=== PATIENT | female | born 1930 | race Hispanic/Latino ===

== ENCOUNTER 2016-10-03 22:59 | Inpatient (IN) | payer MEDICARE, BC ==
--- NOTE | 2016-10-03 23:02 | EDPD ---
HPI Stroke - General Time Seen by Provider: 10/03/16 23:02 Historian: Family (Daughter), EMS - History of Present Illness Narrative History of Present Illness (Free Text): 10/03/16 23:02 Maggie Oliva is an 86 year old female, whose past medical history includes atrial fibrillation, CHF, COPD, abdominal hernia, dementia, multiple UTIs, GI bleed, DVT, and thoracic aortic aneurysm, who presents to the Emergency department brought in by EMS accompanied by daughter complaining of altered mental status. Daughter states she went to check on the patient prior to arrival and noticed patient was not acting or responding as usual. Daughter reports patient was last seen normal 4 hours ago while lying down in bed. Daughter notes weakness to right upper extremity and right lower extremity. Limited HPI and ROS due to patient's altered mental status. Date:: 10/03/16 Time: 23:02 Onset:: Hours Timing: Currently Symptomatic Context: Home Exacerbated by: Nothing Relieved by: Nothing - Location Locate Right: Upper extremity, Lower extremity rTPA Inclusion/Exclusion - Refusal of Treatment Patient Refused Treatment: No - Inclusion Criteria for Altepase Patient is 18 years or Older: Yes The Clinical Diagnosis of Ischemic Stroke That is Causing a Potentially Disabling Neurological Deficit: No Time of Onset is Well Established to be Less Than 270 Minute Before Treatment Would Begin: Yes Risk/Benefit Discussed With Patient/Family Member Present: Yes - Exclusion Criteria for Altepase Uncontrolled Hypertension at Time of Treatment (Systolic BP above 185 or Diastolic BP above 110 mmHg): No Active Internal Bleeding: No Known Bleeding Diathesis Including but Not Limited to: Platelets Below 100,000/ mm,PTT Above 40 sec After Heparin Use, Current Use of Oral Anitcoagulant With INR Greater Than 1.7 or PT Greater Than 15 secs: No Evidence of an Intracranial Hemorrhage: No Evidence of Major Acute Infarct With Signs Greater Than 1/3 MCA Territory: No Suspicion of Subarachnoid Hemorrhage on Pretreatment Evaluation Even if CT Head Negative For Hemorrhage: No - Warning to TPA With Conditions Following Conditions Weighed Against Anticipated Benefit: Yes Condition: Stroke Serevity Too Mild, Rapid Improvement, Age Greater Than 75 years Additional Condition (For 3-4.5 Hour Window): Age Greater Than 80 Past Medical History - Provider Review Nursing Documentation Reviewed: Yes - Infectious Disease Hx of Infectious Diseases: None - Tetanus Immunization Tetanus Immunization: Unknown - Cardiac Hx Cardiac Disorders: Yes Hx Congestive Heart Failure: Yes - Pulmonary Hx Chronic Obstructive Pulmonary Disease (COPD): Yes - Neurological Hx Dementia: Yes - Renal Hx Renal Disorder: No - Endocrine/Metabolic Hx Endocrine Disorders: No - Hematological/Oncological Hx Blood Transfusions: Yes - Integumentary Hx Dermatological Disorder: Yes Other/Comment: L LEG LESION - Musculoskeletal/Rheumatological Hx Falls: Yes - Gastrointestinal Hx Gastrointestinal Disorders: Yes (CONSTIPATION) Hx Diverticulitis: Yes - Genitourinary/Gynecological Hx Incontinence: Yes - Psychiatric Hx Psychophysiologic Disorder: No Hx Emotional Abuse: No Hx Physical Abuse: No Hx Substance Use: No - Past Surgical History Past Surgical History: No Previous - Surgical History Hx Orthopedic Surgery: Yes (L HIP) Other/Comment: ABD HERNIA REPAIR - Anesthesia Hx Anesthesia: Yes Hx Anesthesia Reactions: No Hx Malignant Hyperthermia: No - Suicidal Assessment Feels Threatened In Home Enviroment: No Family/Social History - Family/Social History Family History: Non-Contributory - Dr. He Nursing documentation reviewed.: Yes Allergies/Home Meds Allergies/Adverse Reactions: Allergies No Known Allergies Allergy (Verified 10/03/16 23:14) Home Medications: Home Meds Medication Instructions Recorded Confirmed Pantoprazole Sodium [Protonix] 40 mg PO DAILY 08/10/14 07/11/16 Acetaminophen with Codeine 1 tab PO .DINNER 07/11/16 07/11/16 [Tylenol with Codeine #3 Tablet] Clonazepam [Klonopin] 0.5 mg PO HS PRN 07/11/16 07/11/16 Cranberry 0 mg PO BID 07/11/16 07/11/16 Digoxin 125 mcg PO .DINNER 07/11/16 07/11/16 Docusate [Colace] 100 mg PO BID 07/11/16 07/11/16 Melatonin 10 mg PO HS 07/11/16 07/11/16 QUEtiapine [Seroquel] 2 tab PO HS PRN 07/11/16 07/11/16 Spironolactone [Aldactone] 25 mg PO BID 07/11/16 07/11/16 Warfarin [Coumadin] 2 mg PO HS 07/11/16 07/11/16 Review of Systems - Review of Systems Systems not reviewed;Unavailable: Altered Mental Status Neurological: Other (+right arm/leg weakness) Psychiatric: Other (+altered mental status) ED Stroke Physical Exam Vital Signs Reviewed: Yes Temperature: Febrile Blood Pressure: Normal Pulse: Tachycardic Respiratory Rate: Normal Appearance: Positive for: Non-Toxic Pain Distress: None Mental Status: Positive for: other (Alert, answers to questioning) - Systems Exam Head: Present: Atraumatic, Normocephalic Pupils: Present: PERRL Extroacular Muscles: Present: EOMI Conjunctiva: Present: Normal Mouth: Present: Moist Mucous Membranes Neck: Present: Normal Range of Motion Respiratory/Chest: Present: Clear to Auscultation, Good Air Exchange. No: Respiratory Distress, Accessory Muscle Use Cardiovascular: Present: Regular Rate and Rhythm, Normal S1, S2. No: Murmurs Abdomen: Present: Normal Bowel Sounds. No: Tenderness, Distention, Peritoneal Signs Upper Extremity: Present: NORMAL PULSES, Other (Minimal right upper extremity weakness). No: Cyanosis, Edema, Tenderness, Swelling, Deformity Lower Extremity: Present: NORMAL PULSES. No: Edema, Cyanosis, Tenderness, Swelling, Deformity Neurologic: Present: GCS=15, CN II-XII Intact, Speech Normal, Other (Minimal right upper extremity and right lower extremity weakness) Skin: Present: Warm, Dry, Normal Color. No: Rashes Psychiatric: Present: Alert, Other (Answers to questioning) Medical Decision Making ED Course and Treatment: 10/03/16 23:02 Impression: 86 year old female brought in by EMS for AMS and right arm/leg weakness tonight. Differential Diagnosis include but are not limited to: TIA vs. CVA Plan: -- CT Head w/o contrast -- EKG -- Chest X-ray -- Labs, troponin, lipid panel, blood type and screen -- Reassess and disposition Prior Visits: Notes and results from previous visits were reviewed. Progress Notes: 10/03/16 23:02 Code Stroke called. Pt taken to CT scan. 10/03/16 23:19 Reviewed radiology, CT Head shows: No evidence of acute infarct or intracranial hemorrhage. Opacification of the left mastoid cells consistent with mastoiditis. Otherwise no evidence of acute disease. 10/03/16 23:32 Reviewed EKG, sinus tachycardia at 119 bpm. RBBB. LAD. LVH with repolarization abnormality. 10/04/16 00:10 Pt febrile, tachy, with lactate of 3.3. Code Sepsis called. 10/04/16 00:14 Chest X-ray shows questionable left lower lung infiltrate. 10/04/16 00:19 Case discussed with medical sales specialist , Guillermo Chatman and wood patternmaker apprentice . 10/04/16 00:58 Pt with resolution of right upper/lower extremity weakness, pt not a candidate for tPA. had been called 10/04/16 03:38 Pt.with repeat VBG lactate decreased.IV fluids/antibiotics had been administered.Case was d/w who evaluated the pt.Agrees pt. may go to telemetry bed.Pt. is stable.Pt. with DNR status. spoken with. - Critical Care Critical Care Minutes: 30 minutes - Lab Interpretations I have reviewed the lab results: Yes Interpretation: Abnormal lab values - RAD Interpretation Narrative RAD Interpretations (Text): , CT Head shows: Brain: There is diffuse cerebral atrophy present, consistent with this patient' s age. There are chronic microvascular ischemic changes. No hemorrhage. Ventricles: Unremarkable. No ventriculomegaly. Bones/joints: Unremarkable. No acute fracture. Soft tissues: Unremarkable. Sinuses: Unremarkable as visualized. No acute sinusitis. Mastoid air cells: There is mild partial opacification of the left mastoid air cells. IMPRESSION: No evidence of acute infarct or intracranial hemorrhage. Opacification of the left mastoid cells consistent with mastoiditis. Otherwise no evidence of acute disease. Cement Fittings Maker: ED Physician, Radiologist - EKG Interpretation Interpreted by ED Physician: Yes Type: 12 lead EKG NIHSS Scale([place]) 2 Time Performed: 23:40 - How Severe is the Stoke Baseline Level of Consciousness: 0=Alert LOC to Questions: 0=Both comments correct LOC to commands: 0=Obeys both correctly Best Gaze: 0=Normal Visual: 0=No visual loss Facial: 0=Normal Motor Arm - Left: 0=No drift Motor Arm - Right: 0=No drift Motor Leg - Left: 0=No drift Motor Leg - Right: 0=No drift Limb Ataxia: 0=Absent Sensory: 0=Normal Best Language: 0=No aphasia Dysarthia: 0=Normal articulation Extinction & Inattention (Neglect): 0=Normal, no object Score: 0 Risk Level: No Stroke Risk - Scribe Statement The provider has reviewed the documentation as recorded by the Brittani Littlejohn Provider Attestation: All medical record entries made by the Scribe were at my direction and personally dictated by me. I have reviewed the chart and agree that the record accurately reflects my personal performance of the history, physical exam, medical decision making, and the department course for this patient. I have also personally directed, reviewed, and agree with the discharge instructions and disposition. NIHSS Scale ([place]) Time Performed: 23:00 - How Severe is the Stoke Baseline Level of Consciousness: 0=Alert LOC to Questions: 0=Both comments correct LOC to commands: 0=Obeys both correctly Best Gaze: 0=Normal Visual: 0=No visual loss Facial: 0=Normal Motor Arm - Left: 0=No drift Motor Arm - Right: 1=Drift noted before 10 sec Motor Leg - Left: 0=No drift Motor Leg - Right: 1=Drift before 5 sec Limb Ataxia: 0=Absent Sensory: 0=Normal Best Language: 0=No aphasia Dysarthia: 0=Normal articulation Extinction & Inattention (Neglect): 0=Normal, no object Score: 2 Risk Level: Minor Stroke Risk Disposition/Present on Arrival - Present on Arrival Any Indicators Present on Arrival: No History of DVT/PE: No History of Uncontrolled Diabetes: No Urinary Catheter: No History of Decub. Ulcer: No History Surgical Site Infection Following: None - Disposition Have Diagnosis and Disposition been Completed?: Yes Diagnosis: Sepsis, TIA (transient ischemic attack) Disposition: HOSPITALIZED Disposition Time: 03:47 Patient Plan: Admission Patient Problems: Current Active Problems Problem Status Diagnosed Sepsis Acute TIA (transient ischemic attack) Acute Condition: STABLE
[2016-10-03 23:03] VITALS: BMI 28.5
[2016-10-03 23:33] LABS: HEMATOCRIT 39.2 % (36.0-48.0); MEAN CELL VOLUME 78.7 fL (80.0-105.0); MEAN CORPUSCULAR HEMOGLOBIN 24.7 pg (25.0-35.0); MEAN CORPUSCULAR HGB CONC 31.4 g/dl (31.0-37.0); MEAN PLATELET VOLUME 9.3 fl (7.0-11.0); PLATELET COUNT 239 10^3/uL (120.0-450.0); RED CELL DISTRIBUTION WIDTH 17.1 % (11.5-14.5); WHITE BLOOD COUNT 8.5 10^3/ul (4.5-11.0)
[2016-10-03 23:37] LABS: ADD MANUAL DIFF? YES
[2016-10-03 23:42] LABS: VENOUS BLOOD GAS BASE EXCESS -0.2 mmol/L (0.0-2.0); VENOUS BLOOD PH 7.47 (7.32-7.43)
[2016-10-03 23:45] LABS: URINE BILIRUBIN NEGATIVE (NEGATIVE); URINE BLOOD SMALL (NEGATIVE); URINE GLUCOSE (UA) NEGATIVE (NEGATIVE); URINE KETONE NEGATIVE (NEGATIVE); URINE LEUKOCYTE ESTERASE LARGE Leu/uL (NEGATIVE); URINE PROTEIN 100 mg/dL (<30 mg/dL); URINE UROBILINOGEN 0.2 E.U./dL (<1 E.U./dL)
[2016-10-03 23:45] LABS: ALKALINE PHOSPHATASE 97 U/L (38-133); ALT/SGPT 25 U/L (7-56); AST/SGOT 22 U/L (15-39); BILIRUBIN,TOTAL 0.6 mg/dL (0.2-1.3); BLOOD UREA NITROGEN 18 mg/dL (7-21); CALCIUM 10.3 mg/dL (8.4-10.5); CARBON DIOXIDE 22 mmol/L (21-33); CHLORIDE 105 mmol/L (98-107); CHOLESTEROL 130 mg/dL (130-200); GFR AFRICAN-AMERICAN > 60; GLUCOSE,RANDOM 139 mg/dL (70-110); INR 1.27 (0.93-1.08); PARTIAL THROMBOPLASTIN TIME 25.9 Seconds (23.7-30.8); POTASSIUM 3.4 mmol/L (3.6-5.0); SODIUM 141 mmol/L (132-148); TOTAL PROTEIN 7.7 g/dL (5.8-8.3)
[2016-10-03 23:47] LABS: URINE APPEARANCE CLOUDY (CLEAR); URINE COLOR YELLOW (YELLOW)
[2016-10-03] MEDS: Sodium Chloride 0.9% 1,000 ML IV SCH (23:47)
[2016-10-03 23:53] LABS: URINE BACTERIA MANY (NEG); URINE WBC 15 - 20 /hpf (0-6)
[2016-10-03 23:57] LABS: TROPONIN I < 0.01 ng/mL
[2016-10-04] MEDS ORDERED: Sodium Chloride 0.9% 1,000 ML IV STA ×3 (00:13→01:53)
[2016-10-04] MEDS ORDERED: Vancomycin 1gm in NS 250ml 250 ML IVPB STA (00:15)
[2016-10-04] MEDS ORDERED: Cefepime IV 2 gm in NS 100 ML IVPB STA (00:15)
[2016-10-04 00:16] LABS: NEUTROPHIL 84 % (50.0-70.0)
[2016-10-04 00:18] LABS: BAND 11 % (0-2); PLATELET ESTIMATE NORMAL (NORMAL)
--- NOTE | 2016-10-04 01:31 | CP.PCM.HP ---
<Julita Genao - Last Filed: 10/04/16 03:06> History of Present Illness - History of Present Illness History of Present Illness: 86 F with PMHx of AFib on coumadin, CHF, COPD, urinary incontinence, AAA and thoracic aortic aneurysm, multiple UTIs, GI bleed, DVT, and dementia presents to [facility] with complaints of AMS. Pt's daughter is at bedside, she reports that the patient was restless at home and would set off the bed alarm trying to get out of bed. She was found to be out of bed and in her wheelchair at the doorway without any recollection of how she got there or why. Pt's daughter returned her to her bed. However, at approximately 5pm pt was found to have vomited on herself with thick mucus laden emesis. As per pt daughter, she was not acting like herself or responding appropriately and noticed an associated Rt sided weakness in both upper extremity and lower extremity. Of note, pt has a hx of rt hip fx and arthritis. Upon these constellation of symptoms, pt's daughter decided to bring her mother to the [facility]. A code stroke was called in the ED following complaints of RUE and RLE weakness and AMS. Pt's CTH was not found to demonstrate any acute intracranial pathology. Upon further labwork and imaging, pt was found to be in severe sepsis, and a code sepsis was called. Pt was seen and examined at bedside with daughter present. She is AAOx3, following commands , and has complaints of "not feeling too well". Pt admits to chills and hip pain. She denied fever, headaches, sob, chest pains, palpitations, abdominal pains, n/v/d/c. PMHx: AFib on coumadin, CHF, COPD, urinary incontinence, AAA and thoracic aortic aneurysm, multiple UTIs, GI bleed, DVT, and dementia PSHx: Abdominal hernia repair, Left Hip SHx: Denied tobacco/etoh/illicit drug abuse. Lives with daughter who is POA. Walker to ambulate FamHx: Noncontributory Meds: MAR reviewed Allergies: NKDA Present on Admission - Present on Admission Any Indicators Present on Admission: Yes History of DVT/PE: Yes History of Uncontrolled Diabetes: No Urinary Catheter: No Decubitus Ulcer Present: No Review of Systems - Review of Systems Review of Systems: as per HPI otherwise negative Past Patient History - Infectious Disease Hx of Infectious Diseases: None - Tetanus Immunizations Tetanus Immunization: Unknown - Past Social History Smoking Status: Former Smoker - CARDIAC Hx Cardiac Disorders: Yes Hx Congestive Heart Failure: Yes - PULMONARY Hx Chronic Obstructive Pulmonary Disease (COPD): Yes - NEUROLOGICAL Hx Dementia: Yes - RENAL Hx Chronic Kidney Disease: No - ENDOCRINE/METABOLIC Hx Endocrine Disorders: No - HEMATOLOGICAL/ONCOLOGICAL Hx Blood Transfusions: Yes - INTEGUMENTARY Hx Dermatological Problems: Yes Other/Comment: L LEG LESION - MUSCULOSKELETAL/RHEUMATOLOGICAL Hx Falls: Yes - GASTROINTESTINAL Hx Gastrointestinal Disorders: Yes (CONSTIPATION) Hx Diverticulitis: Yes - GENITOURINARY/GYNECOLOGICAL Hx Incontinence: Yes - PSYCHIATRIC Hx Psychophysiologic Disorder: No Hx Emotional Abuse: No Hx Physical Abuse: No Hx Substance Use: No - SURGICAL HISTORY Hx Orthopedic Surgery: Yes (L HIP) Other/Comment: ABD HERNIA REPAIR - ANESTHESIA Hx Anesthesia: Yes Hx Anesthesia Reactions: No Hx Malignant Hyperthermia: No Meds Allergies/Adverse Reactions: Allergies Allergy/AdvReac Type Severity Reaction Status Date / Time No Known Allergies Allergy Verified 10/03/16 23:14 Physical Exam - Constitutional Appears: Non-toxic, No Acute Distress - Head Exam Head Exam: ATRAUMATIC, NORMAL INSPECTION, NORMOCEPHALIC - Eye Exam Eye Exam: EOMI, Normal appearance, PERRL Pupil Exam: NORMAL ACCOMODATION, PERRL - ENT Exam ENT Exam: Mucous Membranes Dry - Neck Exam Neck exam: Positive for: Normal Inspection - Respiratory Exam Respiratory Exam: Decreased Breath Sounds, NORMAL BREATHING PATTERN. absent: Rales, Rhonchi, Wheezes - Cardiovascular Exam Cardiovascular Exam: REGULAR RHYTHM, +S1, +S2 - GI/Abdominal Exam GI & Abdominal Exam: Normal Bowel Sounds, Soft. absent: Tenderness - Extremities Exam Extremities exam: Positive for: normal inspection, tenderness. Negative for: calf tenderness, pedal edema - Neurological Exam Neurological exam: Alert, CN II-XII Intact, Oriented x3, Reflexes Normal - Psychiatric Exam Psychiatric exam: Normal Affect, Normal Mood - Skin Skin Exam: Dry, Intact, Normal Color, Warm Results - Vital Signs Recent Vital Signs: Last Vital Signs Temp 101.6 F H 10/04/16 00:33 Pulse 106 H 10/04/16 00:33 Resp 18 10/04/16 00:33 BP 100/62 10/04/16 00:33 Pulse Ox 96 10/04/16 00:33 - Labs Result Diagrams: 10/03/16 23:15 10/03/16 23:15 Labs: Laboratory Results - last 24 hr 10/03/16 10/03/16 23:15 23:36 WBC 8.5 RBC 4.98 Hgb 12.3 Hct 39.2 MCV 78.7 L MCH 24.7 L MCHC 31.4 RDW 17.1 H Plt Count 239 MPV 9.3 Neutrophils % (Manual) 84 H Band Neutrophils % 11 H* Lymphocytes % (Manual) 4 L Monocytes % (Manual) 1 Platelet Evaluation Normal PT 13.7 H INR 1.27 H APTT 25.9 pO2 60 H VBG pH 7.47 H VBG pCO2 31.0 L VBG HCO3 22.6 VBG Total CO2 23.6 VBG O2 Sat (Calc) 95.6 H VBG Base Excess -0.2 L VBG Potassium 3.5 L Sodium 141 Chloride 105 Glucose 142 H Lactate 3.3 H FiO2 21.0 Potassium 3.4 L Carbon Dioxide 22 Anion Gap 17 BUN 18 Creatinine 0.7 Est GFR ( Amer) > 60 Est GFR (Non-Af Amer) > 60 Random Glucose 139 H Calcium 10.3 Total Bilirubin 0.6 AST 22 ALT 25 Alkaline Phosphatase 97 Troponin I < 0.01 Total Protein 7.7 Albumin 3.9 Globulin 3.8 Albumin/Globulin Ratio 1.0 L Triglycerides 174 H Cholesterol 130 LDL Cholesterol Direct 74 HDL Cholesterol 23 L Venous Blood Potassium 3.5 L Urine Color Yellow Urine Appearance Cloudy Urine pH 6.0 Ur Specific [place] >= 1.030 Urine Protein 100 H Urine Glucose (UA) Negative Urine Ketones Negative Urine Blood Small H Urine Nitrate Negative Urine Bilirubin Negative Urine Urobilinogen 0.2 Ur Leukocyte Esterase Large H Urine RBC 1 - 3 Urine WBC 15 - 20 Ur Epithelial Cells 1 - 3 Urine Bacteria Many Blood Type O POSITIVE Antibody Screen Negative BBK History Checked Patient has bt Assessment & Plan - Assessment and Plan (Free Text) Assessment: 86 F with PMHx of AFib on coumadin, CHF, COPD, urinary incontinence, AAA and thoracic aortic aneurysm, multiple UTIs, GI bleed, DVT, and dementia presents to [facility] with complaints of AMS, found to have severe sepsis with possible LLL pna and UTI as potential sources. 1. Severe Sepsis - febrile, tachycardic, UTI and LLL infiltrate - Bandemia on CBC, lactate 3.3 - Fluid resuscitated, fu repeat lactic acid and reassess IVF - lactic acid downtrending, hypotensive, further fluid resuscitation - Cefepime and Vanco - Fu BCx, UCx, repeat CXR - ID Consulted, Dr. Barnett 2. AMS - likely 2/2 sepsis - CTH negative - No further R sided weakness - AAOx3, continue to monitor - continue home meds for dementia - Monitor Elytes and supplement as needed 3. Afib - Digoxin and coumadin - Fu digoxin level - continue to monitor 4. CHF - Continue to monitor with fluid resuscitation - digoxin - strict I&Os - hazel in place 5. COPD - Duonebs prn - maintain 02 sat >88% - continue to monitor 6. DVT ppx 7. GI ppx Seen reviewed and discussed with attending <Rebeca Tai - Last Filed: 10/04/16 03:38> Results - Vital Signs Recent Vital Signs: Last Vital Signs Temp 101.6 F H 10/04/16 00:33 Pulse 80 10/04/16 02:50 Resp 17 10/04/16 02:50 BP 89/46 L 10/04/16 02:50 Pulse Ox 98 10/04/16 02:50 - Labs Result Diagrams: 10/03/16 23:15 10/03/16 23:15 Labs: Laboratory Results - last 24 hr 10/03/16 10/03/16 10/04/16 23:15 23:36 02:20 WBC 8.5 RBC 4.98 Hgb 12.3 Hct 39.2 MCV 78.7 L MCH 24.7 L MCHC 31.4 RDW 17.1 H Plt Count 239 MPV 9.3 Neutrophils % (Manual) 84 H Band Neutrophils % 11 H* Lymphocytes % (Manual) 4 L Monocytes % (Manual) 1 Platelet Evaluation Normal PT 13.7 H INR 1.27 H APTT 25.9 pO2 60 H 55 VBG pH 7.47 H 7.30 L VBG pCO2 31.0 L 50.0 VBG HCO3 22.6 24.6 VBG Total CO2 23.6 26.1 VBG O2 Sat (Calc) 95.6 H 88.5 H VBG Base Excess -0.2 L -2.4 L VBG Potassium 3.5 L 3.3 L Sodium 141 142.0 Chloride 105 114.0 H Glucose 142 H 137 H Lactate 3.3 H 2.7 H FiO2 21.0 21.0 Potassium 3.4 L Carbon Dioxide 22 Anion Gap 17 BUN 18 Creatinine 0.7 Est GFR ( Amer) > 60 Est GFR (Non-Af Amer) > 60 Random Glucose 139 H Calcium 10.3 Total Bilirubin 0.6 AST 22 ALT 25 Alkaline Phosphatase 97 Troponin I < 0.01 Total Protein 7.7 Albumin 3.9 Globulin 3.8 Albumin/Globulin Ratio 1.0 L Triglycerides 174 H Cholesterol 130 LDL Cholesterol Direct 74 HDL Cholesterol 23 L Venous Blood Potassium 3.5 L 3.3 L Urine Color Yellow Urine Appearance Cloudy Urine pH 6.0 Ur Specific [place] >= 1.030 Urine Protein 100 H Urine Glucose (UA) Negative Urine Ketones Negative Urine Blood Small H Urine Nitrate Negative Urine Bilirubin Negative Urine Urobilinogen 0.2 Ur Leukocyte Esterase Large H Urine RBC 1 - 3 Urine WBC 15 - 20 Ur Epithelial Cells 1 - 3 Urine Bacteria Many Blood Type O POSITIVE Antibody Screen Negative BBK History Checked Patient has bt Attending/Attestation - Attestation I have personally seen and examined this patient.: Yes I have fully participated in the care of the patient.: Yes I have reviewed all pertinent clinical information: Yes Notes (Text): 10/04/16 03:29 Patient was seen when she was in the ER in bed # 8. Agree with history, physical examination, assessment and plan. Following should be included. This 86 year old white woman who has history of UTI,COPD ,Atrial fibrillation, CHF,Dementia,Hx GI bleeding,Hx DVT.,Hx Thoracic aortic aneurism, Left hip replacement,Arthritis-Left hip,Family history -Lung cancer ,multiple members. History abdominal aortic aneruism,History macular degeneration,HIstory bilateral cataract,Left ear deafness,history blood transfusion,GERD/PUD. History endoscopy/colonoscopy,History depression , was on welbutrin 1 year ago is admitted with altered mental status, hypokalemia, bandemia, sepsis, dehydration, elevated lactate level, mastoiditis.
[2016-10-04] MEDS: Digoxin 125 mcg (0.125 mg) Tab PO SCH (02:09)
[2016-10-04] MEDS ORDERED: Potassium Chloride 20 mEq ER Tab PO STA (02:09)
[2016-10-04 02:36] LABS: VENOUS BLOOD GAS BASE EXCESS -2.4 mmol/L (0.0-2.0)
[2016-10-04] MEDS: Potassium Chloride 10 mEq 100 ML IVPB SCH ×2 (03:34→05:17)
[2016-10-04] MEDS: Sodium Chloride 0.9% 1,000 ML IV SCH ×3 (04:13→21:56)
--- NOTE | 2016-10-04 06:51 | PCM.SEPTIC ---
Sepsis Progress Note - Reassessment Type Date of Evaluation: 10/04/16 Time of Evaluation: 06:00 Reassessment Type: Non-invasive reassessment - Non Invasive Reassessment Were the most recent vital sign reviewed: Yes Vital Sign (Latest): Temp Pulse Resp BP Pulse Ox 97.8 F 59 L 18 94/52 L 98 10/04/16 05:20 10/04/16 05:20 10/04/16 05:20 10/04/16 05:20 10/04/16 04:24 Cardiovascular: Yes: Regular Rate, Rhythm Respiratory: Yes: Normal Breath Sounds Capillary Refill: Normal (Less than 2 sec) Skin: Normal Color, Warm, Dry (BP mildly improved, AAOx3- somnolent but arousable, questionable urine output - hazel in place without output however sheet underneath wet, nurse to recatheterize pt. )
--- NOTE | 2016-10-04 07:30 | CT ---
PROCEDURE: CT HEAD WITHOUT CONTRAST. HISTORY: CODE STROKE COMPARISON: None available. TECHNIQUE: Axial computed tomography images were obtained through the head/brain without intravenous contrast. Radiation dose: Total exam DLP = 745 mGy-cm. This CT exam was performed using one or more of the following dose reduction techniques: Automated exposure control, adjustment of the mA and/or kV according to patient size, and/or use of iterative reconstruction technique. FINDINGS: HEMORRHAGE: No intracranial hemorrhage. BRAIN: No mass effect or edema. Chronic periventricular white matter ischemic disease. VENTRICLES: Unremarkable. No hydrocephalus. CALVARIUM: Unremarkable. PARANASAL SINUSES: Unremarkable as visualized. No significant inflammatory changes. MASTOID AIR CELLS: Unremarkable as visualized. No inflammatory changes. OTHER FINDINGS: None. IMPRESSION: No acute hemorrhage.
[2016-10-04 07:59] LABS: ADD MANUAL DIFF? NO
[2016-10-04 08:04] LABS: BASO # 0.02 K/mm3 (0.0-2.0); BASO % 0.1 % (0.0-3.0); EOS % 0.1 % (1.5-5.0); GRAN # 15.56 (1.4-6.5); GRAN % 91.6 % (50.0-68.0); HEMATOCRIT 33.5 % (36.0-48.0); LYMPH # 0.6 (1.2-3.4); LYMPH % 3.7 % (22.0-35.0); MEAN CELL VOLUME 80.5 fL (80.0-105.0); MEAN CORPUSCULAR HEMOGLOBIN 24.5 pg (25.0-35.0); MEAN CORPUSCULAR HGB CONC 30.4 g/dl (31.0-37.0); MEAN PLATELET VOLUME 9.5 fl (7.0-11.0); MONO # 0.8 (0.1-0.6); MONO % 4.5 % (1.0-6.0); PLATELET COUNT 225 10^3/uL (120.0-450.0); RED CELL DISTRIBUTION WIDTH 17.4 % (11.5-14.5)
[2016-10-04 08:12] LABS: VENOUS BLOOD GAS BASE EXCESS -2.4 mmol/L (0.0-2.0); VENOUS BLOOD PH 7.35 (7.32-7.43)
[2016-10-04 08:14] LABS: ALB/GLOB RATIO 0.9 (1.1-1.8); ALKALINE PHOSPHATASE 58 U/L (38-133); ALT/SGPT 23 U/L (7-56); AST/SGOT 15 U/L (15-39); BILIRUBIN,TOTAL 0.5 mg/dL (0.2-1.3); BLOOD UREA NITROGEN 17 mg/dL (7-21); CALCIUM 8.9 mg/dL (8.4-10.5); CARBON DIOXIDE 22 mmol/L (21-33); CHLORIDE 112 mmol/L (95-110); GFR AFRICAN-AMERICAN > 60; GLUCOSE,RANDOM 133 mg/dL (70-110); MAGNESIUM 1.7 mg/dL (1.7-2.2); PHOSPHOROUS 2.7 mg/dL (2.5-4.5); POTASSIUM 4.3 mmol/L (3.6-5.0); SODIUM 143 mmol/L (132-148); TOTAL PROTEIN 6.2 g/dL (5.8-8.3)
[2016-10-04 08:23] LABS: INR 1.37 (0.93-1.08)
--- NOTE | 2016-10-04 08:28 | RAD ---
PROCEDURE: CHEST RADIOGRAPH, 1 VIEW HISTORY: cva COMPARISON: None available. FINDINGS: LUNGS: Can't exclude left lower lobe infiltrate. PLEURA: No pneumothorax or pleural fluid seen. CARDIOVASCULAR: Cardiomegaly with atherosclerotic, uncoiled aorta. OSSEOUS STRUCTURES: No significant abnormalities. VISUALIZED UPPER ABDOMEN: Normal. OTHER FINDINGS: None. IMPRESSION: Cannot exclude small left lower lobe infiltrate.
[2016-10-04] MEDS: Nystatin 100,000 Units/gm Topical Pow(15 gm) TOP SCH ×2 (09:39→17:27)
[2016-10-04] MEDS: Vancomycin 1gm in NS 250ml 250 ML IVPB SCH ×2 (09:42→21:56)
[2016-10-04] MEDS: Pantoprazole 40 mg EC Tab PO SCH (09:42)
[2016-10-04] MEDS ORDERED: Vancomycin 1gm in NS 250ml 250 ML IVPB SCH (10:00)
[2016-10-04] MEDS ORDERED: Cefepime IV 2 gm in NS 100 ML IVPB SCH (10:00)
[2016-10-04 11:39] LABS: VENOUS BLOOD GAS BASE EXCESS -3.6 mmol/L (0.0-2.0); VENOUS BLOOD PH 7.27 (7.32-7.43)
--- NOTE | 2016-10-04 13:08 | CP.PCM.CON ---
History of Present Illness - History of Present Illness History of Present Illness: 86 year old female with PMH of atrial fibrillation, COPD, chronic CHF, dementia , abdominal aortic aneurysm, history of multiple UTI's, history of GI bleed, history of DVT, history of right hip fracture was brought in by family because the patient was apparently getting restless. She also had one episode of vomiting with mucous noted in the vomitus. There was no note of loss of consciousness, no seizure activity, no bowel or bladder or incontinence. The patient currently is awake and alert, and she does not recall being brought to the hospital. She denies rhinorrhea, no sore throat, no cough, no SOB, no abdominal pain, no dysuria, no diarrhea. In the ED, CXR was done which shows a left base opacity. She was also noted to be febrile in the ED. Infectious diseases consult is requested to further evaluate and manage. Review of Systems - Review of Systems All systems: reviewed and no additional remarkable complaints except (as per HPI ) Past Patient History - Infectious Disease Hx of Infectious Diseases: None - Tetanus Immunizations Tetanus Immunization: Unknown - Past Medical History & Family History Past Medical History?: Yes Past Family History: Reviewed and not pertinent - Past Social History Smoking Status: Former Smoker Alcohol: None Drugs: Denies Home Situation {Lives}: With Family - CARDIAC Hx Cardiac Disorders: Yes Hx Congestive Heart Failure: Yes - PULMONARY Hx Chronic Obstructive Pulmonary Disease (COPD): Yes - NEUROLOGICAL Hx Dementia: Yes - RENAL Hx Chronic Kidney Disease: No - ENDOCRINE/METABOLIC Hx Endocrine Disorders: No - HEMATOLOGICAL/ONCOLOGICAL Hx Blood Transfusions: Yes - INTEGUMENTARY Hx Dermatological Problems: Yes Other/Comment: L LEG LESION - MUSCULOSKELETAL/RHEUMATOLOGICAL Hx Falls: Yes - GASTROINTESTINAL Hx Gastrointestinal Disorders: Yes (CONSTIPATION) Hx Diverticulitis: Yes - GENITOURINARY/GYNECOLOGICAL Hx Incontinence: Yes - PSYCHIATRIC Hx Psychophysiologic Disorder: No Hx Emotional Abuse: No Hx Physical Abuse: No Hx Substance Use: No - SURGICAL HISTORY Hx Orthopedic Surgery: Yes (L HIP) Other/Comment: ABD HERNIA REPAIR - ANESTHESIA Hx Anesthesia: Yes Hx Anesthesia Reactions: No Hx Malignant Hyperthermia: No Meds Allergies/Adverse Reactions: Allergies Allergy/AdvReac Type Severity Reaction Status Date / Time No Known Allergies Allergy Verified 10/03/16 23:14 - Medications Medications: Current Medications Albuterol/Ipratropium (Duoneb 3 Mg/0.5 Mg (3 Ml) Ud) 3 ml IH [id number] PRN PRN Reason: Shortness of Breath Digoxin (Lanoxin) 0.125 mg PO 1400 [facility] Last Admin: 10/04/16 02:09 Dose: Not Given Docusate Sodium (Colace) 100 mg PO BID [facility] Sodium Chloride (Sodium Chloride 0.9%) 1,000 mls @ 100 mls/hr IV .Q10H ERINN Last Admin: 10/04/16 04:13 Dose: 100 mls/hr Cefepime HCl (Maxipime 2gm) 100 mls @ 100 mls/hr IVPB DAILY ERINN PRN Reason: Protocol Stop: 10/09/16 10:01 Vancomycin HCl (Vancomycin 1gm) 250 mls @ 167 mls/hr IVPB DAILY ERINN PRN Reason: Protocol Pantoprazole Sodium (Protonix Ec Tab) 40 mg PO DAILY [facility] Quetiapine Fumarate (Seroquel) 25 mg PO HS PRN; Protocol PRN Reason: Insomnia Warfarin Sodium (Coumadin) 2 mg PO 1800 ERINN PRN Reason: Protocol Physical Exam - Constitutional Appears: Non-toxic, No Acute Distress - Head Exam Head Exam: NORMAL INSPECTION - ENT Exam ENT Exam: Mucous Membranes Moist - Neck Exam Neck exam: Negative for: Lymphadenopathy, Meningismus - Respiratory Exam Respiratory Exam: Decreased Breath Sounds - Cardiovascular Exam Cardiovascular Exam: +S1, +S2 - GI/Abdominal Exam GI & Abdominal Exam: Soft. absent: Tenderness Results - Vital Signs Recent Vital Signs: Last Vital Signs Temp 98.8 F 10/04/16 06:00 Pulse 59 L 10/04/16 06:00 Resp 18 10/04/16 06:00 BP 94/52 L 10/04/16 06:00 Pulse Ox 97 10/04/16 06:00 - Labs Result Diagrams: 10/04/16 07:57 10/04/16 07:57 Assessment & Plan - Assessment and Plan (Free Text) Plan: Assessment Systemic Inflammatory Response Syndrome (fever and tachycardia), R/O sepsis secondary to left lower lobe healthcare-associated pneumonia history of gram negative bacilli UTI atrial fibrillation COPD CHF dementia abdominal aortic aneurysm history of multiple UTI's history of GI bleed history of DVT history of right hip fracture Plan started patient on Vancomycin and Cefepime pending blood, sputum cx, PCT; reviewed CXR and we are unable to rule out left lower lobe pneumonia will monitor clinically
--- NOTE | 2016-10-04 13:15 | CARD ---
APPROVED REPORT EKG Measurement Heart [id number] <Conclusion> Wide QRS rhythm, Likely sinus with First degree AV Block Left axis deviation Left bundle branch block Abnormal ECG
--- NOTE | 2016-10-04 13:27 | CARD ---
APPROVED REPORT EKG Measurement Heart [id number] <Conclusion> Wide QRS rhythm Right bundle branch block Left anterior fascicular block Bifascicular block Left ventricular hypertrophy with repolarization abnormality Cannot rule out Septal infarct, age undetermined Abnormal ECG
[2016-10-04] MEDS: Cefepime IV 2 gm in NS 100 ML IVPB SCH ×2 (14:33→21:57)
[2016-10-04] MEDS: Acetylcysteine 20% Inhal Soln (4ml) IH SCH ×3 (14:41→22:00)
[2016-10-04] MEDS: Albuterol-Ipratrop 3 mg / 0.5 (3 ml) UD IH PRN ×2 (14:41→20:58)
[2016-10-05] MEDS: Sodium Chloride 0.9% 1,000 ML IV SCH ×2 (04:19→11:42)
[2016-10-05] MEDS: Cefepime IV 2 gm in NS 100 ML IVPB SCH ×3 (06:18→21:40)
[2016-10-05 07:46] LABS: ADD MANUAL DIFF? NO
[2016-10-05] MEDS: Albuterol-Ipratrop 3 mg / 0.5 (3 ml) UD IH PRN ×3 (07:47→21:23)
[2016-10-05] MEDS: Acetylcysteine 20% Inhal Soln (4ml) IH SCH ×3 (07:48→21:22)
[2016-10-05 07:52] LABS: BASO # 0.03 K/mm3 (0.0-2.0); BASO % 0.3 % (0.0-3.0); EOS # 0.2 (0.0-0.7); EOS % 1.9 % (1.5-5.0); GRAN # 6.52 (1.4-6.5); HEMATOCRIT 29.5 % (36.0-48.0); LYMPH # 1.3 (1.2-3.4); LYMPH % 14.9 % (22.0-35.0); MEAN CORPUSCULAR HGB CONC 30.8 g/dl (31.0-37.0); MEAN PLATELET VOLUME 9.4 fl (7.0-11.0); MONO # 0.6 (0.1-0.6); MONO % 6.9 % (1.0-6.0); PLATELET COUNT 190 10^3/uL (120.0-450.0); RED CELL DISTRIBUTION WIDTH 17.7 % (11.5-14.5); WHITE BLOOD COUNT 8.6 10^3/ul (4.5-11.0)
[2016-10-05 08:02] LABS: INR 1.37 (0.93-1.08)
[2016-10-05 09:02] LABS: ALB/GLOB RATIO 0.9 (1.1-1.8); ALKALINE PHOSPHATASE 55 U/L (38-133); ALT/SGPT 21 U/L (7-56); AST/SGOT 16 U/L (15-39); BILIRUBIN,TOTAL 0.3 mg/dL (0.2-1.3); BLOOD UREA NITROGEN 13 mg/dL (7-21); CALCIUM 9.1 mg/dL (8.4-10.5); CARBON DIOXIDE 23 mmol/L (21-33); CHLORIDE 114 mmol/L (95-110); GFR AFRICAN-AMERICAN > 60; GLUCOSE,RANDOM 97 mg/dL (70-110); SODIUM 143 mmol/L (132-148); TOTAL PROTEIN 5.8 g/dL (5.8-8.3)
[2016-10-05] MEDS: Pantoprazole 40 mg EC Tab PO SCH (09:47)
[2016-10-05] MEDS: Vancomycin 1gm in NS 250ml 250 ML IVPB SCH ×2 (09:48→21:39)
[2016-10-05] MEDS: Nystatin 100,000 Units/gm Topical Pow(15 gm) TOP SCH ×2 (09:48→17:35)
--- NOTE | 2016-10-05 09:51 | CON ---
DATE: 10/05/2016 INDICATIONS: AFib, sepsis and pneumonia. HISTORY OF PRESENT ILLNESS: This is an 86-year-old woman who was found to have alteration in mental status yesterday by her family. She has a long history of medical problems including atrial fibrillation, on Coumadin; UTIs, dementia, COPD, urinary incontinence, abdominal and thoracic aortic aneurysms, GI bleeding. Apparently she was more restless with altered mental status and her daughter brought her to the Emergency Room where she was found to have evidence of sepsis syndrome, possible left lower lobe pneumonia, and an abnormal EKG with a wide complex tachycardia noted. This morning, she is resting comfortably in bed. There is no chest pain or shortness of breath. There is no orthopnea, PND, syncope, presyncope, lightheadedness, dizziness or vertigo. There is no abdominal pain, nausea, vomiting, diarrhea, constipation, or melena. She may have vomited once prior to admission. There is no fever, chills, rigor, sweats, cough, sputum production or hemoptysis. PAST MEDICAL HISTORY: As noted above, also includes abdominal hernia repair, history of cigarette smoking, left hip surgery, DVT. CODE STATUS: DNR/DNI. MEDICATIONS: At the time of admission included Aldactone, Colace, warfarin, digoxin, Klonopin, doxycycline, melatonin, Protonix, Seroquel, Tylenol with codeine and Vantin. ALLERGIES: There are no known medication allergies. SOCIAL HISTORY: She is a former smoker. She does not drink alcohol. She lives at home with her family. She ambulates with a walker. REVIEW OF SYSTEMS: A 10-point review of systems is limited. FAMILY HISTORY: Noncontributory. PHYSICAL EXAMINATION: GENERAL: She is a well-developed elderly woman lying in bed on telemetry in no acute distress. VITAL SIGNS: She is in sinus rhythm, sinus bradycardia. She is afebrile. Blood pressure 108/48, respirations 19-20, O2 sat 97%. HEENT: Reveals no neck vein distention, thyromegaly, or carotid bruits. Mucous membranes are moist. Conjunctivae are pink. NECK: Supple. LUNG MUÑOZ: Diminished breath sounds at the bases. No wheezing or rhonchi heard. HEART: Revealed normal first and second heart sounds. There is a systolic murmur along the left sternal border. The PMI is not displaced. ABDOMEN: Soft. Bowel sounds are present. No mass, organomegaly, tenderness, rebound, guarding, CVA tenderness or palpable abdominal aortic aneurysm. EXTREMITIES: Revealed no cyanosis, clubbing, or edema. NEUROLOGIC: She is awake and alert. PSYCHIATRIC: Normal as to mood and affect. SKIN: Warm and dry. No rash or cellulitis. LABORATORY AND IMAGING: White count 8600; hemoglobin 12.3, followup this morning 9.1; hematocrit 39.2, repeat today 29.5; platelet counts are normal. PT 14.8, INR 1.37, PTT was normal. Blood gases are noted. Electrolytes unremarkable except for potassium of 3.4, repeat 4.3l BUN, creatinine unremarkable. Blood sugar is noted in 100-200 range. Magnesium 1.7. LFTs unremarkable. Troponin less than 0.01. Total cholesterol 130, triglycerides 174, LDL 74, HDL 23. Second troponin 0.01. Two blood cultures negative at 24 hours. IMPRESSION: The patient is an 86-year-old woman admitted with altered mental status, chills, vomiting at home, apparent sepsis syndrome, possible left lower lobe pneumonia, history of paroxysmal atrial fibrillation on warfarin with an abnormal electrocardiogram showing a wide complex tachycardia which may have been sinus tachycardia with right bundle branch block, left anterior hemiblock. A repeat electrocardiogram shows sinus rhythm with a prolonged [place] interval. At this time, I agree with current plans. She is on telemetry. She has been cultured. She has an ID consultation. She is getting antibiotics. She is getting warfarin, digoxin, pantoprazole, Seroquel. She got IV fluids. Urine output was 375 mL with 3970 mL in. I will review her old records. I will order an echocardiogram. H and H will be followed. We will check stool for occult blood. I will follow along with you and make additional recommendations based on her clinical course. DNR/DNI is noted. Overall, a conservative course of cardiac care is anticipated. Guanako Mccoy MD cc: [id number] TT: 10/05/2016 09:50:54 Confirmation # [id number] Dictation # [id number] [facility]
--- NOTE | 2016-10-05 10:00 | CP.PCM.PN ---
<Monie Temple - Last Filed: 10/05/16 12:00> Subjective - Date & Time of Evaluation Date of Evaluation: 10/05/16 Time of Evaluation: 09:57 - Subjective Subjective: HOSPITALIST PROGRESS NOTE Pt is seen and examined at bedside. pt is alert, awake and oriented x1 to only her name. Patient denies having any CP, SOB, abd pain, N/V/D/C. Pt pulled hazel out twice overnight. Therefore, is in wrist restraints this morning. hazel is back in place draining aba urine. Objective - Vital Signs/Intake and Output Vital Signs (last 24 hours): Temp Pulse Resp BP Pulse Ox 98.3 F 55 L 19 108/48 L 97 10/05/16 05:39 10/05/16 05:39 10/05/16 05:39 10/05/16 05:39 10/05/16 05:39 Intake and Output: 10/05/16 10/05/16 06:59 18:59 Intake Total 3970 Output Total 375 Balance 3595 - Medications Medications: Current Medications Acetylcysteine (Acetylcysteine 20%) 4 ml IH Q8 ERINN Last Admin: 10/05/16 07:48 Dose: 4 ml Albuterol/Ipratropium (Duoneb 3 Mg/0.5 Mg (3 Ml) Ud) 3 ml IH [id number] PRN PRN Reason: Shortness of Breath Last Admin: 10/05/16 07:47 Dose: 3 ml Digoxin (Lanoxin) 0.125 mg PO 1400 ERINN Last Admin: 10/04/16 02:09 Dose: Not Given Docusate Sodium (Colace) 100 mg PO BID [facility] Last Admin: 10/05/16 09:46 Dose: 100 mg Vancomycin HCl (Vancomycin 1gm) 250 mls @ 167 mls/hr IVPB Q12 ERINN PRN Reason: Protocol Last Admin: 10/05/16 09:48 Dose: 167 mls/hr Cefepime HCl (Maxipime 2gm) 100 mls @ 100 mls/hr IVPB Q8 ERINN PRN Reason: Protocol Stop: 10/09/16 14:01 Last Admin: 10/05/16 06:18 Dose: 100 mls/hr Sodium Chloride (Sodium Chloride 0.9%) 1,000 mls @ 125 mls/hr IV .Q8H ERINN Last Admin: 10/05/16 04:19 Dose: Not Given Nystatin (Nystop Topical Powder) 0 gm TOP BID [facility] Last Admin: 10/05/16 09:48 Dose: 1 applic Pantoprazole Sodium (Protonix Ec Tab) 40 mg PO DAILY [facility] Last Admin: 10/05/16 09:47 Dose: 40 mg Quetiapine Fumarate (Seroquel) 25 mg PO HS PRN; Protocol PRN Reason: Insomnia Warfarin Sodium (Coumadin) 4 mg PO 1800 [facility] PRN Reason: Protocol Last Admin: 10/04/16 17:29 Dose: 4 mg - Labs Labs: 10/05/16 07:30 10/05/16 07:30 PT 14.8 Seconds (9.9-11.8) H 10/05/16 07:30 INR 1.37 (0.93-1.08) H 10/05/16 07:30 APTT 25.9 Seconds (23.7-30.8) 10/03/16 23:15 - Constitutional Appears: Non-toxic, No Acute Distress - Head Exam Head Exam: ATRAUMATIC - Eye Exam Eye Exam: EOMI - ENT Exam ENT Exam: Mucous Membranes Moist - Respiratory Exam Respiratory Exam: Clear to Ausculation Bilateral. absent: Rales, Rhonchi, Wheezes - Cardiovascular Exam Cardiovascular Exam: REGULAR RHYTHM, +S1, +S2. absent: Gallop, Rubs, Murmur - GI/Abdominal Exam GI & Abdominal Exam: Soft, Normal Bowel Sounds. absent: Distended, Firm, Guarding, Rigid, Tenderness - Extremities Exam Extremities Exam: absent: Pedal Edema, Tenderness - Neurological Exam Neurological Exam: Alert, Awake. absent: Oriented x3 (Ox1) - Psychiatric Exam Psychiatric exam: Normal Affect, Normal Mood - Skin Skin Exam: Dry, Intact, Normal Color, Warm Assessment and Plan - Assessment and Plan (Free Text) Assessment: 86 F with PMHx of AFib on coumadin, CHF, COPD, urinary incontinence, AAA and thoracic aortic aneurysm, multiple UTIs, GI bleed, DVT, and dementia is admitted for severe sepsis 2/2 questionable left lower lobe PNA vs. UTI. On admission, pt had AMS. Code stroke was called but CT of head was negative. Patient was found to be in severe sepsis on blood work with lactic acid of 3.3 and bandemia of 11%. CXR showed LLL infiltrate however, CXR looks improved compared to the one from previous hospital stay in 06/2016. Lactic acid today is 1.8. No leukocytosis seen on blood work today and stable vitals signs with MAP of 68. 1. Severe Sepsis 2/2 PNA vs. UTI - Lactic acid has improved - Prolactin of 20.97 - Blood cultures are negative. Urine culture is contaminated. will repeat urine cx. - Will decrease fluids to NS 100cc - Cefepime and Vanco - ID Consulted, Dr. Barnett 2. AMS - likely 2/2 sepsis. Improving - CTH negative - No further R sided weakness - continue home meds for dementia - Monitor Elytes and supplement as needed - HOB elevated - Aspiration, seizure and fall precautions 3. Afib - Digoxin and coumadin - INR is 1.37. will give 5 mg of coumadin tonight - digoxin level is 0.9 - continue to monitor - Troponins x 2 negative 4. CHF - ECHO pending. Last Echo from 2013 showd EF of 58% - Continue to monitor with fluid resuscitation - digoxin - strict I&Os - hazel in place 5. COPD - Duonebs prn - maintain 02 sat >88% - continue to monitor 6. DVT coumadin 7. GI protonix Seen reviewed and discussed with attending, Dr. Aviles <Sabra Aviles - Last Filed: 10/06/16 22:09> Objective - Vital Signs/Intake and Output Vital Signs (last 24 hours): Temp Pulse Resp BP Pulse Ox 98 F 63 20 120/71 97 10/06/16 18:00 10/06/16 18:00 10/06/16 18:00 10/06/16 18:00 10/05/16 05:39 Intake and Output: 10/06/16 10/07/16 18:59 06:59 Intake Total 300 Output Total 100 Balance 200 - Medications Medications: Current Medications Acetylcysteine (Acetylcysteine 20%) 4 ml IH Q8 ERINN Last Admin: 10/06/16 21:45 Dose: Not Given Albuterol/Ipratropium (Duoneb 3 Mg/0.5 Mg (3 Ml) Ud) 3 ml IH [id number] PRN PRN Reason: Shortness of Breath Last Admin: 10/06/16 20:19 Dose: 3 ml Digoxin (Lanoxin) 0.125 mg PO 1400 ERINN Last Admin: 10/06/16 13:54 Dose: 0.125 mg Docusate Sodium (Colace) 100 mg PO BID ERINN Last Admin: 10/06/16 17:40 Dose: 100 mg Ergocalciferol (Drisdol 50,000 Intl Units Cap) 1 cap PO Q7D ERINN Last Admin: 10/06/16 12:02 Dose: 1 cap Vancomycin HCl (Vancomycin 1gm) 250 mls @ 167 mls/hr IVPB Q12 ERINN PRN Reason: Protocol Last Admin: 10/06/16 10:18 Dose: 167 mls/hr Cefepime HCl (Maxipime 2gm) 100 mls @ 100 mls/hr IVPB Q8 ERINN PRN Reason: Protocol Stop: 10/09/16 14:01 Last Admin: 10/06/16 21:46 Dose: Not Given Sodium Chloride (Sodium Chloride 0.9%) 1,000 mls @ 75 mls/hr IV .[id number] [facility] Last Admin: 10/06/16 10:09 Dose: 75 mls/hr Lorazepam (Ativan) 0.5 mg PO HS [facility] Last Admin: 10/05/16 21:43 Dose: 0.5 mg Nystatin (Nystop Topical Powder) 0 gm TOP BID ERINN Last Admin: 10/06/16 17:39 Dose: 1 applic Pantoprazole Sodium (Protonix Ec Tab) 40 mg PO DAILY [facility] Last Admin: 10/06/16 10:17 Dose: 40 mg Quetiapine Fumarate (Seroquel) 50 mg PO HS ERINN PRN Reason: Protocol Last Admin: 10/05/16 21:38 Dose: 50 mg Warfarin Sodium (Coumadin) 6 mg PO 1800 [facility] Last Admin: 10/06/16 17:40 Dose: 6 mg Ziprasidone (Geodon Inj) 10 mg IM Q6H PRN PRN Reason: Agitation - Labs Labs: 10/06/16 09:00 10/06/16 09:00 PT 16.6 Seconds (9.9-11.8) H 10/06/16 06:00 INR 1.54 (0.93-1.08) H 10/06/16 06:00 APTT 25.9 Seconds (23.7-30.8) 10/03/16 23:15 Attending/Attestation - Attestation I have personally seen and examined this patient.: Yes I have fully participated in the care of the patient.: Yes I have reviewed all pertinent clinical information, including history, physical exam and plan: Yes Notes (Text): I have seen and examined patient at bedside. Agree with the above note with the following additions/ exceptions: Briefly this is 86 year old female with history of atrial fibrillation on coumadin, moderate to severe pulmonary hypertension, COPD, urinary incontinence, AAA, GI bleed, DVT, dementia who got admitted for evaluation of SIRS and suspected sepsis due to HCAP. She is on vancomycin and cefepime. Patient is alert, awake and back to baseline as per patients daughter who is at the bedside. Last night patient became agitated and wrist restraints were placed. Awaiting Dr Davidson's consult. Increase coumadin dosage to adjust INR. Patient lives with her daughter who is the primary inventory specialist. Patients daughter does not want patient to go to rehab. Dr Sabra Aviles
[2016-10-05 11:36] LABS: IRON 19 ug/dL (45-180)
--- NOTE | 2016-10-05 13:41 | CON ---
DATE: 10/05/2016 PSYCHIATRIC CONSULTATION HISTORY OF PRESENT ILLNESS: The patient is an 86-year-old female well known to me. I have seen her intermittently either at this hospital, at her home, or acute rehab. I reviewed the chart and spoke to nursing staff. The patient was brought to the Emergency Room by the daughter with whom she lives. Due to the fact that she has had a radical change in her mental status over the past day, she has become increasingly confused and irrational. She was noted to have right sided weakness. Evaluation in E.R. failed to reveal an acute stroke. However, it was determined that she had sepsis. Last night she was agitated and pulled out her intravenous. PAST MEDICAL HISTORY: She has a history of vascular dementia, has history of major depression, history of atrial fibrillation, congestive heart failure, COPD. The patient has been on an antidepressant and major tranquilizers in the past. PERSONAL HISTORY: Lives with her daughter. Her approximately 18 months ago. The patient has a severe gait dysfunction. She is generally aware of her surroundings, alert, but needs care by her daughter. She has 2 sons, 2 daughters, one . The patient has no significant findings on 12 point review of systems. CURRENT LABORATORY DATA: Her white count yesterday was 17,000. It is 8600. Her hemoglobin is 9.1, platelet count 190,000. Hematocrit 29.5. The patient's metabolic profile on admission, her chloride was minimally elevated. Other electrolytes, BUN, creatinine were all within normal range. Her procalcitonin, however, was 20.97. Today, her albumin is 2.7. Electrolytes, BUN, and creatinine were all essentially within normal range. The patient had an electrocardiogram, which revealed a widened QRS interval, possible first- degree AV block, left bundle-branch block, heart rate of 53, QTC ____. The patient's chest x-ray was a possible small left lower lobe infiltrate, mild cardiomegaly with vascular sclerotic uncoiled aorta. The patient had a CT scan of the head - showed no acute infarcts or bleeding. She does have chronic microvascular disease. CURRENT MEDICATIONS: Include acetylcysteine, Colace, Coumadin, Lanoxin, Seroquel 25 mg at bedtime p.r.n., vancomycin IV. PHYSICAL EXAMINATION: VITAL SIGNS: Blood pressure is 108/48, pulse 55, respirations 19 per minute. NEUROLOGIC: No obvious focal neurological findings. PSYCHIATRIC: Her mental status: She is awake, she is alert. However, she is quite confused, disoriented to place and time. She appears to recognize me superficially, but does not. Her thinking is disorganized, has poor insight and judgment into medical issues plus her current condition. She has no idea why she is in the hospital. IMPRESSION: She has delirium with behavioral disturbance, agitation. She has history of mild vascular dementia. She has sepsis. She has a history of coronary artery disease, chronic obstructive pulmonary disease. She is on anticoagulation for atrial fibrillation. PLAN: We will order 25 mg of Seroquel now and 50 mg of Seroquel at bedtime. We will order p.r.n. Geodon 10 mg IM for extreme agitation, and we will monitor closely her current mental status, and we will speak to family. We will also order 0.5 mg of lorazepam for insomnia and restlessness at bedtime. Constantino Davidson MD cc: [phone] TT: 10/05/2016 13:06:58 Confirmation # [id number] Dictation # [id number] 10/05/2016 12:40:48 KYRA
[2016-10-05 16:58] LABS: FOLATE 5.7 ng/mL
--- NOTE | 2016-10-05 18:58 | CP.PCM.PN ---
Subjective - Date & Time of Evaluation Date of Evaluation: 10/05/16 Time of Evaluation: 14:25 - Subjective Subjective: Comfortable in bed, not in distress, afebrile overnight. Objective - Vital Signs/Intake and Output Vital Signs (last 24 hours): Temp Pulse Resp BP Pulse Ox 98.3 F 78 20 113/46 L 97 10/05/16 12:00 10/05/16 18:00 10/05/16 12:00 10/05/16 12:00 10/05/16 05:39 Intake and Output: 10/05/16 10/05/16 06:59 18:59 Intake Total 3970 Output Total 375 Balance 3595 - Medications Medications: Current Medications Acetylcysteine (Acetylcysteine 20%) 4 ml IH Q8 ERINN Last Admin: 10/05/16 15:35 Dose: 4 ml Albuterol/Ipratropium (Duoneb 3 Mg/0.5 Mg (3 Ml) Ud) 3 ml IH [id number] PRN PRN Reason: Shortness of Breath Last Admin: 10/05/16 15:35 Dose: 3 ml Digoxin (Lanoxin) 0.125 mg PO 1400 [facility] Last Admin: 10/04/16 02:09 Dose: Not Given Docusate Sodium (Colace) 100 mg PO BID [facility] Last Admin: 10/05/16 17:34 Dose: 100 mg Vancomycin HCl (Vancomycin 1gm) 250 mls @ 167 mls/hr IVPB Q12 ERINN PRN Reason: Protocol Last Admin: 10/05/16 09:48 Dose: 167 mls/hr Cefepime HCl (Maxipime 2gm) 100 mls @ 100 mls/hr IVPB Q8 ERINN PRN Reason: Protocol Stop: 10/09/16 14:01 Last Admin: 10/05/16 13:22 Dose: 100 mls/hr Sodium Chloride (Sodium Chloride 0.9%) 1,000 mls @ 100 mls/hr IV .Q10H ERINN Lorazepam (Ativan) 0.5 mg PO HS ERINN Nystatin (Nystop Topical Powder) 0 gm TOP BID [facility] Last Admin: 10/05/16 17:35 Dose: 1 applic Pantoprazole Sodium (Protonix Ec Tab) 40 mg PO DAILY [facility] Last Admin: 10/05/16 09:47 Dose: 40 mg Quetiapine Fumarate (Seroquel) 50 mg PO HS ERINN PRN Reason: Protocol Warfarin Sodium (Coumadin) 5 mg PO 1800 ERINN PRN Reason: Protocol Last Admin: 10/05/16 17:34 Dose: 5 mg Ziprasidone (Geodon Inj) 10 mg IM Q6H PRN PRN Reason: Agitation - Labs Labs: 10/05/16 07:30 10/05/16 07:30 PT 14.8 Seconds (9.9-11.8) H 10/05/16 07:30 INR 1.37 (0.93-1.08) H 10/05/16 07:30 APTT 25.9 Seconds (23.7-30.8) 10/03/16 23:15 - Constitutional Appears: Non-toxic, No Acute Distress - Head Exam Head Exam: NORMAL INSPECTION - Respiratory Exam Respiratory Exam: Decreased Breath Sounds - Cardiovascular Exam Cardiovascular Exam: +S1, +S2 - GI/Abdominal Exam GI & Abdominal Exam: Soft. absent: Tenderness Assessment and Plan - Assessment and Plan (Free Text) Plan: Assessment consider sepsis secondary to left lower lobe healthcare-associated pneumonia history of gram negative bacilli UTI atrial fibrillation COPD CHF dementia abdominal aortic aneurysm history of multiple UTI's history of GI bleed history of DVT history of right hip fracture Plan continue Vancomycin and Cefepime day 2 pending final blood, sputum cx results; PCT is elevated at 23.97; reviewed CXR and we are unable to rule out left lower lobe pneumonia; should complete 4-7 days of therapy will continue to monitor clinically
--- NOTE | 2016-10-05 19:33 | CON ---
DATE: 10/05/2016 HISTORY OF PRESENT ILLNESS: This is an 86-year-old female with a past medical history of abdominal h ernia repair and found to have altered mental status by the family and brought her to the hospital. The patient also has atrial fibrillation and is on Coumadin, a UTI, dementia, COPD, urinary incontine nce. The patient was more restless and altered mental status. Called to evaluate the patient. PAST MEDICAL HISTORY: Dementia, COPD, atrial fibrillation. HOME MEDICATIONS: Aldactone, Colace, warfarin, digoxin, Klonopin, melatonin, Protonix, Seroquel and Tylenol. ALLERGIES: No known drug allergies. SOCIAL HISTORY: Ex-smoker. Does not drink. PHYSICAL EXAMINATION: HEENT: Normocephalic, atraumatic. NECK: Supple. NEUROLOGIC: Awake, alert, oriented to self and place. Daughter at bedside. NEUROLOGIC: Alert, awake, oriented x 3. No aphasia. Cranial nerves II through XII were tested. Pu pils reactive. EOMs intact. Visual trujillo full. No facial asymmetry. Tongue midline. MOTOR: Moves all the extremities equally. Tone normal. REFLEXES: Deep tendon reflexes are 1+. Both plantars are downgoing. SENSORY: Appears intact. CEREBELLAR GAIT: Deferred. CAT scan of the head was done which was reported negative. Continue present management. Will follow up. Ilan Luther MD cc: [id number] TT: 10/05/2016 19:32:40 Confirmation # [id number] Dictation # [id number] anita
[2016-10-06 06:43] LABS: INR 1.54 (0.93-1.08)
--- NOTE | 2016-10-06 07:29 | CARD ---
APPROVED REPORT EXAM: Two-dimensional and M-mode echocardiogram with Doppler and color Doppler. Other Information Quality : AverageRhythm : INDICATION SEPSIS/AF 2D DIMENSIONS Left Atrium (2D)4.5 (1.6-4.0cm)IVSd1.3 (0.7-1.1cm) LVDd5.0 (3.9-5.9cm)LVOT Diameter1.8 (1.8-2.4cm) PWd1.3 (0.7-1.1cm)LVDs3.2 (2.5-4.0cm) FS (%) 34.9 %LVEF (%)63.0 (>50%) M-Mode DIMENSIONS Aortic Root3.40 (2.2-3.7cm)Aortic Cusp Exc.1.20 (1.5-2.0cm) Aortic Valve AoV Peak Lyocqboc319.0cm/sAoV VTI56.9cmAO Peak GR.33mmHg LVOT Peak Vkzxdwob437.0cm/sLVOT VTI20.70cmAO Mean GR.15mmHg [place] (VMAX)0.05qb4ZWL (VTI)0.26er3SW P 1/2 Fxdd346zw Mitral Valve MV E Modylrwx051.0cm/sMV A Hzzgogic18.4cm/sE/A ratio1.5 TDI Lateral E' Peak V12.60cm/sMedial E' Peak V6.43cm/sE/Lateral E'9.8 E/Medial E'19.1 Pulmonary Valve PV Peak Ngjxtknv59.2cm/sPV Peak Grad.4mmHg Tricuspid Valve TR Peak Doaiwztb146wr/sRAP JZAJYCKF99mhKhPT Peak Gr.57mmHg CFRL94feFk LEFT VENTRICLE The left ventricle is normal size. There is mild concentric left ventricular hypertrophy.. The left ventricular function is normal. The left ventricular ejection fraction is within the normal range. There is normal LV segmental wall motion. RIGHT VENTRICLE The right ventricle is normal size. ATRIA The left atrium is moderately dilated. The right atrium size is normal. The interatrial septum is intact with no evidence for an atrial septal defect. AORTIC VALVE The aortic valve is moderately calcified. There is mild aortic regurgitation. There is mild to moderate valvular aortic stenosis. MITRAL VALVE The mitral valve is normal in structure. Mitral regurgitation is mild. TRICUSPID VALVE The tricuspid valve is normal in structure. There is moderate tricuspid regurgitation. There is moderate-severe pulmonary hypertension. PULMONIC VALVE The pulmonic valve is not well visualized. GREAT VESSELS The aortic root is normal in size. PERICARDIAL EFFUSION There is no pericardial effusion. <Conclusion> The left ventricle is normal size. The left ventricular function is normal. There is mild concentric left ventricular hypertrophy. The aortic valve is moderately calcified. There is mild to moderate valvular aortic stenosis. There is mild aortic regurgitation. Mitral regurgitation is mild. There is moderate tricuspid regurgitation. There is moderate-severe pulmonary hypertension.
--- NOTE | 2016-10-06 07:58 | CP.PCM.PN ---
<Monie Temple - Last Filed: 10/06/16 09:45> Subjective - Date & Time of Evaluation Date of Evaluation: 10/06/16 Time of Evaluation: 07:50 - Subjective Subjective: HOSPITALIST PROGRESS NOTE Pt seen and examined at bedside. No acute events overnight. Pt is sleeping but easily arousable. Patient denies having any Cp, SOB, abd pain, N/V/D/C. Hazel in place draining light yellow urine. Objective - Vital Signs/Intake and Output Vital Signs (last 24 hours): Temp Pulse Resp BP Pulse Ox 97.4 F L 65 19 124/74 97 10/06/16 00:01 10/06/16 02:00 10/06/16 00:01 10/06/16 00:01 10/05/16 05:39 Intake and Output: 10/06/16 10/06/16 06:59 18:59 Intake Total 300 Output Total 100 Balance 200 - Medications Medications: Current Medications Acetylcysteine (Acetylcysteine 20%) 4 ml IH Q8 ERINN Last Admin: 10/05/16 21:22 Dose: 4 ml Albuterol/Ipratropium (Duoneb 3 Mg/0.5 Mg (3 Ml) Ud) 3 ml IH [id number] PRN PRN Reason: Shortness of Breath Last Admin: 10/05/16 21:23 Dose: 3 ml Digoxin (Lanoxin) 0.125 mg PO 1400 ERINN Last Admin: 10/04/16 02:09 Dose: Not Given Docusate Sodium (Colace) 100 mg PO BID ERINN Last Admin: 10/05/16 17:34 Dose: 100 mg Vancomycin HCl (Vancomycin 1gm) 250 mls @ 167 mls/hr IVPB Q12 ERINN PRN Reason: Protocol Last Admin: 10/05/16 21:39 Dose: 167 mls/hr Cefepime HCl (Maxipime 2gm) 100 mls @ 100 mls/hr IVPB Q8 ERINN PRN Reason: Protocol Stop: 10/09/16 14:01 Last Admin: 10/05/16 21:40 Dose: 100 mls/hr Sodium Chloride (Sodium Chloride 0.9%) 1,000 mls @ 100 mls/hr IV .Q10H ERINN Lorazepam (Ativan) 0.5 mg PO HS ERINN Last Admin: 10/05/16 21:43 Dose: 0.5 mg Nystatin (Nystop Topical Powder) 0 gm TOP BID [facility] Last Admin: 10/05/16 17:35 Dose: 1 applic Pantoprazole Sodium (Protonix Ec Tab) 40 mg PO DAILY [facility] Last Admin: 10/05/16 09:47 Dose: 40 mg Quetiapine Fumarate (Seroquel) 50 mg PO HS ERINN PRN Reason: Protocol Last Admin: 10/05/16 21:38 Dose: 50 mg Warfarin Sodium (Coumadin) 5 mg PO 1800 [facility] PRN Reason: Protocol Last Admin: 10/05/16 17:34 Dose: 5 mg Ziprasidone (Geodon Inj) 10 mg IM Q6H PRN PRN Reason: Agitation - Labs Labs: 10/05/16 07:30 10/05/16 07:30 PT 16.6 Seconds (9.9-11.8) H 10/06/16 06:00 INR 1.54 (0.93-1.08) H 10/06/16 06:00 APTT 25.9 Seconds (23.7-30.8) 10/03/16 23:15 - Constitutional Appears: Non-toxic, No Acute Distress - Head Exam Head Exam: ATRAUMATIC - Eye Exam Eye Exam: EOMI - ENT Exam ENT Exam: Mucous Membranes Moist - Respiratory Exam Respiratory Exam: Clear to Ausculation Bilateral, NORMAL BREATHING PATTERN. absent: Rales, Rhonchi, Wheezes - Cardiovascular Exam Cardiovascular Exam: REGULAR RHYTHM, +S1, +S2. absent: Gallop, Rubs, Murmur - GI/Abdominal Exam GI & Abdominal Exam: Soft, Tenderness (diffusely), Normal Bowel Sounds. absent : Distended, Firm, Rebound - Extremities Exam Extremities Exam: absent: Pedal Edema, Tenderness - Neurological Exam Neurological Exam: Alert, Awake - Psychiatric Exam Psychiatric exam: Normal Affect, Normal Mood - Skin Skin Exam: Dry, Intact, Normal Color, Warm Assessment and Plan - Assessment and Plan (Free Text) Assessment: 86 F with PMHx of AFib on coumadin, CHF, COPD, urinary incontinence, AAA and thoracic aortic aneurysm, multiple UTIs, GI bleed, DVT, and dementia is admitted for severe sepsis 2/2 questionable left lower lobe PNA vs. UTI. On admission, pt had AMS. Code stroke was called but CT of head was negative. Patient was found to be in severe sepsis on blood work with lactic acid of 3.3 and bandemia of 11%. CXR showed LLL infiltrate however, CXR looks improved compared to the one from previous hospital stay in 06/2016. Lactic acid improved yesterday. 1. Sepsis 2/2 PNA vs. UTI - Prolactin of 20.97 on 10/04/16 - Blood cultures are negative. Repeat urine culture is pending - NS 75 cc - Cefepime and Vanco - ID Consulted, Dr. Prado. 2. AMS - likely 2/2 sepsis. Improving - CT head negative - Neurology consulted and recommend continuing current management - continue home meds for dementia - HOB elevated - Aspiration, seizure and fall precautions - Pt will get physical therapy evaluation today 3. UTI - Renal US pending results - Continue Abx per ID recs 4. Afib - Digoxin and coumadin - INR is 1.54. will give 6 mg of coumadin tonight - digoxin level is 0.9 - continue to monitor - Troponins x 2 negative 5. CHF - ECHO shows normal LV function and structure, mild LVH concentric, mild-mod , mild AR, MR and mod TR and pulm HTN. - Continue to monitor with fluid resuscitation - digoxin - strict I&Os - hazel in place 6. COPD - Duonebs prn - maintain 02 sat >88% - continue to monitor 7. DVT coumadin 8. GI protonix Seen reviewed and discussed with attending, Dr. Aviles <Sabra Aviles - Last Filed: 10/06/16 22:14> Objective - Vital Signs/Intake and Output Vital Signs (last 24 hours): Temp Pulse Resp BP Pulse Ox 98 F 63 20 120/71 97 10/06/16 18:00 10/06/16 18:00 10/06/16 18:00 10/06/16 18:00 10/05/16 05:39 Intake and Output: 10/06/16 10/07/16 18:59 06:59 Intake Total 300 Output Total 100 Balance 200 - Medications Medications: Current Medications Acetylcysteine (Acetylcysteine 20%) 4 ml IH Q8 ERINN Last Admin: 10/06/16 21:45 Dose: Not Given Albuterol/Ipratropium (Duoneb 3 Mg/0.5 Mg (3 Ml) Ud) 3 ml IH [id number] PRN PRN Reason: Shortness of Breath Last Admin: 10/06/16 20:19 Dose: 3 ml Digoxin (Lanoxin) 0.125 mg PO 1400 [facility] Last Admin: 10/06/16 13:54 Dose: 0.125 mg Docusate Sodium (Colace) 100 mg PO BID [facility] Last Admin: 10/06/16 17:40 Dose: 100 mg Ergocalciferol (Drisdol 50,000 Intl Units Cap) 1 cap PO Q7D [facility] Last Admin: 10/06/16 12:02 Dose: 1 cap Vancomycin HCl (Vancomycin 1gm) 250 mls @ 167 mls/hr IVPB Q12 ERINN PRN Reason: Protocol Last Admin: 10/06/16 10:18 Dose: 167 mls/hr Cefepime HCl (Maxipime 2gm) 100 mls @ 100 mls/hr IVPB Q8 ERINN PRN Reason: Protocol Stop: 10/09/16 14:01 Last Admin: 10/06/16 21:46 Dose: Not Given Sodium Chloride (Sodium Chloride 0.9%) 1,000 mls @ 75 mls/hr IV .[id number] [facility] Last Admin: 10/06/16 10:09 Dose: 75 mls/hr Lorazepam (Ativan) 0.5 mg PO HS [facility] Last Admin: 10/05/16 21:43 Dose: 0.5 mg Nystatin (Nystop Topical Powder) 0 gm TOP BID [facility] Last Admin: 10/06/16 17:39 Dose: 1 applic Pantoprazole Sodium (Protonix Ec Tab) 40 mg PO DAILY [facility] Last Admin: 10/06/16 10:17 Dose: 40 mg Quetiapine Fumarate (Seroquel) 50 mg PO HS [facility] PRN Reason: Protocol Last Admin: 10/05/16 21:38 Dose: 50 mg Warfarin Sodium (Coumadin) 6 mg PO 1800 [facility] Last Admin: 10/06/16 17:40 Dose: 6 mg Ziprasidone (Geodon Inj) 10 mg IM Q6H PRN PRN Reason: Agitation - Labs Labs: 10/06/16 09:00 10/06/16 09:00 PT 16.6 Seconds (9.9-11.8) H 10/06/16 06:00 INR 1.54 (0.93-1.08) H 10/06/16 06:00 APTT 25.9 Seconds (23.7-30.8) 10/03/16 23:15 Attending/Attestation - Attestation I have personally seen and examined this patient.: Yes I have fully participated in the care of the patient.: Yes I have reviewed all pertinent clinical information, including history, physical exam and plan: Yes Notes (Text): I have seen and examined patient at bedside. Agree with the above note with the following additions/ exceptions: Briefly this is 86 year old female with history of atrial fibrillation on coumadin, moderate to severe pulmonary hypertension, COPD, urinary incontinence, AAA, GI bleed, DVT, dementia who got admitted for evaluation of SIRS and suspected sepsis due to HCAP. She is on vancomycin and cefepime. Discussed with Dr Prado. Patient appears somnolent however she is easily arousable. Psych consult appreciated. She was given seroquel last night and is currently on ativan and geodon prn. Increase coumadin dosage to adjust INR. Patient lives with her daughter who is the primary human resource assistant. Patients daughter does not want patient to go to rehab.Possible discharge tomorrow. Dr Sabra Aviles
[2016-10-06] MEDS: Albuterol-Ipratrop 3 mg / 0.5 (3 ml) UD IH PRN ×2 (08:33→20:19)
[2016-10-06] MEDS: Acetylcysteine 20% Inhal Soln (4ml) IH SCH ×3 (08:33→21:45)
--- NOTE | 2016-10-06 08:56 | CP.PCM.PN ---
Subjective - Date & Time of Evaluation Date of Evaluation: 10/06/16 Time of Evaluation: 08:00 - Subjective Subjective: Stable on 2R. No CP or SOB. Lethargic. V/S noted. RSR PE: Lungs: clear Cor.: S1S2 Abd.; soft Ext.: no edema Neuro.: lethargic Labs pending. INR 1.54 BC x2 NG at 48 hrs. Echo: Nl LV, Mild and AI, Mild MR, Moderate TR, mod/sev PH. See report. Objective - Vital Signs/Intake and Output Vital Signs (last 24 hours): Temp Pulse Resp BP Pulse Ox 97.4 F L 65 19 124/74 97 10/06/16 00:01 10/06/16 02:00 10/06/16 00:01 10/06/16 00:01 10/05/16 05:39 Intake and Output: 10/06/16 10/06/16 06:59 18:59 Intake Total 300 Output Total 100 Balance 200 - Medications Medications: Current Medications Acetylcysteine (Acetylcysteine 20%) 4 ml IH Q8 ERINN Last Admin: 10/06/16 08:33 Dose: 4 ml Albuterol/Ipratropium (Duoneb 3 Mg/0.5 Mg (3 Ml) Ud) 3 ml IH [id number] PRN PRN Reason: Shortness of Breath Last Admin: 10/06/16 08:33 Dose: 3 ml Digoxin (Lanoxin) 0.125 mg PO 1400 [facility] Last Admin: 10/04/16 02:09 Dose: Not Given Docusate Sodium (Colace) 100 mg PO BID [facility] Last Admin: 10/05/16 17:34 Dose: 100 mg Vancomycin HCl (Vancomycin 1gm) 250 mls @ 167 mls/hr IVPB Q12 ERINN PRN Reason: Protocol Last Admin: 10/05/16 21:39 Dose: 167 mls/hr Cefepime HCl (Maxipime 2gm) 100 mls @ 100 mls/hr IVPB Q8 ERINN PRN Reason: Protocol Stop: 10/09/16 14:01 Last Admin: 10/05/16 21:40 Dose: 100 mls/hr Sodium Chloride (Sodium Chloride 0.9%) 1,000 mls @ 100 mls/hr IV .Q10H ERINN Lorazepam (Ativan) 0.5 mg PO HS [facility] Last Admin: 10/05/16 21:43 Dose: 0.5 mg Nystatin (Nystop Topical Powder) 0 gm TOP BID [facility] Last Admin: 10/05/16 17:35 Dose: 1 applic Pantoprazole Sodium (Protonix Ec Tab) 40 mg PO DAILY [facility] Last Admin: 10/05/16 09:47 Dose: 40 mg Quetiapine Fumarate (Seroquel) 50 mg PO HS [facility] PRN Reason: Protocol Last Admin: 10/05/16 21:38 Dose: 50 mg Warfarin Sodium (Coumadin) 5 mg PO 1800 [facility] PRN Reason: Protocol Last Admin: 10/05/16 17:34 Dose: 5 mg Ziprasidone (Geodon Inj) 10 mg IM Q6H PRN PRN Reason: Agitation - Labs Labs: 10/05/16 07:30 10/05/16 07:30 PT 16.6 Seconds (9.9-11.8) H 10/06/16 06:00 INR 1.54 (0.93-1.08) H 10/06/16 06:00 APTT 25.9 Seconds (23.7-30.8) 10/03/16 23:15 Assessment and Plan - Assessment and Plan (Free Text) Plan: Assessment: AMS/Chills/Vomiting/R/O Sepsis R/O pneumonia PAF COPD CHF AAA/TAA UTIs GIB DVT Dementia Left hip surgery Abdominal hernia repair Former Smoker DNR/DNI Plan: AB Warfarin by INRs As per neuro and psych and ID Monitor I/O's, INR's, labs, sats., etc OOB to chair as alton. DNR/DNI noted.
[2016-10-06 09:15] LABS: ADD MANUAL DIFF? NO
[2016-10-06 09:17] LABS: BASO # 0.04 K/mm3 (0.0-2.0); BASO % 0.6 % (0.0-3.0); EOS # 0.2 (0.0-0.7); EOS % 3.5 % (1.5-5.0); GRAN # 4.33 (1.4-6.5); GRAN % 66.7 % (50.0-68.0); HEMATOCRIT 31.1 % (36.0-48.0); LYMPH # 1.3 (1.2-3.4); LYMPH % 19.8 % (22.0-35.0); MEAN CORPUSCULAR HEMOGLOBIN 24.7 pg (25.0-35.0); MEAN CORPUSCULAR HGB CONC 30.5 g/dl (31.0-37.0); MEAN PLATELET VOLUME 9.7 fl (7.0-11.0); MONO # 0.6 (0.1-0.6); MONO % 9.4 % (1.0-6.0); PLATELET COUNT 202 10^3/uL (120.0-450.0); RED CELL DISTRIBUTION WIDTH 17.8 % (11.5-14.5); WHITE BLOOD COUNT 6.5 10^3/ul (4.5-11.0)
[2016-10-06 09:32] LABS: ALB/GLOB RATIO 0.9 (1.1-1.8); ALKALINE PHOSPHATASE 59 U/L (38-133); ALT/SGPT 20 U/L (7-56); AST/SGOT 10 U/L (15-39); BILIRUBIN,TOTAL 0.4 mg/dL (0.2-1.3); BLOOD UREA NITROGEN 10 mg/dL (7-21); CALCIUM 9.6 mg/dL (8.4-10.5); CARBON DIOXIDE 25 mmol/L (21-33); CHLORIDE 113 mmol/L (95-110); GFR AFRICAN-AMERICAN > 60; GLUCOSE,RANDOM 93 mg/dL (70-110); POTASSIUM 4.1 mmol/L (3.6-5.0); SODIUM 147 mmol/L (132-148); TOTAL PROTEIN 5.6 g/dL (5.8-8.3)
[2016-10-06] MEDS: Nystatin 100,000 Units/gm Topical Pow(15 gm) TOP SCH ×2 (10:08→17:39)
[2016-10-06] MEDS: Sodium Chloride 0.9% 1,000 ML IV SCH ×3 (10:09→21:48)
[2016-10-06] MEDS: Pantoprazole 40 mg EC Tab PO SCH (10:17)
[2016-10-06] MEDS: Vancomycin 1gm in NS 250ml 250 ML IVPB SCH (10:18)
[2016-10-06] MEDS ORDERED: Ergocalciferol 50,000 Intl Units Cap PO SCH ×2 (11:30)
--- NOTE | 2016-10-06 12:11 | PN ---
DATE: 10/06/2016 The patient is an 86-year-old female who is currently being treated for sepsis, possible pneumonia, h as a history of multiple other medical problems, in addition has a history of mild dementia. Two nig hts ago was restless, agitated, started on Seroquel 50 mg at bedtime and lorazepam 0.5 mg at bedtime last night, had a more comfortable night. Currently, her mental status reveals that she is awake. S he is alert. She is slightly confused, but not agitated, cooperating with nursing care. I spoke wit h daughter at bedside. CURRENT MEDICATIONS: Include acetylcysteine, Ativan 0.5 mg at bedtime, Coumadin, digoxin, Maxipime I V, nystatin, , Protonix, Seroquel 50 mg at bedtime, vancomycin IV. LABORATORY DATA: White count is 6500, hemoglobin 9.6, platelet count 202,000. Her metabolic profile is essentially normal except for a chloride of 113. She has hemodialysis. She has an albumin of 2. 7. She has a normal folate, B12 level. The patient has a total vitamin D of 18.2. VITAL SIGNS: Blood pressure is 124/74, pulse 80, afebrile, respirations 18 per minute. IMPRESSION: She has mild dementia with behavioral disturbance, stabilizing. She has severe vitamin D deficiency. The patient has chronic microvascular disease. She has a history of sepsis, pneumonia , paroxysmal atrial fibrillation, chronic obstructive pulmonary disease, history of congestive heart failure, abdominal aortic aneurysm, thoracic aortic aneurysm, history of urinary tract infection, his tory of left hip surgery. PLAN: Will order Drisdol 50,000 international units once a week for vitamin D deficiency and will co ntinue to monitor mental status. We will continue to treat with Seroquel 50 mg at bedtime and loraze isa 0.5 mg at bedtime. No adverse effects noted. Constantino Davidson MD cc: [phone] TT: 10/06/2016 12:03:24 Confirmation # [id number] Dictation # [id number] an
--- NOTE | 2016-10-06 12:48 | US ---
PROCEDURE: Ultrasound of the Kidneys HISTORY: r/o hypronephrosis COMPARISON: None available. TECHNIQUE: Sonogram of the kidneys. FINDINGS: RIGHT KIDNEY: Measures: 11.6 cm. Normal in size, contour and echogenicity. There is mild right hydronephrosis. There is a lower pole cortical cyst, 1.9 x 2.2 x 2.2 cm. No other mass is identified. There is a lower pole nonobstructing calculus, 1.3 cm greatest dimension. LEFT KIDNEY: Measures: 11.5 cm. Normal in size, contour and echogenicity. No hydronephrosis. No mass identified. Two nonobstructing lower pole calculi are identified, the each 7 mm in diameter. Please note that evaluation of the left kidney was somewhat technically limited due to the patient's inability to move for proper positioning. OTHER FINDINGS: Cholelithiasis noted without sonographic evidence of cholecystitis. IMPRESSION: Mild right hydronephrosis. Bilateral nonobstructing renal calculi. 2.2 cm right lower pole renal cortical cyst. Technically limited evaluation of left kidney. Cholelithiasis.
[2016-10-06] MEDS: Digoxin 125 mcg (0.125 mg) Tab PO SCH (13:54)
[2016-10-06] MEDS: Cefepime IV 2 gm in NS 100 ML IVPB SCH ×3 (14:30→23:31)
--- NOTE | 2016-10-06 18:42 | CP.PCM.PN ---
Subjective - Date & Time of Evaluation Date of Evaluation: 10/06/16 Time of Evaluation: 13:35 - Subjective Subjective: Comfortable in bed, not in distress, no fevers overnight. Objective - Vital Signs/Intake and Output Vital Signs (last 24 hours): Temp Pulse Resp BP Pulse Ox 96.5 F L 76 20 116/69 97 10/06/16 12:00 10/06/16 12:00 10/06/16 12:00 10/06/16 12:00 10/05/16 05:39 Intake and Output: 10/06/16 10/06/16 06:59 18:59 Intake Total 300 300 Output Total 100 100 Balance 200 200 - Medications Medications: Current Medications Acetylcysteine (Acetylcysteine 20%) 4 ml IH Q8 ERINN Last Admin: 10/06/16 08:33 Dose: 4 ml Albuterol/Ipratropium (Duoneb 3 Mg/0.5 Mg (3 Ml) Ud) 3 ml IH [id number] PRN PRN Reason: Shortness of Breath Last Admin: 10/06/16 08:33 Dose: 3 ml Digoxin (Lanoxin) 0.125 mg PO 1400 [facility] Last Admin: 10/06/16 13:54 Dose: 0.125 mg Docusate Sodium (Colace) 100 mg PO BID [facility] Last Admin: 10/06/16 17:40 Dose: 100 mg Ergocalciferol (Drisdol 50,000 Intl Units Cap) 1 cap PO Q7D [facility] Last Admin: 10/06/16 12:02 Dose: 1 cap Vancomycin HCl (Vancomycin 1gm) 250 mls @ 167 mls/hr IVPB Q12 [facility]INN PRN Reason: Protocol Last Admin: 10/06/16 10:18 Dose: 167 mls/hr Cefepime HCl (Maxipime 2gm) 100 mls @ 100 mls/hr IVPB Q8 [facility]INN PRN Reason: Protocol Stop: 10/09/16 14:01 Last Admin: 10/06/16 14:30 Dose: 100 mls/hr Sodium Chloride (Sodium Chloride 0.9%) 1,000 mls @ 75 mls/hr IV .[id number] [facility] Last Admin: 10/06/16 10:09 Dose: 75 mls/hr Lorazepam (Ativan) 0.5 mg PO HS [facility] Last Admin: 10/05/16 21:43 Dose: 0.5 mg Nystatin (Nystop Topical Powder) 0 gm TOP BID [facility] Last Admin: 10/06/16 17:39 Dose: 1 applic Pantoprazole Sodium (Protonix Ec Tab) 40 mg PO DAILY [facility] Last Admin: 10/06/16 10:17 Dose: 40 mg Quetiapine Fumarate (Seroquel) 50 mg PO HS [facility] PRN Reason: Protocol Last Admin: 10/05/16 21:38 Dose: 50 mg Warfarin Sodium (Coumadin) 6 mg PO 1800 [facility] Last Admin: 10/06/16 17:40 Dose: 6 mg Ziprasidone (Geodon Inj) 10 mg IM Q6H PRN PRN Reason: Agitation - Labs Labs: 10/06/16 09:00 10/06/16 09:00 PT 16.6 Seconds (9.9-11.8) H 10/06/16 06:00 INR 1.54 (0.93-1.08) H 10/06/16 06:00 APTT 25.9 Seconds (23.7-30.8) 10/03/16 23:15 - Constitutional Appears: Non-toxic, No Acute Distress - Head Exam Head Exam: NORMAL INSPECTION - ENT Exam ENT Exam: Mucous Membranes Moist - Neck Exam Neck Exam: absent: Lymphadenopathy, Meningismus - Respiratory Exam Respiratory Exam: Decreased Breath Sounds - Cardiovascular Exam Cardiovascular Exam: +S1, +S2 - GI/Abdominal Exam GI & Abdominal Exam: Soft. absent: Tenderness Assessment and Plan - Assessment and Plan (Free Text) Plan: Assessment consider sepsis secondary to left lower lobe healthcare-associated pneumonia, slowly improving history of gram negative bacilli UTI atrial fibrillation COPD CHF dementia abdominal aortic aneurysm history of multiple UTI's history of GI bleed history of DVT history of right hip fracture Plan continue Vancomycin and Cefepime day 3; cultures are negative; PCT is elevated at 23.97; reviewed CXR and we are unable to rule out left lower lobe pneumonia; should complete 4-7 days of therapy - when ready for discharge, the patient can be switched to PO Doxycycline and Augmentin to complete the therapy will continue to monitor clinically
[2016-10-07] MEDS: Vancomycin 1gm in NS 250ml 250 ML IVPB SCH ×2 (00:45→10:16)
[2016-10-07] MEDS: Acetylcysteine 20% Inhal Soln (4ml) IH SCH ×3 (01:50→14:43)
[2016-10-07] MEDS: Sodium Chloride 0.9% 1,000 ML IV SCH ×2 (01:51→14:18)
[2016-10-07 06:08] VITALS: O2SAT 98
[2016-10-07] MEDS: Cefepime IV 2 gm in NS 100 ML IVPB SCH ×2 (06:17→14:19)
[2016-10-07] MEDS: Albuterol-Ipratrop 3 mg / 0.5 (3 ml) UD IH PRN ×2 (07:46→14:43)
[2016-10-07 09:20] LABS: ADD MANUAL DIFF? NO
[2016-10-07 09:22] LABS: BASO # 0.04 K/mm3 (0.0-2.0); BASO % 0.8 % (0.0-3.0); EOS # 0.2 (0.0-0.7); EOS % 4.7 % (1.5-5.0); GRAN # 3.24 (1.4-6.5); GRAN % 62.8 % (50.0-68.0); HEMATOCRIT 31.3 % (36.0-48.0); LYMPH # 1.3 (1.2-3.4); LYMPH % 24.5 % (22.0-35.0); MEAN CELL VOLUME 80.1 fL (80.0-105.0); MEAN CORPUSCULAR HEMOGLOBIN 25.1 pg (25.0-35.0); MEAN CORPUSCULAR HGB CONC 31.3 g/dl (31.0-37.0); MEAN PLATELET VOLUME 9.3 fl (7.0-11.0); MONO # 0.4 (0.1-0.6); MONO % 7.2 % (1.0-6.0); PLATELET COUNT 212 10^3/uL (120.0-450.0); RED CELL DISTRIBUTION WIDTH 17.6 % (11.5-14.5); WHITE BLOOD COUNT 5.2 10^3/ul (4.5-11.0)
[2016-10-07 09:33] LABS: ALB/GLOB RATIO 0.9 (1.1-1.8); ALKALINE PHOSPHATASE 59 U/L (38-133); ALT/SGPT 25 U/L (7-56); AST/SGOT 14 U/L (15-39); BILIRUBIN,TOTAL 0.4 mg/dL (0.2-1.3); BLOOD UREA NITROGEN 8 mg/dL (7-21); CALCIUM 9.2 mg/dL (8.4-10.5); CARBON DIOXIDE 27 mmol/L (21-33); CHLORIDE 110 mmol/L (95-110); GFR AFRICAN-AMERICAN > 60; GLUCOSE,RANDOM 101 mg/dL (70-110); INR 1.86 (0.93-1.08); POTASSIUM 3.4 mmol/L (3.6-5.0); SODIUM 145 mmol/L (132-148); TOTAL PROTEIN 5.8 g/dL (5.8-8.3)
[2016-10-07] MEDS: Pantoprazole 40 mg EC Tab PO SCH (10:16)
[2016-10-07] MEDS ORDERED: Potassium Chloride 20 mEq ER Tab PO ONE (11:22)
--- NOTE | 2016-10-07 11:40 | PN ---
DATE: 10/07/2016 SUBJECTIVE: The patient is seen sitting in bed on telemetry. She is comfortable at rest. She remai ns mildly confused. She denies any chest pain or dyspnea. CURRENT MEDICATIONS: Include Mucomyst, Ativan, Colace, Coumadin, DuoNeb inhaler, Geodon, digoxin 0.1 25 mg daily, Maxipime, Protonix, Seroquel, and vancomycin. OBJECTIVE: GENERAL: She is a very elderly woman who appears comfortable at rest. VITAL SIGNS: Her blood pressure is 124/60 with a pulse of 74 in sinus, respirations are 16. She is afebrile. HEENT: No JVD. CHEST: A few scattered rhonchi. HEART: PMI displaced laterally with a systolic murmur left sternal border. ABDOMEN: Soft, nontender, normoactive bowel sounds. EXTREMITIES: No edema. DIAGNOSTIC DATA: Potassium 3.4, BUN and creatinine 8 and 0.6, hemoglobin and hematocrit 9.8 and 31.3 with a white count of 5.2, platelet count of 212,000. INR is 1.86. IMPRESSION: 1. Altered mental status, probable sepsis, clinically improved. 2. Paroxysmal atrial fibrillation, currently in sinus rhythm. 3. History of chronic obstructive pulmonary disease. 4. History of mild aortic stenosis and mild mitral regurgitation. 5. History of dementia. RECOMMENDATIONS: Continued conservative management is advised. Potassium supplement will be provide d and general conservative cardiac management appears most reasonable at this time. We will continue to follow and make further recommendations as appropriate. Tk Lara MD cc: [phone] TT: 10/07/2016 11:40:28 Confirmation # [id number] Dictation # [id number] padilla
[2016-10-07] MEDS: Nystatin 100,000 Units/gm Topical Pow(15 gm) TOP SCH (12:00)
[2016-10-07 13:40] VITALS: BP 103/68; PULSE 70; RESP 20; TEMP 96.8
--- NOTE | 2016-10-07 14:00 | CP.PCM.DIS ---
<Monie Temple - Last Filed: 10/07/16 14:51> Provider - Provider Date of Admission: 10/04/16 03:49 Attending physician: Sabra Aviles MD Primary care physician: Tashi Kohler MD Consults: Psych: Dr. Davidson ID: Dr. Barnett Neuro: Dr. Luther Cardio: Dr. Mccoy Time Spent in preparation of Discharge (in minutes): 45 Diagnosis - Discharge Diagnosis (1) Pneumonia Status: Acute (2) Atrial fibrillation Status: Chronic (3) CHF (congestive heart failure) Status: Chronic (4) Urinary tract infection Status: Chronic Hospital Course - Lab Results Lab Results: Micro Results 10/05/16 10:00 Urine,Dixon Urine Culture - Final No Growth (<1,000 CFU/ML) 10/04/16 07:12 Urine,Clean Catch Urine Culture - Final <10,000 CFU/ML. MULTIPLE SPECIES. PROBABLE CONTAMINATION. Most Recent Lab Values WBC 5.2 10^3/ul (4.5-11.0) 10/07/16 09:05 RBC 3.91 10^6/uL (3.5-6.1) 10/07/16 09:05 Hgb 9.8 gm/dL (12.0-16.0) L 10/07/16 09:05 Hct 31.3 % (36.0-48.0) L 10/07/16 09:05 MCV 80.1 fL (80.0-105.0) 10/07/16 09:05 MCH 25.1 pg (25.0-35.0) 10/07/16 09:05 MCHC 31.3 g/dl (31.0-37.0) 10/07/16 09:05 RDW 17.6 % (11.5-14.5) H 10/07/16 09:05 Plt Count 212 10^3/uL (120.0-450.0) 10/07/16 09:05 MPV 9.3 fl (7.0-11.0) 10/07/16 09:05 Gran % 62.8 % (50.0-68.0) 10/07/16 09:05 Lymph % (Auto) 24.5 % (22.0-35.0) 10/07/16 09:05 Kleberg % (Auto) 7.2 % (1.0-6.0) H 10/07/16 09:05 Eos % (Auto) 4.7 % (1.5-5.0) 10/07/16 09:05 Baso % (Auto) 0.8 % (0.0-3.0) 10/07/16 09:05 Gran # 3.24 (1.4-6.5) 10/07/16 09:05 Lymph # 1.3 (1.2-3.4) 10/07/16 09:05 [place] # 0.4 (0.1-0.6) 10/07/16 09:05 Eos # 0.2 (0.0-0.7) 10/07/16 09:05 Baso # 0.04 K/mm3 (0.0-2.0) 10/07/16 09:05 Neutrophils % (Manual) 84 % (50.0-70.0) H 10/03/16 23:15 Band Neutrophils % 11 % (0-2) H* 10/03/16 23:15 Lymphocytes % (Manual) 4 % (22.0-35.0) L 10/03/16 23:15 Monocytes % (Manual) 1 % (1.0-6.0) 10/03/16 23:15 Platelet Evaluation Normal (NORMAL) 10/03/16 23:15 PT 20.1 Seconds (9.9-11.8) H 10/07/16 09:05 INR 1.86 (0.93-1.08) H 10/07/16 09:05 APTT 25.9 Seconds (23.7-30.8) 10/03/16 23:15 pO2 62 mm/Hg (30-55) H 10/04/16 11:10 VBG pH 7.27 (7.32-7.43) L 10/04/16 11:10 VBG pCO2 52.0 (40-60) 10/04/16 11:10 VBG HCO3 23.9 mmol/l (21-28) 10/04/16 11:10 VBG Total CO2 25.5 mmol.L (22-28) 10/04/16 11:10 VBG O2 Sat (Calc) 94.2 % (40-65) H 10/04/16 11:10 VBG Base Excess -3.6 mmol/L (0.0-2.0) L 10/04/16 11:10 VBG Potassium 4.4 mmol/L (3.6-5.2) 10/04/16 11:10 Sodium 142.0 mmol/L (132-148) 10/04/16 11:10 Chloride 119.0 mmol/L (98-107) H 10/04/16 11:10 Glucose 115 mg/dl (65-105) H 10/04/16 11:10 Lactate 1.8 mmol/L (0.7-2.1) 10/04/16 11:10 FiO2 21.0 % 10/04/16 11:10 Sodium 145 mmol/L (132-148) 10/07/16 09:05 Potassium 3.4 mmol/L (3.6-5.0) L 10/07/16 09:05 Chloride 110 mmol/L (95-110) 10/07/16 09:05 Carbon Dioxide 27 mmol/L (21-33) 10/07/16 09:05 Anion Gap 11 (10-20) 10/07/16 09:05 BUN 8 mg/dL (7-21) 10/07/16 09:05 Creatinine 0.6 mg/dL (0.5-1.4) 10/07/16 09:05 Est GFR ( Amer) > 60 10/07/16 09:05 Est GFR (Non-Af Amer) > 60 10/07/16 09:05 POC Glucose (mg/dL) 101 mg/dL (65-110) 10/07/16 07:22 Random Glucose 101 mg/dL (70-110) 10/07/16 09:05 Hemoglobin A1c 6.4 % (4.2-6.5) 10/03/16 23:15 Calcium 9.2 mg/dL (8.4-10.5) 10/07/16 09:05 Phosphorus 2.7 mg/dL (2.5-4.5) 10/04/16 07:57 Magnesium 1.7 mg/dL (1.7-2.2) 10/04/16 07:57 Iron 19 ug/dL (45-180) L 10/05/16 11:00 TIBC 335 ug/dL (265-497) 10/05/16 11:00 % Saturation 6 % (20-55) L 10/05/16 11:00 Ferritin 36.0 ng/mL 10/05/16 11:00 Total Bilirubin 0.4 mg/dL (0.2-1.3) 10/07/16 09:05 AST 14 U/L (15-39) L 10/07/16 09:05 ALT 25 U/L (7-56) 10/07/16 09:05 Alkaline Phosphatase 59 U/L (38-133) 10/07/16 09:05 Troponin I 0.01 ng/mL 10/04/16 11:30 Total Protein 5.8 g/dL (5.8-8.3) 10/07/16 09:05 Albumin 2.7 g/dL (3.0-4.8) L 10/07/16 09:05 Globulin 3.1 gm/dL 10/07/16 09:05 Albumin/Globulin Ratio 0.9 (1.1-1.8) L 10/07/16 09:05 Triglycerides 174 mg/dL (35-160) H 10/03/16 23:15 Cholesterol 130 mg/dL (130-200) 10/03/16 23:15 LDL Cholesterol Direct 74 mg/dL (0-129) 10/03/16 23:15 HDL Cholesterol 23 mg/dL (29-60) L 10/03/16 23:15 Vitamin B12 281 pg/mL (239-931) 10/05/16 11:00 25-OH Vitamin D Total 18.2 NG/ML (30.0-100.0) L 10/05/16 08:00 Folate 5.7 ng/mL 10/05/16 11:00 Procalcitonin 20.97 NG/ML (0.19-0.49) H 10/04/16 09:22 Venous Blood Potassium 4.4 mmol/L (3.6-5.2) 10/04/16 11:10 Urine Color Yellow (YELLOW) 10/03/16 23:36 Urine Appearance Cloudy (CLEAR) 10/03/16 23:36 Urine pH 6.0 (4.7-8.0) 10/03/16 23:36 Ur Specific [place] >= 1.030 (1.005-1.035) 10/03/16 23:36 Urine Protein 100 mg/dL (<30 mg/dL) H 10/03/16 23:36 Urine Glucose (UA) Negative mg/dL (NEGATIVE) 10/03/16 23:36 Urine Ketones Negative mg/dL (NEGATIVE) 10/03/16 23:36 Urine Blood Small (NEGATIVE) H 10/03/16 23:36 Urine Nitrate Negative (NEGATIVE) 10/03/16 23:36 Urine Bilirubin Negative (NEGATIVE) 10/03/16 23:36 Urine Urobilinogen 0.2 E.U./dL (<1 E.U./dL) 10/03/16 23:36 Ur Leukocyte Esterase Large Samir/uL (NEGATIVE) H 10/03/16 23:36 Urine RBC 1 - 3 /hpf (0-2) 10/03/16 23:36 Urine WBC 15 - 20 /hpf (0-6) 10/03/16 23:36 Ur Epithelial Cells 1 - 3 /hpf (0-5) 10/03/16 23:36 Urine Bacteria Many (NEG) 10/03/16 23:36 Digoxin 0.9 ng/mL (0.8-2.0) 10/04/16 07:57 Influenza Typ A,B (EIA) Negative for flu a/b (NEGATIVE) 10/04/16 15:23 Blood Type O POSITIVE 10/03/16 23:15 Antibody Screen Negative 10/03/16 23:15 BBK History Checked Patient has bt 10/03/16 23:15 - Hospital Course Hospital Course: 86 F with PMHx of AFib on coumadin, CHF, COPD, urinary incontinence, AAA and thoracic aortic aneurysm, multiple UTIs, GI bleed, DVT, and dementia presents to [facility] with complaints of AMS. Pt's daughter is at bedside, she reports that the patient was restless at home and would set off the bed alarm trying to get out of bed. She was found to be out of bed and in her wheelchair at the doorway without any recollection of how she got there or why. Pt's daughter returned her to her bed. However, at approximately 5pm pt was found to have vomited on herself with thick mucus laden emesis. As per pt daughter, she was not acting like herself or responding appropriately and noticed an associated Rt sided weakness in both upper extremity and lower extremity. Of note, pt has a hx of rt hip fx and arthritis. Upon these constellation of symptoms, pt's daughter decided to bring her mother to the [facility]. A code stroke was called in the ED following complaints of RUE and RLE weakness and AMS. Pt's CTH was not found to demonstrate any acute intracranial pathology. Upon further lab work and imaging , pt was found to be in severe sepsis, and a code sepsis was called. Pt was seen and examined at bedside with daughter present. She is AAOx3, following commands, and has complaints of "not feeling too well". Pt admits to chills and hip pain. She denied fever, headaches, sob, chest pains, palpitations, abdominal pains, n/v/d/c. On admission, CT head was negative. Patient's right sided weakness resolved. Patient was then found to be in severe sepsis with lactic acid of 3.3. Patient had a UTI on admission and CXR showed possible Left lower lobe PNA. Patient was started on antibiotics and ID was consulted. Patient also had fluid resuscitation keeping in mind patient has history of CHF. Patient had negative troponins x2. Echo done during the stay showed normal LV size and function. Blood cultures were negative and initial urine cultures were contaminated. Repeat urine cultures were negative. Patient had renal US which showed mild hydronephrosis, B/L renal calculi, 2.2 cm right lower pole cortical cyst. Over the course of the hospital stay, patient's condition and mental status improved. Patient was sent home on oral Abx per ID recs. Patient is to follow up with PMD, Dr. Kohler upon discharge. Patient is to follow up with urologist upon discharge. Patient is discharged on the following medications: Augmentin 875-125 mg PO Q12 #12, Doxycycline 100 mg PO Q12 #14, Aricept 10 mg qd #30, Aldactone 25 mg PO BID #60, Seroquel 25 mg PO HS take 2, Clonopine 0.5 mg PO HS PRN, warfarin 2 mg PO QD, Digoxin .125 mg PO QD, Tylenol/codeine #3 qd prn, Nystatin 1 bottle. Please see MAR for full details. - Date & Time of H&P Date of H&P: 10/07/16 Time of H&P: 14:01 Discharge Exam - Head Exam Head Exam: NORMAL INSPECTION - Eye Exam Eye Exam: EOMI Pupil Exam: PERRL - ENT Exam ENT Exam: Mucous Membranes Moist - Respiratory Exam Respiratory Exam: Clear to PA & Lateral. absent: Rales, Rhonchi, Wheezes - Cardiovascular Exam Cardiovascular Exam: REGULAR RHYTHM, +S1, +S2. absent: Diastolic murmur, Gallop , Rubs, Systolic Murmur - GI/Abdominal Exam GI & Abdominal Exam: Normal Bowel Sounds, Soft. absent: Distended, Firm, Guarding, Rigid, Tenderness - Extremities Exam Additional comments: no edema - Neurological Exam Neurological exam: Alert, Oriented x3 - Psychiatric Exam Psychiatric exam: Normal Affect, Normal Mood - Skin Skin Exam: Dry, Intact, Normal Color, Warm Discharge Plan - Discharge Medications Prescriptions: Acetaminophen with Codeine [Tylenol with Codeine #3 Tablet] 1 tab PO .DINNER # 30 Amoxicillin/Clavulanate [Augmentin 875 MG-125 MG] 1 tab PO BID #14 tab Clonazepam [Klonopin] 0.5 mg PO HS PRN #30 PRN Reason: Anxiety Digoxin 125 mcg PO .DINNER #30 Docusate [Colace] 100 mg PO BID #30 Donepezil HCl [Aricept] 10 mg PO DAILY #30 tablet Doxycycline Hyclate 100 mg PO Q12 #14 tab Ergocalciferol [Drisdol 50,000 Intl Units Cap] 1 cap PO Q7D #30 cap Nystatin [Nystop Topical Powder] 1 gm TOP BID #1 bottle Pantoprazole [Protonix EC Tab] 40 mg PO DAILY #30 ect QUEtiapine [Seroquel] 2 tab PO HS PRN #60 PRN Reason: Insomnia Spironolactone [Aldactone] 25 mg PO BID #60 Warfarin [Coumadin] 2 mg PO HS #30 - Follow Up Plan Condition: STABLE Disposition: HOME/ ROUTINE Instructions: Transient Ischemic Attack (DC), Kidney Stones (DC), Urinary Tract Infection in Women (DC), Sepsis (GEN), Community Acquired Pneumonia (DC) Additional Instructions: Patient is to follow up with PMDDr. Kohler upon discharge. Patient will Patient is to follow up with urologist upon discharge. Patient is discharged on the following medications: Augmentin 875-125 mg PO Q12 #12, Doxycycline 100 mg PO Q12 #14, Aricept 10 mg qd #30, Aldactone 25 mg PO BID #60, Seroquel 25 mg PO HS take 2 #60, Clonopine 0.5 mg PO HS PRN, warfarin 2 mg PO QD, Digoxin .125 mg PO QD, Tylenol/codeine #3 qd prn #30 Nystatin 1 bottle. Nursing If you begin to experience chest pain, shortness of breath, changes in mental status, symptoms return or any changes return to the nearest emergency room or call 911. See care notes provided for further instructions Referrals: Tashi Kohler MD [Primary Care Provider] - <Sabra Aviles - Last Filed: 10/07/16 17:44> Provider - Provider Date of Admission: 10/04/16 03:49 Attending physician: Sabra Aviles MD Primary care physician: Tashi Kohler MD Hospital Course - Lab Results Lab Results: Micro Results 10/05/16 10:00 Urine,Dixon Urine Culture - Final No Growth (<1,000 CFU/ML) 10/04/16 07:12 Urine,Clean Catch Urine Culture - Final <10,000 CFU/ML. MULTIPLE SPECIES. PROBABLE CONTAMINATION. Most Recent Lab Values WBC 5.2 10^3/ul (4.5-11.0) 10/07/16 09:05 RBC 3.91 10^6/uL (3.5-6.1) 10/07/16 09:05 Hgb 9.8 gm/dL (12.0-16.0) L 10/07/16 09:05 Hct 31.3 % (36.0-48.0) L 10/07/16 09:05 MCV 80.1 fL (80.0-105.0) 10/07/16 09:05 MCH 25.1 pg (25.0-35.0) 10/07/16 09:05 MCHC 31.3 g/dl (31.0-37.0) 10/07/16 09:05 RDW 17.6 % (11.5-14.5) H 10/07/16 09:05 Plt Count 212 10^3/uL (120.0-450.0) 10/07/16 09:05 MPV 9.3 fl (7.0-11.0) 10/07/16 09:05 Gran % 62.8 % (50.0-68.0) 10/07/16 09:05 Lymph % (Auto) 24.5 % (22.0-35.0) 10/07/16 09:05 Kleberg % (Auto) 7.2 % (1.0-6.0) H 10/07/16 09:05 Eos % (Auto) 4.7 % (1.5-5.0) 10/07/16 09:05 Baso % (Auto) 0.8 % (0.0-3.0) 10/07/16 09:05 Gran # 3.24 (1.4-6.5) 10/07/16 09:05 Lymph # 1.3 (1.2-3.4) 10/07/16 09:05 Kleberg # 0.4 (0.1-0.6) 10/07/16 09:05 Eos # 0.2 (0.0-0.7) 10/07/16 09:05 Baso # 0.04 K/mm3 (0.0-2.0) 10/07/16 09:05 Neutrophils % (Manual) 84 % (50.0-70.0) H 10/03/16 23:15 Band Neutrophils % 11 % (0-2) H* 10/03/16 23:15 Lymphocytes % (Manual) 4 % (22.0-35.0) L 10/03/16 23:15 Monocytes % (Manual) 1 % (1.0-6.0) 10/03/16 23:15 Platelet Evaluation Normal (NORMAL) 10/03/16 23:15 PT 20.1 Seconds (9.9-11.8) H 10/07/16 09:05 INR 1.86 (0.93-1.08) H 10/07/16 09:05 APTT 25.9 Seconds (23.7-30.8) 10/03/16 23:15 pO2 62 mm/Hg (30-55) H 10/04/16 11:10 VBG pH 7.27 (7.32-7.43) L 10/04/16 11:10 VBG pCO2 52.0 (40-60) 10/04/16 11:10 VBG HCO3 23.9 mmol/l (21-28) 10/04/16 11:10 VBG Total CO2 25.5 mmol.L (22-28) 10/04/16 11:10 VBG O2 Sat (Calc) 94.2 % (40-65) H 10/04/16 11:10 VBG Base Excess -3.6 mmol/L (0.0-2.0) L 10/04/16 11:10 VBG Potassium 4.4 mmol/L (3.6-5.2) 10/04/16 11:10 Sodium 142.0 mmol/L (132-148) 10/04/16 11:10 Chloride 119.0 mmol/L (98-107) H 10/04/16 11:10 Glucose 115 mg/dl (65-105) H 10/04/16 11:10 Lactate 1.8 mmol/L (0.7-2.1) 10/04/16 11:10 FiO2 21.0 % 10/04/16 11:10 Sodium 145 mmol/L (132-148) 10/07/16 09:05 Potassium 3.4 mmol/L (3.6-5.0) L 10/07/16 09:05 Chloride 110 mmol/L (95-110) 10/07/16 09:05 Carbon Dioxide 27 mmol/L (21-33) 10/07/16 09:05 Anion Gap 11 (10-20) 10/07/16 09:05 BUN 8 mg/dL (7-21) 10/07/16 09:05 Creatinine 0.6 mg/dL (0.5-1.4) 10/07/16 09:05 Est GFR ( Amer) > 60 10/07/16 09:05 Est GFR (Non-Af Amer) > 60 10/07/16 09:05 POC Glucose (mg/dL) 101 mg/dL (65-110) 10/07/16 07:22 Random Glucose 101 mg/dL (70-110) 10/07/16 09:05 Hemoglobin A1c 6.4 % (4.2-6.5) 10/03/16 23:15 Calcium 9.2 mg/dL (8.4-10.5) 10/07/16 09:05 Phosphorus 2.7 mg/dL (2.5-4.5) 10/04/16 07:57 Magnesium 1.7 mg/dL (1.7-2.2) 10/04/16 07:57 Iron 19 ug/dL (45-180) L 10/05/16 11:00 TIBC 335 ug/dL (265-497) 10/05/16 11:00 % Saturation 6 % (20-55) L 10/05/16 11:00 Ferritin 36.0 ng/mL 10/05/16 11:00 Total Bilirubin 0.4 mg/dL (0.2-1.3) 10/07/16 09:05 AST 14 U/L (15-39) L 10/07/16 09:05 ALT 25 U/L (7-56) 10/07/16 09:05 Alkaline Phosphatase 59 U/L (38-133) 10/07/16 09:05 Troponin I 0.01 ng/mL 10/04/16 11:30 Total Protein 5.8 g/dL (5.8-8.3) 10/07/16 09:05 Albumin 2.7 g/dL (3.0-4.8) L 10/07/16 09:05 Globulin 3.1 gm/dL 10/07/16 09:05 Albumin/Globulin Ratio 0.9 (1.1-1.8) L 10/07/16 09:05 Triglycerides 174 mg/dL (35-160) H 10/03/16 23:15 Cholesterol 130 mg/dL (130-200) 10/03/16 23:15 LDL Cholesterol Direct 74 mg/dL (0-129) 10/03/16 23:15 HDL Cholesterol 23 mg/dL (29-60) L 10/03/16 23:15 Vitamin B12 281 pg/mL (239-931) 10/05/16 11:00 25-OH Vitamin D Total 18.2 NG/ML (30.0-100.0) L 10/05/16 08:00 Folate 5.7 ng/mL 10/05/16 11:00 Procalcitonin 20.97 NG/ML (0.19-0.49) H 10/04/16 09:22 Venous Blood Potassium 4.4 mmol/L (3.6-5.2) 10/04/16 11:10 Urine Color Yellow (YELLOW) 10/03/16 23:36 Urine Appearance Cloudy (CLEAR) 10/03/16 23:36 Urine pH 6.0 (4.7-8.0) 10/03/16 23:36 Ur Specific [place] >= 1.030 (1.005-1.035) 10/03/16 23:36 Urine Protein 100 mg/dL (<30 mg/dL) H 10/03/16 23:36 Urine Glucose (UA) Negative mg/dL (NEGATIVE) 10/03/16 23:36 Urine Ketones Negative mg/dL (NEGATIVE) 10/03/16 23:36 Urine Blood Small (NEGATIVE) H 10/03/16 23:36 Urine Nitrate Negative (NEGATIVE) 10/03/16 23:36 Urine Bilirubin Negative (NEGATIVE) 10/03/16 23:36 Urine Urobilinogen 0.2 E.U./dL (<1 E.U./dL) 10/03/16 23:36 Ur Leukocyte Esterase Large Samir/uL (NEGATIVE) H 10/03/16 23:36 Urine RBC 1 - 3 /hpf (0-2) 10/03/16 23:36 Urine WBC 15 - 20 /hpf (0-6) 10/03/16 23:36 Ur Epithelial Cells 1 - 3 /hpf (0-5) 10/03/16 23:36 Urine Bacteria Many (NEG) 10/03/16 23:36 Digoxin 0.9 ng/mL (0.8-2.0) 10/04/16 07:57 Influenza Typ A,B (EIA) Negative for flu a/b (NEGATIVE) 10/04/16 15:23 Blood Type O POSITIVE 10/03/16 23:15 Antibody Screen Negative 10/03/16 23:15 BBK History Checked Patient has bt 10/03/16 23:15 Attending/Attestation - Attestation I have personally seen and examined this patient.: Yes I have fully participated in the care of the patient.: Yes I have reviewed all pertinent clinical information, including history, physical exam and plan: Yes Notes (Text): I have seen and examined patient at bedside. Agree with the above note with the following additions / exceptions: Briefly this is 86 year old female with history of atrial fibrillation on coumadin, moderate to severe pulmonary hypertension, COPD, urinary incontinence, AAA, GI bleed, DVT, dementia who got admitted for evaluation of SIRS and suspected sepsis due to HCAP. She will be sent home on po antibiotics. Discussed with Dr Alcantar. Plan to repeat CXR as an outpatient. Also needs to follow up with outpatient urology. Continue coumadin. Patient lives with her daughter who is the primary file conversion operator. Patients daughter does not want patient to go to rehab. She will go home today. Upon discharge patient will follow up with Dr Alcantar. Dr Sabra Aviles
[2016-10-07] MEDS: Digoxin 125 mcg (0.125 mg) Tab PO SCH (14:21)
[2016-10-07 14:25] VITALS: PULSE 76
--- NOTE | 2016-10-07 19:16 | CP.PCM.PN ---
Subjective - Date & Time of Evaluation Date of Evaluation: 10/07/16 Time of Evaluation: 14:50 - Subjective Subjective: Comfortable in bed, not in distress, afebrile. Objective - Vital Signs/Intake and Output Vital Signs (last 24 hours): Temp Pulse Resp BP Pulse Ox 96.8 F L 70 20 103/68 98 10/07/16 12:00 10/07/16 12:00 10/07/16 12:00 10/07/16 12:00 10/07/16 06:00 - Medications Medications: Current Medications Acetaminophen (Tylenol 325mg Tab) 650 mg PO Q6H PRN PRN Reason: Pain, Mild (1-3) Last Admin: 10/07/16 07:51 Dose: 650 mg Acetylcysteine (Acetylcysteine 20%) 4 ml IH Q8 ERINN Last Admin: 10/07/16 14:43 Dose: 4 ml Albuterol/Ipratropium (Duoneb 3 Mg/0.5 Mg (3 Ml) Ud) 3 ml IH [id number] PRN PRN Reason: Shortness of Breath Last Admin: 10/07/16 14:43 Dose: 3 ml Digoxin (Lanoxin) 0.125 mg PO 1400 ERINN Last Admin: 10/07/16 14:21 Dose: 0.125 mg Docusate Sodium (Colace) 100 mg PO BID [facility] Last Admin: 10/07/16 18:00 Dose: 100 mg Ergocalciferol (Drisdol 50,000 Intl Units Cap) 1 cap PO Q7D [facility] Last Admin: 10/06/16 12:02 Dose: 1 cap Vancomycin HCl (Vancomycin 1gm) 250 mls @ 167 mls/hr IVPB Q12 ERINN PRN Reason: Protocol Last Admin: 10/07/16 10:16 Dose: 167 mls/hr Cefepime HCl (Maxipime 2gm) 100 mls @ 100 mls/hr IVPB Q8 ERINN PRN Reason: Protocol Stop: 10/09/16 14:01 Last Admin: 10/07/16 14:19 Dose: 100 mls/hr Sodium Chloride (Sodium Chloride 0.9%) 1,000 mls @ 75 mls/hr IV .[id number] [facility] Last Admin: 10/07/16 14:18 Dose: 75 mls/hr Lorazepam (Ativan) 0.5 mg PO HS [facility] Last Admin: 10/06/16 23:30 Dose: 0.5 mg Nystatin (Nystop Topical Powder) 0 gm TOP BID [facility] Last Admin: 10/07/16 12:00 Dose: 1 applic Pantoprazole Sodium (Protonix Ec Tab) 40 mg PO DAILY [facility] Last Admin: 10/07/16 10:16 Dose: 40 mg Quetiapine Fumarate (Seroquel) 50 mg PO HS [facility] PRN Reason: Protocol Last Admin: 10/06/16 23:30 Dose: 50 mg Warfarin Sodium (Coumadin) 6 mg PO 1800 [facility] Last Admin: 10/07/16 18:06 Dose: 6 mg Ziprasidone (Geodon Inj) 10 mg IM Q6H PRN PRN Reason: Agitation - Labs Labs: 10/07/16 09:05 10/07/16 09:05 PT 20.1 Seconds (9.9-11.8) H 10/07/16 09:05 INR 1.86 (0.93-1.08) H 10/07/16 09:05 APTT 25.9 Seconds (23.7-30.8) 10/03/16 23:15 - Constitutional Appears: Non-toxic, No Acute Distress - Head Exam Head Exam: NORMAL INSPECTION - ENT Exam ENT Exam: Mucous Membranes Moist - Neck Exam Neck Exam: absent: Lymphadenopathy, Meningismus - Respiratory Exam Respiratory Exam: Decreased Breath Sounds - Cardiovascular Exam Cardiovascular Exam: +S1, +S2 - GI/Abdominal Exam GI & Abdominal Exam: Soft. absent: Tenderness Assessment and Plan - Assessment and Plan (Free Text) Plan: Assessment consider sepsis secondary to left lower lobe healthcare-associated pneumonia, slowly improving history of gram negative bacilli UTI atrial fibrillation COPD CHF dementia abdominal aortic aneurysm history of multiple UTI's history of GI bleed history of DVT history of right hip fracture Plan continue Vancomycin and Cefepime day 4; cultures are negative; PCT is elevated at 23.97; reviewed CXR and we are unable to rule out left lower lobe pneumonia; should complete 4-7 days of therapy - when ready for discharge, the patient can be switched to PO Doxycycline and Augmentin to complete the therapy - discussed with Dr. Aviles
--- NOTE | 2016-10-07 20:14 | PN ---
DATE: 10/07/2016 HISTORY OF PRESENT ILLNESS: The patient is an 86-year-old female who is currently being treated for sepsis, possible pneumonia, plus other medical problems. She has a history of mild vascular dementia . Three nights ago had been very restless, agitated. She was started on Seroquel 50 mg and lorazepa m 0.5 mg ordered at bedtime. She had become more comfortable. I spoke with the daughter at bedside. Daughter was quite upset that they gave their mother bedtime medicine at approximately 2:00 in the morning last night. The patient is awake, aware of surroundings. Recognizes her daughter. The maude ent is resting comfortably at this time. No evidence of any agitation or confusion. CURRENT MEDICATIONS: Include Lanoxin, DuoNeb treatment, Colace, Protonix, vancomycin IV, acetylcyste ine, Maxipime IV, lorazepam 0.5 mg at bedtime, Seroquel 50 mg at bedtime. The patient is also receiv ing Drisdol which she started yesterday, 50,000 International Units once a week, Coumadin 6 mg daily. LABORATORY DATA: Her white count is 5200, hemoglobin is 9.8. Her metabolic profile reveals, from to day, sodium 145, potassium 3.4. The rest of parameters were all essentially normal except for an alb umin of 2.7. VITAL SIGNS: Her blood pressure is 103/68, pulse 70, afebrile, respirations 20 per minute. IMPRESSION: Mild vascular dementia with recent behavioral disturbance, not now. She has vitamin D d eficiency, chronic microvascular disease of the brain, recent sepsis, possible pneumonia, history of atrial fibrillation, chronic obstructive pulmonary disease, history of congestive heart failure, abdo fitz aortic aneurysm, thoracic aortic aneurysm, history of left hip surgery. PLAN: We will continue to monitor mental status with discharge and will follow up as outpatient. Constantino Davidson MD cc: [id number] TT: 10/07/2016 20:14:04 Confirmation # [id number] Dictation # [id number]
== END 2016-10-07 20:02 | disposition home or self-care (01) | DRG 871 ==
LOC: ED 22:59 → ERH 10-04 03:49 → 2RSO 10-04 04:43
PROVIDERS: ADMIT Internal Medicine; ATTEND Hospitalist
PROC: 3E0F7GC Introduction of Other Therapeutic Substance into Respiratory Tract, Via Natural or Artificial Opening (ICD-10-PCS; principal; 2016-10-04)
DX: A41.9 Sepsis, unspecified organism (principal); J18.9 Pneumonia, unspecified organism; I50.9 Heart failure, unspecified; J44.0 Chronic obstructive pulmonary disease with (acute) lower respiratory infection; I27.2 Other secondary pulmonary hypertension; F01.51 Vascular dementia, unspecified severity, with behavioral disturbance; N39.0 Urinary tract infection, site not specified; N13.2 Hydronephrosis with renal and ureteral calculous obstruction; R65.20 Severe sepsis without septic shock; I48.0 Paroxysmal atrial fibrillation; Z79.01 Long term (current) use of anticoagulants; Z66 Do not resuscitate; I25.10 Atherosclerotic heart disease of native coronary artery without angina pectoris; I08.3 Combined rheumatic disorders of mitral, aortic and tricuspid valves; I71.4 Abdominal aortic aneurysm, without rupture; I71.2 Thoracic aortic aneurysm, without rupture; R45.1 Restlessness and agitation; E55.9 Vitamin D deficiency, unspecified; R26.9 Unspecified abnormalities of gait and mobility; Z78.1 Physical restraint status; Z87.440 Personal history of urinary (tract) infections; Z86.718 Personal history of other venous thrombosis and embolism; Z87.891 Personal history of nicotine dependence

== ENCOUNTER 2016-11-23 10:45 | Inpatient (IN) | payer MEDICARE, BC ==
[2016-11-23 10:53] VITALS: BMI 28.3
[2016-11-23] MEDS ORDERED: Sodium Chloride 0.9% 1,000 ML IV STA ×2 (11:14→14:59)
[2016-11-23] MEDS ORDERED: cefTRIAXone 1 gm 100 ML IV STA (11:14)
[2016-11-23] MEDS ORDERED: cefTRIAXone 1 gm 1 GM/100 ML BAG IV STA (11:17)
--- NOTE | 2016-11-23 11:26 | ED PDOC ---
Arrival/HPI - General Chief Complaint: Weakness/Neurological Deficit Time Seen by Provider: 11/23/16 11:10 Historian: Patient, Family (Daughter) - History of Present Illness Narrative History of Present Illness (Text): 11/23/16 11:26 A 86 year old female, whose past medical history includes atrial fibrillation, CHF, COPD and dementia, is brought into the emergency department by daughter complaining of diaphoresis and hematuria for the past 2 days. Daughter reports patient has a history of frequent urinary tract infections. Patient denies any fever, chills, nausea, vomiting, diarrhea, abdominal pain, chest pain, shortness of breath or any other complaints. Daughter reports patient is acting normal to baseline. PMD: Dr. Urena Time/Duration: Other (2 days) Symptom Course: Unchanged Quality: Other Context: Home Past Medical History - Provider Review Nursing Documentation Reviewed: Yes - Infectious Disease Hx of Infectious Diseases: None - Tetanus Immunization Tetanus Immunization: Unknown - Cardiac Hx Cardiac Disorders: Yes Hx Congestive Heart Failure: Yes - Pulmonary Hx Respiratory Disorders: Yes Hx Chronic Obstructive Pulmonary Disease (COPD): Yes - Neurological Hx Neurological Disorder: Yes Hx Dementia: Yes - HEENT Hx HEENT Disorder: No - Renal Hx Renal Disorder: No - Endocrine/Metabolic Hx Endocrine Disorders: No - Hematological/Oncological Hx Blood Disorders: Yes Hx Blood Transfusions: Yes - Integumentary Hx Dermatological Disorder: Yes Other/Comment: L LEG LESION - Musculoskeletal/Rheumatological Hx Musculoskeletal Disorders: Yes Hx Falls: Yes - Gastrointestinal Hx Gastrointestinal Disorders: Yes Hx Gastroesophageal Reflux: Yes (GI bleed) - Genitourinary/Gynecological Hx Genitourinary Disorders: Yes Hx Incontinence: Yes Hx Urinary Tract Infection: Yes - Psychiatric Hx Psychophysiologic Disorder: No Hx Emotional Abuse: No Hx Physical Abuse: No Hx Substance Use: No - Past Surgical History Past Surgical History: No Previous - Surgical History Hx Orthopedic Surgery: Yes (L HIP) Other/Comment: ABD HERNIA REPAIR - Anesthesia Hx Anesthesia: Yes Hx Anesthesia Reactions: No Hx Malignant Hyperthermia: No - Suicidal Assessment Feels Threatened In Home Enviroment: No Family/Social History - Physician Review Nursing Documentation Reviewed: Yes Family/Social History: No Known Family HX Smoking Status: Former Smoker Hx Alcohol Use: No Hx Substance Use: No Hx Substance Use Treatment: No Allergies/Home Meds Allergies/Adverse Reactions: Allergies No Known Allergies Allergy (Verified 11/23/16 10:49) Home Medications: Home Meds Medication Instructions Recorded Confirmed Acetaminophen with Codeine 1 tab PO .DINNER PRN 11/23/16 11/23/16 [Tylenol with Codeine #3 Tablet] Cranberry Conc/Ascorbic Acid 1 tab PO BID 11/23/16 11/23/16 [Cranberry Plus Vitamin C Sftgl] Pantoprazole [Protonix EC Tab] 40 mg PO BID 11/23/16 11/23/16 Warfarin [Coumadin] 2 mg PO DAILY 11/23/16 11/23/16 oxyCODONE/Acetaminophen [Percocet 1 tab PO PRN PRN 11/23/16 11/23/16 5/325 mg Tab] Physical Exam - Physical Exam Narrative Physical Exam (Text): - Review of Systems Constitutional: Normal. absent: Fatigue, Weight Change, Fevers Eyes: Normal ENT: Normal Respiratory: Normal absent: SOB, Cough, Sputum Cardiovascular: Normal absent: Chest pain, Palpitations, Syncope Gastrointestinal: Normal absent: Abdominal pain, Diarrhea, Nausea, Vomiting Genitourinary: (+) Hematuria absent: Dysuria, Frequency Musculoskeletal: Normal. absent: Arthralgias, Back Pain, Neck Pain Skin: Normal Neurological: Normal absent: Focal Weakness Endocrine: (+) Diaphoresis Hemo/Lymphatic: Normal Psychiatric: Normal - Physical exam Patient appears age appropriate, speaking full sentences without difficulty - Systems Exam Head: Present: Atraumatic, Normocephalic Pupils: Present: PERRL Extraocular Muscles: Present: EOMI Conjunctiva: Present: Normal Mouth: Present: Moist Mucous Membranes Neck: Present: Normal Range of Motion. No: MIDLINE TENDERNESS, Paraspinal Tenderness Respiratory/Chest: Present: Clear to Auscultation, Good Air Exchange. No: Respiratory Distress, Accessory Muscle Use, Tachypnic Cardiovascular: Present: Regular Rate and Rhythm, Normal S1, S2, Peripheral Pulses Present. No: Murmurs Abdomen: Present: Normal Bowel Sounds, Mild suprapubic tenderness to palpation. No: Peritoneal Signs, Rebound, Guarding, Distention Back: Present: Normal Inspection. No: Midline Tenderness, Paraspinal Tenderness Upper Extremity: Present: Normal Inspection. No: Cyanosis, Edema Lower Extremity: Present: Normal Inspection. No: Edema Neurological: Present: GCS=15, Speech Normal, cranial nerves II through XII fully intact with no cerebellar abnormality, neuro-sensory fully intact. No focal neurological deficits. Skin: Present: Warm, Dry, Normal Color. No: Rashes Lymphatic: Present: OX3, NI, NC Psychiatric: Present: Alert, at baseline per granite countertop installer Vital Signs Reviewed: Yes Vital Signs Temp Pulse Resp BP Pulse Ox 11/23/16 13:30 55 L 20 90/54 L 99 11/23/16 11:30 62 18 95/67 L 99 11/23/16 11:00 99.6 F 11/23/16 10:46 99.6 F 78 31 H 96/58 L 98 Temperature: Afebrile Blood Pressure: Normal Pulse: Regular Respiratory Rate: Tachypneic Appearance: Positive for: Well-Appearing, Non-Toxic, Comfortable Pain Distress: None Mental Status: Positive for: other (Alert and oriented to baseline) Finger Stick Blood Glucose: 240 Medical Decision Making ED Course and Treatment: 11/23/16 11:23 Impression: A 86 year old female with diaphoresis and hematuria. On exam, mild suprapubic tenderness. As per daughter, patient is acting normal to baseline. Plan: -- Chest xray -- Labs -- Blood and Urine culture -- Urinalysis -- Rocephin and IV fluids -- Reassess and disposition Progress Notes: EKG shows NSR at 80 BPM with 1st degree AV block, wide QRS, LVH. Interpreted by me. Report Date : 11/23/2016 11:29:07 Procedure: Chest xray Dictator : Ghassan Scott MD IMPRESSION: No active disease. 11/23/16 15:10 After fluid bolus, patient's blood pressure came up to 100/60. Patient is alert, arousable, does not appear lethargic, and is in no distress. Urinalysis has evidence for infection Patient will be admitted to telemetry Fluid bolus of 30 mL per KG was not given due to fear of fluid overload since patient's BNP is elevated case dw Dr. Daly, accepted pt to her service pt and family member aware of and agree with plan - Lab Interpretations Lab Results: 11/23/16 11:20 11/23/16 11:20 Lab Results 11/23/16 12:15: Urine Color Light brown, Urine Appearance Cloudy, Urine pH 6.0, Ur Specific [place] 1.025, Urine Protein 100 H, Urine Glucose (UA) Negative, Urine Ketones Trace H, Urine Blood Large H, Urine Nitrate Positive H, Urine Bilirubin Small H, Urine Urobilinogen 1.0 H, Ur Leukocyte Esterase Large H, Urine RBC Tntc, Urine WBC 25 - 30, Urine Bacteria Many 11/23/16 11:20: Sodium 140, Potassium 4.2, Chloride 103, Carbon Dioxide 22, Anion Gap 19, BUN 24 H, Creatinine 1.2, Est GFR ( Amer) 52, Est GFR (Non- Af Amer) 43, Random Glucose 223 H, Calcium 10.9 H, Total Bilirubin 0.8, AST 25, ALT 14, Alkaline Phosphatase 105, Lactate Dehydrogenase 389, Total Creatine Kinase < 20 L, Troponin I 0.03 D, NT-Pro-B Natriuret Pep 1720 H, Total Protein 7.6, Albumin 4.1, Globulin 3.5, Albumin/Globulin Ratio 1.2 11/23/16 11:20: PT 19.3 H, INR 1.79 H, APTT 32.2 H 11/23/16 11:20: WBC 25.5 H* D, RBC 4.97, Hgb 12.4, Hct 39.2, MCV 78.9 L, MCH 24.9 L, MCHC 31.6, RDW 17.0 H, Plt Count 291, MPV 9.6, Neutrophils % (Manual) 90 H, Band Neutrophils % 8 H, Lymphocytes % (Manual) 1 L, Monocytes % (Manual) 1 , Platelet Evaluation Normal, Poikilocytosis (manual Slight, Anisocytosis ( manual) 1+, Microcytosis (manual) 1+ 11/23/16 11:00: POC Glucose (mg/dL) 240 H I have reviewed the lab results: Yes - RAD Interpretation Radiology Orders: 11/23/16 11:13 CHEST PORTABLE [RAD] Stat - Medication Orders Current Medication Orders: Sodium Chloride (Sodium Chloride 0.9%) 1,000 mls @ 1,000 mls/hr IV .Q1H STA Stop: 11/23/16 15:58 Discontinued Medications Sodium Chloride (Sodium Chloride 0.9%) 1,000 mls @ 1,000 mls/hr IV .Q1H STA Stop: 11/23/16 12:13 Last Admin: 11/23/16 11:30 Dose: 1,000 mls/hr Ceftriaxone Sodium (Rocephin 1 Gram Ivpb) 1 gm in 100 mls @ 200 mls/hr IV STAT STA PRN Reason: Protocol Stop: 11/23/16 11:46 Last Admin: 11/23/16 12:00 Dose: 200 mls/hr Vancomycin HCl (Vancomycin 1gm) 1 gm in 250 mls @ 133.333 mls/hr IVPB STAT STA PRN Reason: Protocol Stop: 11/23/16 14:12 Last Admin: 11/23/16 13:00 Dose: 133.333 mls/hr - Scribe Statement The provider has reviewed the documentation as recorded by the Scribe Yojana Douglas Provider Scribe Attestation: All medical record entries made by the Scribe were at my direction and personally dictated by me. I have reviewed the chart and agree that the record accurately reflects my personal performance of the history, physical exam, medical decision making, and the department course for this patient. I have also personally directed, reviewed, and agree with the discharge instructions and disposition. Disposition/Present on Arrival - Present on Arrival Any Indicators Present on Arrival: No History of DVT/PE: No History of Uncontrolled Diabetes: No Urinary Catheter: No History of Decub. Ulcer: No History Surgical Site Infection Following: None - Disposition Have Diagnosis and Disposition been Completed?: Yes Diagnosis: Sepsis Disposition: HOSPITALIZED Disposition Time: 15:12 Patient Plan: Telemetry Condition: FAIR Discharge Instructions (ExitCare): Sepsis (ED) Referrals: PCP,NO [Primary Care Provider] - Follow up with primary
--- NOTE | 2016-11-23 11:31 | RAD ---
HISTORY: cough COMPARISON: 10/03/2016 FINDINGS: LUNGS: No active pulmonary disease. PLEURA: No significant pleural effusion identified, no pneumothorax apparent. CARDIOVASCULAR: Severe aortic tortuosity OSSEOUS STRUCTURES: No significant abnormalities. VISUALIZED UPPER ABDOMEN: Normal. OTHER FINDINGS: None. IMPRESSION: No active disease.
[2016-11-23 12:01] LABS: HEMATOCRIT 39.2 % (36.0-48.0); MEAN CELL VOLUME 78.9 fL (80.0-105.0); MEAN CORPUSCULAR HEMOGLOBIN 24.9 pg (25.0-35.0); MEAN CORPUSCULAR HGB CONC 31.6 g/dl (31.0-37.0); MEAN PLATELET VOLUME 9.6 fl (7.0-11.0); PLATELET COUNT 291 10^3/uL (120.0-450.0)
[2016-11-23 12:12] LABS: INR 1.79 (0.93-1.08); PARTIAL THROMBOPLASTIN TIME 32.2 Seconds (23.7-30.8)
[2016-11-23 12:14] LABS: ADD MANUAL DIFF? YES; ALB/GLOB RATIO 1.2 (1.1-1.8); ALKALINE PHOSPHATASE 105 U/L (38-133); ALT/SGPT 14 U/L (7-56); AST/SGOT 25 U/L (15-39); BILIRUBIN,TOTAL 0.8 mg/dL (0.2-1.3); BLOOD UREA NITROGEN 24 mg/dL (7-21); CALCIUM 10.9 mg/dL (8.4-10.5); CARBON DIOXIDE 22 mmol/L (21-33); CHLORIDE 103 mmol/L (98-107); GFR AFRICAN-AMERICAN 52; GLUCOSE,RANDOM 223 mg/dL (70-110); POTASSIUM 4.2 mmol/L (3.6-5.0); SODIUM 140 mmol/L (132-148); TOTAL PROTEIN 7.6 g/dL (5.8-8.3); WHITE BLOOD COUNT 25.5 10^3/ul (4.5-11.0)
[2016-11-23] MEDS ORDERED: Vancomycin 1gm in NS 250ml 1 GM/250 ML BAG IVPB STA (12:20)
[2016-11-23 12:25] LABS: TROPONIN I 0.03 ng/mL
[2016-11-23 12:46] LABS: ANISOCYTOSIS 1+; BAND 8 % (0-2); MICROCYTOSIS 1+; NEUTROPHIL 90 % (50.0-70.0); PLATELET ESTIMATE NORMAL (NORMAL); POIKILOCYTOSIS SLIGHT
[2016-11-23 12:57] LABS: URINE BILIRUBIN SMALL (NEGATIVE); URINE BLOOD LARGE (NEGATIVE); URINE GLUCOSE (UA) NEGATIVE (NEGATIVE); URINE KETONE TRACE mg/dL (NEGATIVE); URINE LEUKOCYTE ESTERASE LARGE Leu/uL (NEGATIVE); URINE PROTEIN 100 mg/dL (<30 mg/dL)
[2016-11-23 13:03] LABS: URINE APPEARANCE CLOUDY (CLEAR); URINE COLOR LIGHT BROWN (YELLOW)
[2016-11-23 13:10] LABS: URINE BACTERIA MANY (NEG); URINE RBC TNTC /hpf (0-2); URINE WBC 25 - 30 /hpf (0-6)
--- NOTE | 2016-11-23 14:48 | CARD ---
APPROVED REPORT EKG Measurement Heart [id number] <Conclusion> Sinus rhythm with 1st degree AV block Left axis deviation Left ventricular hypertrophy with QRS widening and repolarization abnormality Abnormal ECG
[2016-11-23] MEDS ORDERED: Meropenem 500 MG in Sodium Chloride 0.9% 100 ML IVPB STA (15:40)
--- NOTE | 2016-11-23 16:08 | CP.PCM.HP ---
<Julita Genao - Last Filed: 11/23/16 16:32> History of Present Illness - History of Present Illness History of Present Illness: 86 F with PMHx of AFib on coumadin, CHF, COPD, urinary incontinence, AAA and thoracic aortic aneurysm, multiple UTIs, GI bleed, DVT, and dementia [place] [facility] [place] with complaints of chills, diaphoresis and fatigue. Pt's daughter is at bedside, she reports that the patient was not acting like herself for the past day. Her appetite diminished and only ate once yesterday at breakfast and become increasingly more lethargic throughout the day. Pt's daughter also noted that the pt was "sweating through her clothes". Pt has baseline dementia and her daughter did not any further alterations from her usual mental status. Pt admits to chills and hip pain. She denied fever, headaches, sob, chest pains, palpitations, abdominal pains, n/v/d/c. PMHx: AFib on coumadin, CHF, COPD, urinary incontinence, AAA and thoracic aortic aneurysm, multiple UTIs, GI bleed, DVT, and dementia PSHx: Abdominal hernia repair, Left Hip SHx: Denied tobacco/etoh/illicit drug abuse. Lives with daughter who is POA. Walker to ambulate FamHx: Noncontributory Meds: MAR reviewed Allergies: NKDA PMD: Dr. Kohler Urologist: Dr. Oquendo Present on Admission - Present on Admission Any Indicators Present on Admission: Yes History of DVT/PE: Yes Review of Systems - Review of Systems Review of Systems: as per HPI otherwise negative Past Patient History - Infectious Disease Hx of Infectious Diseases: None - Tetanus Immunizations Tetanus Immunization: Unknown - Past Medical History & Family History Past Medical History?: Yes - Past Social History Smoking Status: Former Smoker - CARDIAC Hx Cardiac Disorders: Yes Hx Congestive Heart Failure: Yes - PULMONARY Hx Respiratory Disorders: Yes Hx Chronic Obstructive Pulmonary Disease (COPD): Yes - NEUROLOGICAL Hx Neurological Disorder: Yes Hx Dementia: Yes - HEENT Hx HEENT Problems: No - RENAL Hx Chronic Kidney Disease: No - ENDOCRINE/METABOLIC Hx Endocrine Disorders: No - HEMATOLOGICAL/ONCOLOGICAL Hx Blood Disorders: Yes Hx Blood Transfusions: Yes - INTEGUMENTARY Hx Dermatological Problems: Yes Other/Comment: L LEG LESION - MUSCULOSKELETAL/RHEUMATOLOGICAL Hx Musculoskeletal Disorders: Yes Hx Falls: Yes - GASTROINTESTINAL Hx Gastrointestinal Disorders: Yes Hx Gastroesophageal Reflux: Yes (GI bleed) - GENITOURINARY/GYNECOLOGICAL Hx Genitourinary Disorders: Yes Hx Incontinence: Yes Hx Urinary Tract Infection: Yes - PSYCHIATRIC Hx Psychophysiologic Disorder: No Hx Emotional Abuse: No Hx Physical Abuse: No Hx Substance Use: No - SURGICAL HISTORY Hx Orthopedic Surgery: Yes (L HIP) Other/Comment: ABD HERNIA REPAIR - ANESTHESIA Hx Anesthesia: Yes Hx Anesthesia Reactions: No Hx Malignant Hyperthermia: No Meds Allergies/Adverse Reactions: Allergies Allergy/AdvReac Type Severity Reaction Status Date / Time No Known Allergies Allergy Verified 11/23/16 17:09 Physical Exam - Constitutional Appears: Confused - Head Exam Head Exam: ATRAUMATIC, NORMAL INSPECTION, NORMOCEPHALIC - Eye Exam Eye Exam: EOMI, Normal appearance, PERRL Pupil Exam: NORMAL ACCOMODATION, PERRL - ENT Exam ENT Exam: Mucous Membranes Dry - Respiratory Exam Respiratory Exam: Clear to Auscultation Bilateral, NORMAL BREATHING PATTERN - Cardiovascular Exam Cardiovascular Exam: REGULAR RHYTHM, +S1, +S2 - GI/Abdominal Exam GI & Abdominal Exam: Normal Bowel Sounds, Soft. absent: Tenderness - Extremities Exam Extremities exam: Positive for: normal inspection. Negative for: pedal edema - Neurological Exam Neurological exam: Altered - Skin Skin Exam: Dry, Intact, Normal Color, Warm Results - Vital Signs Recent Vital Signs: Last Vital Signs Temp 99.6 F 11/23/16 11:00 Pulse 61 11/23/16 14:21 Resp 18 11/23/16 14:21 BP 100/45 L 11/23/16 14:21 Pulse Ox 99 11/23/16 14:21 - Labs Result Diagrams: 11/23/16 11:20 11/23/16 11:20 Labs: Laboratory Results - last 24 hr 11/23/16 11/23/16 11/23/16 11:00 11:20 11:20 WBC 25.5 H* D RBC 4.97 Hgb 12.4 Hct 39.2 MCV 78.9 L MCH 24.9 L MCHC 31.6 RDW 17.0 H Plt Count 291 MPV 9.6 Neutrophils % (Manual) 90 H Band Neutrophils % 8 H Lymphocytes % (Manual) 1 L Monocytes % (Manual) 1 Platelet Evaluation Normal Poikilocytosis (manual Slight Anisocytosis (manual) 1+ Microcytosis (manual) 1+ PT 19.3 H INR 1.79 H APTT 32.2 H Sodium Potassium Chloride Carbon Dioxide Anion Gap BUN Creatinine Est GFR ( Amer) Est GFR (Non-Af Amer) POC Glucose (mg/dL) 240 H Random Glucose Calcium Total Bilirubin AST ALT Alkaline Phosphatase Lactate Dehydrogenase Total Creatine Kinase Troponin I NT-Pro-B Natriuret Pep Total Protein Albumin Globulin Albumin/Globulin Ratio Urine Color Urine Appearance Urine pH Ur Specific [place] Urine Protein Urine Glucose (UA) Urine Ketones Urine Blood Urine Nitrate Urine Bilirubin Urine Urobilinogen Ur Leukocyte Esterase Urine RBC Urine WBC Urine Bacteria 11/23/16 11/23/16 11:20 12:15 WBC RBC Hgb Hct MCV MCH MCHC RDW Plt Count MPV Neutrophils % (Manual) Band Neutrophils % Lymphocytes % (Manual) Monocytes % (Manual) Platelet Evaluation Poikilocytosis (manual Anisocytosis (manual) Microcytosis (manual) PT INR APTT Sodium 140 Potassium 4.2 Chloride 103 Carbon Dioxide 22 Anion Gap 19 BUN 24 H Creatinine 1.2 Est GFR ( Amer) 52 Est GFR (Non-Af Amer) 43 POC Glucose (mg/dL) Random Glucose 223 H Calcium 10.9 H Total Bilirubin 0.8 AST 25 ALT 14 Alkaline Phosphatase 105 Lactate Dehydrogenase 389 Total Creatine Kinase < 20 L Troponin I 0.03 D NT-Pro-B Natriuret Pep 1720 H Total Protein 7.6 Albumin 4.1 Globulin 3.5 Albumin/Globulin Ratio 1.2 Urine Color Light brown Urine Appearance Cloudy Urine pH 6.0 Ur Specific [place] 1.025 Urine Protein 100 H Urine Glucose (UA) Negative Urine Ketones Trace H Urine Blood Large H Urine Nitrate Positive H Urine Bilirubin Small H Urine Urobilinogen 1.0 H Ur Leukocyte Esterase Large H Urine RBC Tntc Urine WBC 25 - 30 Urine Bacteria Many Assessment & Plan - Assessment and Plan (Free Text) Assessment: 86 F with PMHx of AFib on coumadin, CHF, COPD, urinary incontinence, AAA and thoracic aortic aneurysm, multiple UTIs, GI bleed, DVT, and dementia [place] [facility] [place] with complaints of chills, diaphoresis and fatigue found to have UTI. 1. UTI - afebrile, hypotensive, UTI - Leukocytosis WBC 25.5, bandemia lactate 3.3 - IVF, fu lactic acid and reassess IVF - Rocephin and merrem in ED - Fu BCx, UCx, repeat CXR - FU ct abdomen pelvis - ID Consulted, Dr. Barnett 2. Baseline Dementia - AAOx1, continue to monitor - continue home meds for dementia - Monitor Elytes and supplement as needed 3. Afib - Digoxin and coumadin - Fu digoxin level - continue to monitor 4. CHF - Continue to monitor with fluid resuscitation - digoxin - strict I&Os - hazel in place 5. COPD - Duonebs prn - maintain 02 sat >88% - continue to monitor 6. DVT ppx 7. GI ppx Seen reviewed and discussed with attending <Davy Daly - Last Filed: 11/24/16 13:51> Results - Vital Signs Recent Vital Signs: Last Vital Signs Temp 97.6 F 11/24/16 12:00 Pulse 59 L 11/24/16 12:00 Resp 18 11/24/16 12:00 BP 97/53 L 11/24/16 12:00 Pulse Ox 99 11/23/16 14:21 - Labs Result Diagrams: 11/24/16 08:50 11/24/16 08:50 Labs: Laboratory Results - last 24 hr 11/23/16 11/23/16 11/24/16 18:25 18:25 08:50 WBC 11.4 H D RBC 4.17 Hgb 10.1 L Hct 33.8 L MCV 81.1 MCH 24.2 L MCHC 29.9 L RDW 17.3 H Plt Count 204 MPV 9.4 Gran % 83.3 H Lymph % (Auto) 9.0 L Love % (Auto) 6.3 H Eos % (Auto) 1.1 L Baso % (Auto) 0.3 Gran # 9.48 H Lymph # 1.0 L Love # 0.7 H Eos # 0.1 Baso # 0.03 PT INR Sodium Potassium Chloride Carbon Dioxide Anion Gap BUN Creatinine Est GFR ( Amer) Est GFR (Non-Af Amer) Random Glucose Lactic Acid 1.8 Calcium Total Bilirubin AST ALT Alkaline Phosphatase Total Protein Albumin Globulin Albumin/Globulin Ratio Digoxin 1.0 11/24/16 11/24/16 08:50 08:50 WBC RBC Hgb Hct MCV MCH MCHC RDW Plt Count MPV Gran % Lymph % (Auto) Love % (Auto) Eos % (Auto) Baso % (Auto) Gran # Lymph # Love # Eos # Baso # PT 20.1 H INR 1.86 H Sodium 142 Potassium 3.9 Chloride 111 H Carbon Dioxide 24 Anion Gap 11 BUN 22 H Creatinine 0.7 Est GFR ( Amer) > 60 Est GFR (Non-Af Amer) > 60 Random Glucose 139 H Lactic Acid Calcium 9.3 Total Bilirubin 0.3 AST 18 ALT 22 Alkaline Phosphatase 73 Total Protein 6.3 Albumin 3.2 Globulin 3.1 Albumin/Globulin Ratio 1.1 Digoxin Attending/Attestation - Attestation I have personally seen and examined this patient.: Yes I have fully participated in the care of the patient.: Yes I have reviewed all pertinent clinical information: Yes Notes (Text): 11/24/16 13:48 Attending note; Patient seen and examined with the resident in the ER. Patient's daughter by the bedside. Patient is lethargic. Patient is a 86-year-old female with PMHx of AFib on coumadin, CHF, COPD, urinary incontinence, AAA and thoracic aortic aneurysm, multiple UTIs, GI bleed , DVT, and dementia [place] [facility] [place] with complaints of chills, diaphoresis and fatigue. Patient is lethargic. Patient is mildly hypotensive. Started on IV fluids. Blood pressure improved. Leukocytosis; secondary to UTI. Started on IV Merem. Patient with previous history of ESBL. Blood culture, urine culture ordered. Chest x-rays negative for acute infiltrate. History of recurrent UTI; patient had nonobstructive bilateral renal calculi in the past. CT ordered. Urology evaluation requested. ID evaluation requested. Continue IV fluids. Continue Coumadin for A. fib. INR is 1.79. Diagnosis, treatment plan discussed with patient's daughter in detail. Patient is DNI DNR. Upon discharge the patient will follow-up with PMD .
[2016-11-23] MEDS ORDERED: Albuterol-Ipratrop 3 mg / 0.5 (3 ml) UD IH PRN (16:30)
[2016-11-23] MEDS: Sodium Chloride 0.9% 1,000 ML IV SCH (16:30)
--- NOTE | 2016-11-23 17:06 | CT ---
PROCEDURE: CT Abdomen and Pelvis without intravenous contrast HISTORY: Renal colic COMPARISON: 07/11/2016. TECHNIQUE: Unenhanced study. Neither oral nor intravenous contrast administered. Radiation dose: Total exam DLP = 1092.63 mGy-cm. This CT exam was performed using one or more of the following dose reduction techniques: Automated exposure control, adjustment of the mA and/or kV according to patient size, and/or use of iterative reconstruction technique. FINDINGS: LOWER THORAX: Unremarkable. LIVER: Unremarkable. No gross lesion or ductal dilatation. GALLBLADDER AND BILE DUCTS: Unremarkable. PANCREAS: Unremarkable. No gross lesion or ductal dilatation. SPLEEN: Unremarkable. ADRENALS: Unremarkable. No mass. KIDNEYS AND URETERS: Right kidney and ureter: Previously identified calculus in the renal pelvis not resides in the right lower pole collecting system and measures 8 x 11 mm. Additional punctate nonobstructing calculi in the right kidney. Incidental finding(s): Stable lower pole cyst. Left kidney and ureter: Multiple punctate nonobstructing calculi none larger than 6. VASCULATURE: No significant interval change compared to the prior examination(s). Stable aneurysmal dilatation of visualized distal thoracic aorta and abdominal aorta. The aneurysm does not extend to the iliac vessels and the infrarenal abdominal aorta is of normal caliber measuring 2.1 cm. BOWEL: Fecal impaction/ constipation without mechanical obstruction. APPENDIX: Unremarkable. Normal appendix. PERITONEUM: Unremarkable. No free fluid. No free air. LYMPH NODES: Unremarkable. No enlarged lymph nodes. BLADDER: Small focus of the air within the urinary bladder. Otherwise unremarkable. REPRODUCTIVE: Unremarkable. BONES: No acute fracture. Multilevel degenerative changes throughout the lumbar spine. Grade 1 anterolisthesis L5-S1. Multilevel facet arthropathy most notable in the lower lumbar spine. OTHER FINDINGS: None. IMPRESSION: Multiple bilateral nonobstructing upper tract calculi. The largest is in the right lower pole collecting system. Additional benign and/or incidental findings described above.
[2016-11-23] MEDS: Albuterol-Ipratrop 3 mg / 0.5 (3 ml) UD IH SCH (19:40)
[2016-11-23] MEDS ORDERED: Pneumococcal 23-Valent Vaccine IM ONE (21:39)
[2016-11-23] MEDS: Meropenem 1g/NS 100mL IVPB 1 GM/100 ML PIGGYBACK IVPB SCH (21:57)
[2016-11-24] MEDS: Albuterol-Ipratrop 3 mg / 0.5 (3 ml) UD IH SCH ×8 (01:14→22:54)
[2016-11-24] MEDS: Sodium Chloride 0.9% 1,000 ML IV SCH ×2 (06:21→13:24)
[2016-11-24 09:19] LABS: ADD MANUAL DIFF? NO
[2016-11-24 09:21] LABS: BASO # 0.03 K/mm3 (0.0-2.0); BASO % 0.3 % (0.0-3.0); EOS # 0.1 (0.0-0.7); EOS % 1.1 % (1.5-5.0); GRAN # 9.48 (1.4-6.5); GRAN % 83.3 % (50.0-68.0); HEMATOCRIT 33.8 % (36.0-48.0); MEAN CELL VOLUME 81.1 fL (80.0-105.0); MEAN CORPUSCULAR HEMOGLOBIN 24.2 pg (25.0-35.0); MEAN CORPUSCULAR HGB CONC 29.9 g/dl (31.0-37.0); MEAN PLATELET VOLUME 9.4 fl (7.0-11.0); MONO # 0.7 (0.1-0.6); MONO % 6.3 % (1.0-6.0); PLATELET COUNT 204 10^3/uL (120.0-450.0); RED CELL DISTRIBUTION WIDTH 17.3 % (11.5-14.5); WHITE BLOOD COUNT 11.4 10^3/ul (4.5-11.0)
[2016-11-24 09:32] LABS: ALB/GLOB RATIO 1.1 (1.1-1.8); ALKALINE PHOSPHATASE 73 U/L (38-133); ALT/SGPT 22 U/L (7-56); AST/SGOT 18 U/L (15-39); BILIRUBIN,TOTAL 0.3 mg/dL (0.2-1.3); BLOOD UREA NITROGEN 22 mg/dL (7-21); CALCIUM 9.3 mg/dL (8.4-10.5); CARBON DIOXIDE 24 mmol/L (21-33); CHLORIDE 111 mmol/L (95-110); GFR AFRICAN-AMERICAN > 60; GLUCOSE,RANDOM 139 mg/dL (70-110); INR 1.86 (0.93-1.08); POTASSIUM 3.9 mmol/L (3.6-5.0); SODIUM 142 mmol/L (132-148); TOTAL PROTEIN 6.3 g/dL (5.8-8.3)
[2016-11-24] MEDS: Meropenem 1g/NS 100mL IVPB 1 GM/100 ML PIGGYBACK IVPB SCH ×2 (10:29→22:15)
--- NOTE | 2016-11-24 11:05 | CP.PCM.PN ---
<Guerrero Kirkland - Last Filed: 11/24/16 10:52> Subjective - Date & Time of Evaluation Date of Evaluation: 11/24/16 Time of Evaluation: 07:30 - Subjective Subjective: Hospitalist progress note: Pt seen and examined at bedside. No acute events overnight. Pt seems to be more alert and oriented. Denies any complaints at this time. Pt denies any east, dizziness, f/c, sob, cp, abd pain, n/v/d. Objective - Vital Signs/Intake and Output Vital Signs (last 24 hours): Temp Pulse Resp BP Pulse Ox 97.9 F 59 L 18 118/54 L 99 11/24/16 06:00 11/24/16 06:00 11/24/16 06:00 11/24/16 06:00 11/23/16 14:21 Intake and Output: 11/24/16 11/24/16 06:59 18:59 Intake Total 240 Balance 240 - Medications Medications: Current Medications Albuterol/Ipratropium (Duoneb 3 Mg/0.5 Mg (3 Ml) Ud) 3 ml IH Q2H PRN PRN Reason: Shortness of Breath Albuterol/Ipratropium (Duoneb 3 Mg/0.5 Mg (3 Ml) Ud) 3 ml IH [id number] Last Admin: 11/24/16 07:56 Dose: Not Given Clonazepam (Klonopin) 0.5 mg PO HS PRN; Protocol PRN Reason: Anxiety Last Admin: 11/23/16 22:12 Dose: 0.5 mg Digoxin (Lanoxin) 0.125 mg PO 1400 ERINN Docusate Sodium (Colace) 100 mg PO BID [facility] Last Admin: 11/24/16 10:11 Dose: Not Given Donepezil HCl (Aricept) 10 mg PO DAILY [facility] Last Admin: 11/24/16 10:11 Dose: 10 mg Sodium Chloride (Sodium Chloride 0.9%) 1,000 mls @ 100 mls/hr IV .Q10H [facility] Last Admin: 11/24/16 06:21 Dose: 100 mls/hr Meropenem 1g/NS 100mL IVPB (Meropenem 1g/Ns 100ml Ivpb) 1 gm in 100 mls @ 100 mls/hr IVPB Q12 ERINN PRN Reason: Protocol Last Admin: 11/24/16 10:29 Dose: 100 mls/hr Quetiapine Fumarate (Seroquel) 50 mg PO HS PRN; Protocol PRN Reason: Insomnia Last Admin: 11/23/16 22:11 Dose: 50 mg Warfarin Sodium (Coumadin) 2 mg PO 1800 ERINN PRN Reason: Protocol - Labs Labs: 11/24/16 08:50 11/24/16 08:50 PT 20.1 Seconds (9.9-11.8) H 11/24/16 08:50 INR 1.86 (0.93-1.08) H 11/24/16 08:50 APTT 32.2 Seconds (23.7-30.8) H 11/23/16 11:20 - Constitutional Appears: No Acute Distress - Head Exam Head Exam: ATRAUMATIC, NORMAL INSPECTION, NORMOCEPHALIC - Eye Exam Eye Exam: EOMI, Normal appearance, PERRL - ENT Exam ENT Exam: Mucous Membranes Moist, Normal Exam - Neck Exam Neck Exam: Full ROM, Normal Inspection. absent: Lymphadenopathy - Respiratory Exam Respiratory Exam: Clear to Ausculation Bilateral, NORMAL BREATHING PATTERN. absent: Rales, Wheezes - Cardiovascular Exam Cardiovascular Exam: REGULAR RHYTHM, RRR, +S1, +S2. absent: Murmur - GI/Abdominal Exam GI & Abdominal Exam: Soft, Normal Bowel Sounds. absent: Distended, Tenderness - Extremities Exam Extremities Exam: Full ROM, Normal Capillary Refill, Normal Inspection. absent : Joint Swelling, Pedal Edema - Back Exam Back Exam: NORMAL INSPECTION - Neurological Exam Neurological Exam: Alert, Awake, Oriented x3 - Psychiatric Exam Psychiatric exam: Normal Affect, Normal Mood - Skin Skin Exam: Dry, Intact, Normal Color, Warm Assessment and Plan - Assessment and Plan (Free Text) Assessment: 86 F with PMHx of AFib on coumadin, CHF, COPD, urinary incontinence, AAA and thoracic aortic aneurysm, multiple UTIs, GI bleed, DVT, and dementia presents with UTI. 1. UTI - afebrile - Wbc 25.5 --> 11.4 - Cont Meropenem as per ID - Dr Barnett - Fu BCx / UCx - CT abdomen/pelvis - multiple b/l nonobstructing upper tract calculi, largest in R lower pole - As per discussion with ID and urology pt not a candidate of suppressive antimicrobial therapy - F/u urology - Dr Jere ladd - Dixon catheter in place 2. Baseline Dementia - more alert and oriented today - continue home meds for dementia - replete electrolytes as needed 3. Afib - Cont home Digoxin and coumadin - Digoxin level -1 - continue to monitor 4. CHF - Continue to monitor with fluid resuscitation - Cont home Digoxin - Strict I&Os - Dixon in place 5. COPD - Duonebs prn - maintain 02 sat >88% - continue to monitor 6. Gi/ DVT ppx - Protonix and Coumadin Case and plan was seen, reviewed, and discussed in detail with Dr Daly. <Davy Daly - Last Filed: 11/24/16 13:59> Objective - Vital Signs/Intake and Output Vital Signs (last 24 hours): Temp Pulse Resp BP Pulse Ox 97.6 F 59 L 18 97/53 L 99 11/24/16 12:00 11/24/16 12:00 11/24/16 12:00 11/24/16 12:00 11/23/16 14:21 Intake and Output: 11/24/16 11/24/16 06:59 18:59 Intake Total 240 Balance 240 - Medications Medications: Current Medications Albuterol/Ipratropium (Duoneb 3 Mg/0.5 Mg (3 Ml) Ud) 3 ml IH Q2H PRN PRN Reason: Shortness of Breath Albuterol/Ipratropium (Duoneb 3 Mg/0.5 Mg (3 Ml) Ud) 3 ml IH [id number] Last Admin: 11/24/16 11:50 Dose: 3 ml Clonazepam (Klonopin) 0.5 mg PO HS PRN; Protocol PRN Reason: Anxiety Last Admin: 11/23/16 22:12 Dose: 0.5 mg Digoxin (Lanoxin) 0.125 mg PO 1400 [facility] Last Admin: 11/24/16 13:22 Dose: 0.125 mg Docusate Sodium (Colace) 100 mg PO BID [facility] Last Admin: 11/24/16 10:11 Dose: Not Given Donepezil HCl (Aricept) 10 mg PO DAILY [facility] Last Admin: 11/24/16 10:11 Dose: 10 mg Sodium Chloride (Sodium Chloride 0.9%) 1,000 mls @ 100 mls/hr IV .Q10H [facility] Last Admin: 11/24/16 13:24 Dose: 100 mls/hr Meropenem 1g/NS 100mL IVPB (Meropenem 1g/Ns 100ml Ivpb) 1 gm in 100 mls @ 100 mls/hr IVPB Q12 ERINN PRN Reason: Protocol Last Admin: 11/24/16 10:29 Dose: 100 mls/hr Pantoprazole Sodium (Protonix Ec Tab) 40 mg PO 0630 ERINN Quetiapine Fumarate (Seroquel) 50 mg PO 2200 ERINN Warfarin Sodium (Coumadin) 2 mg PO 1800 ERINN PRN Reason: Protocol - Labs Labs: 11/24/16 08:50 11/24/16 08:50 PT 20.1 Seconds (9.9-11.8) H 11/24/16 08:50 INR 1.86 (0.93-1.08) H 11/24/16 08:50 APTT 32.2 Seconds (23.7-30.8) H 11/23/16 11:20 Attending/Attestation - Attestation I have personally seen and examined this patient.: Yes I have fully participated in the care of the patient.: Yes I have reviewed all pertinent clinical information, including history, physical exam and plan: Yes Notes (Text): 11/24/16 13:56 Attending note; Patient seen and examined with the resident. Patient's daughter by the bedside. Patient is alert, awake and oriented to person. Patient is a 86-year-old female with PMHx of AFib on coumadin, CHF, COPD, urinary incontinence, AAA and thoracic aortic aneurysm, multiple UTIs, GI bleed , DVT, and dementia presents to [facility] ED with complaints of chills, diaphoresis and fatigue. Leukocytosis is improving. Blood pressure improved. secondary to UTI. Started on IV Merem. Patient with previous history of ESBL. Blood culture, urine culture ordered. Chest x-rays negative for acute infiltrate. History of recurrent UTI; Ct showed had nonobstructive bilateral renal calculi in the past. Case discussed with Urology dr. ortiz in detail. Currently patient has Dixon catheter. ID evaluation with Dr. avalos appreciated. No suppressive antimicrobial therapy recommended. Continue IV fluids. Continue Coumadin for A. fib. INR is 1.8. Diagnosis, treatment plan discussed with patient's daughter in detail. Patient is DNI DNR. Upon discharge the patient will follow-up with PMD . 11/24/16 13:58
--- NOTE | 2016-11-24 11:56 | CP.PCM.CON ---
History of Present Illness - History of Present Illness History of Present Illness: 86 year old female with PMH of atrial fibrillation, COPD, chronic CHF, dementia , abdominal aortic aneurysm, history of multiple UTI's, history of GI bleed, history of DVT, history of right hip fracture, history of left lower lobe healthcare-associated pneumonia was brought in by her daughter to [facility] because of complaints of chills from the patient, associated with generalized weakness and increased sweating. The daughter also noted some lethargy, but there was no note of vomiting, no loss of consciousness, no convulsions, no diarrhea. Full review of systems is unobtainable because of the patient's dementia. In the ED, the patient underwent CT scan of the abdomen and pelvis which showed non-obstructing renal calculi. Pyuria was also noted on urinalysis. Infectious Diseases consult is requested to further evaluate and manage. Review of Systems - Review of Systems Systems not reviewed;Unavailable: Dementia Past Patient History - Infectious Disease Hx of Infectious Diseases: None - Tetanus Immunizations Tetanus Immunization: Unknown - Past Medical History & Family History Past Medical History?: Yes - Past Social History Smoking Status: Former Smoker - CARDIAC Hx Cardiac Disorders: Yes Hx Congestive Heart Failure: Yes - PULMONARY Hx Respiratory Disorders: Yes Hx Chronic Obstructive Pulmonary Disease (COPD): Yes - NEUROLOGICAL Hx Neurological Disorder: Yes Hx Dementia: Yes - HEENT Hx HEENT Problems: No - RENAL Hx Chronic Kidney Disease: No - ENDOCRINE/METABOLIC Hx Endocrine Disorders: No - HEMATOLOGICAL/ONCOLOGICAL Hx Blood Disorders: Yes Hx Blood Transfusions: Yes - INTEGUMENTARY Hx Dermatological Problems: Yes Other/Comment: L LEG LESION - MUSCULOSKELETAL/RHEUMATOLOGICAL Hx Musculoskeletal Disorders: Yes Hx Falls: Yes - GASTROINTESTINAL Hx Gastrointestinal Disorders: Yes Hx Gastroesophageal Reflux: Yes (GI bleed) - GENITOURINARY/GYNECOLOGICAL Hx Genitourinary Disorders: Yes Hx Incontinence: Yes Hx Urinary Tract Infection: Yes - PSYCHIATRIC Hx Psychophysiologic Disorder: No Hx Emotional Abuse: No Hx Physical Abuse: No Hx Substance Use: No - SURGICAL HISTORY Hx Orthopedic Surgery: Yes (L HIP) Other/Comment: ABD HERNIA REPAIR - ANESTHESIA Hx Anesthesia: Yes Hx Anesthesia Reactions: No Hx Malignant Hyperthermia: No Meds Allergies/Adverse Reactions: Allergies Allergy/AdvReac Type Severity Reaction Status Date / Time No Known Allergies Allergy Verified 11/23/16 17:09 - Medications Medications: Current Medications Albuterol/Ipratropium (Duoneb 3 Mg/0.5 Mg (3 Ml) Ud) 3 ml IH Q2H PRN PRN Reason: Shortness of Breath Albuterol/Ipratropium (Duoneb 3 Mg/0.5 Mg (3 Ml) Ud) 3 ml IH [id number] REINN Clonazepam (Klonopin) 0.5 mg PO HS PRN; Protocol PRN Reason: Anxiety Digoxin (Lanoxin) 0.125 mg PO 1400 ERINN Docusate Sodium (Colace) 100 mg PO BID ERINN Donepezil HCl (Aricept) 10 mg PO DAILY [facility] Sodium Chloride (Sodium Chloride 0.9%) 1,000 mls @ 100 mls/hr IV .Q10H ERINN Last Admin: 11/23/16 16:30 Dose: 100 mls/hr Quetiapine Fumarate (Seroquel) 50 mg PO HS PRN; Protocol PRN Reason: Insomnia Warfarin Sodium (Coumadin) 2 mg PO 1800 ERINN PRN Reason: Protocol Physical Exam - Constitutional Appears: Non-toxic, No Acute Distress - Head Exam Head Exam: NORMAL INSPECTION - ENT Exam ENT Exam: Mucous Membranes Moist - Neck Exam Neck exam: Negative for: Lymphadenopathy, Meningismus - Respiratory Exam Respiratory Exam: Decreased Breath Sounds - Cardiovascular Exam Cardiovascular Exam: +S1, +S2 - GI/Abdominal Exam GI & Abdominal Exam: Soft. absent: Tenderness Results - Vital Signs Recent Vital Signs: Last Vital Signs Temp 99.6 F 11/23/16 11:00 Pulse 61 11/23/16 14:21 Resp 18 11/23/16 14:21 BP 100/45 L 11/23/16 14:21 Pulse Ox 99 11/23/16 14:21 - Labs Result Diagrams: 11/24/16 08:50 11/24/16 08:50 Assessment & Plan - Assessment and Plan (Free Text) Plan: Assessment Sepsis probably due to urinary tract infection in a patient with renal calculi history of left lower lobe healthcare-associated pneumonia atrial fibrillation COPD CHF dementia abdominal aortic aneurysm history of multiple UTI's history of GI bleed history of DVT history of right hip fracture Plan started patient on Merrem pending blood and urine cx; discussed with Dr. Oquendo - no invasive procedures for now Discussed as well with Dr. Daly will follow clinically
[2016-11-24] MEDS: Digoxin 125 mcg (0.125 mg) Tab PO SCH (13:22)
--- NOTE | 2016-11-24 16:09 | CON ---
DATE: 11/24/2016 HISTORY OF PRESENT ILLNESS: The patient is an 86-year-old female with dementia, history of AFib on C oumadin with past history of COPD, CHF. She has abdominal thoracic aneurysm, admitted with a history of multiple UTIs. She is incontinent because of her dementia, wears Depends. At times, she will us e the toilet for bowel movements, but other times not. The daughter said that she can tell when she has an infection by the worsening of her dementia, not recognizing her. She brought her to the ER be cause of this. While she was afebrile, she had a 25,000 white count. She had a CAT scan done which showed a stone nonobstructing in the right lower christian. PAST MEDICAL HISTORY: Also significant for having a left hip surgery and abdominal hernia. FAMILY HISTORY: Noncontributory. SOCIAL HISTORY: Noncontributory. ALLERGIES: She has no allergies. REVIEW OF SYSTEMS: Currently, no obvious symptoms referable to the head, eyes, ears, nose or throat. No obvious cardiac or respiratory symptoms. She seems comfortable. PHYSICAL EXAMINATION: VITAL SIGNS: Shows her to be afebrile, pulse 59, blood pressure 118/54, respirations 18. HEENT: Normocephalic. Sclerae clear. Conjunctivae not injected. ABDOMEN: No CVA pain. No hepatosplenomegaly, rebound or guarding. NEUROLOGIC: She is not oriented x 3. SKIN: No purpura or edema. LABORATORY DATA: Shows a white count this morning of 11,000, down from 25. She has a creatinine of 0.7 with a BUN of 22. Her urine culture preliminarily is growing gram-negative rods. The patient is currently on meropenem as per ID. PLAN: I reviewed the CAT scan and I also had a discussion with the attending and the ID environmental consultant, Dr. Jones on, and he and I are both in agreement that we would not put her on any prophylactic antibiotics. We would just treat infections as they arise. She will certainly have colonization all the time becaus e of the Depends and the incontinence with both urine and feces. I would not be aggressive in treati ng the stone unless the stone obstructed her, at which point we would clearly have to place a stent. That is not indicated at this time; it is not obstructed. Tj Oquendo MD cc: [id number] TT: 11/24/2016 16:09:02 Confirmation # [id number] Dictation # [id number] dn
--- NOTE | 2016-11-24 16:15 | CON ---
DATE: 11/24/2016 HISTORY OF PRESENT ILLNESS: The patient is an 86-year-old white female brought to the Emergency Room by her daughter due to the fact that she had become lethargic and somewhat incoherent. The patient is known to me from the past. She has a history of vascular dementia. She has a history of depressi on. She has a history of atrial fibrillation, congestive heart failure and COPD. On this admission, she was found to have a urinary infection. I reviewed the chart. I spoke to the patient's daughter at length at bedside. PAST MEDICAL HISTORY: Includes congestive heart failure, COPD. She has been stabilized on Seroquel 50 mg at bedtime at home. PERSONAL HISTORY: She lives with her daughter. Her approximately 2 years ago. The pat andreia is cared for by her daughter. She has a severe gait dysfunction. She is generally aware of her surroundings, but needs total care by her daughter. She has a total of 2 sons and 2 daughters, 1 de ceased. REVIEW OF SYSTEMS: The patient is weak on her feet, on her legs, but no other positive findings or c ontributory 12-point review. CURRENT LABORATORY DATA: Her white count on admission was 25,500; it is 11,400 today. Her hemoglobi n is 10.1, her platelet count is 204,000. Her metabolic profile is all normal except for a chloride of 111, BUN 22, creatinine 0.7. Estimated GFR greater than , random glucose 139. She yesterday had a pro B-natriuretic peptide of 1720. I got an urine culture which showed Gram-negative rods. H er blood culture is pending. Her chest x-ray is normal. Electrocardiogram revealed sinus rhythm wit h first-degree AV block, left ventricular hypertrophy, QTc interval 449, rate 78. CURRENT MEDICATIONS: Include Aricept 10 mg at bedtime, clonazepam 0.5 mg at bedtime p.r.n., Seroquel 50 mg at bedtime p.r.n. She is on IV fluids, DuoNeb treatments, Colace, meropenem IV. She is on Ar icept 10 mg at bedtime, Lanoxin, Coumadin, Protonix. PHYSICAL EXAMINATION: VITAL SIGNS: Blood pressure 118/54, pulse 59, afebrile, respirations 20 per minute. PSYCHIATRIC: Her mental status: She is awake, she is alert. She recognizes me, lying in bed, daugh ter at bedside. The patient's affect is somewhat flat and constricted. She does answer questions in a cooperative manner. She is disoriented to day. Her recent memory is mildly impaired. Denies jeb lucinations, depression, suicidal ideation or severe anxiety. She slept well last night. No adverse effect from psychotropic medicines. IMPRESSION: Vascular dementia, acute urinary tract infection. She has chronic obstructive pulmonary disease. She has atrial fibrillation, on anticoagulants. PLAN: Will order Seroquel 50 mg at bedtime changed from p.r.n. and continue Klonopin p.r.n. Constantino Davidson MD cc: [id number] TT: 11/24/2016 15:59:23 Confirmation # [id number] Dictation # [id number] anita
[2016-11-25] MEDS: Albuterol-Ipratrop 3 mg / 0.5 (3 ml) UD IH SCH ×6 (05:18→23:28)
[2016-11-25] MEDS: Pantoprazole 40 mg EC Tab PO SCH (06:51)
[2016-11-25 08:25] LABS: ADD MANUAL DIFF? NO
[2016-11-25 08:32] LABS: GRAN # 8.27 (1.4-6.5); GRAN % 89.3 % (50.0-68.0); HEMATOCRIT 29.4 % (36.0-48.0); LYMPH # 0.6 (1.2-3.4); LYMPH % 6.8 % (22.0-35.0); MEAN CELL VOLUME 79.5 fL (80.0-105.0); MEAN CORPUSCULAR HEMOGLOBIN 24.6 pg (25.0-35.0); MEAN PLATELET VOLUME 9.1 fl (7.0-11.0); MONO # 0.4 (0.1-0.6); MONO % 3.9 % (1.0-6.0); PLATELET COUNT 197 10^3/uL (120.0-450.0); RED CELL DISTRIBUTION WIDTH 17.4 % (11.5-14.5); WHITE BLOOD COUNT 9.3 10^3/ul (4.5-11.0)
[2016-11-25 08:37] LABS: ALKALINE PHOSPHATASE 68 U/L (38-133); ALT/SGPT 21 U/L (7-56); AST/SGOT 15 U/L (15-39); BILIRUBIN,TOTAL 0.2 mg/dL (0.2-1.3); BLOOD UREA NITROGEN 14 mg/dL (7-21); CALCIUM 9.1 mg/dL (8.4-10.5); CARBON DIOXIDE 24 mmol/L (21-33); CHLORIDE 112 mmol/L (95-110); GFR AFRICAN-AMERICAN > 60; GLUCOSE,RANDOM 145 mg/dL (70-110); SODIUM 141 mmol/L (132-148); TOTAL PROTEIN 5.7 g/dL (5.8-8.3)
--- NOTE | 2016-11-25 09:15 | CP.PCM.PN ---
<Guerrero Kirkland - Last Filed: 11/25/16 13:32> Subjective - Date & Time of Evaluation Date of Evaluation: 11/25/16 Time of Evaluation: 07:30 - Subjective Subjective: Hospitalist progress note: Pt seen and examined at bedside. No acute events overnight. Pt states she is doing well and enies any complaints at this time. Pt denies any east, dizziness, f /c, sob, cp, palpitations, abd pain, n/v/d. Objective - Vital Signs/Intake and Output Vital Signs (last 24 hours): Temp Pulse Resp BP Pulse Ox 99.2 F 77 20 127/57 L 94 L 11/25/16 06:00 11/25/16 06:00 11/25/16 06:00 11/25/16 06:00 11/25/16 06:00 Intake and Output: 11/25/16 11/25/16 06:59 18:59 Intake Total 1200 Output Total 900 Balance 300 - Medications Medications: Current Medications Albuterol/Ipratropium (Duoneb 3 Mg/0.5 Mg (3 Ml) Ud) 3 ml IH Q2H PRN PRN Reason: Shortness of Breath Albuterol/Ipratropium (Duoneb 3 Mg/0.5 Mg (3 Ml) Ud) 3 ml IH [id number] [facility] Last Admin: 11/25/16 08:08 Dose: 3 ml Clonazepam (Klonopin) 0.5 mg PO HS PRN; Protocol PRN Reason: Anxiety Last Admin: 11/24/16 21:55 Dose: 0.5 mg Digoxin (Lanoxin) 0.125 mg PO 1400 [facility] Last Admin: 11/24/16 13:22 Dose: 0.125 mg Docusate Sodium (Colace) 100 mg PO BID [facility] Last Admin: 11/24/16 17:42 Dose: Not Given Donepezil HCl (Aricept) 10 mg PO DAILY [facility] Last Admin: 11/24/16 10:11 Dose: 10 mg Sodium Chloride (Sodium Chloride 0.9%) 1,000 mls @ 100 mls/hr IV .Q10H [facility] Last Admin: 11/24/16 13:24 Dose: 100 mls/hr Meropenem 1g/NS 100mL IVPB (Meropenem 1g/Ns 100ml Ivpb) 1 gm in 100 mls @ 100 mls/hr IVPB Q12 ERINN PRN Reason: Protocol Last Admin: 11/24/16 22:15 Dose: 100 mls/hr Pantoprazole Sodium (Protonix Ec Tab) 40 mg PO 0630 [facility] Last Admin: 11/25/16 06:51 Dose: Not Given Quetiapine Fumarate (Seroquel) 50 mg PO 2200 [facility] Last Admin: 11/24/16 21:56 Dose: 50 mg Warfarin Sodium (Coumadin) 2 mg PO 1800 [facility] PRN Reason: Protocol Last Admin: 11/24/16 17:42 Dose: 2 mg - Labs Labs: 11/25/16 08:20 11/25/16 08:20 PT 20.1 Seconds (9.9-11.8) H 11/24/16 08:50 INR 1.86 (0.93-1.08) H 11/24/16 08:50 APTT 32.2 Seconds (23.7-30.8) H 11/23/16 11:20 - Constitutional Appears: No Acute Distress - Head Exam Head Exam: ATRAUMATIC, NORMAL INSPECTION, NORMOCEPHALIC - Eye Exam Eye Exam: EOMI, Normal appearance, PERRL Pupil Exam: NORMAL ACCOMODATION, PERRL - ENT Exam ENT Exam: Mucous Membranes Moist, Normal Exam - Neck Exam Neck Exam: Full ROM, Normal Inspection. absent: Lymphadenopathy - Respiratory Exam Respiratory Exam: Clear to Ausculation Bilateral, NORMAL BREATHING PATTERN - Cardiovascular Exam Cardiovascular Exam: REGULAR RHYTHM, +S1, +S2. absent: Murmur - GI/Abdominal Exam GI & Abdominal Exam: Soft, Normal Bowel Sounds. absent: Distended, Tenderness - Extremities Exam Extremities Exam: Full ROM, Normal Capillary Refill, Normal Inspection. absent : Joint Swelling, Pedal Edema - Back Exam Back Exam: NORMAL INSPECTION - Neurological Exam Neurological Exam: Alert, Awake, CN II-XII Intact, Normal Gait, Oriented x3 - Psychiatric Exam Psychiatric exam: Normal Affect, Normal Mood - Skin Skin Exam: Dry, Intact, Normal Color, Warm Assessment and Plan - Assessment and Plan (Free Text) Assessment: 86 F with PMHx of AFib on coumadin, CHF, COPD, urinary incontinence, AAA and thoracic aortic aneurysm, multiple UTIs, GI bleed, DVT, and dementia presents with UTI. 1. UTI - afebrile - Wbc 25.5 --> 11.4 --> 9.3 - Cont Meropenem as per ID - Dr Barnett - BCx shows gram neg beot - UCx shows gram neg beto - CT abdomen/pelvis - multiple b/l nonobstructing upper tract calculi, largest in R lower pole - As per discussion with ID and urology pt not a candidate of suppressive antibiotic therapy - Urology - Dr Jere ladd - no ppx antibiotics, no surgical intervention at this time. - Dixon catheter in place 2. Baseline Dementia - Psyc consult - Dr Davidson - Start Seroquel 50mg HS - more alert and oriented today - continue home meds for dementia - replete electrolytes as needed 3. Afib - Cont home Digoxin and coumadin - Digoxin level -1 - continue to monitor 4. CHF - Continue to monitor with fluid resuscitation - Cont home Digoxin - Strict I&Os - Dixon in place 5. COPD - Duonebs prn - maintain 02 sat >88% - continue to monitor 6. Gi/ DVT ppx - Protonix and Coumadin Case and plan was seen, reviewed, and discussed in detail with Dr Daly. <Davy Daly - Last Filed: 11/25/16 14:55> Objective - Vital Signs/Intake and Output Vital Signs (last 24 hours): Temp Pulse Resp BP Pulse Ox 98.1 F 64 18 93/48 L 94 L 11/25/16 12:00 11/25/16 12:00 11/25/16 12:00 11/25/16 12:00 11/25/16 06:00 Intake and Output: 11/25/16 11/25/16 06:59 18:59 Intake Total 1200 Output Total 900 Balance 300 - Medications Medications: Current Medications Albuterol/Ipratropium (Duoneb 3 Mg/0.5 Mg (3 Ml) Ud) 3 ml IH Q2H PRN PRN Reason: Shortness of Breath Albuterol/Ipratropium (Duoneb 3 Mg/0.5 Mg (3 Ml) Ud) 3 ml IH [id number] ERINN Last Admin: 11/25/16 14:28 Dose: 3 ml Clonazepam (Klonopin) 0.5 mg PO HS PRN; Protocol PRN Reason: Anxiety Last Admin: 11/24/16 21:55 Dose: 0.5 mg Digoxin (Lanoxin) 0.125 mg PO 1400 [facility] Last Admin: 11/24/16 13:22 Dose: 0.125 mg Docusate Sodium (Colace) 100 mg PO BID [facility] Last Admin: 11/25/16 10:15 Dose: 100 mg Donepezil HCl (Aricept) 10 mg PO DAILY [facility] Last Admin: 11/25/16 10:15 Dose: 10 mg Sodium Chloride (Sodium Chloride 0.9%) 1,000 mls @ 100 mls/hr IV .Q10H [facility] Last Admin: 11/24/16 13:24 Dose: 100 mls/hr Meropenem 1g/NS 100mL IVPB (Meropenem 1g/Ns 100ml Ivpb) 1 gm in 100 mls @ 100 mls/hr IVPB Q12 [facility] PRN Reason: Protocol Last Admin: 11/25/16 10:15 Dose: 100 mls/hr Oxycodone/Acetaminophen (Percocet 5/325 Mg Tab) 1 tab PO Q8H PRN PRN Reason: Pain, severe (8-10) Stop: 11/28/16 12:33 Pantoprazole Sodium (Protonix Ec Tab) 40 mg PO 0630 [facility] Last Admin: 11/25/16 06:51 Dose: Not Given Quetiapine Fumarate (Seroquel) 50 mg PO 2200 [facility] Last Admin: 11/24/16 21:56 Dose: 50 mg Warfarin Sodium (Coumadin) 2 mg PO 1800 [facility] PRN Reason: Protocol Last Admin: 11/24/16 17:42 Dose: 2 mg - Labs Labs: 11/25/16 08:20 11/25/16 08:20 PT 20.1 Seconds (9.9-11.8) H 11/24/16 08:50 INR 1.86 (0.93-1.08) H 11/24/16 08:50 APTT 32.2 Seconds (23.7-30.8) H 11/23/16 11:20 Attending/Attestation - Attestation I have personally seen and examined this patient.: Yes I have fully participated in the care of the patient.: Yes I have reviewed all pertinent clinical information, including history, physical exam and plan: Yes Notes (Text): 11/25/16 14:50 Attending note; Patient seen and examined with the resident. Patient's daughter by the bedside. Patient is alert, awake and oriented to person. Patient is a 86-year-old female with PMHx of AFib on coumadin, CHF, COPD, urinary incontinence, AAA and thoracic aortic aneurysm, multiple UTIs, GI bleed , DVT, and dementia presents to [facility] with complaints of chills, diaphoresis and fatigue. Hypotension resolving; digoxin on hold. Leukocytosis resolved. Blood pressure improved. E.coli UTI. on IV Merem. Blood culture is positive for gram negative rods. Identification and sensitivity pending. Case discussed with ID in detail. Suggested to continue IV Merrem. Ct showed had nonobstructive bilateral renal calculi in the past. Case discussed with Urology dr. ortiz in detail. Currently patient has Dixon catheter. No need for any intervention at this point. Diagnosis, treatment plan discussed with patient's daughter in detail. Patient is DNI DNR. Case discussed with PMD in detail. 11/25/16 14:54
[2016-11-25] MEDS: Meropenem 1g/NS 100mL IVPB 1 GM/100 ML PIGGYBACK IVPB SCH ×2 (10:15→22:17)
[2016-11-25] MEDS ORDERED: Oxycodone/Acetaminophen 5/325 mg Tab PO PRN (12:32)
--- NOTE | 2016-11-25 17:03 | PN ---
DATE: 11/25/2016 The patient is an 86-year-old female with known history of dementia. She is currently being treated for urinary tract infection and IV antibiotics. The patient last night apparently, according to maude ent and daughter, she had trouble sleeping. She claims she was scratching herself throughout the nig ht. PHYSICAL EXAMINATION: The patient's mental status is currently, she is awake, she is alert, she is c oherent. She is aware of her surroundings. Recognizes her daughter. Knows she is in the hospital. Denies any severe pain. Claims of being somewhat anxious. No psychotic symptomatology noted. Seem s to be related to her current environment and situation. Recent memory mildly impaired. CURRENT MEDICATIONS: Include Aricept, Colace, Coumadin, DuoNeb, clonazepam 0.5 mg at bedtime p.r.n. which she received last night at 10:00, meropenem, Lanoxin, Coumadin, Seroquel 50 mg at bedtime, Prot wilman, p.r.n. Percocet. LABORATORY DATA: White count 9300, hemoglobin 9.1, platelet count 197,000. Metabolic profile: Sodi um 141, potassium 4.0, chloride 112, CO2 of 24, anion gap 9, BUN 14, creatinine 0.6, random glucose 1 45. Rest of profile significant for albumin of 2.9. Procalcitonin of 32.13. The patient's ____ review of care consultant's notes. VITAL SIGNS: Blood pressure is 93/48, pulse 64, respirations 18 per minute, O2 saturation 94%. IMPRESSION: She has a urinary tract infection and possible sepsis. She has dementia, abdominal aort ic aneurysm, history of multiple UTIs, history of right hip fracture. I was going to increase Seroqu el tonight due to restless night, but in view of the fact her blood pressure is low, I will order a d ose of lorazepam 1 mg p.o. at bedtime, discontinue clonazepam and will monitor mental status. Constantino Davidson MD cc: [id number] TT: 11/25/2016 17:02:54 Confirmation # [id number] Dictation # [id number]
--- NOTE | 2016-11-25 19:17 | CP.PCM.PN ---
Subjective - Date & Time of Evaluation Date of Evaluation: 11/25/16 Time of Evaluation: 09:20 - Subjective Subjective: Comfortable, afebrile, no nausea, no diarrhea. Objective - Vital Signs/Intake and Output Vital Signs (last 24 hours): Temp Pulse Resp BP Pulse Ox 99.2 F 77 20 127/57 L 94 L 11/25/16 06:00 11/25/16 06:00 11/25/16 06:00 11/25/16 06:00 11/25/16 06:00 Intake and Output: 11/25/16 11/25/16 06:59 18:59 Intake Total 1200 Output Total 900 Balance 300 - Medications Medications: Current Medications Albuterol/Ipratropium (Duoneb 3 Mg/0.5 Mg (3 Ml) Ud) 3 ml IH Q2H PRN PRN Reason: Shortness of Breath Albuterol/Ipratropium (Duoneb 3 Mg/0.5 Mg (3 Ml) Ud) 3 ml IH [id number] [facility] Last Admin: 11/25/16 08:08 Dose: 3 ml Clonazepam (Klonopin) 0.5 mg PO HS PRN; Protocol PRN Reason: Anxiety Last Admin: 11/24/16 21:55 Dose: 0.5 mg Digoxin (Lanoxin) 0.125 mg PO 1400 [facility] Last Admin: 11/24/16 13:22 Dose: 0.125 mg Docusate Sodium (Colace) 100 mg PO BID [facility] Last Admin: 11/24/16 17:42 Dose: Not Given Donepezil HCl (Aricept) 10 mg PO DAILY [facility] Last Admin: 11/24/16 10:11 Dose: 10 mg Sodium Chloride (Sodium Chloride 0.9%) 1,000 mls @ 100 mls/hr IV .Q10H [facility] Last Admin: 11/24/16 13:24 Dose: 100 mls/hr Meropenem 1g/NS 100mL IVPB (Meropenem 1g/Ns 100ml Ivpb) 1 gm in 100 mls @ 100 mls/hr IVPB Q12 ERINN PRN Reason: Protocol Last Admin: 11/24/16 22:15 Dose: 100 mls/hr Pantoprazole Sodium (Protonix Ec Tab) 40 mg PO 0630 [facility] Last Admin: 11/25/16 06:51 Dose: Not Given Quetiapine Fumarate (Seroquel) 50 mg PO 2200 [facility] Last Admin: 11/24/16 21:56 Dose: 50 mg Warfarin Sodium (Coumadin) 2 mg PO 1800 ERINN PRN Reason: Protocol Last Admin: 11/24/16 17:42 Dose: 2 mg - Labs Labs: 11/25/16 08:20 11/25/16 08:20 PT 20.1 Seconds (9.9-11.8) H 11/24/16 08:50 INR 1.86 (0.93-1.08) H 11/24/16 08:50 APTT 32.2 Seconds (23.7-30.8) H 11/23/16 11:20 - Constitutional Appears: Non-toxic, No Acute Distress - Head Exam Head Exam: NORMAL INSPECTION - ENT Exam ENT Exam: Mucous Membranes Moist - Neck Exam Neck Exam: absent: Lymphadenopathy, Meningismus - Respiratory Exam Respiratory Exam: Decreased Breath Sounds - Cardiovascular Exam Cardiovascular Exam: +S1, +S2 - GI/Abdominal Exam GI & Abdominal Exam: Soft. absent: Tenderness Assessment and Plan - Assessment and Plan (Free Text) Plan: Assessment Sepsis probably due to urinary tract infection with gram negative bacilli with bacteremia in a patient with renal calculi history of left lower lobe healthcare-associated pneumonia atrial fibrillation COPD CHF dementia abdominal aortic aneurysm history of multiple UTI's history of GI bleed history of DVT history of right hip fracture Plan continue Merrem day 2 pending final blood and urine cx results; discussed with Dr. Oquendo - no invasive procedures for now Discussed as well with Dr. Daly will continue to follow clinically
[2016-11-26] MEDS: Pantoprazole 40 mg EC Tab PO SCH (05:57)
[2016-11-26] MEDS: Albuterol-Ipratrop 3 mg / 0.5 (3 ml) UD IH SCH ×3 (07:47→16:12)
[2016-11-26 08:16] LABS: INR 1.36 (0.93-1.08)
[2016-11-26] MEDS ORDERED: Sodium Chloride 0.9% 1,000 ML IV SCH (08:37)
[2016-11-26 08:40] LABS: ADD MANUAL DIFF? NO
[2016-11-26 08:45] LABS: BASO # 0.03 K/mm3 (0.0-2.0); BASO % 0.3 % (0.0-3.0); EOS # 0.2 (0.0-0.7); EOS % 2.3 % (1.5-5.0); GRAN % 72.1 % (50.0-68.0); HEMATOCRIT 30.8 % (36.0-48.0); LYMPH # 1.6 (1.2-3.4); LYMPH % 17.5 % (22.0-35.0); MEAN CORPUSCULAR HEMOGLOBIN 24.2 pg (25.0-35.0); MEAN CORPUSCULAR HGB CONC 30.2 g/dl (31.0-37.0); MEAN PLATELET VOLUME 9.8 fl (7.0-11.0); MONO # 0.7 (0.1-0.6); MONO % 7.8 % (1.0-6.0); PLATELET COUNT 244 10^3/uL (120.0-450.0); RED CELL DISTRIBUTION WIDTH 17.6 % (11.5-14.5); WHITE BLOOD COUNT 8.9 10^3/ul (4.5-11.0)
[2016-11-26 08:59] LABS: ALKALINE PHOSPHATASE 63 U/L (38-133); ALT/SGPT 24 U/L (7-56); AST/SGOT 16 U/L (15-39); BILIRUBIN,TOTAL 0.3 mg/dL (0.2-1.3); BLOOD UREA NITROGEN 15 mg/dL (7-21); CALCIUM 9.1 mg/dL (8.4-10.5); CARBON DIOXIDE 24 mmol/L (21-33); CHLORIDE 113 mmol/L (98-107); GFR AFRICAN-AMERICAN > 60; GLUCOSE,RANDOM 84 mg/dL (70-110); POTASSIUM 3.7 mmol/L (3.6-5.0); SODIUM 143 mmol/L (132-148); TOTAL PROTEIN 5.5 g/dL (5.8-8.3)
[2016-11-26] MEDS ORDERED: Cefpodoxime (Vantin) 200 mg Tab PO SCH (10:00)
[2016-11-26] MEDS ORDERED: POLYETHYLENE GLYCOL 3350 17 GM/Dose PACKET PO SCH (10:00)
[2016-11-26] MEDS: Meropenem 1g/NS 100mL IVPB 1 GM/100 ML PIGGYBACK IVPB SCH (10:30)
[2016-11-26 12:45] VITALS: BP 139/74; PULSE 68; RESP 16; TEMP 98.2; O2SAT 90
--- NOTE | 2016-11-26 13:23 | PN ---
DATE: 11/26/2016 HISTORY OF PRESENT ILLNESS: The patient is an 86-year-old white female. I spoke to patient, spoke t o daughter at bedside. The patient is currently being treated for a urinary tract infection. She east s had recent mental status impairment upon admission. Today, her mental status reveals that she is a lert, coherent, able to carry on a conversation. No hallucinations or paranoia. Her memory is sligh tly impaired. She is oriented to place and year, the month and day. Judgment and insight are slight ly impaired. She is debilitated, but she is awake and alert. CURRENT MEDICATIONS: Include Aricept, Ativan 1 mg at bedtime, Coumadin, DuoNeb treatments, Lanoxin, meropenem, p.r.n. Percocet, Protonix, Seroquel at 50 mg at bedtime and also receiving Vantin. CURRENT LABORATORY DATA: White count 8900, hemoglobin 9.3, platelet count 244,000. Metabolic profil e abnormal only for chloride of 113 and albumin of 2.7. Rest of profile was normal. VITAL SIGNS: There is no blood pressure in the electronic medical record listed today, but will chec k with staff. IMPRESSION: The patient has vascular dementia, history of depression, has acute urinary tract infect ion which is secondary to Escherichia coli. She has a positive blood culture of Fusobacterium mortif monie. PLAN: The patient has 1 more day of antibiotics. I will follow as an outpatient. Constantino Davidson MD cc: [id number] TT: 11/26/2016 13:22:23 Confirmation # [id number] Dictation # [id number]
--- NOTE | 2016-11-26 14:04 | CP.PCM.DIS ---
<Guerrero Kirkland - Last Filed: 11/26/16 14:04> Provider - Provider Date of Admission: 11/23/16 15:09 Attending physician: Davy Daly MD Primary care physician: NO PRIMARY CARE PROVIDER Consults: Urology, Psych, ID Time Spent in preparation of Discharge (in minutes): 45 Hospital Course - Lab Results Lab Results: Most Recent Lab Values WBC 8.9 10^3/ul (4.5-11.0) 11/26/16 05:30 RBC 3.85 10^6/uL (3.5-6.1) 11/26/16 05:30 Hgb 9.3 gm/dL (12.0-16.0) L 11/26/16 05:30 Hct 30.8 % (36.0-48.0) L 11/26/16 05:30 MCV 80.0 fL (80.0-105.0) 11/26/16 05:30 MCH 24.2 pg (25.0-35.0) L 11/26/16 05:30 MCHC 30.2 g/dl (31.0-37.0) L 11/26/16 05:30 RDW 17.6 % (11.5-14.5) H 11/26/16 05:30 Plt Count 244 10^3/uL (120.0-450.0) 11/26/16 05:30 MPV 9.8 fl (7.0-11.0) 11/26/16 05:30 Gran % 72.1 % (50.0-68.0) H 11/26/16 05:30 Lymph % (Auto) 17.5 % (22.0-35.0) L 11/26/16 05:30 [place] % (Auto) 7.8 % (1.0-6.0) H 11/26/16 05:30 Eos % (Auto) 2.3 % (1.5-5.0) 11/26/16 05:30 Baso % (Auto) 0.3 % (0.0-3.0) 11/26/16 05:30 Gran # 6.40 (1.4-6.5) 11/26/16 05:30 Lymph # 1.6 (1.2-3.4) 11/26/16 05:30 [place] # 0.7 (0.1-0.6) H 11/26/16 05:30 Eos # 0.2 (0.0-0.7) 11/26/16 05:30 Baso # 0.03 K/mm3 (0.0-2.0) 11/26/16 05:30 Neutrophils % (Manual) 90 % (50.0-70.0) H 11/23/16 11:20 Band Neutrophils % 8 % (0-2) H 11/23/16 11:20 Lymphocytes % (Manual) 1 % (22.0-35.0) L 11/23/16 11:20 Monocytes % (Manual) 1 % (1.0-6.0) 11/23/16 11:20 Platelet Evaluation Normal (NORMAL) 11/23/16 11:20 Poikilocytosis (manual Slight 11/23/16 11:20 Anisocytosis (manual) 1+ 11/23/16 11:20 Microcytosis (manual) 1+ 11/23/16 11:20 PT 14.7 Seconds (9.9-11.8) H 11/26/16 07:30 INR 1.36 (0.93-1.08) H 11/26/16 07:30 APTT 32.2 Seconds (23.7-30.8) H 11/23/16 11:20 Sodium 143 mmol/L (132-148) 11/26/16 05:30 Potassium 3.7 mmol/L (3.6-5.0) 11/26/16 05:30 Chloride 113 mmol/L (98-107) H 11/26/16 05:30 Carbon Dioxide 24 mmol/L (21-33) 11/26/16 05:30 Anion Gap 10 (10-20) 11/26/16 05:30 BUN 15 mg/dL (7-21) 11/26/16 05:30 Creatinine 0.6 mg/dL (0.5-1.4) 11/26/16 05:30 Est GFR ( Amer) > 60 11/26/16 05:30 Est GFR (Non-Af Amer) > 60 11/26/16 05:30 POC Glucose (mg/dL) 240 mg/dL (65-110) H 11/23/16 11:00 Random Glucose 84 mg/dL (70-110) 11/26/16 05:30 Lactic Acid 1.8 mmol/L (0.7-2.1) 11/23/16 18:25 Calcium 9.1 mg/dL (8.4-10.5) 11/26/16 05:30 Total Bilirubin 0.3 mg/dL (0.2-1.3) 11/26/16 05:30 AST 16 U/L (15-39) 11/26/16 05:30 ALT 24 U/L (7-56) 11/26/16 05:30 Alkaline Phosphatase 63 U/L (38-133) 11/26/16 05:30 Lactate Dehydrogenase 389 U/L (333-699) 11/23/16 11:20 Total Creatine Kinase < 20 U/L (35-230) L 11/23/16 11:20 Troponin I 0.03 ng/mL D 11/23/16 11:20 NT-Pro-B Natriuret Pep 1720 pg/mL (0-450) H 11/23/16 11:20 Total Protein 5.5 g/dL (5.8-8.3) L 11/26/16 05:30 Albumin 2.7 g/dL (3.0-4.8) L 11/26/16 05:30 Globulin 2.8 gm/dL 11/26/16 05:30 Albumin/Globulin Ratio 1.0 (1.1-1.8) L 11/26/16 05:30 Procalcitonin 32.13 NG/ML (0.19-0.49) H 11/23/16 18:25 Urine Color Light brown (YELLOW) 11/23/16 12:15 Urine Appearance Cloudy (CLEAR) 11/23/16 12:15 Urine pH 6.0 (4.7-8.0) 11/23/16 12:15 Ur Specific [place] 1.025 (1.005-1.035) 11/23/16 12:15 Urine Protein 100 mg/dL (<30 mg/dL) H 11/23/16 12:15 Urine Glucose (UA) Negative mg/dL (NEGATIVE) 11/23/16 12:15 Urine Ketones Trace mg/dL (NEGATIVE) H 11/23/16 12:15 Urine Blood Large (NEGATIVE) H 11/23/16 12:15 Urine Nitrate Positive (NEGATIVE) H 11/23/16 12:15 Urine Bilirubin Small (NEGATIVE) H 11/23/16 12:15 Urine Urobilinogen 1.0 E.U./dL (<1 E.U./dL) H 11/23/16 12:15 Ur Leukocyte Esterase Large Samir/uL (NEGATIVE) H 11/23/16 12:15 Urine RBC Tntc /hpf (0-2) 11/23/16 12:15 Urine WBC 25 - 30 /hpf (0-6) 11/23/16 12:15 Urine Bacteria Many (NEG) 11/23/16 12:15 Digoxin 1.0 ng/mL (0.8-2.0) 11/23/16 18:25 - Hospital Course Hospital Course: 86 F with PMHx of AFib on coumadin, CHF, COPD, urinary incontinence, AAA and thoracic aortic aneurysm, multiple UTIs, GI bleed, DVT, and dementia presents to [facility] with complaints of chills, diaphoresis and fatigue. In the ED basic labwork was done. Urinalysis was done and showed UTI and blood. Septic work up was done. CXR showed no active dx. CT abdomen/pelvis - multiple b/l nonobstructing upper tract calculi, largest in R lower pole. Pt was afebrile with Wbc of 25.5. IV abx - Meropenem started and Pt was admitted to the floor. ID, Urology and Psych was consulted. Urology - Dr Jere ladd - no ppx antibiotics, no surgical intervention at this time. ID recommended Meropenem. Pt with baseline Dementia psych consulted and was start Seroquel. Pt is more stable now. WBC decreased to 8.9. ID stated pt to be continued ton outpatient Vantin for 10 days. Today the pt is more alert and oriented. No acute events overnight. No complaints. Denies any east, dizziness, n/v/d, sob, cp, abd pain. DDx: sepsis / UTI Discharge Exam - Head Exam Head Exam: NORMAL INSPECTION - Eye Exam Eye Exam: EOMI, Normal appearance, PERRL Pupil Exam: NORMAL ACCOMODATION, PERRL - Respiratory Exam Respiratory Exam: Clear to PA & Lateral, NORMAL BREATHING PATTERN, UNREMARKABLE. absent: Rales, Rhonchi, Wheezes - Cardiovascular Exam Cardiovascular Exam: REGULAR RHYTHM, RRR, +S1, +S2 - GI/Abdominal Exam GI & Abdominal Exam: Normal Bowel Sounds, Unremarkable - Neurological Exam Neurological exam: Alert, CN II-XII Intact, Normal Gait, Oriented x3, Reflexes Normal - Psychiatric Exam Psychiatric exam: Normal Affect, Normal Mood - Skin Skin Exam: Dry, Intact, Normal Color, Warm Discharge Plan - Discharge Medications Prescriptions: Cefpodoxime [Vantin] 200 mg PO Q12 #20 tab - Follow Up Plan Condition: IMPROVED Disposition: HOME/ ROUTINE Instructions: Urinary Tract Infection in Women (DC), Urinary Tract Infection in Men (DC), Sepsis (GEN), Dysuria (GEN) Additional Instructions: Follow up with Dr Kohler with in next 2-3 days. If your symptoms recur come back to the closest ED. Take your antibiotics as prescribed. Referrals: Meet Barnett MD [Staff Provider] - Tj Ortiz MD [Staff Provider] - PCP,BUNNY [Primary Care Provider] - <Davy Daly - Last Filed: 11/26/16 15:44> Provider - Provider Date of Admission: 11/23/16 15:09 Attending physician: Davy Daly MD Primary care physician: BUNNY PRIMARY CARE PROVIDER Hospital Course - Lab Results Lab Results: Most Recent Lab Values WBC 8.9 10^3/ul (4.5-11.0) 11/26/16 05:30 RBC 3.85 10^6/uL (3.5-6.1) 11/26/16 05:30 Hgb 9.3 gm/dL (12.0-16.0) L 11/26/16 05:30 Hct 30.8 % (36.0-48.0) L 11/26/16 05:30 MCV 80.0 fL (80.0-105.0) 11/26/16 05:30 MCH 24.2 pg (25.0-35.0) L 11/26/16 05:30 MCHC 30.2 g/dl (31.0-37.0) L 11/26/16 05:30 RDW 17.6 % (11.5-14.5) H 11/26/16 05:30 Plt Count 244 10^3/uL (120.0-450.0) 11/26/16 05:30 MPV 9.8 fl (7.0-11.0) 11/26/16 05:30 Gran % 72.1 % (50.0-68.0) H 11/26/16 05:30 Lymph % (Auto) 17.5 % (22.0-35.0) L 11/26/16 05:30 [place] % (Auto) 7.8 % (1.0-6.0) H 11/26/16 05:30 Eos % (Auto) 2.3 % (1.5-5.0) 11/26/16 05:30 Baso % (Auto) 0.3 % (0.0-3.0) 11/26/16 05:30 Gran # 6.40 (1.4-6.5) 11/26/16 05:30 Lymph # 1.6 (1.2-3.4) 11/26/16 05:30 [place] # 0.7 (0.1-0.6) H 11/26/16 05:30 Eos # 0.2 (0.0-0.7) 11/26/16 05:30 Baso # 0.03 K/mm3 (0.0-2.0) 11/26/16 05:30 Neutrophils % (Manual) 90 % (50.0-70.0) H 11/23/16 11:20 Band Neutrophils % 8 % (0-2) H 11/23/16 11:20 Lymphocytes % (Manual) 1 % (22.0-35.0) L 11/23/16 11:20 Monocytes % (Manual) 1 % (1.0-6.0) 11/23/16 11:20 Platelet Evaluation Normal (NORMAL) 11/23/16 11:20 Poikilocytosis (manual Slight 11/23/16 11:20 Anisocytosis (manual) 1+ 11/23/16 11:20 Microcytosis (manual) 1+ 11/23/16 11:20 PT 14.7 Seconds (9.9-11.8) H 11/26/16 07:30 INR 1.36 (0.93-1.08) H 11/26/16 07:30 APTT 32.2 Seconds (23.7-30.8) H 11/23/16 11:20 Sodium 143 mmol/L (132-148) 11/26/16 05:30 Potassium 3.7 mmol/L (3.6-5.0) 11/26/16 05:30 Chloride 113 mmol/L (98-107) H 11/26/16 05:30 Carbon Dioxide 24 mmol/L (21-33) 11/26/16 05:30 Anion Gap 10 (10-20) 11/26/16 05:30 BUN 15 mg/dL (7-21) 11/26/16 05:30 Creatinine 0.6 mg/dL (0.5-1.4) 11/26/16 05:30 Est GFR ( Amer) > 60 11/26/16 05:30 Est GFR (Non-Af Amer) > 60 11/26/16 05:30 POC Glucose (mg/dL) 240 mg/dL (65-110) H 11/23/16 11:00 Random Glucose 84 mg/dL (70-110) 11/26/16 05:30 Lactic Acid 1.8 mmol/L (0.7-2.1) 11/23/16 18:25 Calcium 9.1 mg/dL (8.4-10.5) 11/26/16 05:30 Total Bilirubin 0.3 mg/dL (0.2-1.3) 11/26/16 05:30 AST 16 U/L (15-39) 11/26/16 05:30 ALT 24 U/L (7-56) 11/26/16 05:30 Alkaline Phosphatase 63 U/L (38-133) 11/26/16 05:30 Lactate Dehydrogenase 389 U/L (333-699) 11/23/16 11:20 Total Creatine Kinase < 20 U/L (35-230) L 11/23/16 11:20 Troponin I 0.03 ng/mL D 11/23/16 11:20 NT-Pro-B Natriuret Pep 1720 pg/mL (0-450) H 11/23/16 11:20 Total Protein 5.5 g/dL (5.8-8.3) L 11/26/16 05:30 Albumin 2.7 g/dL (3.0-4.8) L 11/26/16 05:30 Globulin 2.8 gm/dL 11/26/16 05:30 Albumin/Globulin Ratio 1.0 (1.1-1.8) L 11/26/16 05:30 Procalcitonin 32.13 NG/ML (0.19-0.49) H 11/23/16 18:25 Urine Color Light brown (YELLOW) 11/23/16 12:15 Urine Appearance Cloudy (CLEAR) 11/23/16 12:15 Urine pH 6.0 (4.7-8.0) 11/23/16 12:15 Ur Specific [place] 1.025 (1.005-1.035) 11/23/16 12:15 Urine Protein 100 mg/dL (<30 mg/dL) H 11/23/16 12:15 Urine Glucose (UA) Negative mg/dL (NEGATIVE) 11/23/16 12:15 Urine Ketones Trace mg/dL (NEGATIVE) H 11/23/16 12:15 Urine Blood Large (NEGATIVE) H 11/23/16 12:15 Urine Nitrate Positive (NEGATIVE) H 11/23/16 12:15 Urine Bilirubin Small (NEGATIVE) H 11/23/16 12:15 Urine Urobilinogen 1.0 E.U./dL (<1 E.U./dL) H 11/23/16 12:15 Ur Leukocyte Esterase Large Samir/uL (NEGATIVE) H 11/23/16 12:15 Urine RBC Tntc /hpf (0-2) 11/23/16 12:15 Urine WBC 25 - 30 /hpf (0-6) 11/23/16 12:15 Urine Bacteria Many (NEG) 11/23/16 12:15 Stool Occult Blood Negative (NEGATIVE) 11/26/16 13:29 Digoxin 1.0 ng/mL (0.8-2.0) 11/23/16 18:25 Attending/Attestation - Attestation I have personally seen and examined this patient.: Yes I have fully participated in the care of the patient.: Yes I have reviewed all pertinent clinical information, including history, physical exam and plan: Yes Notes (Text): 11/26/16 15:42 Attending note; Patient seen and examined with the resident. Patient's daughter by the bedside. Patient is alert, awake and oriented to person. Patient is a 86-year-old female with PMHx of AFib on coumadin, CHF, COPD, urinary incontinence, AAA and thoracic aortic aneurysm, multiple UTIs, GI bleed , DVT, and dementia presents to [facility] with complaints of chills, diaphoresis and fatigue. E.coli UTI. on IV Merem. 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 Case discussed with ID in detail. We will discharge the patient home with po Vantin. INR is subtherapeutic. Coumadin dosage increased to 4 mg today. Follow up INR closely as outpatient. adjust dosage per PMD. bilateral renal calculi in the past. Case discussed with Urology dr. ortiz in detail. No need for any intervention at this point. Diagnosis, treatment plan discussed with patient's daughter in detail. Patient is DNI DNR. Case discussed with PMD in detail. diagnosis; Escherichia coli UTI Bilateral renal calculi A. fib COPD
[2016-11-26] MEDS: Digoxin 125 mcg (0.125 mg) Tab PO SCH (15:24)
[2016-11-26 15:25] VITALS: PULSE 66
--- NOTE | 2016-11-26 16:47 | PN ---
DATE: 11/26/2016 The patient is in bed in no acute distress. PHYSICAL EXAMINATION: VITAL SIGNS: Temperature is 98, blood pressure is 130/70, respiratory rate of 18. HEENT: Unremarkable. NECK: Supple. LUNGS: Decreased breath sounds. HEART: Normal S1, S2. ABDOMEN: Soft, nontender. LABORATORY EXAMINATION: Reveals the white count is 8.9, hemoglobin of 9, BUN of 15, creatinine of 0. 6. Procalcitonin is 32.13. Urinalysis is noted. Microbiology reveals the patient has Fusobacterium in the blood and E. coli in the urine. Case discussed with Dr. Daly, who states the patient's family does not wish to be aggressive. ASSESSMENT AND PLAN: Sepsis, probably with urine as the source with a Fusobacterium bacteremia, the etiology of which is not clear, associated with possible ____ Fusobacterium ____ associated with supp urative jugular venous phlebitis and Lemierre's versus hepatic abscess, brain abscess, or sinusitis a nd Actinomycosis and as per discussion with Dr. Daly, regarding antibiotic and supportive care i n this 86-year-old whose family does not wish to be aggressive with treatment. Meet Barnett MD cc: [phone] TT: 11/26/2016 16:46:02 Confirmation # [id number] Dictation # [id number] sn
== END 2016-11-26 17:32 | disposition home health service (06) | DRG 872 ==
LOC: ED 10:45 → ERH 15:09 → 2RNO 17:46 → 5RSO 11-25 16:09 → 5RNO 11-25 19:14
PROVIDERS: ADMIT Internal Medicine; ATTEND Internal Medicine
DX: A41.9 Sepsis, unspecified organism (principal); N39.0 Urinary tract infection, site not specified; B96.20 Unspecified Escherichia coli [E. coli] as the cause of diseases classified elsewhere; I50.9 Heart failure, unspecified; I71.2 Thoracic aortic aneurysm, without rupture; F01.50 Vascular dementia, unspecified severity, without behavioral disturbance, psychotic disturbance, mood disturbance, and anxiety; I48.91 Unspecified atrial fibrillation; J44.9 Chronic obstructive pulmonary disease, unspecified; N20.0 Calculus of kidney; Z66 Do not resuscitate; R32 Unspecified urinary incontinence; I71.4 Abdominal aortic aneurysm, without rupture; F32.9 Major depressive disorder, single episode, unspecified; Z79.01 Long term (current) use of anticoagulants; Z86.718 Personal history of other venous thrombosis and embolism; Z87.01 Personal history of pneumonia (recurrent)

== ENCOUNTER 2017-03-04 14:37 | Inpatient (IN) | payer MEDICARE, BC ==
[2017-03-04 14:38] VITALS: PULSE 66
[2017-03-04 15:23] LABS: VENOUS BLOOD GAS BASE EXCESS -4.8 mmol/L (0.0-2.0); VENOUS BLOOD PH 7.28 (7.32-7.43)
[2017-03-04 15:28] LABS: BASO # 0.02 K/mm3 (0.0-2.0); BASO % 0.2 % (0.0-3.0); EOS % 0.4 % (1.5-5.0); GRAN # 8.94 (1.4-6.5); GRAN % 93.5 % (50.0-68.0); HEMATOCRIT 38.9 % (36.0-48.0); LYMPH # 0.5 (1.2-3.4); LYMPH % 4.8 % (22.0-35.0); MEAN CORPUSCULAR HEMOGLOBIN 23.8 pg (25.0-35.0); MEAN CORPUSCULAR HGB CONC 30.8 g/dl (31.0-37.0); MEAN PLATELET VOLUME 9.7 fl (7.0-11.0); MONO # 0.1 (0.1-0.6); MONO % 1.1 % (1.0-6.0); PLATELET COUNT 355 10^3/uL (120.0-450.0); RED CELL DISTRIBUTION WIDTH 17.6 % (11.5-14.5); WHITE BLOOD COUNT 9.6 10^3/ul (4.5-11.0)
[2017-03-04 15:33] LABS: ALB/GLOB RATIO 1.3 (1.1-1.8); ALKALINE PHOSPHATASE 96 U/L (38-126); ALT/SGPT 16 U/L (7-56); AST/SGOT 29 U/L (14-36); BILIRUBIN,TOTAL 0.8 mg/dL (0.2-1.3); BLOOD UREA NITROGEN 20 mg/dL (7-21); CALCIUM 10.6 mg/dL (8.4-10.5); CARBON DIOXIDE 22 mmol/L (21-33); CHLORIDE 103 mmol/L (98-107); GFR AFRICAN-AMERICAN > 60; GLUCOSE,RANDOM 120 mg/dL (70-110); MAGNESIUM 1.9 mg/dL (1.7-2.2); PHOSPHOROUS 3.1 mg/dL (2.5-4.5); POTASSIUM 4.4 mmol/L (3.6-5.0); SODIUM 145 mmol/L (132-148); TOTAL PROTEIN 8.1 g/dL (5.8-8.3)
[2017-03-04 15:34] LABS: INR 1.81 (0.93-1.08); PARTIAL THROMBOPLASTIN TIME 20.6 Seconds (23.7-30.8)
[2017-03-04] MEDS ORDERED: Piperacill/Tazo 4.5gm in NS 4.5 GM/100 ML BAG IVPB STA (15:37)
[2017-03-04] MEDS ORDERED: Vancomycin 1gm in NS 250ml 1 GM/250 ML BAG IVPB STA (15:37)
[2017-03-04] MEDS ORDERED: Sodium Chloride 0.9% 500 ML IV STA (15:37)
--- NOTE | 2017-03-04 15:41 | ED PDOC ---
Arrival/HPI - General Chief Complaint: Shortness Of Breath Time Seen by Provider: 03/04/17 14:39 - Critical Care Critical Care Minutes: 30 minutes Narrative Critical Care (Text): 03/04/17 16:21 87 yo female h/o Afib (on coumadin), CHF, COPD, AAA, Thoracic Aneurysm, Frequent UTIs, GI Bleed, DVT, Dementia, presents to the ED c/o body shivers x 1 day. Daughter providing history states that she started shivering earlier today then they just got worse. The last time this happens she states they found an infection. Daughter said HR was 144 and BP 205/127 on her machine at home so she brought her in. Patient has dementia so there is limited history. She denies any CP or SOB. PMD: Dr. Kohler Past Medical History - Provider Review Nursing Documentation Reviewed: Yes - Infectious Disease Hx of Infectious Diseases: None - Tetanus Immunization Tetanus Immunization: Unknown - Reproductive Menopause: Yes - Cardiac Hx Cardiac Disorders: Yes Hx Congestive Heart Failure: Yes Hx Hypertension: Yes - Pulmonary Hx Chronic Obstructive Pulmonary Disease (COPD): Yes Hx Pneumonia: Yes - Neurological HX Cerebrovascular Accident: No - HEENT Hx HEENT Disorder: No - Renal Hx Renal Failure: No - Endocrine/Metabolic Hx Diabetes Mellitus Type 1: No Hx Diabetes Mellitus Type 2: No Hx Hypothyroidism: No - Hematological/Oncological Hx Cancer: No - Integumentary Hx Dermatological Disorder: Yes Other/Comment: L LEG LESION - Musculoskeletal/Rheumatological Hx Arthritis: No Hx Rheumatoid Arthritis: No - Gastrointestinal Hx Gastroesophageal Reflux: No - Genitourinary/Gynecological Hx Genitourinary Disorders: Yes Hx Incontinence: Yes Hx Urinary Tract Infection: Yes - Psychiatric Hx Psychophysiologic Disorder: No Hx Emotional Abuse: No Hx Physical Abuse: No Hx Substance Use: No - Past Surgical History Past Surgical History: No Previous - Surgical History Hx Orthopedic Surgery: Yes (L HIP) Other/Comment: ABD HERNIA REPAIR - Anesthesia Hx Anesthesia: Yes Hx Anesthesia Reactions: No Hx Malignant Hyperthermia: No - Suicidal Assessment Feels Threatened In Home Enviroment: No Family/Social History - Physician Review Nursing Documentation Reviewed: Yes Family/Social History: No Known Family HX Smoking Status: Former Smoker Hx Alcohol Use: No Hx Substance Use: No Hx Substance Use Treatment: No Allergies/Home Meds Allergies/Adverse Reactions: Allergies No Known Allergies Allergy (Verified 03/04/17 14:45) Home Medications: Home Meds Medication Instructions Recorded Confirmed Pantoprazole [Protonix EC Tab] 40 mg PO BID 11/23/16 03/04/17 Acetaminphen-Codeine 30 mg PO PRN PRN 03/04/17 03/04/17 Melatonin 10 mg SL DAILY 03/04/17 03/04/17 Polyethylene Glycol 3350 [Miralax] 17 gm PO PRN PRN 03/04/17 03/04/17 Review of Systems - Review of Systems Systems not reviewed;Unavailable: Dementia Respiratory: absent: SOB Cardiovascular: absent: Chest Pain Physical Exam Vital Signs Reviewed: Yes Vital Signs Temp Pulse Resp BP Pulse Ox 03/04/17 17:56 83 18 97/50 L 96 03/04/17 17:55 85 24 97/50 L 96 03/04/17 17:40 86 28 H 95/54 L 96 03/04/17 17:01 93 H 27 H 102/79 98 03/04/17 15:49 96 H 22 107/66 98 03/04/17 15:34 99 H 30 H 112/45 L 98 03/04/17 15:19 77 31 H 118/63 98 03/04/17 15:04 77 22 146/103 H 99 03/04/17 14:40 98 03/04/17 14:38 102.2 F H 78 22 146/103 H 94 L Temperature: Febrile Blood Pressure: Hypertensive Pulse: Regular Respiratory Rate: Normal Appearance: Positive for: Well-Appearing, Non-Toxic, Comfortable Pain Distress: None Mental Status: Positive for: Alert and Oriented X 3 - Systems Exam Head: Present: Atraumatic, Normocephalic Pupils: Present: PERRL Extroacular Muscles: Present: EOMI Conjunctiva: Present: Normal Mouth: Present: Moist Mucous Membranes Pharnyx: Present: Normal Neck: Present: Normal Range of Motion Respiratory/Chest: Present: Clear to Auscultation, Good Air Exchange. No: Respiratory Distress, Accessory Muscle Use, Wheezes, Rales, Retracting Cardiovascular: Present: Regular Rate and Rhythm, Normal S1, S2, Irregular Rhythm. No: Murmurs Abdomen: Present: Normal Bowel Sounds. No: Tenderness, Distention, Peritoneal Signs Back: Present: Normal Inspection Upper Extremity: Present: Normal Inspection. No: Cyanosis, Edema Lower Extremity: Present: Normal Inspection. No: Edema Neurological: Present: GCS=15, CN II-XII Intact, Speech Normal Skin: Present: Warm, Dry, Normal Color. No: Rashes Psychiatric: Present: Alert, Oriented x 3, Normal Insight, Normal Concentration Medical Decision Making ED Course and Treatment: 03/04/17 16:27 87 yo female with h/o Afib (on coumadin), DVT, CHF, COPD, AAA, Thoracic Aneursym , Frequent UTI's, GI bleed, Dementia presents with daughter for shiver and concern for infection -- Labs -- CXR, EKG -- EKG different from previous so will add troponins/BNP -- UA, UCx -- Patient noted to be DNR/DNI Patient's temperature elevated, RR 22, LA elevated. Code Sepsis activated. Treated with Vancomycin and Zosyn IV. Dixon was placed by RN with no urine outpatient. NS 500 IV bolus given. Lungs clear. on reassessment. Will continue to hydration. 03/04/17 16:53 On reevaluation, patient's lungs are clear. No w/r/r. s/p NS 1 liter IVF. 03/04/17 17:42 BP 95/54 MAP 66. Patient denies SOB. Lungs clear. Will continue to hydrate. Some urine produced. 03/04/17 17:55 Patient is a DNR/DNI patient as per patient and daughter. I confirmed with Dr. Kohler as well. 03/04/17 17:57 Case was discussed with Dr. Daly, Hospitalist who will place on the hospitalist service. 03/04/17 18:[address] Aviles, ICU physician, who agrees that patient can be admitted to telemetry and not to the ICU at this time. - Critical Care Critical Care Minutes: 60 minutes - Lab Interpretations Lab Results: 03/04/17 15:00 03/04/17 15:00 Lab Results 03/04/17 15:00: Sodium 145, Chloride 103, Potassium 4.4, Carbon Dioxide 22, Anion Gap 24 H, BUN 20, Creatinine 1.0, Est GFR ( Amer) > 60, Est GFR ( Non-Af Amer) 52, Random Glucose 120 H, Calcium 10.6 H, Phosphorus 3.1, Magnesium 1.9, Total Bilirubin 0.8, AST 29, ALT 16, Alkaline Phosphatase 96, Troponin I < 0.01 D, NT-Pro-B Natriuret Pep 292, Total Protein 8.1, Albumin 4.5 , Globulin 3.6, Albumin/Globulin Ratio 1.3 03/04/17 15:00: pO2 35, VBG pH 7.28 L, VBG pCO2 47.0, VBG HCO3 22.1, VBG Total CO2 23.5, VBG O2 Sat (Calc) 71.1 H, VBG Base Excess -4.8 L, VBG Potassium 5.0, Sodium 139.0, Chloride 105.0, Glucose 131 H, Lactate 7.1 H*, FiO2 21.0, Venous Blood Potassium 5.0 03/04/17 15:00: PT 19.6 H, INR 1.81 H, APTT 20.6 L 03/04/17 15:00: WBC 9.6, RBC 5.05, Hgb 12.0, Hct 38.9, MCV 77.0 L, MCH 23.8 L, MCHC 30.8 L, RDW 17.6 H, Plt Count 355, MPV 9.7, Gran % 93.5 H, Lymph % (Auto) 4.8 L, [place] % (Auto) 1.1, Eos % (Auto) 0.4 L, Baso % (Auto) 0.2, Gran # 8.94 H, Lymph # 0.5 L, [place] # 0.1, Eos # 0.0, Baso # 0.02, Neutrophils % (Manual) 77 H, Band Neutrophils % 8 H, Lymphocytes % (Manual) 12 L, Monocytes % (Manual) 1, Eosinophils % (Manual) 2, Platelet Evaluation Normal Interpretation: Abnormal lab values - RAD Interpretation Radiology Orders: 03/04/17 15:04 CHEST PORTABLE [RAD] Stat CXR with no infiltrate Wedding Consultant: ED Physician - EKG Interpretation Interpreted by ED Physician: Yes (Afibb at 92 bpm with Bifascicular Block; Change from previous) Type: 12 lead EKG Comparison: Different from prev. EKG - Medication Orders Current Medication Orders: Acetaminophen (Tylenol 325mg Tab) 975 mg PO ONCE PRN PRN Reason: Fever >100.4 F Last Admin: 03/04/17 15:15 Dose: 975 mg Sodium Chloride (Sodium Chloride 0.9%) 1,000 mls @ 100 mls/hr IV .Q10H [facility] Last Admin: 03/04/17 17:57 Dose: 100 mls/hr eMAR Start Stop Document 03/04/17 17:57 CNR (Rec: 03/04/17 17:57 CNR [id number]) Intravenous Solution Start Date 03/04/17 Start Time 17:57 Discontinued Medications Sodium Chloride (Sodium Chloride 0.9%) 500 mls @ 999 mls/hr IV .Q31M STA Stop: 03/04/17 16:07 Last Admin: 03/04/17 16:22 Dose: 999 mls/hr eMAR Start Stop Document 03/04/17 16:22 CNR (Rec: 03/04/17 16:22 CNR [id number]) Intravenous Solution Start Date 03/04/17 Start Time 15:00 Vancomycin HCl (Vancomycin 1gm) 1 gm in 250 mls @ 167 mls/hr IVPB STAT STA PRN Reason: Protocol Stop: 03/04/17 17:06 Last Admin: 03/04/17 16:24 Dose: 167 mls/hr eMAR Start Stop Document 03/04/17 16:24 CNR (Rec: 03/04/17 16:24 CNR [id number]) Intravenous Solution Start Date 03/04/17 Start Time 16:24 Piperacillin Sod/Tazobactam Sod (Zosyn 4.5 Gm In Ns 100ml) 4.5 gm in 100 mls @ 200 mls/hr IVPB STAT STA PRN Reason: Protocol Stop: 03/04/17 16:06 Last Admin: 03/04/17 16:15 Dose: 200 mls/hr eMAR Start Stop Document 03/04/17 16:15 CNR (Rec: 03/04/17 16:16 CNR [id number]) Intravenous Solution Start Date 03/04/17 Start Time 16:05 Sodium Chloride (Sodium Chloride 0.9%) 1,000 mls @ 999 mls/hr IV .Q1H1M STA Stop: 03/04/17 17:20 Last Admin: 03/04/17 16:23 Dose: 999 mls/hr eMAR Start Stop Document 03/04/17 16:23 CNR (Rec: 03/04/17 16:24 CNR [id number]) Intravenous Solution Start Date 03/04/17 Start Time 16:23 Disposition/Present on Arrival - Present on Arrival Any Indicators Present on Arrival: No History of DVT/PE: No History of Uncontrolled Diabetes: No Urinary Catheter: No History of Decub. Ulcer: No History Surgical Site Infection Following: None - Disposition Have Diagnosis and Disposition been Completed?: Yes Diagnosis: Sepsis, Dehydration Disposition: HOSPITALIZED Disposition Time: 18:08 Patient Plan: Admission Patient Problems: Current Active Problems Problem Status Onset Dehydration Acute Sepsis Acute Condition: CRITICAL Discharge Instructions (ExitCare): Sepsis (ED) Referrals: Tashi Kohler MD [Primary Care Provider] - Follow up with primary Forms: [email or web address] [facility] (Persian)
[2017-03-04 15:50] LABS: TROPONIN I < 0.01 ng/mL
[2017-03-04 15:57] LABS: BAND 8 % (0-2); EOSINOPHIL 2 % (0.0-3.0); NEUTROPHIL 77 % (50.0-70.0); PLATELET ESTIMATE NORMAL (NORMAL)
[2017-03-04] MEDS ORDERED: Sodium Chloride 0.9% 1,000 ML IV STA ×3 (16:20→21:28)
--- NOTE | 2017-03-04 16:29 | RAD ---
HISTORY: Sepsis Patient COMPARISON: Comparison chest 11/23/2016 . Comparison also made with CT scan chest abdomen pelvis 01/29/2012. FINDINGS: LUNGS: Poor inspiration with low lung volumes, crowded bronchovascular markings and mild bibasilar atelectasis. . PLEURA: No significant pleural effusion identified, no pneumothorax apparent. CARDIOVASCULAR: Heart appears enlarged. Aneurysmal dilatation of the descending thoracic aorta seen to better advantage on prior CT scan chest OSSEOUS STRUCTURES: No significant abnormalities. VISUALIZED UPPER ABDOMEN: Normal. OTHER FINDINGS: None. IMPRESSION: Poor inspiration with low lung volumes, crowded bronchovascular markings and mild bibasilar atelectasis. . Cardiomegaly. Aneurysmal dilatation of the descending thoracic aorta seen to better advantage on prior CT scan of the chest
[2017-03-04] MEDS ORDERED: Sodium Chloride 0.9% 1,000 ML IV SCH (16:30)
[2017-03-04 18:27] LABS: VENOUS BLOOD GAS BASE EXCESS -3.4 mmol/L (0.0-2.0); VENOUS BLOOD PH 7.37 (7.32-7.43)
--- NOTE | 2017-03-04 18:34 | CP.PCM.HP ---
<Edison García - Last Filed: 03/04/17 18:28> History of Present Illness - History of Present Illness History of Present Illness: 87 y/o F with PMH of AFib on coumadin, CHF with EF of 63%, COPD, urinary incontinence, AAA and thoracic aortic aneurysm, multiple UTIs, GI bleed, DVT, and dementia presents with daughter after she was found to have elevated vital signs at home. Patient is accompanied by her daughter who provides the history as patient has hx of Dementia. Daughter says she noticed the patient acting differently once she came home from work this afternoon. Patient did not want to eat her food, although she has had a good appetite lately. Patient was not able to speak coherently, so the daughter took the patients vital signs. BP was found to be 205/127 and HR was 144. At this time, the daughter brought her to the hospital. According to the daughter, the patient has felt fine over the last several days. Patient had no CP, SOB, fever, nausea, vomiting, diarrhea, decrease appetite, fever, chills, dysuria, cough, sputum production, or sick contacts recently. Patient has been admitted several times in the past for Urosepsis. PMH: AFib,, CHF, COPD, urinary incontinence, AAA and thoracic aortic aneurysm, multiple UTIs, GI bleed, DVT, and dementia PSH: Abdominal hernia repair, Left Hip Social Hx: Denied tobacco/etoh/illicit drug abuse. Lives with daughter. Difficulty ambulating, requires wheelchair or walker FMH: Noncontributory Meds: Reviewed, as per MAR Allergies: GENO PMD: Dr. Kohler Present on Admission - Present on Admission Any Indicators Present on Admission: No Review of Systems - Review of Systems Review of Systems: 12 point ROS as per HPI, otherwise negative. Past Patient History - Infectious Disease Hx of Infectious Diseases: None - Tetanus Immunizations Tetanus Immunization: Unknown - Past Medical History & Family History Past Medical History?: Yes - Past Social History Smoking Status: Former Smoker - CARDIAC Hx Cardiac Disorders: Yes Hx Congestive Heart Failure: Yes Hx Hypertension: Yes - PULMONARY Hx Chronic Obstructive Pulmonary Disease (COPD): Yes Hx Pneumonia: Yes - NEUROLOGICAL HX Cerebrovascular Accident: No - HEENT Hx HEENT Problems: No - RENAL Hx Renal Failure: No - ENDOCRINE/METABOLIC Hx Diabetes Mellitus Type 1: No Hx Diabetes Mellitus Type 2: No Hx Hypothyroidism: No - HEMATOLOGICAL/ONCOLOGICAL Hx Cancer: No - INTEGUMENTARY Hx Dermatological Problems: Yes Other/Comment: L LEG LESION - MUSCULOSKELETAL/RHEUMATOLOGICAL Hx Arthritis: No Hx Rheumatoid Arthritis: No - GASTROINTESTINAL Hx Gastroesophageal Reflux: No - GENITOURINARY/GYNECOLOGICAL Hx Genitourinary Disorders: Yes Hx Incontinence: Yes Hx Urinary Tract Infection: Yes - PSYCHIATRIC Hx Psychophysiologic Disorder: No Hx Emotional Abuse: No Hx Physical Abuse: No Hx Substance Use: No - SURGICAL HISTORY Hx Orthopedic Surgery: Yes (L HIP) Other/Comment: ABD HERNIA REPAIR - ANESTHESIA Hx Anesthesia: Yes Hx Anesthesia Reactions: No Hx Malignant Hyperthermia: No Meds Allergies/Adverse Reactions: Allergies Allergy/AdvReac Type Severity Reaction Status Date / Time No Known Allergies Allergy Verified 03/04/17 14:45 Physical Exam - Constitutional Appears: Non-toxic, No Acute Distress - Head Exam Head Exam: ATRAUMATIC, NORMAL INSPECTION, NORMOCEPHALIC - Eye Exam Eye Exam: EOMI, Normal appearance - ENT Exam ENT Exam: Mucous Membranes Moist, Normal Exam - Neck Exam Neck exam: Positive for: Normal Inspection. Negative for: Lymphadenopathy - Respiratory Exam Respiratory Exam: Decreased Breath Sounds (R), Clear to Auscultation Bilateral, NORMAL BREATHING PATTERN. absent: Rales, Rhonchi, Wheezes - Cardiovascular Exam Cardiovascular Exam: RRR, +S1, +S2 - GI/Abdominal Exam GI & Abdominal Exam: Normal Bowel Sounds, Soft. absent: Tenderness - Extremities Exam Extremities exam: Negative for: calf tenderness, pedal edema - Neurological Exam Neurological exam: Alert, CN II-XII Intact, Oriented x3 - Psychiatric Exam Psychiatric exam: Normal Affect, Normal Mood - Skin Skin Exam: Intact, Normal Color, Warm Results - Vital Signs Recent Vital Signs: Last Vital Signs Temp 99.0 F 03/04/17 18:08 Pulse 83 03/04/17 18:08 Resp 24 03/04/17 18:08 BP 86/52 L 03/04/17 18:08 Pulse Ox 95 03/04/17 18:08 - Labs Result Diagrams: 03/04/17 15:00 03/04/17 15:00 Labs: Laboratory Results - last 24 hr 03/04/17 03/04/17 03/04/17 15:00 15:00 15:00 WBC 9.6 RBC 5.05 Hgb 12.0 Hct 38.9 MCV 77.0 L MCH 23.8 L MCHC 30.8 L RDW 17.6 H Plt Count 355 MPV 9.7 Gran % 93.5 H Lymph % (Auto) 4.8 L [place] % (Auto) 1.1 Eos % (Auto) 0.4 L Baso % (Auto) 0.2 Gran # 8.94 H Lymph # 0.5 L [place] # 0.1 Eos # 0.0 Baso # 0.02 Neutrophils % (Manual) 77 H Band Neutrophils % 8 H Lymphocytes % (Manual) 12 L Monocytes % (Manual) 1 Eosinophils % (Manual) 2 Platelet Evaluation Normal PT 19.6 H INR 1.81 H APTT 20.6 L pO2 35 VBG pH 7.28 L VBG pCO2 47.0 VBG HCO3 22.1 VBG Total CO2 23.5 VBG O2 Sat (Calc) 71.1 H VBG Base Excess -4.8 L VBG Potassium 5.0 Sodium 139.0 Chloride 105.0 Glucose 131 H Lactate 7.1 H* FiO2 21.0 Potassium Carbon Dioxide Anion Gap BUN Creatinine Est GFR ( Amer) Est GFR (Non-Af Amer) Random Glucose Calcium Phosphorus Magnesium Total Bilirubin AST ALT Alkaline Phosphatase Troponin I NT-Pro-B Natriuret Pep Total Protein Albumin Globulin Albumin/Globulin Ratio Venous Blood Potassium 5.0 03/04/17 15:00 WBC RBC Hgb Hct MCV MCH MCHC RDW Plt Count MPV Gran % Lymph % (Auto) [place] % (Auto) Eos % (Auto) Baso % (Auto) Gran # Lymph # [place] # Eos # Baso # Neutrophils % (Manual) Band Neutrophils % Lymphocytes % (Manual) Monocytes % (Manual) Eosinophils % (Manual) Platelet Evaluation PT INR APTT pO2 VBG pH VBG pCO2 VBG HCO3 VBG Total CO2 VBG O2 Sat (Calc) VBG Base Excess VBG Potassium Sodium 145 Chloride 103 Glucose Lactate FiO2 Potassium 4.4 Carbon Dioxide 22 Anion Gap 24 H BUN 20 Creatinine 1.0 Est GFR ( Amer) > 60 Est GFR (Non-Af Amer) 52 Random Glucose 120 H Calcium 10.6 H Phosphorus 3.1 Magnesium 1.9 Total Bilirubin 0.8 AST 29 ALT 16 Alkaline Phosphatase 96 Troponin I < 0.01 D NT-Pro-B Natriuret Pep 292 Total Protein 8.1 Albumin 4.5 Globulin 3.6 Albumin/Globulin Ratio 1.3 Venous Blood Potassium Assessment & Plan - Assessment and Plan (Free Text) Plan: 87 y/o F with PMH of AFib on coumadin, CHF with EF of 63%, COPD, urinary incontinence, AAA and thoracic aortic aneurysm, multiple UTIs, GI bleed, DVT, and dementia presents with severe sepsis with unknown source of infection. Patient has been admitted with sepsis secondary to UTI multiple times in the past. Patient received a hazel in the ED, but was still unable to produce urine. Patient will be started on empiric antibiotics and will have CT abdomen/ pelvis, as well as consults for ID and Psychiatry. 1. Severe Sepsis Continue IVF CT abdomen/Pelvis Meropenem Procal ordered Follow UA Follow blood cultures Follow Urine cultures ID consulted 2. Afib Rate controlled Continue home medication Monitor INR daily 3. COPD Will continue home medication breathing treatments Monitor respiratory status Consider O2 nasal cannula 4. Dementia Will continue home medications Psych consulted 5. PPX Coumadin Protonix Bryanna García, PGY-2 <Davy Daly - Last Filed: 03/05/17 13:57> Results - Vital Signs Recent Vital Signs: Last Vital Signs Temp 98.5 F 03/05/17 12:00 Pulse 62 03/05/17 12:00 Resp 18 03/05/17 12:00 BP 92/51 L 03/05/17 12:00 Pulse Ox 99 03/05/17 06:02 - Labs Result Diagrams: 03/05/17 08:00 03/05/17 06:57 Labs: Laboratory Results - last 24 hr 03/04/17 03/04/17 03/04/17 18:15 18:55 23:02 WBC RBC Hgb Hct MCV MCH MCHC RDW Plt Count MPV PT INR pO2 152 H VBG pH 7.37 VBG pCO2 37.0 L VBG HCO3 21.4 VBG Total CO2 22.5 VBG O2 Sat (Calc) 99.1 H VBG Base Excess -3.4 L VBG Potassium 3.6 Sodium 138.0 Chloride 110.0 H Glucose 225 H Lactate 4.4 H* FiO2 21.0 Potassium Carbon Dioxide Anion Gap BUN Creatinine Est GFR ( Amer) Est GFR (Non-Af Amer) Random Glucose Calcium Venous Blood Potassium 3.6 Urine Color Yellow Urine Appearance Sl cloudy Urine pH 5.5 Ur Specific [place] 1.025 Urine Protein 30 H Urine Glucose (UA) Negative Urine Ketones Trace H Urine Blood Large H Urine Nitrate Negative Urine Bilirubin Negative Urine Urobilinogen 0.2 Ur Leukocyte Esterase Small H Urine RBC 25 - 30 Urine WBC 15 - 20 Ur Epithelial Cells 3 - 4 Urine Bacteria Large Fine Granular Casts 0 - 2 Urine Other Fiber Influenza Typ A,B (EIA) Negative for flu a/b 03/05/17 03/05/17 03/05/17 06:57 06:57 07:03 WBC RBC Hgb Hct MCV MCH MCHC RDW Plt Count MPV PT 21.9 H INR 2.03 H pO2 59 H VBG pH 7.33 VBG pCO2 45.0 VBG HCO3 23.7 VBG Total CO2 25.1 VBG O2 Sat (Calc) 94.6 H VBG Base Excess -2.4 L VBG Potassium 4.0 Sodium 146 142.0 Chloride 115 H 114.0 H Glucose 121 H Lactate 1.8 FiO2 21.0 Potassium 4.2 Carbon Dioxide 22 Anion Gap 13 BUN 16 Creatinine 0.7 Est GFR ( Amer) > 60 Est GFR (Non-Af Amer) > 60 Random Glucose 119 H Calcium 8.9 Venous Blood Potassium 4.0 Urine Color Urine Appearance Urine pH Ur Specific [place] Urine Protein Urine Glucose (UA) Urine Ketones Urine Blood Urine Nitrate Urine Bilirubin Urine Urobilinogen Ur Leukocyte Esterase Urine RBC Urine WBC Ur Epithelial Cells Urine Bacteria Fine Granular Casts Urine Other Influenza Typ A,B (EIA) 03/05/17 08:00 WBC 10.9 RBC 3.84 Hgb 8.8 L D Hct 29.9 L MCV 77.9 L MCH 22.9 L MCHC 29.4 L RDW 17.9 H Plt Count 214 MPV 9.1 PT INR pO2 VBG pH VBG pCO2 VBG HCO3 VBG Total CO2 VBG O2 Sat (Calc) VBG Base Excess VBG Potassium Sodium Chloride Glucose Lactate FiO2 Potassium Carbon Dioxide Anion Gap BUN Creatinine Est GFR ( Amer) Est GFR (Non-Af Amer) Random Glucose Calcium Venous Blood Potassium Urine Color Urine Appearance Urine pH Ur Specific [place] Urine Protein Urine Glucose (UA) Urine Ketones Urine Blood Urine Nitrate Urine Bilirubin Urine Urobilinogen Ur Leukocyte Esterase Urine RBC Urine WBC Ur Epithelial Cells Urine Bacteria Fine Granular Casts Urine Other Influenza Typ A,B (EIA) Attending/Attestation - Attestation I have personally seen and examined this patient.: Yes I have fully participated in the care of the patient.: Yes I have reviewed all pertinent clinical information: Yes Notes (Text): 03/05/17 13:51 attending note; Patient seen and examined with resident. Patient is a 87-year-old female with PMH of AFib on coumadin, COPD, urinary incontinence, AAA and thoracic aortic aneurysm, multiple UTIs, GI bleed, DVT, and dementia is admitted with chills and lethargy. The patient was found to be hypotensive in the ER. Possible urinary tract infection. Currently blood pressure is improving with IV fluids. Monitor BP closely. Monitor urine output. Blood culture, urine culture sent. Started on meropenem. ID evaluation requested. Chest x-ray showed mild bibasilar atelectasis. Dementia; Monitor closely. Patient is alert and awake now. Oriented to place sometimes. Urinary Incontinence. Place Hazel catheter. History of A. fib; digoxin on hold. Continue Coumadin. Constipation; continue MiraLAX and Colace. History of anemia in the past. Monitor hemoglobin closely. patient is DNI/DNR. Upon discharge patient will follow-up with PMD DR. Kohler. 03/05/17 13:55
--- NOTE | 2017-03-04 18:40 | CARD ---
APPROVED REPORT EKG Measurement Heart [id number] [id number] <Conclusion> Sinus tachycardia with 1st degree AV block Right bundle branch block Left anterior fascicular block Bifascicular block Left ventricular hypertrophy with repolarization abnormality Abnormal ECG
[2017-03-04 19:08] LABS: PH,URINE 5.5 (4.7-8.0); URINE BILIRUBIN NEGATIVE (NEGATIVE); URINE BLOOD LARGE (NEGATIVE); URINE GLUCOSE (UA) NEGATIVE (NEGATIVE); URINE KETONE TRACE mg/dL (NEGATIVE); URINE LEUKOCYTE ESTERASE SMALL Leu/uL (NEGATIVE); URINE PROTEIN 30 mg/dL (<30 mg/dL); URINE UROBILINOGEN 0.2 E.U./dL (<1 E.U./dL)
[2017-03-04 19:14] LABS: URINE APPEARANCE SL CLOUDY (CLEAR); URINE COLOR YELLOW (YELLOW)
[2017-03-04 19:41] LABS: URINE RBC 25 - 30 /hpf (0-2); URINE WBC 15 - 20 /hpf (0-6)
[2017-03-04 19:42] LABS: URINE BACTERIA LARGE (NEG)
[2017-03-04] MEDS: Pantoprazole 40 mg EC Tab PO SCH (19:51)
[2017-03-04] MEDS: Sodium Chloride 0.9% 1,000 ML IV SCH ×2 (20:30→23:23)
--- NOTE | 2017-03-04 21:06 | CT ---
EXAM: CT Abdomen and Pelvis Without Intravenous Contrast EXAM DATE/TIME: 03/04/2017 6:45 PM CLINICAL HISTORY: 87 years old, female; Signs and symptoms; Other: Sepsis - dehydration; Prior surgery; Surgery type: Hernia repair; Additional info: Renal stone TECHNIQUE: Axial computed tomography images of the abdomen and pelvis without intravenous contrast. All CT scans at this facility use one or more dose reduction techniques, viz.: automated exposure control; ma/kV adjustment per patient size (including targeted exams where dose is matched to indication; i.e. head); or iterative reconstruction technique. Coronal and sagittal reformatted images were created and reviewed. COMPARISON: CT - ABD PELVIS W/O PO OR IV CONT 11/23/2016 4:18:53 PM FINDINGS: Lower thorax: The heart is enlarged. There are coronary artery calcifications. There is a distal descending thoracic aortic aneurysm, 5.6 cm in maximal dimension, similar finding seen on the prior study. There is adjacent compressive atelectasis in the left lower lobe. There is atelectasis and scarring at both lung bases. There is diffuse increase in interstitial markings. ABDOMEN: Liver: unremarkable Gallbladder and bile ducts: Gallbladder is partially distended. There are small dependent stones. Common duct is unremarkable. Pancreas: Pancreas is atrophic. Spleen: unremarkable Adrenals: There is bilateral nodular adrenal thickening left greater than right. Similar finding seen on the prior study Kidneys and ureters: There are bilateral nonobstructing renal stones. There are right renal cysts. There is left renal scarring. There is a small amount of air in the right renal collecting system. There is no pelvocaliectasis or ureterectasis. Stomach and bowel: There is a small Stomach is partially distended. There is a duodenal diverticulum. Rotation is normal. There is no small bowel obstruction. There is sacralization of the distal and terminal ileum. Appendix is unremarkable. There is a moderately large amount of stool in the colon. There is sigmoid diverticulosis. There is a large fecal bolus in the rectum. There is rectal wall thickening. Appendix: See above. PELVIS: Bladder: Bladder is almost empty. No air is seen in the bladder. Reproductive: Uterus is atrophic. There are no adnexal masses. ABDOMEN and PELVIS: Intraperitoneal space: There is no free air or free fluid. Bones/joints: Bony structures are osteopenic. There are degenerative changes. There is a left hip prosthesis. There is old compression deformity at T12. Soft tissues: There is mesh in the anterior abdominal wall. Vasculature: There are vascular calcifications. Proximal abdominal aorta is mildly prominent 4.6 cm in diameter. There is distal tapering. Lymph nodes: There is no pathologic adenopathy. IMPRESSION: Cardiomegaly and atherosclerotic disease; 5.6 cm diameter distal thoracic aortic aneurysm unchanged since the prior study, no findings to suggest leak; mild dilatation of the proximal abdominal aorta, unchanged; gallstones, no ductal dilatation; bilateral nonobstructing renal stones no ureteral stones or hydronephrosis; small amount of air in the right renal calyx and renal pelvis suggest gas forming infection; constipation and fecal impaction with possible stercoral colitis; atelectasis or scarring at the lung bases Additional findings as described above.
--- NOTE | 2017-03-04 22:00 | PCM.SEPTIC ---
Sepsis Progress Note - Reassessment Type Date of Evaluation: 03/04/17 Time of Evaluation: 20:45 Reassessment Type: Non-invasive reassessment - Non Invasive Reassessment Were the most recent vital sign reviewed: Yes Vital Sign (Latest): Temp Pulse Resp BP Pulse Ox 99.5 F 74 16 93/48 L 96 03/04/17 20:50 03/04/17 20:20 03/04/17 20:20 03/04/17 20:20 03/04/17 20:20 Cardiovascular: Yes: Regular Rate, Rhythm. No: Edema, JVD, Tachycardia Respiratory: Yes: Normal Breath Sounds, Rales (minimal, bibasilar) Capillary Refill: Normal (Less than 2 sec) Pulses: Normal Radial, Normal Dorsalis Pedis, Normal Posterior Tibialis Skin: Normal Color, Warm, Diaphoretic <HETAL ANN - Last Filed: 03/04/17 21:58> - Non Invasive Reassessment Vital Sign (Latest): Temp Pulse Resp BP Pulse Ox 97.7 F 55 L 19 97/45 L 94 L 03/04/17 23:59 03/04/17 23:59 03/04/17 23:59 03/04/17 23:59 03/04/17 23:59 <Jessenia Dougherty - Last Filed: 03/05/17 00:25> Attending/Attestation - Attestation I have personally seen and examined this patient.: Yes I have fully participated in the care of the patient.: Yes I have reviewed all pertinent clinical information, including history, physical exam and plan: Yes Notes (Text): 03/05/17 00:24 Agree with documentation <Jessenia Dougherty - Last Filed: 03/05/17 00:25>
[2017-03-04] MEDS: Meropenem 1g/NS 100mL IVPB 1 GM/100 ML PIGGYBACK IVPB SCH (22:33)
[2017-03-04 23:49] VITALS: BMI 30.2
[2017-03-05] MEDS: Sodium Chloride 0.9% 1,000 ML IV SCH ×5 (02:01→22:18)
[2017-03-05] MEDS: Meropenem 1g/NS 100mL IVPB 1 GM/100 ML PIGGYBACK IVPB SCH ×3 (05:42→22:17)
[2017-03-05 07:08] LABS: VENOUS BLOOD GAS BASE EXCESS -2.4 mmol/L (0.0-2.0); VENOUS BLOOD PH 7.33 (7.32-7.43)
[2017-03-05 07:19] LABS: INR 2.03 (0.93-1.08)
[2017-03-05 07:42] LABS: BLOOD UREA NITROGEN 16 mg/dL (7-21); CALCIUM 8.9 mg/dL (8.4-10.5); CARBON DIOXIDE 22 mmol/L (21-33); CHLORIDE 115 mmol/L (95-110); GFR AFRICAN-AMERICAN > 60; GLUCOSE,RANDOM 119 mg/dL (70-110); POTASSIUM 4.2 mmol/L (3.6-5.0); SODIUM 146 mmol/L (132-148)
[2017-03-05 08:05] LABS: HEMATOCRIT 29.9 % (36.0-48.0); MEAN CELL VOLUME 77.9 fl (80.0-105.0); MEAN CORPUSCULAR HEMOGLOBIN 22.9 pg (25.0-35.0); MEAN CORPUSCULAR HGB CONC 29.4 g/dl (31.0-37.0); MEAN PLATELET VOLUME 9.1 fl (7.0-11.0); RED CELL DISTRIBUTION WIDTH 17.9 % (11.5-14.5); WHITE BLOOD COUNT 10.9 10^3/ul (4.5-11.0)
[2017-03-05] MEDS ORDERED: POLYETHYLENE GLYCOL 3350 17 GM/Dose PACKET PO SCH (10:00)
[2017-03-05] MEDS: POLYETHYLENE GLYCOL 3350 17 GM/Dose PACKET PO SCH ×2 (10:24→17:28)
[2017-03-05] MEDS: Pantoprazole 40 mg EC Tab PO SCH ×2 (10:24→17:27)
[2017-03-05] MEDS ORDERED: Magnesium Citrate Oral SOL (300 ml) PO ONE (10:43)
--- NOTE | 2017-03-05 10:44 | CP.PCM.PN ---
<ONOFRE TALLEY - Last Filed: 03/05/17 13:22> Subjective - Date & Time of Evaluation Date of Evaluation: 03/05/17 Time of Evaluation: 09:00 - Subjective Subjective: patient was seen and examined at bedside. The daughter is bedside and provides more HPI. The pt is not sure why she's here and doesn't recall the events that brought her into the hospital. she denies any recent illness, fevers, n/v/d, cp, sob or cough. She states that she is able to walk at home w/o aid but doesn't usually go outside. Per the daughter, the pt was having chills yesterday and was acting weird and so she measured her vitals and found her BP and HR to be elevated. The daughter states that the pt has dementia and she is mentally at baseline at the moment. The daughter also mentions that the pt doesn't urinate a lot throughout the day but does have urinary incontinence during the night. It was explained to the patient and the daughter that we are treating her for an infection in the urine and that her vitals are stabilizing after the antibiotic and fluid therapies she has been receiving. The daughter understands. PMD: Dr. Alcantar Uro: Dr. Oquendo Cardio: Dr. Mccoy (sometimes, not regularly) Objective - Vital Signs/Intake and Output Vital Signs (last 24 hours): Temp Pulse Resp BP Pulse Ox 97.6 F 57 L 19 102/55 L 99 03/05/17 06:02 03/05/17 06:02 03/05/17 06:02 03/05/17 06:02 03/05/17 06:02 Intake and Output: 03/05/17 03/05/17 06:59 18:59 Intake Total 1800 Output Total 0 Balance 1800 - Medications Medications: Current Medications Acetaminophen (Tylenol 325mg Tab) 975 mg PO ONCE PRN PRN Reason: Fever >100.4 F Last Admin: 03/04/17 15:15 Dose: 975 mg Acetaminophen (Tylenol 325mg Tab) 650 mg PO Q6H PRN PRN Reason: Fever >100.4 F Clonazepam (Klonopin) 0.5 mg PO HS PRN; Protocol PRN Reason: Anxiety Docusate Sodium (Colace) 100 mg PO BID ERINN Last Admin: 03/05/17 10:24 Dose: 100 mg Donepezil HCl (Aricept) 10 mg PO DAILY [facility] Last Admin: 03/05/17 10:24 Dose: 10 mg Meropenem 1g/NS 100mL IVPB (Meropenem 1g/Ns 100ml Ivpb) 1 gm in 100 mls @ 100 mls/hr IVPB Q8 ERINN PRN Reason: Protocol Stop: 03/11/17 22:01 Last Admin: 03/05/17 05:42 Dose: 100 mls/hr Sodium Chloride (Sodium Chloride 0.9%) 1,000 mls @ 125 mls/hr IV .Q8H [facility] Last Admin: 03/05/17 09:33 Dose: 125 mls/hr Pantoprazole Sodium (Protonix Ec Tab) 40 mg PO BID [facility] Last Admin: 03/05/17 10:24 Dose: 40 mg Polyethylene Glycol (Miralax) 17 gm PO BID [facility] Last Admin: 03/05/17 10:24 Dose: 17 gm Quetiapine Fumarate (Seroquel) 50 mg PO 2200 PRN; Protocol PRN Reason: Agitation Warfarin Sodium (Coumadin) 2 mg PO 1800 ERINN PRN Reason: Protocol - Labs Labs: 03/05/17 08:00 03/05/17 06:57 PT 21.9 Seconds (9.9-11.8) H 03/05/17 06:57 INR 2.03 (0.93-1.08) H 03/05/17 06:57 APTT 20.6 Seconds (23.7-30.8) L 03/04/17 15:00 - Constitutional Appears: Well, Non-toxic, No Acute Distress, Confused (pt forget the resident in the couple hours from pre-rounds to rounds) - Head Exam Head Exam: ATRAUMATIC, NORMAL INSPECTION - Eye Exam Eye Exam: EOMI, Normal appearance, PERRL - ENT Exam ENT Exam: Mucous Membranes Moist, Normal Exam - Neck Exam Neck Exam: Normal Inspection - Respiratory Exam Respiratory Exam: Clear to Ausculation Bilateral, NORMAL BREATHING PATTERN. absent: Wheezes, Respiratory Distress - Cardiovascular Exam Cardiovascular Exam: RRR, +S1, +S2 - GI/Abdominal Exam GI & Abdominal Exam: Soft, Normal Bowel Sounds. absent: Tenderness - Extremities Exam Extremities Exam: absent: Calf Tenderness, Pedal Edema, Tenderness Additional comments: mild abrasion on L medial calf - Back Exam Back Exam: NORMAL INSPECTION. absent: CVA tenderness (L), CVA tenderness (R) - Neurological Exam Neurological Exam: Alert, Awake. absent: Oriented x3 (oriented x1 (person)) Neuro motor strength exam: Left Upper Extremity: 5, Right Upper Extremity: 5, Left Lower Extremity: 5, Right Lower Extremity: 5 Additional comments: pt is forgetful and confused - Psychiatric Exam Psychiatric exam: Normal Affect, Normal Mood - Skin Skin Exam: Abrasion (L medial calf), Erythema (multiple areas from IV access attempts ), Normal Color, Warm Assessment and Plan - Assessment and Plan (Free Text) Assessment: 87 y/o F with PMH of AFib on coumadin, CHF with EF of 63%, COPD, urinary incontinence, AAA and thoracic aortic aneurysm, multiple prior UTIs, prior GI bleed, DVT, and dementia presented with septic shock likely 2/2 UTI, s/p 4L NS boluses, Vanc and Zosyn x1 in ED. Patient is anemic this morning, and lactic acidosis is improving. Plan: 1. Septic shock likely 2/2 UTI - history of sepsis 2/2 UTI's - urine, blood and sputum cultures pending - Lactate improved w/ hydration - cont on NS @ 125 - ID consulted, recs apperciated - cont meropenem (d2) - CT abd showed b/l non-obstructing renal stones with NO hydronephrosis or dilatation. Small amount of air in R renal calyx and renal pelvis suggestive of gas-forming infection. Cardiomegaly and atherosclerotic dz. Thoracic aortic aneurysm 5.6cm diameter (unchanged from prior exam) - Urology consulted, recs appreciated - hazel ordered - monitor I/O - Tylenol PRN fevers 2. Anemia likely dilutional - iron panel, ferritin ordered - microcytic anemia - f/u H/H - FOBT to r/o GI bleed 3. ELMA (relative) likely due to dehydration - improving w/ IVF - f/u BMP 4. Constipation - on Miralax and Colace - cont to monitor 5. Afib - monitored on tele floor - Cont Coumadin 2mg daily - Monitor INR daily, currently therapeutic 6. Hx CHF - not asymptomatic currently - Head of bed @ 30deg - monitor for signs of fluid overload 7. COPD - currently asymptomatic - Monitor respiratory status 8. AAA - maintain SBP < 180 - CT showed no change from prior exam 9. Dementia (baseline) - Will continue home medications - Psych consulted - high fall risk - aspiration precautions Regular diet NS 125 Coumadin/PTX DNR/DNI Patient was seen, evaluated and discussed with attending, Dr. Addy Talley <Davy Daly - Last Filed: 03/05/17 14:11> Objective - Vital Signs/Intake and Output Vital Signs (last 24 hours): Temp Pulse Resp BP Pulse Ox 98.5 F 62 18 92/51 L 99 03/05/17 12:00 03/05/17 12:00 03/05/17 12:00 03/05/17 12:00 03/05/17 06:02 Intake and Output: 03/05/17 03/05/17 06:59 18:59 Intake Total 1800 Output Total 0 Balance 1800 - Medications Medications: Current Medications Acetaminophen (Tylenol 325mg Tab) 975 mg PO ONCE PRN PRN Reason: Fever >100.4 F Last Admin: 03/04/17 15:15 Dose: 975 mg Acetaminophen (Tylenol 325mg Tab) 650 mg PO Q6H PRN PRN Reason: Fever >100.4 F Clonazepam (Klonopin) 0.5 mg PO HS PRN; Protocol PRN Reason: Anxiety Docusate Sodium (Colace) 100 mg PO BID [facility] Last Admin: 03/05/17 10:24 Dose: 100 mg Donepezil HCl (Aricept) 10 mg PO DAILY [facility] Last Admin: 03/05/17 10:24 Dose: 10 mg Meropenem 1g/NS 100mL IVPB (Meropenem 1g/Ns 100ml Ivpb) 1 gm in 100 mls @ 100 mls/hr IVPB Q8 ERINN PRN Reason: Protocol Stop: 03/11/17 22:01 Last Admin: 03/05/17 13:29 Dose: 100 mls/hr Sodium Chloride (Sodium Chloride 0.9%) 1,000 mls @ 125 mls/hr IV .Q8H [facility] Last Admin: 03/05/17 10:55 Dose: Not Given Pantoprazole Sodium (Protonix Ec Tab) 40 mg PO BID [facility] Last Admin: 03/05/17 10:24 Dose: 40 mg Polyethylene Glycol (Miralax) 17 gm PO BID [facility] Last Admin: 03/05/17 10:24 Dose: 17 gm Quetiapine Fumarate (Seroquel) 50 mg PO 2200 PRN; Protocol PRN Reason: Agitation Warfarin Sodium (Coumadin) 2 mg PO 1800 ERINN PRN Reason: Protocol - Labs Labs: 03/05/17 08:00 03/05/17 06:57 PT 21.9 Seconds (9.9-11.8) H 03/05/17 06:57 INR 2.03 (0.93-1.08) H 03/05/17 06:57 APTT 20.6 Seconds (23.7-30.8) L 03/04/17 15:00 Attending/Attestation - Attestation I have personally seen and examined this patient.: Yes I have fully participated in the care of the patient.: Yes I have reviewed all pertinent clinical information, including history, physical exam and plan: Yes Notes (Text): 03/05/17 14:08 attending note; Patient seen and examined with resident. patient's daughter by the bedside. Patient is a 87-year-old female with PMH of AFib on coumadin, COPD, urinary incontinence, AAA and thoracic aortic aneurysm, multiple UTIs, GI bleed, DVT, and dementia is admitted with chills and lethargy. currently patient is alert and awake. Tolerating diet well. Patient is afebrile and nontoxic. Blood culture, urine culture sent. Started on meropenem. ID evaluation appreciated Chest x-ray showed mild bibasilar atelectasis. Dementia; Monitor closely. Patient is alert and awake now. Oriented to place sometimes. Urinary Incontinence. Place Hazel catheter. CT abdomen and pelvis showed nonobstructive stones without hydronephrosis. small amount of air in the right renal pelvis.neurology evaluation with Dr. Oquendo requested. Anemia; possibly dilutional. No bleeding. Iron studies requested. Will hold Coumadin in case of any bleeding. History of A. fib; digoxin on hold. Continue Coumadin. Constipation; continue MiraLAX and Colace. patient is DNI/DNR. case discussed with with PMD DR. Webb in detail.
--- NOTE | 2017-03-05 11:56 | CP.PCM.CON ---
History of Present Illness - History of Present Illness History of Present Illness: 87 year old female with PMH of atrial fibrillation, COPD, chronic CHF, dementia , abdominal aortic aneurysm, history of multiple UTI's, history of GI bleed, history of DVT, history of right hip fracture, history of left lower lobe healthcare-associated pneumonia is brought in to [facility] because of generalized weakness and the patient was noted to be tachycardic and tachypneic at home. There was no note of vomiting, no convulsions, no loss of consciousness, no diarrhea. In the ED, the patient was noted to have fever at 102.2F. Infectious diseases consult is requested to further evaluate and manage. Review of Systems - Review of Systems All systems: reviewed and no additional remarkable complaints except (as per HPI ) Past Patient History - Infectious Disease Hx of Infectious Diseases: None - Tetanus Immunizations Tetanus Immunization: Unknown - Past Medical History & Family History Past Medical History?: Yes - Past Social History Smoking Status: Former Smoker - CARDIAC Hx Cardiac Disorders: Yes Hx Congestive Heart Failure: Yes Hx Hypertension: Yes - PULMONARY Hx Chronic Obstructive Pulmonary Disease (COPD): Yes Hx Pneumonia: Yes - NEUROLOGICAL HX Cerebrovascular Accident: No - HEENT Hx HEENT Problems: No - RENAL Hx Renal Failure: No - ENDOCRINE/METABOLIC Hx Diabetes Mellitus Type 1: No Hx Diabetes Mellitus Type 2: No Hx Hypothyroidism: No - HEMATOLOGICAL/ONCOLOGICAL Hx Cancer: No - INTEGUMENTARY Hx Dermatological Problems: Yes Other/Comment: L LEG LESION - MUSCULOSKELETAL/RHEUMATOLOGICAL Hx Arthritis: No Hx Rheumatoid Arthritis: No - GASTROINTESTINAL Hx Gastroesophageal Reflux: No - GENITOURINARY/GYNECOLOGICAL Hx Genitourinary Disorders: Yes Hx Incontinence: Yes Hx Urinary Tract Infection: Yes - PSYCHIATRIC Hx Psychophysiologic Disorder: No Hx Emotional Abuse: No Hx Physical Abuse: No Hx Substance Use: No - SURGICAL HISTORY Hx Orthopedic Surgery: Yes (L HIP) Other/Comment: ABD HERNIA REPAIR - ANESTHESIA Hx Anesthesia: Yes Hx Anesthesia Reactions: No Hx Malignant Hyperthermia: No Meds Allergies/Adverse Reactions: Allergies Allergy/AdvReac Type Severity Reaction Status Date / Time No Known Allergies Allergy Verified 03/04/17 14:45 - Medications Medications: Current Medications Acetaminophen (Tylenol 325mg Tab) 975 mg PO ONCE PRN PRN Reason: Fever >100.4 F Last Admin: 03/04/17 15:15 Dose: 975 mg Acetaminophen (Tylenol 325mg Tab) 650 mg PO Q6H PRN PRN Reason: Fever >100.4 F Clonazepam (Klonopin) 0.5 mg PO HS PRN; Protocol PRN Reason: Anxiety Docusate Sodium (Colace) 100 mg PO BID [facility] Last Admin: 03/04/17 19:51 Dose: 100 mg Donepezil HCl (Aricept) 10 mg PO DAILY [facility] Meropenem 1g/NS 100mL IVPB (Meropenem 1g/Ns 100ml Ivpb) 1 gm in 100 mls @ 100 mls/hr IVPB Q8 ERINN PRN Reason: Protocol Stop: 03/05/17 06:59 Sodium Chloride (Sodium Chloride 0.9%) 1,000 mls @ 125 mls/hr IV .Q8H ERINN Last Admin: 03/04/17 20:30 Dose: 125 mls/hr Sodium Chloride (Sodium Chloride 0.9%) 1,000 mls @ 999 mls/hr IV .Q1H1M STA Stop: 03/04/17 22:28 Pantoprazole Sodium (Protonix Ec Tab) 40 mg PO BID [facility] Last Admin: 03/04/17 19:51 Dose: 40 mg Polyethylene Glycol (Miralax) 17 gm PO BID [facility] Quetiapine Fumarate (Seroquel) 50 mg PO 2200 PRN; Protocol PRN Reason: Agitation Warfarin Sodium (Coumadin) 2 mg PO 1800 ERINN PRN Reason: Protocol Physical Exam - Constitutional Appears: Non-toxic, No Acute Distress - Head Exam Head Exam: NORMAL INSPECTION - ENT Exam ENT Exam: Mucous Membranes Moist - Neck Exam Neck exam: Negative for: Meningismus - Respiratory Exam Respiratory Exam: Decreased Breath Sounds - Cardiovascular Exam Cardiovascular Exam: +S1, +S2 - GI/Abdominal Exam GI & Abdominal Exam: Soft. absent: Tenderness - Back Exam Back exam: absent: CVA tenderness (L), CVA tenderness (R) Results - Vital Signs Recent Vital Signs: Last Vital Signs Temp 99.5 F 03/04/17 20:50 Pulse 74 03/04/17 20:20 Resp 16 03/04/17 20:20 BP 93/48 L 03/04/17 20:20 Pulse Ox 96 03/04/17 20:20 - Labs Result Diagrams: 03/05/17 08:00 03/05/17 06:57 Labs: Laboratory Results - last 24 hr 03/04/17 03/04/17 18:15 18:55 pO2 152 H VBG pH 7.37 VBG pCO2 37.0 L VBG HCO3 21.4 VBG Total CO2 22.5 VBG O2 Sat (Calc) 99.1 H VBG Base Excess -3.4 L VBG Potassium 3.6 Sodium 138.0 Chloride 110.0 H Glucose 225 H Lactate 4.4 H* FiO2 21.0 Venous Blood Potassium 3.6 Urine Color Yellow Urine Appearance Sl cloudy Urine pH 5.5 Ur Specific [place] 1.025 Urine Protein 30 H Urine Glucose (UA) Negative Urine Ketones Trace H Urine Blood Large H Urine Nitrate Negative Urine Bilirubin Negative Urine Urobilinogen 0.2 Ur Leukocyte Esterase Small H Urine RBC 25 - 30 Urine WBC 15 - 20 Ur Epithelial Cells 3 - 4 Urine Bacteria Large Fine Granular Casts 0 - 2 Urine Other Fiber Assessment & Plan - Assessment and Plan (Free Text) Plan: Assessment consider sepsis probably due to urinary tract infection in a patient with renal calculi (stones are currently not obstructing, CT A/P is showing tiny amount of gas in the right renal calyx) history of left lower lobe healthcare-associated pneumonia atrial fibrillation COPD CHF dementia abdominal aortic aneurysm history of multiple UTI's history of GI bleed history of DVT history of right hip fracture Plan started patient on Merrem pending blood cx, urine cx; reviewed CT A/P - follow up Urology evaluation will follow clinically
[2017-03-05 14:08] LABS: IRON 18 ug/dL (45-180)
--- NOTE | 2017-03-06 01:44 | CARD ---
APPROVED REPORT EKG Measurement Heart [id number] <Conclusion> Atrial fibrillation Right bundle branch block Left anterior fascicular block Bifascicular block Voltage criteria for left ventricular hypertrophy Abnormal ECG
[2017-03-06] MEDS: Sodium Chloride 0.9% 1,000 ML IV SCH ×4 (03:07→23:32)
[2017-03-06] MEDS: Meropenem 1g/NS 100mL IVPB 1 GM/100 ML PIGGYBACK IVPB SCH ×3 (05:25→22:27)
--- NOTE | 2017-03-06 06:52 | CON ---
HISTORY OF PRESENT ILLNESS: The patient is an 87 year old female well known to me. She was admitted to the hospital emergency room, having been brought by her daughter with a fever of 102.2. The patient has a long history of vascular dementia with a history of recurrent depression and behavioral disturbances. The patient has been followed by me. She has been treated for psychotic symptomatology with low doses of quetiapine at bedtime and p.r.n. Ativan or clonazepam. PAST MEDICAL HISTORY: Significant for history of congestive heart failure, vascular dementia. She also has a history of atrial fibrillation. She has a history of COPD, abdominal aortic aneurysm, multiple UTIs, history of GI bleed, history of DVTs, history of right hip fracture. The patient has a history of left lower lobe pneumonia. PERSONAL HISTORY: She is a . Her approximately 2-1/2 years ago. She is cared for by her daughter up into their house. Has a gait dysfunction. She is under the total care by her daughter. She has a total of 2 sons and 2 daughters, one . CURRENT MEDICATIONS: Include IV fluids, Colace, Protonix, meropenem, MiraLax, Coumadin, Klonopin p.r.n., Seroquel p.r.n., and Aricept 10 mg daily. CURRENT LABORATORY DATA: On admission, white count 25,500, today it was 10, 900; hemoglobin today 8.8; hematocrit 29.9; and platelet count [id number]. Her most recent metabolic profile reveals today a sodium 146, potassium 4.2, chloride 115, CO2 of 22, anion gap 13, BUN 16, creatinine 0.7, random glucose 119. Her iron is 18. Her percent saturation is 5%, ferritin level is 29.4. Her radiology report, she had a CAT scan of the abdomen and pelvis, it showed cardiomegaly, atherosclerotic disease, distal thoracic aortic aneurysm, unchanged since prior study. She had a mild dilatation of the proximal abdominal aorta. She had no ureteral stones. The patient had atelectasis scarring at lung bases. The patient had a large heart. The patient has compression atelectasis of the left lower lobe. The patient had a electrocardiogram on 03/04, shows sinus tachycardia, first degree block, right bundle-branch block, left anterior fascicular block, left ventricular hypertrophy, QTc interval 445, heart rate of 102. REVIEW OF SYSTEMS: She denies back pain, weakness in her legs, rest of that is noncontributory. PHYSICAL EXAMINATION VITAL SIGNS: Blood pressure is 139/68. Her most recent temperature is 100.4 rectally, pulse is 92, respiration is 20 per minute. PSYCHIATRIC: Her mental status, she is awake, she is alert, very confused, slightly anxious, irritable. She states that she is seeing bugs and animals on and off in her room. Her recent memory is poor. She is disoriented x3 except for person. She does not recognize me, although seen me many times in the past. The patient's judgment and insight is poor. She has confabulatory thinking. The patient denies suicidal ideation. I spoke at length with patient's daughter by telephone. The patient has become acutely confused in the last 2 days. Daughter is aware of her medical situation. I discussed the treatment and most recent medications that she has taken at home. IMPRESSION: Mild delirium secondary to sepsis and urinary tract infection. She has a history of vascular dementia. She has a history of recurrent depression. She has chronic obstructive pulmonary disease. She has possible pneumonia. The patient has a history of congestive failure, aortic abdominal aneurysm. She has a history of gastrointestinal bleed, history of deep vein thrombosis, history of hip fracture, history of atrial fibrillation, history of left lower lobe healthcare-associated pneumonia. PLAN: We will order change of Seroquel to 50 mg at bedtime rather than p.r.n., discontinue clonazepam. We will order Ativan 0.5 mg p.o. at bedtime, and we will monitor her mental status. Constantino Davidson MD
[2017-03-06 07:58] LABS: BASO # 0.05 K/mm3 (0.0-2.0); BASO % 0.6 % (0.0-3.0); EOS # 0.1 (0.0-0.7); EOS % 1.5 % (1.5-5.0); GRAN # 6.59 (1.4-6.5); GRAN % 77.1 % (50.0-68.0); HEMATOCRIT 29.9 % (36.0-48.0); LYMPH # 1.2 (1.2-3.4); LYMPH % 13.8 % (22.0-35.0); MEAN CELL VOLUME 77.7 fl (80.0-105.0); MEAN CORPUSCULAR HEMOGLOBIN 23.1 pg (25.0-35.0); MEAN CORPUSCULAR HGB CONC 29.8 g/dl (31.0-37.0); MEAN PLATELET VOLUME 9.9 fl (7.0-11.0); MONO # 0.6 (0.1-0.6); RED CELL DISTRIBUTION WIDTH 18.5 % (11.5-14.5); WHITE BLOOD COUNT 8.6 10^3/ul (4.5-11.0)
[2017-03-06 08:04] LABS: INR 1.59 (0.93-1.08)
[2017-03-06 08:23] LABS: BLOOD UREA NITROGEN 14 mg/dL (7-21); CALCIUM 8.6 mg/dL (8.4-10.5); CARBON DIOXIDE 23 mmol/L (21-33); CHLORIDE 115 mmol/L (98-107); GFR AFRICAN-AMERICAN > 60; GLUCOSE,RANDOM 106 mg/dL (70-110); SODIUM 146 mmol/L (132-148)
--- NOTE | 2017-03-06 09:54 | PN ---
DATE: 03/06/2017 SUBJECTIVE: The patient seen in room 272, bed 2. The patient is in bed, unchanged chronically ill. The patient is seen earlier today in 272, bed 2. No fevers. No chills. No nausea. No vomiting. PHYSICAL EXAMINATION: VITAL SIGNS: Temperature is 98, blood pressure is 94/40, respiratory rate of 18. HEENT: Unremarkable. NECK: Supple. LUNGS: Decreased breath sounds. HEART: Normal S1 and S2. ABDOMEN: Soft, nontender. LABORATORY DATA: Reveals a white count of 8.6, hemoglobin of 8, platelets of 176. BUN of 14, creatinine of 0.6. Urinalysis is noted and microbiology reveals a blood cultures are negative. Review of orders. Reveals the patient to be on meropenem. ASSESSMENT AND PLAN: An 87-year-old female, seen in [facility], bed 2 and with sepsis due to primary urinary tract infection with renal calculi stones not obstructing. CAT scan showing tiny amount of gas in the right renal calyx. History of left lower lobe healthcare-associated pneumonia, atrial fibrillation, chronic obstructive lung disease, congestive heart failure, dementia, abdominal aortic aneurysm, history of multiple urinary tract infection, history of gastrointestinal bleed, history of deep venous thrombosis, history of right hip fracture and started the patient on meropenem. We will check on the blood urine culture and followup urology evaluation. Thus far the blood cultures are negative. Urine cultures are pending. We will follow with you. Meet Barnett MD
[2017-03-06] MEDS: Pantoprazole 40 mg EC Tab PO SCH ×2 (10:51→17:04)
[2017-03-06] MEDS: POLYETHYLENE GLYCOL 3350 17 GM/Dose PACKET PO SCH ×2 (10:51→17:04)
--- NOTE | 2017-03-06 19:31 | CP.PCM.PN ---
<Jeovany Roche - Last Filed: 03/06/17 19:32> Subjective - Date & Time of Evaluation Date of Evaluation: 03/06/17 Time of Evaluation: 09:00 - Subjective Subjective: Patient seen and examined at bedside. Patient has dementia. Nurse reports no events overnight. Objective - Vital Signs/Intake and Output Vital Signs (last 24 hours): Temp Pulse Resp BP Pulse Ox 98.6 F 77 18 104/43 L 93 L 03/06/17 18:00 03/06/17 18:00 03/06/17 18:00 03/06/17 18:00 03/06/17 06:00 Intake and Output: 03/06/17 03/07/17 18:59 06:59 Intake Total 660 Output Total 900 Balance -240 - Medications Medications: Current Medications Acetaminophen (Tylenol 325mg Tab) 975 mg PO ONCE PRN PRN Reason: Fever >100.4 F Last Admin: 03/04/17 15:15 Dose: 975 mg Acetaminophen (Tylenol 325mg Tab) 650 mg PO Q6H PRN PRN Reason: Fever >100.4 F Last Admin: 03/05/17 18:27 Dose: 650 mg Docusate Sodium (Colace) 100 mg PO BID [facility] Last Admin: 03/06/17 17:04 Dose: Not Given Donepezil HCl (Aricept) 5 mg PO HS ERINN Meropenem 1g/NS 100mL IVPB (Meropenem 1g/Ns 100ml Ivpb) 1 gm in 100 mls @ 100 mls/hr IVPB Q8 ERINN PRN Reason: Protocol Stop: 03/11/17 22:01 Last Admin: 03/06/17 14:41 Dose: 100 mls/hr Sodium Chloride (Sodium Chloride 0.9%) 1,000 mls @ 100 mls/hr IV .Q10H [facility] Last Admin: 03/06/17 14:12 Dose: 100 mls/hr Lorazepam (Ativan) 0.5 mg PO HS [facility] Last Admin: 03/05/17 22:15 Dose: 0.5 mg Pantoprazole Sodium (Protonix Ec Tab) 40 mg PO BID [facility] Last Admin: 03/06/17 17:04 Dose: 40 mg Polyethylene Glycol (Miralax) 17 gm PO BID [facility] Last Admin: 03/06/17 17:04 Dose: Not Given Quetiapine Fumarate (Seroquel) 50 mg PO 2200 [facility] Last Admin: 03/05/17 22:14 Dose: 50 mg Warfarin Sodium (Coumadin) 2 mg PO 1800 ERINN PRN Reason: Protocol Last Admin: 03/06/17 17:04 Dose: 2 mg - Labs Labs: 03/06/17 07:51 03/06/17 07:51 PT 17.2 Seconds (9.9-11.8) H 03/06/17 07:51 INR 1.59 (0.93-1.08) H 03/06/17 07:51 APTT 20.6 Seconds (23.7-30.8) L 03/04/17 15:00 - Head Exam Additional comments: - Constitutional Appears: Well, Non-toxic, No Acute Distress, Confused (pt forget the resident in the couple hours from pre-rounds to rounds) - Head Exam Head Exam: ATRAUMATIC, NORMAL INSPECTION - Eye Exam Eye Exam: EOMI, Normal appearance, PERRL - ENT Exam ENT Exam: Mucous Membranes Moist, Normal Exam - Neck Exam Neck Exam: Normal Inspection - Respiratory Exam Respiratory Exam: Clear to Ausculation Bilateral, NORMAL BREATHING PATTERN. absent: Wheezes, Respiratory Distress - Cardiovascular Exam Cardiovascular Exam: RRR, +S1, +S2 - GI/Abdominal Exam GI & Abdominal Exam: Soft, Normal Bowel Sounds. absent: Tenderness - Extremities Exam Extremities Exam: absent: Calf Tenderness, Pedal Edema, Tenderness Additional comments: mild abrasion on L medial calf - Back Exam Back Exam: NORMAL INSPECTION. absent: CVA tenderness (L), CVA tenderness (R) - Neurological Exam Neurological Exam: Alert, Awake. absent: Oriented x3 (oriented x1 (person)) Neuro motor strength exam: Left Upper Extremity: 5, Right Upper Extremity: 5, Left Lower Extremity: 5, Right Lower Extremity: 5 Additional comments: pt is forgetful and confused - Psychiatric Exam Psychiatric exam: Normal Affect, Normal Mood - Skin Skin Exam: Abrasion (L medial calf), Erythema (multiple areas from IV access attempts ), Normal Color, Warm Assessment and Plan - Assessment and Plan (Free Text) Assessment: 87 y/o F with PMH of AFib on coumadin, CHF with EF of 63%, COPD, urinary incontinence, AAA and thoracic aortic aneurysm, multiple prior UTIs, prior GI bleed, DVT, and dementia presented with septic shock likely 2/2 UTI, s/p 4L NS boluses, Vanc and Zosyn x2. Patient is still anemic this morning, and lactic acidosis is improving. Plan: 87 y/o F with PMH of AFib on coumadin, CHF with EF of 63%, COPD, urinary incontinence, AAA and thoracic aortic aneurysm, multiple prior UTIs, prior GI bleed, DVT, and dementia presented with septic shock likely 2/2 UTI, s/p 4L NS boluses, Vanc and Zosyn x1 in ED. Patient is anemic this morning, and lactic acidosis is improving. Plan: 1. Septic shock likely 2/2 UTI - history of sepsis 2/2 UTI's - urine, blood and sputum cultures pending - Lactate improved w/ hydration - cont on NS @ 125 - ID consulted, recs apperciated - cont meropenem (d2) - CT abd showed b/l non-obstructing renal stones with NO hydronephrosis or dilatation. Small amount of air in R renal calyx and renal pelvis suggestive of gas-forming infection. Cardiomegaly and atherosclerotic dz. Thoracic aortic aneurysm 5.6cm diameter (unchanged from prior exam) - Urology consulted, recs appreciated - hazel ordered - monitor I/O - Tylenol PRN fevers 2. Anemia likely dilutional - iron panel, ferritin ordered - microcytic anemia - f/u H/H - FOBT to r/o GI bleed 3. ELMA (relative) likely due to dehydration - improving w/ IVF - f/u BMP 4. Constipation - on Miralax and Colace - cont to monitor 5. Afib - monitored on tele floor - Cont Coumadin 2mg daily - Monitor INR daily, currently therapeutic 6. Hx CHF - not asymptomatic currently - Head of bed @ 30deg - monitor for signs of fluid overload 7. COPD - currently asymptomatic - Monitor respiratory status 8. AAA - maintain SBP < 180 - CT showed no change from prior exam 9. Dementia (baseline) - Will continue home medications - Psych consulted - high fall risk - aspiration precautions Regular diet NS 125 Coumadin/PTX DNR/DNI Patient was seen, evaluated and discussed with attending, Dr. Daly <Davy Daly - Last Filed: 03/07/17 10:41> Objective - Vital Signs/Intake and Output Vital Signs (last 24 hours): Temp Pulse Resp BP Pulse Ox 97.8 F 65 20 116/56 L 94 L 03/07/17 06:00 03/07/17 06:00 03/07/17 06:00 03/07/17 06:00 03/07/17 06:00 Intake and Output: 03/07/17 03/07/17 06:59 18:59 Intake Total 900 Output Total 1700 Balance -800 - Medications Medications: Current Medications Acetaminophen (Tylenol 325mg Tab) 975 mg PO ONCE PRN PRN Reason: Fever >100.4 F Last Admin: 03/06/17 22:28 Dose: 975 mg Acetaminophen (Tylenol 325mg Tab) 650 mg PO Q6H PRN PRN Reason: Fever >100.4 F Last Admin: 03/05/17 18:27 Dose: 650 mg Docusate Sodium (Colace) 100 mg PO BID [facility] Last Admin: 03/07/17 09:52 Dose: 100 mg Donepezil HCl (Aricept) 5 mg PO HS [facility] Last Admin: 03/06/17 22:31 Dose: 5 mg Meropenem 1g/NS 100mL IVPB (Meropenem 1g/Ns 100ml Ivpb) 1 gm in 100 mls @ 100 mls/hr IVPB Q8 ERINN PRN Reason: Protocol Stop: 03/11/17 22:01 Last Admin: 03/07/17 05:25 Dose: 100 mls/hr Sodium Chloride (Sodium Chloride 0.9%) 1,000 mls @ 50 mls/hr IV .Q20H [facility] Last Admin: 03/07/17 09:54 Dose: 50 mls/hr Lorazepam (Ativan) 0.5 mg PO HS [facility] Last Admin: 03/06/17 22:29 Dose: 0.5 mg Pantoprazole Sodium (Protonix Ec Tab) 40 mg PO BID [facility] Last Admin: 03/07/17 09:52 Dose: 40 mg Polyethylene Glycol (Miralax) 17 gm PO BID [facility] Last Admin: 03/07/17 09:52 Dose: 17 gm Quetiapine Fumarate (Seroquel) 50 mg PO 2200 [facility] Last Admin: 03/06/17 22:30 Dose: 50 mg Warfarin Sodium (Coumadin) 2 mg PO 1800 ERINN PRN Reason: Protocol Last Admin: 03/06/17 17:04 Dose: 2 mg - Labs Labs: 03/07/17 07:29 03/07/17 07:29 PT 14.5 Seconds (9.9-11.8) H 03/07/17 09:50 INR 1.34 (0.93-1.08) H 03/07/17 09:50 APTT 20.6 Seconds (23.7-30.8) L 03/04/17 15:00 Attending/Attestation - Attestation I have personally seen and examined this patient.: Yes I have fully participated in the care of the patient.: Yes I have reviewed all pertinent clinical information, including history, physical exam and plan: Yes Notes (Text): 03/07/17 10:38 attending note; Patient seen and examined with resident. Patient is a 87-year-old female with PMH of AFib on coumadin, COPD, urinary incontinence, AAA and thoracic aortic aneurysm, multiple UTIs, GI bleed, DVT, and dementia is admitted with Urosepsis with hypotension. currently blood pressure is improving on IV fluids. currently patient is alert and awake. Tolerating diet well. Patient is afebrile and nontoxic. Blood cultureis negative. Urine culture is growing gram-negative rods. Identification and sensitivity pending. on meropenem. ID evaluation appreciated Chest x-ray showed mild bibasilar atelectasis. Dementia; Monitor closely. Patient is alert and awake now. Oriented to place sometimes. Urinary Incontinence. has Hazel catheter. CT abdomen and pelvis showed nonobstructive stones without hydronephrosis. small amount of air in the right renal pelvis. seen by urology. Anemia;iron deficiency. Started on IV iron. No active bleeding. History of A. fib; digoxin on hold. Continue Coumadin.monitor INR closely. Constipation; resolved. Continue MiraLAX and Colace. patient is DNI/DNR. upon discharge the patient will follow-up with PMD DR. Webb. 03/07/17 10:40
[2017-03-07] MEDS: Meropenem 1g/NS 100mL IVPB 1 GM/100 ML PIGGYBACK IVPB SCH ×2 (05:25→14:07)
[2017-03-07 06:16] VITALS: O2SAT 94
[2017-03-07 07:52] LABS: BLOOD UREA NITROGEN 9 mg/dL (7-21); CALCIUM 8.7 mg/dL (8.4-10.5); CHLORIDE 114 mmol/L (98-107); GFR AFRICAN-AMERICAN > 60; GLUCOSE,RANDOM 96 mg/dL (70-110); POTASSIUM 3.6 mmol/L (3.6-5.0); SODIUM 144 mmol/L (132-148)
[2017-03-07 08:04] LABS: BASO # 0.05 K/mm3 (0.0-2.0); BASO % 0.8 % (0.0-3.0); EOS # 0.2 (0.0-0.7); EOS % 3.4 % (1.5-5.0); GRAN # 4.19 (1.4-6.5); GRAN % 64.1 % (50.0-68.0); HEMATOCRIT 30.6 % (36.0-48.0); LYMPH # 1.2 (1.2-3.4); LYMPH % 17.8 % (22.0-35.0); MEAN CELL VOLUME 76.5 fl (80.0-105.0); MEAN CORPUSCULAR HEMOGLOBIN 22.8 pg (25.0-35.0); MEAN CORPUSCULAR HGB CONC 29.7 g/dl (31.0-37.0); MEAN PLATELET VOLUME 9.3 fl (7.0-11.0); MONO # 0.9 (0.1-0.6); MONO % 13.9 % (1.0-6.0); RED CELL DISTRIBUTION WIDTH 18.3 % (11.5-14.5); WHITE BLOOD COUNT 6.5 10^3/ul (4.5-11.0)
[2017-03-07 08:10] LABS: CARBON DIOXIDE 25 mmol/L (21-33)
[2017-03-07] MEDS ORDERED: Sodium Chloride 0.9% 1,000 ML IV SCH (09:08)
[2017-03-07] MEDS: Pantoprazole 40 mg EC Tab PO SCH ×2 (09:52→17:25)
[2017-03-07] MEDS: POLYETHYLENE GLYCOL 3350 17 GM/Dose PACKET PO SCH ×2 (09:52→17:25)
[2017-03-07 10:04] LABS: INR 1.34 (0.93-1.08)
[2017-03-07 12:48] VITALS: BP 109/54; PULSE 74; RESP 19; TEMP 98
--- NOTE | 2017-03-07 17:04 | CP.PCM.DIS ---
<Jeovany Roche - Last Filed: 03/07/17 17:15> Provider - Provider Date of Admission: 03/04/17 18:03 Attending physician: Davy Daly MD Primary care physician: Tashi Kohler MD Consults: Johan Barnett Time Spent in preparation of Discharge (in minutes): 33 Hospital Course - Lab Results Lab Results: Micro Results 03/04/17 18:55 Urine Urine Culture - Final Escherichia Coli Most Recent Lab Values WBC 6.5 10^3/ul (4.5-11.0) D 03/07/17 07:29 RBC 4.00 10^6/uL (3.5-6.1) 03/07/17 07:29 Hgb 9.1 g/dL (12.0-16.0) L 03/07/17 07:29 Hct 30.6 % (36.0-48.0) L 03/07/17 07:29 MCV 76.5 fl (80.0-105.0) L 03/07/17 07:29 MCH 22.8 pg (25.0-35.0) L 03/07/17 07:29 MCHC 29.7 g/dl (31.0-37.0) L 03/07/17 07:29 RDW 18.3 % (11.5-14.5) H 03/07/17 07:29 Plt Count 218 10^3/uL (120.0-450.0) 03/07/17 07:29 MPV 9.3 fl (7.0-11.0) 03/07/17 07:29 Gran % 64.1 % (50.0-68.0) 03/07/17 07:29 Lymph % (Auto) 17.8 % (22.0-35.0) L 03/07/17 07:29 Cobb % (Auto) 13.9 % (1.0-6.0) H 03/07/17 07:29 Eos % (Auto) 3.4 % (1.5-5.0) 03/07/17 07:29 Baso % (Auto) 0.8 % (0.0-3.0) 03/07/17 07:29 Gran # 4.19 (1.4-6.5) 03/07/17 07:29 Lymph # 1.2 (1.2-3.4) 03/07/17 07:29 Cobb # 0.9 (0.1-0.6) H 03/07/17 07:29 Eos # 0.2 (0.0-0.7) 03/07/17 07:29 Baso # 0.05 K/mm3 (0.0-2.0) 03/07/17 07:29 Neutrophils % (Manual) 77 % (50.0-70.0) H 03/04/17 15:00 Band Neutrophils % 8 % (0-2) H 03/04/17 15:00 Lymphocytes % (Manual) 12 % (22.0-35.0) L 03/04/17 15:00 Monocytes % (Manual) 1 % (1.0-6.0) 03/04/17 15:00 Eosinophils % (Manual) 2 % (0.0-3.0) 03/04/17 15:00 Platelet Evaluation Normal (NORMAL) 03/04/17 15:00 PT 14.5 Seconds (9.9-11.8) H 03/07/17 09:50 INR 1.34 (0.93-1.08) H 03/07/17 09:50 APTT 20.6 Seconds (23.7-30.8) L 03/04/17 15:00 pO2 59 mm/Hg (30-55) H 03/05/17 07:03 VBG pH 7.33 (7.32-7.43) 03/05/17 07:03 VBG pCO2 45.0 (40-60) 03/05/17 07:03 VBG HCO3 23.7 mmol/l (21-28) 03/05/17 07:03 VBG Total CO2 25.1 mmol.L (22-28) 03/05/17 07:03 VBG O2 Sat (Calc) 94.6 % (40-65) H 03/05/17 07:03 VBG Base Excess -2.4 mmol/L (0.0-2.0) L 03/05/17 07:03 VBG Potassium 4.0 mmol/L (3.6-5.2) 03/05/17 07:03 Sodium 142.0 mmol/L (132-148) 03/05/17 07:03 Chloride 114.0 mmol/L (98-107) H 03/05/17 07:03 Glucose 121 mg/dl (65-105) H 03/05/17 07:03 Lactate 1.8 mmol/L (0.7-2.1) 03/05/17 07:03 FiO2 21.0 % 03/05/17 07:03 Sodium 144 mmol/L (132-148) 03/07/17 07:29 Potassium 3.6 mmol/L (3.6-5.0) 03/07/17 07:29 Chloride 114 mmol/L (98-107) H 03/07/17 07:29 Carbon Dioxide 25 mmol/L (21-33) 03/07/17 07:29 Anion Gap 9 (10-20) L 03/07/17 07:29 BUN 9 mg/dL (7-21) 03/07/17 07:29 Creatinine 0.6 mg/dL (0.5-1.4) 03/07/17 07:29 Est GFR ( Amer) > 60 03/07/17 07:29 Est GFR (Non-Af Amer) > 60 03/07/17 07:29 Random Glucose 96 mg/dL (70-110) 03/07/17 07:29 Calcium 8.7 mg/dL (8.4-10.5) 03/07/17 07:29 Phosphorus 3.1 mg/dL (2.5-4.5) 03/04/17 15:00 Magnesium 1.9 mg/dL (1.7-2.2) 03/04/17 15:00 Iron 18 ug/dL (45-180) L 03/05/17 13:30 TIBC 378 ug/dL (265-497) 03/05/17 13:30 % Saturation 5 % (20-55) L 03/05/17 13:30 Ferritin 29.4 ng/mL 03/05/17 10:00 Total Bilirubin 0.8 mg/dL (0.2-1.3) 03/04/17 15:00 AST 29 U/L (14-36) 03/04/17 15:00 ALT 16 U/L (7-56) 03/04/17 15:00 Alkaline Phosphatase 96 U/L (38-126) 03/04/17 15:00 Troponin I < 0.01 ng/mL D 03/04/17 15:00 NT-Pro-B Natriuret Pep 292 pg/mL (0-450) 03/04/17 15:00 Total Protein 8.1 g/dL (5.8-8.3) 03/04/17 15:00 Albumin 4.5 g/dL (3.0-4.8) 03/04/17 15:00 Globulin 3.6 gm/dL 03/04/17 15:00 Albumin/Globulin Ratio 1.3 (1.1-1.8) 03/04/17 15:00 Procalcitonin 0.37 NG/ML (0.19-0.49) 03/04/17 15:00 Venous Blood Potassium 4.0 mmol/L (3.6-5.2) 03/05/17 07:03 Urine Color Yellow (YELLOW) 03/04/17 18:55 Urine Appearance Sl cloudy (CLEAR) 03/04/17 18:55 Urine pH 5.5 (4.7-8.0) 03/04/17 18:55 Ur Specific [place] 1.025 (1.005-1.035) 03/04/17 18:55 Urine Protein 30 mg/dL (<30 mg/dL) H 03/04/17 18:55 Urine Glucose (UA) Negative mg/dL (NEGATIVE) 03/04/17 18:55 Urine Ketones Trace mg/dL (NEGATIVE) H 03/04/17 18:55 Urine Blood Large (NEGATIVE) H 03/04/17 18:55 Urine Nitrate Negative (NEGATIVE) 03/04/17 18:55 Urine Bilirubin Negative (NEGATIVE) 03/04/17 18:55 Urine Urobilinogen 0.2 E.U./dL (<1 E.U./dL) 03/04/17 18:55 Ur Leukocyte Esterase Small Samir/uL (NEGATIVE) H 03/04/17 18:55 Urine RBC 25 - 30 /hpf (0-2) 03/04/17 18:55 Urine WBC 15 - 20 /hpf (0-6) 03/04/17 18:55 Ur Epithelial Cells 3 - 4 /hpf (0-5) 03/04/17 18:55 Urine Bacteria Large (NEG) 03/04/17 18:55 Fine Granular Casts 0 - 2 /hpf (0-2) 03/04/17 18:55 Urine Other Fiber 03/04/17 18:55 Influenza Typ A,B (EIA) Negative for flu a/b (NEGATIVE) 03/04/17 23:02 - Hospital Course Hospital Course: 87 year old female with PMH of AFib on coumadin, COPD, urinary incontinence, AAA and thoracic aortic aneurysm, multiple UTIs, GI bleed, DVT, and dementia who was admitted with urosepsis with hypotension. CT abdomen and pelvis showed findings possibly consistent with pyelonephritis and hence started on IV antibiotics. Patient returned to her baseline function. Cultures grew liu- sensitive E.coli. The patient was discharged on Ciprofloxacin and the below written instructions. - Date & Time of H&P Date of H&P: 03/07/17 Time of H&P: 17:17 Discharge Exam - Head Exam Head Exam: ATRAUMATIC, NORMAL INSPECTION Discharge Plan - Discharge Medications Prescriptions: Ciprofloxacin [Cipro] 500 mg PO BID #20 tab - Follow Up Plan Condition: CRITICAL Disposition: HOME/ ROUTINE Instructions: Dehydration (DC), Dehydration (GEN), Urinary Tract Infection in Women (DC), Urinary Tract Infection in Men (DC), Dysuria (GEN) Additional Instructions: Please go to the nearest Emergency Room if you experience shortness of breath or chest pain. Follow up with Dr. Kohler within 3 days. Take your new medication Ciprofloxacin. Continue taking home medications as prescribed by your primary care doctor. 1. Follow up with PMD DR. Kohler in 3 days. 2. Follow up with DR. Oquendo as needed. 3. Complete ciprofloxacin. Referrals: Tashi Kohler MD [Primary Care Provider] - <Davy Daly - Last Filed: 03/07/17 18:16> Provider - Provider Date of Admission: 03/04/17 18:03 Attending physician: Davy Daly MD Primary care physician: Tashi Kohler MD Hospital Course - Lab Results Lab Results: Micro Results 03/04/17 18:55 Urine Urine Culture - Final Escherichia Coli Most Recent Lab Values WBC 6.5 10^3/ul (4.5-11.0) D 03/07/17 07:29 RBC 4.00 10^6/uL (3.5-6.1) 03/07/17 07:29 Hgb 9.1 g/dL (12.0-16.0) L 03/07/17 07: Hct 30.6 % (36.0-48.0) L 03/07/17 07: MCV 76.5 fl (80.0-105.0) L 03/07/17 07:29 MCH 22.8 pg (25.0-35.0) L 03/07/17 07: MCHC 29.7 g/dl (31.0-37.0) L 03/07/17 07: RDW 18.3 % (11.5-14.5) H 03/07/17 07:29 Plt Count 218 10^3/uL (120.0-450.0) 03/07/17 07: MPV 9.3 fl (7.0-11.0) 03/07/17 07: Gran % 64.1 % (50.0-68.0) 03/07/17 07: Lymph % (Auto) 17.8 % (22.0-35.0) L 03/07/17 07: Cobb % (Auto) 13.9 % (1.0-6.0) H 03/07/17 07:29 Eos % (Auto) 3.4 % (1.5-5.0) 03/07/17 07: Baso % (Auto) 0.8 % (0.0-3.0) 03/07/17 07: Gran # 4.19 (1.4-6.5) 03/07/17 07: Lymph # 1.2 (1.2-3.4) 03/07/17 07: Cobb # 0.9 (0.1-0.6) H 03/07/17 07: Eos # 0.2 (0.0-0.7) 03/07/17 07: Baso # 0.05 K/mm3 (0.0-2.0) 03/07/17 07: Neutrophils % (Manual) 77 % (50.0-70.0) H 03/04/17 15:00 Band Neutrophils % 8 % (0-2) H 03/04/17 15:00 Lymphocytes % (Manual) 12 % (22.0-35.0) L 03/04/17 15:00 Monocytes % (Manual) 1 % (1.0-6.0) 03/04/17 15:00 Eosinophils % (Manual) 2 % (0.0-3.0) 03/04/17 15:00 Platelet Evaluation Normal (NORMAL) 03/04/17 15:00 PT 14.5 Seconds (9.9-11.8) H 03/07/17 09:50 INR 1.34 (0.93-1.08) H 03/07/17 09:50 APTT 20.6 Seconds (23.7-30.8) L 03/04/17 15:00 pO2 59 mm/Hg (30-55) H 03/05/17 07:03 VBG pH 7.33 (7.32-7.43) 03/05/17 07:03 VBG pCO2 45.0 (40-60) 03/05/17 07:03 VBG HCO3 23.7 mmol/l (21-28) 03/05/17 07:03 VBG Total CO2 25.1 mmol.L (22-28) 03/05/17 07:03 VBG O2 Sat (Calc) 94.6 % (40-65) H 03/05/17 07:03 VBG Base Excess -2.4 mmol/L (0.0-2.0) L 03/05/17 07:03 VBG Potassium 4.0 mmol/L (3.6-5.2) 03/05/17 07:03 Sodium 142.0 mmol/L (132-148) 03/05/17 07:03 Chloride 114.0 mmol/L (98-107) H 03/05/17 07:03 Glucose 121 mg/dl (65-105) H 03/05/17 07:03 Lactate 1.8 mmol/L (0.7-2.1) 03/05/17 07:03 FiO2 21.0 % 03/05/17 07:03 Sodium 144 mmol/L (132-148) 03/07/17 07:29 Potassium 3.6 mmol/L (3.6-5.0) 03/07/17 07:29 Chloride 114 mmol/L (98-107) H 03/07/17 07:29 Carbon Dioxide 25 mmol/L (21-33) 03/07/17 07:29 Anion Gap 9 (10-20) L 03/07/17 07:29 BUN 9 mg/dL (7-21) 03/07/17 07:29 Creatinine 0.6 mg/dL (0.5-1.4) 03/07/17 07:29 Est GFR ( Amer) > 60 03/07/17 07:29 Est GFR (Non-Af Amer) > 60 03/07/17 07:29 Random Glucose 96 mg/dL (70-110) 03/07/17 07:29 Calcium 8.7 mg/dL (8.4-10.5) 03/07/17 07:29 Phosphorus 3.1 mg/dL (2.5-4.5) 03/04/17 15:00 Magnesium 1.9 mg/dL (1.7-2.2) 03/04/17 15:00 Iron 18 ug/dL (45-180) L 03/05/17 13:30 TIBC 378 ug/dL (265-497) 03/05/17 13:30 % Saturation 5 % (20-55) L 03/05/17 13:30 Ferritin 29.4 ng/mL 03/05/17 10:00 Total Bilirubin 0.8 mg/dL (0.2-1.3) 03/04/17 15:00 AST 29 U/L (14-36) 03/04/17 15:00 ALT 16 U/L (7-56) 03/04/17 15:00 Alkaline Phosphatase 96 U/L (38-126) 03/04/17 15:00 Troponin I < 0.01 ng/mL D 03/04/17 15:00 NT-Pro-B Natriuret Pep 292 pg/mL (0-450) 03/04/17 15:00 Total Protein 8.1 g/dL (5.8-8.3) 03/04/17 15:00 Albumin 4.5 g/dL (3.0-4.8) 03/04/17 15:00 Globulin 3.6 gm/dL 03/04/17 15:00 Albumin/Globulin Ratio 1.3 (1.1-1.8) 03/04/17 15:00 Procalcitonin 0.37 NG/ML (0.19-0.49) 03/04/17 15:00 Venous Blood Potassium 4.0 mmol/L (3.6-5.2) 03/05/17 07:03 Urine Color Yellow (YELLOW) 03/04/17 18:55 Urine Appearance Sl cloudy (CLEAR) 03/04/17 18:55 Urine pH 5.5 (4.7-8.0) 03/04/17 18:55 Ur Specific [place] 1.025 (1.005-1.035) 03/04/17 18:55 Urine Protein 30 mg/dL (<30 mg/dL) H 03/04/17 18:55 Urine Glucose (UA) Negative mg/dL (NEGATIVE) 03/04/17 18:55 Urine Ketones Trace mg/dL (NEGATIVE) H 03/04/17 18:55 Urine Blood Large (NEGATIVE) H 03/04/17 18:55 Urine Nitrate Negative (NEGATIVE) 03/04/17 18:55 Urine Bilirubin Negative (NEGATIVE) 03/04/17 18:55 Urine Urobilinogen 0.2 E.U./dL (<1 E.U./dL) 03/04/17 18:55 Ur Leukocyte Esterase Small Samir/uL (NEGATIVE) H 03/04/17 18:55 Urine RBC 25 - 30 /hpf (0-2) 03/04/17 18:55 Urine WBC 15 - 20 /hpf (0-6) 03/04/17 18:55 Ur Epithelial Cells 3 - 4 /hpf (0-5) 03/04/17 18:55 Urine Bacteria Large (NEG) 03/04/17 18:55 Fine Granular Casts 0 - 2 /hpf (0-2) 03/04/17 18:55 Urine Other Fiber 03/04/17 18:55 Influenza Typ A,B (EIA) Negative for flu a/b (NEGATIVE) 03/04/17 23:02 Attending/Attestation - Attestation I have personally seen and examined this patient.: Yes I have fully participated in the care of the patient.: Yes I have reviewed all pertinent clinical information, including history, physical exam and plan: Yes Notes (Text): 03/07/17 18:14 attending note; Patient seen and examined with resident. Patient is a 87-year-old female with PMH of AFib on coumadin, COPD, urinary incontinence, AAA and thoracic aortic aneurysm, multiple UTIs, GI bleed, DVT, and dementia is admitted with Urosepsis with hypotension. treated with IV meropenem. Urine culture is positive for Escherichia coli. Case discussed with ID in detail. Patient will be discharged home with by mouth ciprofloxacin. Dixon catheter removed. CT abdomen and pelvis showed nonobstructive stones without hydronephrosis. small amount of air in the right renal pelvis. seen by urology. No invasive procedures needed at this time. Conservative management. Anemia;iron deficiency. Given IV iron. No active bleeding. History of A. fib; digoxin on hold. Continue Coumadin.monitor INR closely. Constipation; resolved. Continue MiraLAX and Colace. patient is DNI/DNR. upon discharge the patient will follow-up with PMD DR. Kohler. diagnosis; Urosepsis Escherichia coli UTI Urinary incontinence Dementia Bedbound Anemia A. fib aortic aneurysm 03/07/17 18:16
--- NOTE | 2017-03-08 08:49 | CON ---
DATE: 03/04/2017 CHIEF COMPLAINT: Fever. HISTORY OF PRESENT ILLNESS: This is an 87-year-old female with a significant medical issues, who was found by her daughter at home to have some weakness and lethargy along with a fever. The patient had decreased appetite. She has underlying history of dementia, but seems to be in worsened condition than normal state of health. The patient was then brought to the emergency room for evaluation. She was found to have a fever of 102 rectally by report and she was admitted for possible sepsis. The patient's daughter and the patient were given history, the patient has dementia and is a poor historian, the daughter reports that she has had multiple admissions for urinary tract infection. She was straight catheterized in the ER and there was nothing in her bladder. She was found to be severely dehydrated and was admitted for evaluation and treatment. consultation was requested regarding the above. PAST MEDICAL HISTORY: Significant for atrial fibrillation, congestive heart failure, COPD, urinary incontinence, abdominal aneurysm, recurrent urinary tract infections, GI bleeding, DVT and dementia. MEDICATIONS: Currently include, Aricept, Colace, Coumadin, Klonopin, meropenem, Miralax, Protonix, Seroquel, IV fluids, Tylenol. ALLERGIES: NO KNOWN DRUG ALLERGIES. FAMILY HISTORY: Noncontributory. SOCIAL HISTORY: No smoking or EtOH history. REVIEW OF SYSTEMS: From the patient's daughter as per the HPI. Other systems are apparently negative. PHYSICAL EXAMINATION GENERAL: The patient is awake, alert. She is answering questions. VITAL SIGNS: She is afebrile with a temperature of 98.5, pulse 62, BP 92/51, respirations 18. NECK: Supple. There is no adenopathy. CHEST: Revealed a normal inspiratory effort. CARDIAC: Shows an irregular pulse. There is mild peripheral edema noted. ABDOMEN: The abdomen is soft, nontender and nondistended. There is no hepatosplenomegaly. There is no costovertebral angle tenderness. : There is a Dixon catheter in place. It is draining clear with concentrated urine. LABORATORY DATA: WBC count 10.9, hemoglobin 8.8, platelets 214. GFR is now greater than 60. Urinalysis showed 25 to 30 rbc's, 15 to 20 wbc's, negative for nitrites, 3-4 epithelial cells. RADIOLOGIC EXAM: The patient had a CT scan of the abdomen and pelvis which showed kidneys and ureters. There were bilateral nonobstructing renal stones. There is right renal cyst. There is left renal scarring with a small amount of air. The right renal collecting system, there is no caliectasis or ureterectasis. There is cardiomegaly and atherosclerotic disease. There is 5.6 cm distal thoracic aortic aneurysm, which is unchanged. On microbiology, blood culture showed no growth, after 24 hours gram-stains were pending. IMPRESSION: This is an 87-year-old female admitted with likely infection. The patient has advanced dementia. She has chronic urinary incontinence. She is currently on broad-spectrum IV antibiotics. She has been afebrile and blood cultures preliminary are negative. There is no evidence of any obstructing renal stone. I have discussed with the daughter that there is no indication for any acute surgical intervention. There is a question of some air in the collecting system it is unclear this is from prior instrumentation or possibly from a gas forming infection, however that is clinically unlikely at this point. The patient is DNR, DO NOT INTUBATE. The patient's daughter does not want any aggressive therapy done. I would continue with the plan of IV fluids and IV antibiotics. Some of this could have been simply from dehydration. Although, her kidney function is now normal. We will wait the results of her urine culture and blood culture. The patient continues to do clinically well. She can be discharged home with outpatient followup. Thank you for allowing me to participate in the care of this patient. We will follow with you. Constantino Blue MD
--- NOTE | 2017-03-08 09:47 | PN ---
DATE: 03/07/2017 SUBJECTIVE: The patient is seen in 272, bed 2. The patient is seen earlier this morning. No fevers last night. Her temperature remained afebrile now for 24-48 hours uneventful night. PHYSICAL EXAMINATION: VITAL SIGNS: Temperature is 98, blood pressure is 116/50, respiratory rate of 18. HEENT: Unremarkable. NECK: Supple. LUNGS: Decreased breath sounds. HEART: Normal S1 and S2. ABDOMEN: Soft, nontender. No rebound. No guarding. No masses. LABORATORY DATA: Reveals a white count of 6.5, hemoglobin of 9, platelets of 280. Coagulation is noted. The chemistries reveals a BUN of 9, creatinine of 0.6. Urinalysis is noted. Serology is *------*. Wbc's are noted and Gram-negative beto in the urine. Blood cultures are no growth. MEDICATIONS: The patient is on meropenem. ASSESSMENT AND PLAN: An 87-year-old female, seen earlier today in 272, bed 2 with sepsis with Gram-negative beto. Urine is the source *------* renal calculi stones not obstructing. The patient with a history of left lower lobe, healthcare-associated pneumonia, atrial fibrillation, chronic obstructive lung disease, congestive heart failure, dementia and the patient is on meropenem. Awaiting for identification and sensitivity of Gram-negative beto *------*, and we will make further recommendations upon availability of Gram-negative beto. We will follow with you. Today is day #4 of meropenem. Meet Barnett MD
== END 2017-03-07 20:05 | disposition home or self-care (01) | DRG 872 ==
LOC: ED 14:37 → ERH 18:03 → 2RSO 21:13
PROVIDERS: ADMIT Internal Medicine; ATTEND Internal Medicine
DX: A41.50 Gram-negative sepsis, unspecified (principal); N39.0 Urinary tract infection, site not specified; E87.2 Acidosis; I50.9 Heart failure, unspecified; I11.0 Hypertensive heart disease with heart failure; F01.51 Vascular dementia, unspecified severity, with behavioral disturbance; I71.2 Thoracic aortic aneurysm, without rupture; I48.91 Unspecified atrial fibrillation; J44.9 Chronic obstructive pulmonary disease, unspecified; E86.0 Dehydration; F33.9 Major depressive disorder, recurrent, unspecified; F05 Delirium due to known physiological condition; J98.11 Atelectasis; I71.4 Abdominal aortic aneurysm, without rupture; K59.00 Constipation, unspecified; Z66 Do not resuscitate; N20.0 Calculus of kidney; R32 Unspecified urinary incontinence; D50.9 Iron deficiency anemia, unspecified; Z79.01 Long term (current) use of anticoagulants; Z87.440 Personal history of urinary (tract) infections; Z87.01 Personal history of pneumonia (recurrent); Z86.718 Personal history of other venous thrombosis and embolism; Z74.01 Bed confinement status; Z87.891 Personal history of nicotine dependence; Z87.81 Personal history of (healed) traumatic fracture

== ENCOUNTER 2017-06-01 21:06 | Inpatient (IN) | payer MEDICARE, BC ==
[2017-06-01 21:07] VITALS: BMI 30.2
[2017-06-01] MEDS ORDERED: Cefepime IV 2 gm in NS 2 GM/100 ML BAG IVPB STA (21:35)
[2017-06-01 22:08] LABS: BASO # 0.04 K/mm3 (0.0-2.0); BASO % 0.3 % (0.0-3.0); EOS % 0.3 % (1.5-5.0); GRAN # 12.14 (1.4-6.5); GRAN % 90.6 % (50.0-68.0); HEMATOCRIT 40.8 % (36.0-48.0); LYMPH # 0.4 (1.2-3.4); LYMPH % 3.1 % (22.0-35.0); MEAN CELL VOLUME 81.6 fl (80.0-105.0); MEAN CORPUSCULAR HEMOGLOBIN 25.6 pg (25.0-35.0); MEAN CORPUSCULAR HGB CONC 31.4 g/dl (31.0-37.0); MEAN PLATELET VOLUME 9.4 fl (7.0-11.0); MONO # 0.8 (0.1-0.6); MONO % 5.7 % (1.0-6.0); PLATELET COUNT 261 10^3/uL (120.0-450.0); RED CELL DISTRIBUTION WIDTH 18.1 % (11.5-14.5); WHITE BLOOD COUNT 13.4 10^3/ul (4.5-11.0)
[2017-06-01 22:10] LABS: VENOUS BLOOD GAS BASE EXCESS 1.5 mmol/L (0.0-2.0); VENOUS BLOOD PH 7.47 (7.32-7.43)
[2017-06-01 22:19] LABS: INR 2.03 (0.93-1.08); PARTIAL THROMBOPLASTIN TIME 31.9 Seconds (25.1-36.5)
[2017-06-01 22:20] LABS: ALB/GLOB RATIO 1.1 (1.1-1.8); ALKALINE PHOSPHATASE 88 U/L (38-126); ALT/SGPT 17 U/L (7-56); AST/SGOT 25 U/L (14-36); BILIRUBIN,TOTAL 0.6 mg/dL (0.2-1.3); BLOOD UREA NITROGEN 15 mg/dL (7-21); CALCIUM 10.1 mg/dL (8.4-10.5); CARBON DIOXIDE 24 mmol/L (21-33); CHLORIDE 103 mmol/L (98-107); GFR AFRICAN-AMERICAN > 60; GLUCOSE,RANDOM 188 mg/dL (70-110); MAGNESIUM 1.7 mg/dL (1.7-2.2); PHOSPHOROUS 2.3 mg/dL (2.5-4.5); POTASSIUM 4.1 mmol/L (3.6-5.0); SODIUM 140 mmol/L (132-148); TOTAL PROTEIN 7.2 g/dL (5.8-8.3)
[2017-06-01 22:30] LABS: TROPONIN I 0.02 ng/mL
[2017-06-01] MEDS: Sodium Chloride 0.9% 1,000 ML IV SCH (22:47)
[2017-06-01 23:11] LABS: NEUTROPHIL 91 % (50.0-70.0); PLATELET ESTIMATE NORMAL (NORMAL)
[2017-06-01 23:12] LABS: ANISOCYTOSIS SLIGHT; MICROCYTOSIS SLIGHT
--- NOTE | 2017-06-01 23:36 | ED PDOC ---
Arrival/HPI - General Chief Complaint: Fever Time Seen by Provider: 06/01/17 21:14 Historian: Patient - History of Present Illness Narrative History of Present Illness (Text): 06/01/17 22:10 An 87 year old female, whose past medical history includes AAA, COPD, CHF, GI bleed, DVT, dementia, frequent UTIs, and atrial fibrillation, was brought in by EMS to the emergency department with daughter for evaluation of fever and lethargy. Daughter denies any other complaints at this time. Symptom Onset: Sudden Symptom Course: Unchanged Activities at Onset: Rest Context: Home Past Medical History - Provider Review Nursing Documentation Reviewed: Yes - Infectious Disease Hx of Infectious Diseases: None - Tetanus Immunization Tetanus Immunization: Unknown - Cardiac Hx Cardiac Disorders: Yes Hx Congestive Heart Failure: Yes Hx Hypertension: Yes - Pulmonary Hx Chronic Obstructive Pulmonary Disease (COPD): Yes Hx Pneumonia: Yes - Neurological HX Cerebrovascular Accident: No - HEENT Hx HEENT Disorder: No - Renal Hx Renal Failure: No - Endocrine/Metabolic Hx Diabetes Mellitus Type 1: No Hx Diabetes Mellitus Type 2: No Hx Hypothyroidism: No - Hematological/Oncological Hx Cancer: No - Integumentary Hx Dermatological Disorder: Yes Other/Comment: L LEG LESION - Musculoskeletal/Rheumatological Hx Arthritis: No Hx Rheumatoid Arthritis: No - Gastrointestinal Hx Gastroesophageal Reflux: No - Genitourinary/Gynecological Hx Genitourinary Disorders: Yes Hx Incontinence: Yes Hx Urinary Tract Infection: Yes - Psychiatric Hx Psychophysiologic Disorder: No Hx Emotional Abuse: No Hx Physical Abuse: No Hx Substance Use: No - Past Surgical History Past Surgical History: No Previous - Surgical History Hx Orthopedic Surgery: Yes (L HIP) Other/Comment: ABD HERNIA REPAIR - Anesthesia Hx Anesthesia: Yes Hx Anesthesia Reactions: No Hx Malignant Hyperthermia: No - Suicidal Assessment Feels Threatened In Home Enviroment: No Family/Social History - Physician Review Nursing Documentation Reviewed: Yes Family/Social History: No Known Family HX Smoking Status: Former Smoker Hx Alcohol Use: No Hx Substance Use: No Hx Substance Use Treatment: No Allergies/Home Meds Allergies/Adverse Reactions: Allergies No Known Allergies Allergy (Verified 03/04/17 14:45) Home Medications: Home Meds Medication Instructions Recorded Confirmed Pantoprazole [Protonix EC Tab] 40 mg PO DAILY 11/23/16 06/02/17 Polyethylene Glycol 3350 [Miralax] 17 gm PO PRN PRN 03/04/17 06/02/17 Albuterol/Ipratropium [Duoneb 3 3 ml IH DAILY 06/02/17 06/02/17 mg/0.5 mg (3 ml) UD] QUEtiapine [Seroquel] 50 mg PO HS 06/02/17 06/02/17 Warfarin [Coumadin] 2 mg PO HS 06/02/17 06/02/17 Review of Systems - Physician Review All systems were reviewed & negative as marked: Yes - Review of Systems Constitutional: Fevers, Other (lethargy) Respiratory: absent: SOB Physical Exam Vital Signs Reviewed: Yes Vital Signs Temp Pulse Resp BP Pulse Ox 06/02/17 04:09 98.0 F 60 18 90/49 L 92 L 06/02/17 00:42 71 16 102/58 L 92 L 06/01/17 23:42 87 19 99/63 L 92 L 06/01/17 23:17 85 14 93/55 L 90 L 06/01/17 22:36 94 H 133/60 06/01/17 22:24 96 H 18 133/60 90 L 06/01/17 22:00 96 H 18 116/54 L 91 L 06/01/17 21:19 102 H 20 124/62 91 L 06/01/17 21:14 101.8 F H 101 H 18 91 L Temperature: Febrile Pulse: Tachycardic Respiratory Rate: Normal Appearance: Positive for: Comfortable Pain Distress: None Mental Status: Positive for: Confused, Lethargic - Systems Exam Head: Present: Atraumatic, Normocephalic Pupils: Present: PERRL Extroacular Muscles: Present: EOMI Conjunctiva: Present: Normal Mouth: Present: Moist Mucous Membranes Neck: Present: Normal Range of Motion Respiratory/Chest: Present: Clear to Auscultation, Good Air Exchange. No: Respiratory Distress, Accessory Muscle Use Cardiovascular: Present: Regular Rate and Rhythm, Normal S1, S2. No: Murmurs Abdomen: Present: Normal Bowel Sounds. No: Tenderness, Distention, Peritoneal Signs Back: Present: Normal Inspection Upper Extremity: Present: Normal Inspection. No: Cyanosis, Edema Lower Extremity: Present: Normal Inspection. No: Edema Neurological: Present: GCS=15, CN II-XII Intact, Speech Normal Skin: Present: Warm, Dry, Normal Color. No: Rashes Psychiatric: Present: Other (confused) Medical Decision Making ED Course and Treatment: 06/01/17 22:10 Impression: An 87 year old female with fever and lethargy. Plan: -- EKG -- chest xray -- labs -- Urinalysis -- Maxipime, Tylenol, IV fluids -- Reassess and disposition Prior Visits: Notes and results from previous visits were reviewed. Patient was last seen in the emergency department on 03/04/17 for evaluation of body shivers. Progress Notes: 06/01/17 22:19 Code sepsis called. EKG: Ordered, reviewed, and independently interpreted the EKG. Rate : 93 BPM Rhythm : NSR Interpretation : right bundle branch block, 1st degree AV block, nonspecific ST segment changes Chest xray: No acute findings, as read by me. Spoke with Dr. Garcia, who agrees and accepts patient to be admitted to Telemetry. - Lab Interpretations Lab Results: 06/01/17 21:50 06/01/17 21:50 Lab Results 06/02/17 01:45: pO2 164 H, VBG pH 7.39, VBG pCO2 36.0 L, VBG HCO3 21.8, VBG Total CO2 22.9, VBG O2 Sat (Calc) 99.8 H, VBG Base Excess -2.6 L, VBG Potassium 3.3 L, Sodium 142.0, Chloride 115.0 H, Glucose 129 H, Lactate 2.9 H, FiO2 21.0, Venous Blood Potassium 3.3 L 06/02/17 01:05: Urine Color Yellow, Urine Appearance Sl cloudy, Urine pH 6.0, Ur Specific Vista 1.025, Urine Protein 30 H, Urine Glucose (UA) Negative, Urine Ketones Trace H, Urine Blood Moderate H, Urine Nitrate Positive H, Urine Bilirubin Negative, Urine Urobilinogen 0.2, Ur Leukocyte Esterase Moderate H, Urine RBC 0 - 2, Urine WBC Tntc, Ur Epithelial Cells 1 - 3, Urine Bacteria Many 06/01/17 21:50: Sodium 140, Chloride 103, Potassium 4.1, Carbon Dioxide 24, Anion Gap 17, BUN 15, Creatinine 0.8, Est GFR ( Amer) > 60, Est GFR (Non- Af Amer) > 60, Random Glucose 188 H, Calcium 10.1, Phosphorus 2.3 L, Magnesium 1.7, Total Bilirubin 0.6, AST 25, ALT 17, Alkaline Phosphatase 88, Troponin I 0.02 D, Total Protein 7.2, Albumin 3.8, Globulin 3.4, Albumin/Globulin Ratio 1.1 06/01/17 21:50: pO2 122 H, VBG pH 7.47 H, VBG pCO2 34.0 L, VBG HCO3 24.7, VBG Total CO2 25.7, VBG O2 Sat (Calc) 99.1 H, VBG Base Excess 1.5, VBG Potassium 4.5 , Sodium 139.0, Chloride 104.0, Glucose 204 H, Lactate 4.7 H*, FiO2 21.0, Venous Blood Potassium 4.5 06/01/17 21:50: PT 22.4 H, INR 2.03 H, APTT 31.9 06/01/17 21:50: WBC 13.4 H D, RBC 5.00, Hgb 12.8 D, Hct 40.8, MCV 81.6 D, MCH 25.6, MCHC 31.4, RDW 18.1 H, Plt Count 261, MPV 9.4, Gran % 90.6 H, Lymph % ( Auto) 3.1 L, [place] % (Auto) 5.7, Eos % (Auto) 0.3 L, Baso % (Auto) 0.3, Gran # 12.14 H, Lymph # 0.4 L, [place] # 0.8 H, Eos # 0.0, Baso # 0.04, Neutrophils % ( Manual) 91 H, Lymphocytes % (Manual) 4 L, Monocytes % (Manual) 5, Platelet Evaluation Normal, Anisocytosis (manual) Slight, Microcytosis (manual) Slight I have reviewed the lab results: Yes - RAD Interpretation Radiology Orders: 06/01/17 21:35 CHEST PORTABLE [RAD] Stat - EKG Interpretation Interpreted by ED Physician: Yes Type: 12 lead EKG - Medication Orders Current Medication Orders: Acetaminophen (Tylenol 650 Mg Supp) 650 mg RC Q4H PRN PRN Reason: Fever >100.4 F Albuterol/Ipratropium (Duoneb 3 Mg/0.5 Mg (3 Ml) Ud) 3 ml IH Q6H PRN PRN Reason: Shortness of Breath Digoxin (Lanoxin) 0.125 mg PO 1400 ERINN Docusate Sodium (Colace) 100 mg PO BID ERINN Donepezil HCl (Aricept) 10 mg PO DAILY [facility] Sodium Chloride (Sodium Chloride 0.9%) 1,000 mls @ 80 mls/hr IV .[id number] ERINN Last Admin: 06/01/17 22:47 Dose: 80 mls/hr eMAR Start Stop Document 06/01/17 22:47 CNR (Rec: 06/01/17 22:48 CNR [id number]) Intravenous Solution Start Date 06/01/17 Start Time 22:48 Cefepime HCl (Maxipime 2gm) 2 gm in 100 mls @ 100 mls/hr IVPB Q24H ERINN PRN Reason: Protocol Stop: 06/07/17 10:01 Vancomycin HCl (Vancomycin 1gm) 1 gm in 250 mls @ 167 mls/hr IVPB Q12H ERINN PRN Reason: Protocol Pantoprazole Sodium (Protonix Ec Tab) 40 mg PO 0600 ERINN Polyethylene Glycol (Miralax) 17 gm PO DAILY PRN PRN Reason: Constipation Quetiapine Fumarate (Seroquel) 50 mg PO HS ERINN PRN Reason: Protocol Warfarin Sodium (Coumadin) 2 mg PO HS ERINN PRN Reason: Protocol Discontinued Medications Acetaminophen (Tylenol 650 Mg Supp) 650 mg RC STAT STA Stop: 06/01/17 21:46 Last Admin: 06/01/17 21:45 Dose: 650 mg Cefepime HCl (Maxipime 2gm) 2 gm in 100 mls @ 100 mls/hr IVPB STAT STA PRN Reason: Protocol Stop: 06/01/17 22:34 Last Admin: 06/01/17 22:05 Dose: 100 mls/hr eMAR Start Stop Document 06/01/17 22:05 CNR (Rec: 06/01/17 22:06 CNR [id number]) Intravenous Solution Start Date 06/01/17 Start Time 22:06 Lactated Ringer's 2,100 ml/ IV (SUPPLIES) 2,100 mls @ 4,200 mls/hr IV ONCE ONE PRN Reason: 60 ML/KG/HR Stop: 06/02/17 00:00 Last Admin: 06/02/17 00:16 Dose: 4,200 mls/hr eMAR Start Stop Document 06/02/17 00:16 CNR (Rec: 06/02/17 00:16 CNR [id number]) Intravenous Solution Start Date 06/02/17 Start Time 00:16 Vancomycin HCl (Vancomycin 1gm) 1 gm in 250 mls @ 167 mls/hr IVPB STAT STA PRN Reason: Protocol Stop: 06/02/17 02:07 Last Admin: 06/02/17 01:29 Dose: 167 mls/hr eMAR Start Stop Document 06/02/17 01:29 CNR (Rec: 06/02/17 01:29 CNR [id number]) Intravenous Solution Start Date 06/02/17 Start Time 01:29 Lactated Ringer's 2,100 ml/ IV (SUPPLIES) 2,100 mls @ 4,200 mls/hr IV ONCE ONE PRN Reason: 60 ML/KG/HR Stop: 06/02/17 01:57 Last Admin: 06/02/17 02:20 Dose: 4,200 mls/hr eMAR Start Stop Document 06/02/17 02:20 CNR (Rec: 06/02/17 02:20 CNR [id number]) Intravenous Solution Start Date 06/02/17 Start Time 02:20 - Scribe Statement The provider has reviewed the documentation as recorded by the Brittani Johnson Provider Scribe Attestation: All medical record entries made by the Scribe were at my direction and personally dictated by me. I have reviewed the chart and agree that the record accurately reflects my personal performance of the history, physical exam, medical decision making, and the department course for this patient. I have also personally directed, reviewed, and agree with the discharge instructions and disposition. Disposition/Present on Arrival - Present on Arrival Any Indicators Present on Arrival: No History of DVT/PE: No History of Uncontrolled Diabetes: No Urinary Catheter: No History of Decub. Ulcer: No History Surgical Site Infection Following: None - Disposition Have Diagnosis and Disposition been Completed?: Yes Diagnosis: Sepsis, Urinary tract infection Disposition: HOSPITALIZED Disposition Time: 03:00 Condition: FAIR
[2017-06-02] MEDS ORDERED: Vancomycin 1gm in NS 250ml 1 GM/250 ML BAG IVPB STA (00:38)
[2017-06-02 01:34] LABS: URINE BILIRUBIN NEGATIVE (NEGATIVE); URINE BLOOD MODERATE (NEGATIVE); URINE GLUCOSE (UA) NEGATIVE (NEGATIVE); URINE KETONE TRACE mg/dL (NEGATIVE); URINE LEUKOCYTE ESTERASE MODERATE Leu/uL (NEGATIVE); URINE PROTEIN 30 mg/dL (<30 mg/dL); URINE UROBILINOGEN 0.2 E.U./dL (<1 E.U./dL)
[2017-06-02 01:35] LABS: URINE APPEARANCE SL CLOUDY (CLEAR); URINE COLOR YELLOW (YELLOW)
[2017-06-02 01:56] LABS: URINE BACTERIA MANY (NEG); URINE RBC 0 - 2 /hpf (0-2); URINE WBC TNTC /hpf (0-6)
[2017-06-02 01:56] LABS: VENOUS BLOOD GAS BASE EXCESS -2.6 mmol/L (0.0-2.0); VENOUS BLOOD PH 7.39 (7.32-7.43)
[2017-06-02] MEDS ORDERED: POLYETHYLENE GLYCOL 3350 17 GM/Dose PACKET PO PRN (03:19)
[2017-06-02] MEDS ORDERED: Albuterol-Ipratrop 3 mg / 0.5 (3 ml) UD IH PRN (03:19)
--- NOTE | 2017-06-02 03:46 | PCM.SEPTIC ---
Sepsis Progress Note - Reassessment Type Date of Evaluation: 06/02/17 Time of Evaluation: 02:25 Reassessment Type: Non-invasive reassessment - Non Invasive Reassessment Were the most recent vital sign reviewed: Yes Vital Sign (Latest): Temp Pulse Resp BP Pulse Ox 101.8 F H 71 16 102/58 L 92 L 06/01/17 21:14 06/02/17 00:42 06/02/17 00:42 06/02/17 00:42 06/02/17 00:42 Cardiovascular: Yes: Edema (trace peripheral edema), Irregularly Irregular. No : JVD, Tachycardia Respiratory: Yes: Rales (bibasilar and middle lung trujillo). No: Accessory Muscle Use, Rhonchi, Stridor, Wheezing, Respiratory Distress Capillary Refill: Normal (Less than 2 sec) Pulses: Normal Radial, Normal Dorsalis Pedis, Normal Posterior Tibialis Skin: Warm, Dry <Earlene Bradley - Last Filed: 06/02/17 03:44> - Non Invasive Reassessment Vital Sign (Latest): Temp Pulse Resp BP Pulse Ox 98.8 F 60 18 117/73 95 06/02/17 08:45 06/02/17 08:45 06/02/17 08:45 06/02/17 08:45 06/02/17 08:45 <eJssenia Dougherty - Last Filed: 06/02/17 08:53> Attending/Attestation - Attestation I have personally seen and examined this patient.: Yes I have fully participated in the care of the patient.: Yes I have reviewed all pertinent clinical information, including history, physical exam and plan: Yes Notes (Text): 06/02/17 08:52 Agree with documentation <Jessenia Dougherty - Last Filed: 06/02/17 08:53>
--- NOTE | 2017-06-02 03:51 | CP.PCM.HP ---
<Earlene Bradley - Last Filed: 06/02/17 03:46> History of Present Illness - History of Present Illness History of Present Illness: Yolandaniecy Mirna REYNOLDS PGY1 - Internal Medicine H&P CC: Fever and lethargy HPI: 87 y/o F with PMH of AFib on coumadin, CHF with EF of 63%, COPD, urinary incontinence, AAA and thoracic aortic aneurysm, multiple UTIs, GI bleed, DVT, and dementia presents with daughter after she was found to have fever at home, Tmax 102. Patient is accompanied by her daughter who provides the history as patient has hx of Dementia. Daughter also reports that the patient was lethargic, and confused compared to her baseline mental status; this being the first time she has ever forgotten the daughter's name. Patient and daughter deny any recent complaints of dysuria, hematuria, abdominal pain, nausea, vomiting diarrhea, chest pain, chills, otalgia, otorrhea, sore throat, new rash/ skin lesions. She does report a cough, which patient has had chronically 2/2 postnasal drip, nonproductive. Remainder of 12 point ROS was negative. Of note, patient has been admitted several times in the past for Urosepsis. PMH: AFib,, CHF, COPD, urinary incontinence, AAA and thoracic aortic aneurysm, multiple UTIs, GI bleed, DVT, and dementia PSH: Abdominal hernia repair, Left Hip Social Hx: Denied tobacco/etoh/illicit drug abuse. Lives with daughter. Difficulty ambulating, requires wheelchair or walker FMH: Noncontributory Meds: Reviewed, as per [facility] Allergies: NKDA PMD: Dr. Kohler Present on Admission - Present on Admission Any Indicators Present on Admission: No Past Patient History - Infectious Disease Hx of Infectious Diseases: None - Tetanus Immunizations Tetanus Immunization: Unknown - Past Medical History & Family History Past Medical History?: Yes - Past Social History Smoking Status: Former Smoker - CARDIAC Hx Cardiac Disorders: Yes Hx Congestive Heart Failure: Yes Hx Hypertension: Yes - PULMONARY Hx Chronic Obstructive Pulmonary Disease (COPD): Yes Hx Pneumonia: Yes - NEUROLOGICAL HX Cerebrovascular Accident: No - HEENT Hx HEENT Problems: No - RENAL Hx Renal Failure: No - ENDOCRINE/METABOLIC Hx Diabetes Mellitus Type 1: No Hx Diabetes Mellitus Type 2: No Hx Hypothyroidism: No - HEMATOLOGICAL/ONCOLOGICAL Hx Cancer: No - INTEGUMENTARY Hx Dermatological Problems: Yes Other/Comment: L LEG LESION - MUSCULOSKELETAL/RHEUMATOLOGICAL Hx Arthritis: No Hx Rheumatoid Arthritis: No - GASTROINTESTINAL Hx Gastroesophageal Reflux: No - GENITOURINARY/GYNECOLOGICAL Hx Genitourinary Disorders: Yes Hx Incontinence: Yes Hx Urinary Tract Infection: Yes - PSYCHIATRIC Hx Psychophysiologic Disorder: No Hx Emotional Abuse: No Hx Physical Abuse: No Hx Substance Use: No - SURGICAL HISTORY Hx Orthopedic Surgery: Yes (L HIP) Other/Comment: ABD HERNIA REPAIR - ANESTHESIA Hx Anesthesia: Yes Hx Anesthesia Reactions: No Hx Malignant Hyperthermia: No Meds Allergies/Adverse Reactions: Allergies Allergy/AdvReac Type Severity Reaction Status Date / Time No Known Allergies Allergy Verified 03/04/17 14:45 Physical Exam - Constitutional Appears: Non-toxic, No Acute Distress, Confused (consistent with baseline dementia per daughter) - Head Exam Head Exam: ATRAUMATIC, NORMOCEPHALIC - Eye Exam Eye Exam: EOMI, Normal appearance, PERRL. absent: Periorbital swelling - ENT Exam ENT Exam: Mucous Membranes Moist, Normal External Ear Exam, Normal Oropharynx - Neck Exam Neck exam: Positive for: Normal Inspection. Negative for: Lymphadenopathy - Respiratory Exam Respiratory Exam: Rales (bilateral lower and middle lung trujillo), NORMAL BREATHING PATTERN. absent: Rhonchi, Wheezes, Respiratory Distress, Stridor - Cardiovascular Exam Cardiovascular Exam: Irregular Rhythm, +S1, +S2 - GI/Abdominal Exam GI & Abdominal Exam: Normal Bowel Sounds, Soft. absent: Distended, Firm, Guarding, Organomegaly, Rebound, Rigid, Tenderness - Extremities Exam Extremities exam: Positive for: pedal edema (trace, bilateral, to mid shins). Negative for: calf tenderness - Neurological Exam Neurological exam: Alert Additional comments: Patient oriented to person, somewhat to place, not at all oriented to time - Psychiatric Exam Psychiatric exam: Normal Affect, Normal Mood - Skin Skin Exam: Dry, Intact, Normal Color, Warm Results - Vital Signs Recent Vital Signs: Last Vital Signs Temp 101.8 F H 06/01/17 21:14 Pulse 71 06/02/17 00:42 Resp 16 06/02/17 00:42 BP 102/58 L 06/02/17 00:42 Pulse Ox 92 L 06/02/17 00:42 - Labs Result Diagrams: 06/01/17 21:50 06/01/17 21:50 Assessment & Plan - Assessment and Plan (Free Text) Assessment: 87 y/o F with PMH of AFib on coumadin, CHF with EF of 63%, COPD, urinary incontinence, AAA and thoracic aortic aneurysm, multiple UTIs, GI bleed, DVT, and dementia presents with severe sepsis with unknown source of infection. Patient has been admitted with sepsis secondary to UTI multiple times in the past. Code sepsis called in ER for elevated lactate, relative hypotension, leukocytosis, and tachycardia. Received initial resuscitation in the ER. Patient is DNR/DNI, which was reviewed with the daughter, who confirmed code status, with the addition that placing a central line/arterial line for pressor support and monitoring is acceptable. 1. Severe Sepsis - Code sepsis called in ER. Patient received 3L crystalloids, 4th L infusing now (approximately 60ml/kg) - Likely 2/2 UTI (UA significant for nitrites, LE, bacteria, and WBC) vs CAP ( LLL opacity on CXR) - Continue IVF; maintenance at 80cc/hr; monitor respiratory status frequently - Patient received Vanc and Cefepime in the ER; continue Vanc and Cefepime for broad spectrum coverage - Procal ordered - Blood and urine cultures ordered, pending - ID consult requested, apprecaite recs 2. Afib - Rate controlled - Continue home medication - Monitor INR daily 3. h/o CHF - Patient reportedly has a history of CHF (preserved ejection fraction) and takes aldactone at home. - Hold all antihypertensive medications in setting of sepsis/shock - Monitor fluid status closely, especially respiratory status - HOB>30, daily weights, strict I&O 4. COPD - Will continue home medication breathing treatments - Monitor respiratory status - Consider O2 nasal cannula 5. Dementia - Will continue home medications GI/DVT Ppx - Protonix; Patient is therapeutic on coumadin, added SCDs Patient seen, discussed, and reviewed with attending <Jessenia Dougherty - Last Filed: 06/02/17 08:56> Results - Vital Signs Recent Vital Signs: Last Vital Signs Temp 98.8 F 06/02/17 08:45 Pulse 60 06/02/17 08:45 Resp 18 06/02/17 08:45 BP 117/73 06/02/17 08:45 Pulse Ox 95 06/02/17 08:45 - Labs Result Diagrams: 06/02/17 07:30 06/02/17 07:30 Labs: Laboratory Results - last 24 hr 06/02/17 06/02/17 07:30 07:30 WBC 9.3 D RBC 4.14 Hgb 10.3 L D Hct 33.7 L MCV 81.4 MCH 24.9 L MCHC 30.6 L RDW 18.2 H Plt Count 215 MPV 9.1 Gran % 78.3 H Lymph % (Auto) 12.5 L [place] % (Auto) 7.1 H Eos % (Auto) 1.8 Baso % (Auto) 0.3 Gran # 7.29 H Lymph # 1.2 [place] # 0.7 H Eos # 0.2 Baso # 0.03 Sodium 142 Potassium 3.9 Chloride 107 Carbon Dioxide 28 Anion Gap 11 BUN 12 Creatinine 0.8 Est GFR ( Amer) > 60 Est GFR (Non-Af Amer) > 60 Random Glucose 111 H Calcium 9.3 Phosphorus 2.3 L Magnesium 1.6 L Total Bilirubin 0.6 AST 17 ALT 18 Alkaline Phosphatase 66 Total Protein 5.7 L Albumin 2.9 L Globulin 2.8 Albumin/Globulin Ratio 1.0 L Attending/Attestation - Attestation I have personally seen and examined this patient.: Yes I have fully participated in the care of the patient.: Yes I have reviewed all pertinent clinical information: Yes Notes (Text): 06/02/17 08:55 Agree with documentation and orders placed.
[2017-06-02] MEDS: Pantoprazole 40 mg EC Tab PO SCH (06:50)
[2017-06-02 07:41] LABS: BASO # 0.03 K/mm3 (0.0-2.0); BASO % 0.3 % (0.0-3.0); EOS # 0.2 (0.0-0.7); EOS % 1.8 % (1.5-5.0); GRAN # 7.29 (1.4-6.5); GRAN % 78.3 % (50.0-68.0); HEMATOCRIT 33.7 % (36.0-48.0); LYMPH # 1.2 (1.2-3.4); LYMPH % 12.5 % (22.0-35.0); MEAN CELL VOLUME 81.4 fl (80.0-105.0); MEAN CORPUSCULAR HEMOGLOBIN 24.9 pg (25.0-35.0); MEAN CORPUSCULAR HGB CONC 30.6 g/dl (31.0-37.0); MEAN PLATELET VOLUME 9.1 fl (7.0-11.0); MONO # 0.7 (0.1-0.6); MONO % 7.1 % (1.0-6.0); RED CELL DISTRIBUTION WIDTH 18.2 % (11.5-14.5); WHITE BLOOD COUNT 9.3 10^3/ul (4.5-11.0)
[2017-06-02 08:07] LABS: ALKALINE PHOSPHATASE 66 U/L (38-126); ALT/SGPT 18 U/L (7-56); AST/SGOT 17 U/L (14-36); BILIRUBIN,TOTAL 0.6 mg/dL (0.2-1.3); BLOOD UREA NITROGEN 12 mg/dL (7-21); CALCIUM 9.3 mg/dL (8.4-10.5); CARBON DIOXIDE 28 mmol/L (21-33); CHLORIDE 107 mmol/L (98-107); GFR AFRICAN-AMERICAN > 60; GLUCOSE,RANDOM 111 mg/dL (70-110); MAGNESIUM 1.6 mg/dL (1.7-2.2); PHOSPHOROUS 2.3 mg/dL (2.5-4.5); POTASSIUM 3.9 mmol/L (3.6-5.0); SODIUM 142 mmol/L (132-148); TOTAL PROTEIN 5.7 g/dL (5.8-8.3)
--- NOTE | 2017-06-02 08:35 | RAD ---
HISTORY: Sepsis Patient COMPARISON: 04/24/2017 FINDINGS: LUNGS: No active pulmonary disease. PLEURA: No significant pleural effusion identified, no pneumothorax apparent. CARDIOVASCULAR: Cardiomegaly. No evidence of acute, significant cardiovascular disease. Tortuous and aneurysmal descending aorta. OSSEOUS STRUCTURES: No significant abnormalities. VISUALIZED UPPER ABDOMEN: Normal. OTHER FINDINGS: None. IMPRESSION: No active disease. No significant interval change compared to the prior examination(s).
[2017-06-02] MEDS ORDERED: Magnesium Sulfate 1 gm in D5W 1 GM/100 ML BAG IVPB ONE (09:52)
[2017-06-02] MEDS: Cefepime IV 2 gm in NS 2 GM/100 ML BAG IVPB SCH (10:14)
--- NOTE | 2017-06-02 10:21 | CARD ---
APPROVED REPORT EKG Measurement Heart [id number] ID [id number] <Conclusion> Sinus rhythm with 1st degree AV block Right bundle branch block Left anterior fascicular block Bifascicular block Moderate voltage criteria for LVH, may be normal variant Cannot rule out Septal infarct, age undetermined Abnormal ECG
[2017-06-02] MEDS: Sodium Chloride 0.9% 1,000 ML IV SCH ×2 (11:16→13:32)
[2017-06-02] MEDS: Vancomycin 1gm in NS 250ml 1 GM/250 ML BAG IVPB SCH ×2 (11:40→22:05)
[2017-06-02] MEDS ORDERED: Pneumococcal 23-Valent Vaccine IM ONE (14:26)
[2017-06-02] MEDS ORDERED: Influenza Vaccine 60 mcg/0.5 mL SYR (4YR UP) IM ONE (14:26)
[2017-06-02] MEDS: Digoxin 125 mcg (0.125 mg) Tab PO SCH (15:36)
--- NOTE | 2017-06-03 03:30 | CON ---
DATE: 06/02/2017 LOCATION: The patient is seen in the emergency room early this morning. The patient's daughter who is at the bedside gave us information and history. CHIEF COMPLAINT: Weakness times several days. HISTORY OF PRESENT ILLNESS: This is an 87-year-old female, known to me from previous admissions who has no known drug allergies and her past medical history is significant for atrial fibrillation, chronic obstructive lung disease, congestive heart failure, dementia, abdominal aortic aneurysm, multiple urinary tract infections, history of GI bleed, history of DVT, history of right hip fracture, history of left healthcare associated pneumonia, and history of kidney stones who was last seen in [facility] in 02/2017 and was seen in the emergency room by Dr. Toni Smith. The patient states that she has low-grade fevers and lethargy as per the patient's daughter. No abdominal pain, no diarrhea, or constipation. PAST MEDICAL HISTORY: Significant for atrial fibrillation, chronic obstructive lung disease, congestive heart failure, DVT, dementia, abdominal aortic aneurysm, multiple urinary tract infections, GI bleed, right hip surgery, left healthcare associated pneumonia, kidney stones. PAST SURGICAL HISTORY: Significant for melanoma removed and orthopedic surgery. PHYSICAL EXAMINATION: GENERAL: The patient is in bed. Answering questions appropriately. VITAL SIGNS: Temperature of 101.8, heart rate was up to 102, respiratory rate of 20, blood pressure of 98 was down 88/60 and as low as 86/60. HEENT: Unremarkable. NECK: Supple. LUNGS: Have decreased breath sounds. HEART: Normal S1 and S2. ABDOMEN: Soft and nontender. No rebound or guarding. LABORATORY DATA: Laboratory examination reveals a white count of 13,400, hemoglobin of 12, BUN of 15, creatinine of 0.8. Procalcitonin is elevated at 2.42. Urinalysis shows too numerous to count, and microbiology is pending. The patient also had a chest x-ray which revealed to show no active disease. ASSESSMENT AND PLAN: This is an 87-year-old female with atrial fibrillation, chronic obstructive lung disease, hypertension, congestive heart failure, dementia, abdominal aortic aneurysm, urinary tract infection, now presents with fever of 101.8, tachycardia, positive urinalysis and hypotension, which responded to fluids with number 1 is severe sepsis secondary to urine as the source. Review of all the patient's old urine cultures revealed the patient has had E. Coli in the urine which is pansensitive in the past, and we will treat the patient with cefepime as ordered by and the patient was ordered vancomycin. We will follow closely with you. Pending blood and urine cultures. Case discussed with the patient's daughter at length. We will follow. Meet Barnett MD
[2017-06-03] MEDS: Sodium Chloride 0.9% 1,000 ML IV SCH ×2 (05:23→21:21)
[2017-06-03] MEDS: Pantoprazole 40 mg EC Tab PO SCH (05:23)
[2017-06-03 08:23] LABS: BASO # 0.04 K/mm3 (0.0-2.0); BASO % 0.6 % (0.0-3.0); EOS # 0.2 (0.0-0.7); EOS % 2.8 % (1.5-5.0); GRAN # 4.12 (1.4-6.5); GRAN % 66.8 % (50.0-68.0); HEMATOCRIT 32.2 % (36.0-48.0); LYMPH # 1.1 (1.2-3.4); MEAN CELL VOLUME 81.5 fl (80.0-105.0); MEAN CORPUSCULAR HEMOGLOBIN 25.3 pg (25.0-35.0); MEAN CORPUSCULAR HGB CONC 31.1 g/dl (31.0-37.0); MEAN PLATELET VOLUME 9.6 fl (7.0-11.0); MONO # 0.7 (0.1-0.6); MONO % 11.8 % (1.0-6.0); RED CELL DISTRIBUTION WIDTH 18.2 % (11.5-14.5); WHITE BLOOD COUNT 6.2 10^3/ul (4.5-11.0)
[2017-06-03 08:50] LABS: INR 1.84 (0.93-1.08)
[2017-06-03 08:59] LABS: ALKALINE PHOSPHATASE 61 U/L (38-126); ALT/SGPT 21 U/L (7-56); AST/SGOT 19 U/L (14-36); BILIRUBIN,TOTAL 0.5 mg/dL (0.2-1.3); BLOOD UREA NITROGEN 7 mg/dL (7-21); CALCIUM 9.2 mg/dL (8.4-10.5); CARBON DIOXIDE 26 mmol/L (21-33); CHLORIDE 110 mmol/L (98-107); GFR AFRICAN-AMERICAN > 60; GLUCOSE,RANDOM 104 mg/dL (70-110); POTASSIUM 3.7 mmol/L (3.6-5.0); SODIUM 142 mmol/L (132-148); TOTAL PROTEIN 5.8 g/dL (5.8-8.3)
[2017-06-03] MEDS: Cefepime IV 2 gm in NS 2 GM/100 ML BAG IVPB SCH (10:03)
[2017-06-03] MEDS: Vancomycin 1gm in NS 250ml 1 GM/250 ML BAG IVPB SCH ×2 (11:03→21:25)
[2017-06-03] MEDS ORDERED: Albuterol-Ipratrop 3 mg / 0.5 (3 ml) UD IH STA (11:58)
[2017-06-03] MEDS: Digoxin 125 mcg (0.125 mg) Tab PO SCH (13:05)
--- NOTE | 2017-06-03 17:31 | CP.PCM.PN ---
Subjective - Date & Time of Evaluation Date of Evaluation: 06/03/17 Time of Evaluation: 10:00 - Subjective Subjective: Patient seen and examined at bedside in no acute distress. Patient states upon awakening she had experienced some shortness of breath and ruq abdominal pain. When reassessed an hour later patient states these symptoms had resolved. Patient currently denies shortness of breath, chest pain, nausea, vomiting, diarrhea, suprapubic pain. Objective - Vital Signs/Intake and Output Vital Signs (last 24 hours): Temp Pulse Resp BP Pulse Ox 98.3 F 64 20 102/58 L 95 06/03/17 12:00 06/03/17 12:00 06/03/17 12:00 06/03/17 12:00 06/03/17 06:00 Intake and Output: 06/03/17 06/03/17 06:59 18:59 Intake Total 120 360 Output Total 1300 800 Balance -1180 -440 - Medications Medications: Current Medications Acetaminophen (Tylenol 650 Mg Supp) 650 mg RC Q4H PRN PRN Reason: Fever >100.4 F Albuterol/Ipratropium (Duoneb 3 Mg/0.5 Mg (3 Ml) Ud) 3 ml IH Q6H PRN PRN Reason: Shortness of Breath Digoxin (Lanoxin) 0.125 mg PO 1400 [facility] Last Admin: 06/03/17 13:05 Dose: Not Given Docusate Sodium (Colace) 100 mg PO BID [facility] Last Admin: 06/03/17 10:03 Dose: 100 mg Donepezil HCl (Aricept) 10 mg PO DAILY [facility] Last Admin: 06/03/17 10:03 Dose: 10 mg Sodium Chloride (Sodium Chloride 0.9%) 1,000 mls @ 80 mls/hr IV .[id number] [facility] Last Admin: 06/03/17 05:23 Dose: 80 mls/hr Cefepime HCl (Maxipime 2gm) 2 gm in 100 mls @ 100 mls/hr IVPB Q24H ERINN PRN Reason: Protocol Stop: 06/07/17 10:01 Last Admin: 06/03/17 10:03 Dose: 100 mls/hr Vancomycin HCl (Vancomycin 1gm) 1 gm in 250 mls @ 167 mls/hr IVPB Q12H ERINN PRN Reason: Protocol Last Admin: 06/03/17 11:03 Dose: 167 mls/hr Pantoprazole Sodium (Protonix Ec Tab) 40 mg PO 0600 [facility] Last Admin: 06/03/17 05:23 Dose: 40 mg Polyethylene Glycol (Miralax) 17 gm PO DAILY PRN PRN Reason: Constipation Quetiapine Fumarate (Seroquel) 50 mg PO HS ERINN PRN Reason: Protocol Last Admin: 06/02/17 22:05 Dose: 50 mg Warfarin Sodium (Coumadin) 2 mg PO HS ERINN PRN Reason: Protocol Last Admin: 06/02/17 22:05 Dose: 2 mg - Labs Labs: 06/03/17 08:00 06/03/17 08:00 PT 20.5 SECONDS (9.4-12.5) H 06/03/17 08:00 INR 1.84 (0.93-1.08) H 06/03/17 08:00 APTT 31.9 Seconds (25.1-36.5) 06/01/17 21:50 - Constitutional Appears: Non-toxic, No Acute Distress - Head Exam Head Exam: ATRAUMATIC, NORMAL INSPECTION, NORMOCEPHALIC - Eye Exam Eye Exam: EOMI, Normal appearance - ENT Exam ENT Exam: Mucous Membranes Moist, Normal Exam - Neck Exam Neck Exam: Full ROM, Normal Inspection - Respiratory Exam Respiratory Exam: Clear to Ausculation Bilateral, NORMAL BREATHING PATTERN. absent: Wheezes - Cardiovascular Exam Cardiovascular Exam: REGULAR RHYTHM, +S1, +S2 - GI/Abdominal Exam GI & Abdominal Exam: Soft, Tenderness (ruq), Normal Bowel Sounds - Extremities Exam Extremities Exam: Normal Inspection - Neurological Exam Neurological Exam: Alert, Awake, Oriented x3 - Psychiatric Exam Psychiatric exam: Normal Affect, Normal Mood - Skin Skin Exam: Diaphoretic, Intact, Normal Color, Warm Assessment and Plan - Assessment and Plan (Free Text) Assessment: 87 y/o F with PMH of AFib on coumadin, CHF with EF of 63%, COPD, urinary incontinence, AAA and thoracic aortic aneurysm, multiple UTIs, GI bleed, DVT, and dementia who presented with altered mental status due to severe sepsis secondary to UTI. Plan: 1. Severe Sepsis - Code sepsis called in ER. Patient received 4L crystalloids - Likely 2/2 UTI (UA significant for nitrites, LE, bacteria, and WBC) vs CAP ( LLL opacity on CXR) - Continue IVF; maintenance at 80cc/hr; monitor respiratory status frequently - Patient received Vanc and Cefepime in the ER; continue Vanc and Cefepime for broad spectrum coverage - Procal; 2.42 - Blood and urine cultures ordered, pending - ID on board 2. Atrial fibrillation - Rate controlled - Continue home medication - INR subtherapeutic; will bridge with lovenox, administer 4mg of warfarin tonight instead of 2 mg, repeat INR in morning and reassess 3. h/o CHF - Patient reportedly has a history of CHF (preserved ejection fraction) and takes aldactone at home. - Monitor fluid status closely, especially respiratory status - HOB>30, daily weights, strict I&O 4. COPD - Will continue home medication breathing treatments - Monitor respiratory status - STAT Duoneb given today due to episode of dypsnea, conitnue to monitor patient 's breathing status 5. Dementia - Will continue home medications GI/DVT Ppx - Protonix; Patient currently on coumadin and lovenox, added SCDs Patient seen, discussed, and reviewed with attending
[2017-06-03] MEDS: Enoxaparin 80 mg Syringe SC STA ×2 (17:36→17:41)
--- NOTE | 2017-06-03 21:56 | PN ---
DATE: 06/03/2017 SUBJECTIVE: The patient is in bed in no acute distress, nontoxic. PHYSICAL EXAMINATION: VITAL SIGNS: Temperature is 98, blood pressure is 102/50, respiratory rate of 20. HEENT: Examination of HEENT is unremarkable. NECK: Supple. LUNGS: Have decreased breath sounds. HEART: Normal S1, S2. ABDOMEN: Soft, nontender. LABORATORY EXAMINATION: Reveals a white count of 6.2, hemoglobin of 10, platelets of 207. Coagulation is noted. BUN of 7, creatinine of 0.7. Procalcitonin is 2.42. Wbc's in the urinalysis is noted. Microbiology reveals the blood cultures no growth, 24 hours. The urine culture is pending. Review of orders revealed the patient to be on cefepime, IV vancomycin. Chest x-ray is noted, no active disease. ASSESSMENT/PLAN: An 87-year-old female with atrial fibrillation, chronic short-term lung disease, congestive heart failure, dementia, abdominal aortic aneurysm, GI bleed, history of DVT, history of right hip fracture, history of left healthcare-associated pneumonia,, history of kidney stones with severe sepsis with urine as the source. Continue the present course pending urine culture, and we will follow with you. eMet Barnett MD
[2017-06-04] MEDS: Pantoprazole 40 mg EC Tab PO SCH (05:14)
--- NOTE | 2017-06-04 05:44 | CP.PCM.PN ---
Subjective - Date & Time of Evaluation Date of Evaluation: 06/04/17 Time of Evaluation: 06:45 - Subjective Subjective: Patient seen and examined at bedside in no acute distress. States shortness of breath and abdominal pain from yesterday has resolved. Denies dysuria, abdominal pain, dizziness, weakness, chest pain, shortness of breath, headache, fever, chills, cough. Objective - Vital Signs/Intake and Output Vital Signs (last 24 hours): Temp Pulse Resp BP Pulse Ox 97.8 F 61 18 107/53 L 97 06/03/17 16:00 06/03/17 16:00 06/03/17 16:00 06/03/17 16:00 06/03/17 16:00 Intake and Output: 06/03/17 06/04/17 18:59 06:59 Intake Total 360 Output Total 800 Balance -440 - Medications Medications: Current Medications Acetaminophen (Tylenol 650 Mg Supp) 650 mg RC Q4H PRN PRN Reason: Fever >100.4 F Albuterol/Ipratropium (Duoneb 3 Mg/0.5 Mg (3 Ml) Ud) 3 ml IH Q6H PRN PRN Reason: Shortness of Breath Digoxin (Lanoxin) 0.125 mg PO 1400 [facility] Last Admin: 06/03/17 13:05 Dose: Not Given Docusate Sodium (Colace) 100 mg PO BID [facility] Last Admin: 06/03/17 17:50 Dose: 100 mg Donepezil HCl (Aricept) 10 mg PO DAILY [facility] Last Admin: 06/03/17 10:03 Dose: 10 mg Sodium Chloride (Sodium Chloride 0.9%) 1,000 mls @ 80 mls/hr IV .[id number] [facility] Last Admin: 06/03/17 21:21 Dose: 80 mls/hr Cefepime HCl (Maxipime 2gm) 2 gm in 100 mls @ 100 mls/hr IVPB Q24H ERINN PRN Reason: Protocol Stop: 06/07/17 10:01 Last Admin: 06/03/17 10:03 Dose: 100 mls/hr Vancomycin HCl (Vancomycin 1gm) 1 gm in 250 mls @ 167 mls/hr IVPB Q12H ERINN PRN Reason: Protocol Last Admin: 06/03/17 21:25 Dose: 167 mls/hr Pantoprazole Sodium (Protonix Ec Tab) 40 mg PO 0600 [facility] Last Admin: 06/04/17 05:14 Dose: 40 mg Polyethylene Glycol (Miralax) 17 gm PO DAILY PRN PRN Reason: Constipation Quetiapine Fumarate (Seroquel) 50 mg PO HS [facility] PRN Reason: Protocol Last Admin: 06/03/17 21:19 Dose: 50 mg Warfarin Sodium (Coumadin) 2 mg PO HS [facility] PRN Reason: Protocol - Labs Labs: 06/03/17 08:00 06/03/17 08:00 PT 20.5 SECONDS (9.4-12.5) H 06/03/17 08:00 INR 1.84 (0.93-1.08) H 06/03/17 08:00 APTT 31.9 Seconds (25.1-36.5) 06/01/17 21:50 - Constitutional Appears: Non-toxic, No Acute Distress - Head Exam Head Exam: ATRAUMATIC, NORMAL INSPECTION, NORMOCEPHALIC - Eye Exam Eye Exam: EOMI, Normal appearance - ENT Exam ENT Exam: Mucous Membranes Moist - Respiratory Exam Respiratory Exam: Clear to Ausculation Bilateral, NORMAL BREATHING PATTERN. absent: Wheezes - Cardiovascular Exam Cardiovascular Exam: REGULAR RHYTHM, +S1, +S2 - GI/Abdominal Exam GI & Abdominal Exam: Soft, Normal Bowel Sounds - Back Exam Back Exam: NORMAL INSPECTION - Neurological Exam Neurological Exam: Alert, Awake, Oriented x3 - Psychiatric Exam Psychiatric exam: Normal Affect, Normal Mood - Skin Skin Exam: Normal Color, Warm Assessment and Plan - Assessment and Plan (Free Text) Assessment: 87 y/o F with PMH of AFib on coumadin, CHF with EF of 63%, COPD, urinary incontinence, AAA and thoracic aortic aneurysm, multiple UTIs, GI bleed, DVT, and dementia who presented with altered mental status due to severe sepsis secondary to UTI. Plan: 1. Severe Sepsis - Code sepsis called in ER. Patient received 4L crystalloids - Likely 2/2 UTI (UA significant for nitrites, LE, bacteria, and WBC) - Continue IVF; maintenance at 80cc/hr; monitor respiratory status frequently - Patient received Vanc and Cefepime in the ER; continue Vanc and Cefepime for broad spectrum coverage - Procal; 2.42, procal reordered now 0.46 - Blood cultures ordered; no growth after 48 hours - Urine cultures ordered, preliminary results yield klebsiella - ID on board 2. Atrial fibrillation - Rate controlled - Continue home medication - INR remains subtherapeutic; went from 1.84 to 1.85 will continue to bridge with lovenox, administer 6mg instead of 4 of warfarin tonight , repeat INR in morning and reassess 3. h/o CHF - Patient reportedly has a history of CHF (preserved ejection fraction) and takes aldactone at home. - Monitor fluid status closely, especially respiratory status - HOB>30, daily weights, strict I&O 4. COPD - Will continue home medication breathing treatments - Monitor respiratory status - STAT Duoneb given yesterday due to episode of dyspnea, has improved 5. Dementia - Will continue home medications GI/DVT Ppx - Protonix; Patient currently on coumadin and lovenox, added SCDs Patient seen, discussed, and reviewed with attending
[2017-06-04 06:12] LABS: BASO # 0.04 K/mm3 (0.0-2.0); BASO % 0.6 % (0.0-3.0); EOS # 0.2 (0.0-0.7); EOS % 3.8 % (1.5-5.0); GRAN # 4.02 (1.4-6.5); HEMATOCRIT 31.8 % (36.0-48.0); LYMPH # 1.3 (1.2-3.4); LYMPH % 21.1 % (22.0-35.0); MEAN CELL VOLUME 82.4 fl (80.0-105.0); MEAN CORPUSCULAR HEMOGLOBIN 25.1 pg (25.0-35.0); MEAN CORPUSCULAR HGB CONC 30.5 g/dl (31.0-37.0); MEAN PLATELET VOLUME 9.6 fl (7.0-11.0); MONO # 0.7 (0.1-0.6); MONO % 10.5 % (1.0-6.0); RED CELL DISTRIBUTION WIDTH 18.4 % (11.5-14.5); WHITE BLOOD COUNT 6.3 10^3/ul (4.5-11.0)
[2017-06-04 06:34] LABS: INR 1.85 (0.93-1.08); PARTIAL THROMBOPLASTIN TIME 33.6 Seconds (25.1-36.5)
[2017-06-04 08:02] LABS: ALKALINE PHOSPHATASE 62 U/L (38-126); ALT/SGPT 21 U/L (7-56); AST/SGOT 13 U/L (14-36); BILIRUBIN,TOTAL 0.3 mg/dL (0.2-1.3); BLOOD UREA NITROGEN 8 mg/dL (7-21); CALCIUM 8.9 mg/dL (8.4-10.5); CARBON DIOXIDE 24 mmol/L (21-33); CHLORIDE 111 mmol/L (98-107); GFR AFRICAN-AMERICAN > 60; GLUCOSE,RANDOM 103 mg/dL (70-110); POTASSIUM 3.7 mmol/L (3.6-5.0); SODIUM 142 mmol/L (132-148); TOTAL PROTEIN 5.6 g/dL (5.8-8.3)
[2017-06-04] MEDS: Enoxaparin 80 mg Syringe SC SCH ×2 (09:30→21:50)
[2017-06-04] MEDS: Cefepime IV 2 gm in NS 2 GM/100 ML BAG IVPB SCH (09:37)
[2017-06-04] MEDS: Vancomycin 1gm in NS 250ml 1 GM/250 ML BAG IVPB SCH ×2 (09:38→21:53)
--- NOTE | 2017-06-04 09:38 | US ---
HISTORY: ruq pain COMPARISON: None. TECHNIQUE: Sonographic evaluation of the abdomen. FINDINGS: LIVER: Enlarged, measuring 18.6 cm. Normal echogenicity of the liver parenchyma. No mass. No intrahepatic bile duct dilatation. GALLBLADDER: Cholelithiasis without gallbladder wall thickening/ edema or pericholecystic fluid. Sonographic Mcpherson sign was not elicited. COMMON BILE DUCT: Measures 6 mm. No stones. No dilatation. PANCREAS: Unremarkable as visualized. No mass. No ductal dilatation. RIGHT KIDNEY: Measures 11.6 x 4.4 x 5.0cm. Normal echogenicity. No calculus, mass, or hydronephrosis. Midpole cyst measuring 2.5 x 2.2 x 2.2 centimeter. LEFT KIDNEY: Measures 11.1 x 5.6 x 5.2cm. Normal echogenicity. No calculus, mass, or hydronephrosis. SPLEEN: Normal in size and contour. No mass. AORTA: No aneurysmal dilatation. IVC: Unremarkable. OTHER FINDINGS: None. IMPRESSION: Hepatomegaly. Cholelithiasis without sonographic evidence of acute cholecystitis. Right renal cyst.
[2017-06-04] MEDS: Sodium Chloride 0.9% 1,000 ML IV SCH (14:20)
[2017-06-04] MEDS: Digoxin 125 mcg (0.125 mg) Tab PO SCH (14:20)
[2017-06-05] MEDS: Sodium Chloride 0.9% 1,000 ML IV SCH ×2 (02:00→17:57)
[2017-06-05] MEDS: Pantoprazole 40 mg EC Tab PO SCH (05:27)
[2017-06-05 08:43] VITALS: RESP 20
[2017-06-05] MEDS: Enoxaparin 80 mg Syringe SC SCH ×2 (10:46→21:37)
[2017-06-05] MEDS: Vancomycin 1gm in NS 250ml 1 GM/250 ML BAG IVPB SCH ×2 (14:36→21:38)
[2017-06-05] MEDS: Digoxin 125 mcg (0.125 mg) Tab PO SCH (14:38)
[2017-06-05 14:42] VITALS: PULSE 76
--- NOTE | 2017-06-05 14:55 | PN ---
DATE: 06/05/2017 SUBJECTIVE: The patient is in bed in no acute distress, nontoxic. She is awake and alert. Her dysuria is improving. PHYSICAL EXAMINATION: VITAL SIGNS: Temperature is 98, blood pressure is 120/70, and respiratory of 20. HEENT: Unremarkable. NECK: Supple. LUNGS: Have decreased breath sounds. HEART: Normal S1 and S2. ABDOMEN: Soft and nontender. LABORATORY EXAMINATION: Reveals the patient has Klebsiella pneumonia in the urine. Resistant pattern is noted. The blood cultures are negative. ASSESSMENT AND PLAN: This is an 87-year-old female with atrial fibrillation, chronic obstructive lung disease, congestive heart failure, dementia, abdominal aortic aneurysm, gastrointestinal bleed, history of deep vein thrombosis, history of right hip fracture, history of left healthcare-associated pneumonia, history of kidney stone with severe sepsis, urine as the source with resistant Klebsiella on Avycaz now. Avycaz is ceftazidime and avibactam, this is day number 2, will need 5-7 days. Depending on the response rate we will make further recommendation. Meet Barnett MD
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
[2017-06-06] MEDS: Sodium Chloride 0.9% 1,000 ML IV SCH (05:10)
[2017-06-06] MEDS: Pantoprazole 40 mg EC Tab PO SCH (05:49)
[2017-06-06 07:29] VITALS: BP 161/97; PULSE 70; TEMP 98.6; O2SAT 96
[2017-06-06 07:55] LABS: INR 3.47 (0.93-1.08)
[2017-06-06 07:57] LABS: BASO # 0.03 K/mm3 (0.0-2.0); BASO % 0.5 % (0.0-3.0); EOS # 0.2 (0.0-0.7); EOS % 3.8 % (1.5-5.0); GRAN # 4.4 (1.4-6.5); GRAN % 69.8 % (50.0-68.0); HEMATOCRIT 34.3 % (36.0-48.0); LYMPH % 16.2 % (22.0-35.0); MEAN CELL VOLUME 82.1 fl (80.0-105.0); MEAN CORPUSCULAR HEMOGLOBIN 24.9 pg (25.0-35.0); MEAN CORPUSCULAR HGB CONC 30.3 g/dl (31.0-37.0); MEAN PLATELET VOLUME 9.7 fl (7.0-11.0); MONO # 0.6 (0.1-0.6); MONO % 9.7 % (1.0-6.0); RED CELL DISTRIBUTION WIDTH 18.1 % (11.5-14.5); WHITE BLOOD COUNT 6.3 10^3/ul (4.5-11.0)
[2017-06-06 08:29] LABS: ALKALINE PHOSPHATASE 65 U/L (38-126); ALT/SGPT 18 U/L (7-56); AST/SGOT 12 U/L (14-36); BILIRUBIN,TOTAL 0.4 mg/dL (0.2-1.3); BLOOD UREA NITROGEN 5 mg/dL (7-21); CALCIUM 9.1 mg/dL (8.4-10.5); CARBON DIOXIDE 24 mmol/L (21-33); CHLORIDE 109 mmol/L (98-107); GFR AFRICAN-AMERICAN > 60; GLUCOSE,RANDOM 88 mg/dL (70-110); POTASSIUM 3.6 mmol/L (3.6-5.0); SODIUM 142 mmol/L (132-148); TOTAL PROTEIN 5.3 g/dL (5.8-8.3)
[2017-06-06] MEDS: Enoxaparin 80 mg Syringe SC SCH (09:36)
--- NOTE | 2017-06-06 16:38 | PN ---
DATE: 06/06/2017 SUBJECTIVE: The patient seen in room 360 bed 2 this morning. PHYSICAL EXAMINATION: VITAL SIGNS: Temperature is 98, blood pressure is 160/70, respiratory rate 20, heart rate of 62. HEENT: Unremarkable. NECK: Supple. LUNGS: Have decreased breath sounds. HEART: Normal S1, S2. ABDOMEN: Soft, nontender. Laboratory examination reveals the patient's white count of 6.3, hemoglobin of 10, platelets of 243. Chemistries are noted. BUN of 5, creatinine of 0.6. Urinalysis is noted. Microbiology is reviewed with Klebsiella pneumoniae species that is resistant to meropenem and resistant to multiple antibiotics, although is not ESBL. It is ESBL negative. It is sensitive to gentamicin. ASSESSMENT AND PLAN: An 87-year-old with atrial fibrillation, chronic obstructive lung disease, congestive heart failure, dementia, abdominal aortic aneurysm, gastrointestinal bleed, history of DVT, history of right hip fracture, history of left healthcare-associated pneumonia, history of kidney stone with severe sepsis with multidrug resistant klebsiella, on Avycaz, today is day #3, will need 5-7 days of antibiotics. The patient appears to be improving. Meet Barnett MD
--- NOTE | 2017-06-06 16:59 | CP.PCM.DIS ---
<Miguelito Clement - Last Filed: 06/06/17 16:37> Provider - Provider Date of Admission: 06/02/17 02:01 Attending physician: Davy Daly MD Primary care physician: Tashi Kohler MD Consults: Infectious Disease: Dr. Barnett Time Spent in preparation of Discharge (in minutes): 45 Diagnosis - Discharge Diagnosis (1) TIA (transient ischemic attack) Status: Chronic Priority: Medium (2) Atrial fibrillation Status: Chronic Priority: High (3) CHF (congestive heart failure) Status: Chronic Priority: High (4) Urinary tract infection Status: Acute Priority: High (5) COPD (chronic obstructive pulmonary disease) Status: Chronic Priority: High Hospital Course - Lab Results Lab Results: Most Recent Lab Values WBC 6.3 10^3/ul (4.5-11.0) 06/06/17 07:00 RBC 4.18 10^6/uL (3.5-6.1) 06/06/17 07:00 Hgb 10.4 g/dL (12.0-16.0) L 06/06/17 07:00 Hct 34.3 % (36.0-48.0) L 06/06/17 07:00 MCV 82.1 fl (80.0-105.0) 06/06/17 07:00 MCH 24.9 pg (25.0-35.0) L 06/06/17 07:00 MCHC 30.3 g/dl (31.0-37.0) L 06/06/17 07:00 RDW 18.1 % (11.5-14.5) H 06/06/17 07:00 Plt Count 243 10^3/uL (120.0-450.0) 06/06/17 07:00 MPV 9.7 fl (7.0-11.0) 06/06/17 07:00 Gran % 69.8 % (50.0-68.0) H 06/06/17 07:00 Lymph % (Auto) 16.2 % (22.0-35.0) L 06/06/17 07:00 [place] % (Auto) 9.7 % (1.0-6.0) H 06/06/17 07:00 Eos % (Auto) 3.8 % (1.5-5.0) 06/06/17 07:00 Baso % (Auto) 0.5 % (0.0-3.0) 06/06/17 07:00 Gran # 4.40 (1.4-6.5) 06/06/17 07:00 Lymph # 1.0 (1.2-3.4) L 06/06/17 07:00 [place] # 0.6 (0.1-0.6) 06/06/17 07:00 Eos # 0.2 (0.0-0.7) 06/06/17 07:00 Baso # 0.03 K/mm3 (0.0-2.0) 06/06/17 07:00 Neutrophils % (Manual) 91 % (50.0-70.0) H 06/01/17 21:50 Lymphocytes % (Manual) 4 % (22.0-35.0) L 06/01/17 21:50 Monocytes % (Manual) 5 % (1.0-6.0) 06/01/17 21:50 Platelet Evaluation Normal (NORMAL) 06/01/17 21:50 Anisocytosis (manual) Slight 06/01/17 21:50 Microcytosis (manual) Slight 06/01/17 21:50 PT 39.2 SECONDS (9.4-12.5) H 06/06/17 07:00 INR 3.47 (0.93-1.08) H 06/06/17 07:00 APTT 33.6 Seconds (25.1-36.5) 06/04/17 05:30 pO2 164 mm/Hg (30-55) H 06/02/17 01:45 VBG pH 7.39 (7.32-7.43) 06/02/17 01:45 VBG pCO2 36.0 (40-60) L 06/02/17 01:45 VBG HCO3 21.8 mmol/l (21-28) 06/02/17 01:45 VBG Total CO2 22.9 mmol.L (22-28) 06/02/17 01:45 VBG O2 Sat (Calc) 99.8 % (40-65) H 06/02/17 01:45 VBG Base Excess -2.6 mmol/L (0.0-2.0) L 06/02/17 01:45 VBG Potassium 3.3 mmol/L (3.6-5.2) L 06/02/17 01:45 Sodium 142.0 mmol/L (132-148) 06/02/17 01:45 Chloride 115.0 mmol/L (98-107) H 06/02/17 01:45 Glucose 129 mg/dl (65-105) H 06/02/17 01:45 Lactate 2.9 mmol/L (0.7-2.1) H 06/02/17 01:45 FiO2 21.0 % 06/02/17 01:45 Sodium 142 mmol/L (132-148) 06/06/17 07:00 Potassium 3.6 mmol/L (3.6-5.0) 06/06/17 07:00 Chloride 109 mmol/L (98-107) H 06/06/17 07:00 Carbon Dioxide 24 mmol/L (21-33) 06/06/17 07:00 Anion Gap 12 (10-20) 06/06/17 07:00 BUN 5 mg/dL (7-21) L 06/06/17 07:00 Creatinine 0.6 mg/dl (0.7-1.2) L 06/06/17 07:00 Est GFR ( Amer) > 60 06/06/17 07:00 Est GFR (Non-Af Amer) > 60 06/06/17 07:00 Random Glucose 88 mg/dL (70-110) 06/06/17 07:00 Calcium 9.1 mg/dL (8.4-10.5) 06/06/17 07:00 Phosphorus 2.3 mg/dL (2.5-4.5) L 06/02/17 07:30 Magnesium 2.0 mg/dL (1.7-2.2) 06/03/17 09:10 RBC Magnesium 4.1 mg/dL (4.0-6.4) 06/03/17 11:17 Total Bilirubin 0.4 mg/dL (0.2-1.3) 06/06/17 07:00 AST 12 U/L (14-36) L 06/06/17 07:00 ALT 18 U/L (7-56) 06/06/17 07:00 Alkaline Phosphatase 65 U/L (38-126) 06/06/17 07:00 Troponin I 0.02 ng/mL D 06/01/17 21:50 Total Protein 5.3 g/dL (5.8-8.3) L 06/06/17 07:00 Albumin 2.7 g/dL (3.0-4.8) L 06/06/17 07:00 Globulin 2.6 gm/dL 06/06/17 07:00 Albumin/Globulin Ratio 1.0 (1.1-1.8) L 06/06/17 07:00 Procalcitonin 0.46 NG/ML (0.19-0.49) 06/04/17 07:20 Venous Blood Potassium 3.3 mmol/L (3.6-5.2) L 06/02/17 01:45 Urine Color Yellow (YELLOW) 06/02/17 01:05 Urine Appearance Sl cloudy (CLEAR) 06/02/17 01:05 Urine pH 6.0 (4.7-8.0) 06/02/17 01:05 Ur Specific [place] 1.025 (1.005-1.035) 06/02/17 01:05 Urine Protein 30 mg/dL (<30 mg/dL) H 06/02/17 01:05 Urine Glucose (UA) Negative mg/dL (NEGATIVE) 06/02/17 01:05 Urine Ketones Trace mg/dL (NEGATIVE) H 06/02/17 01:05 Urine Blood Moderate (NEGATIVE) H 06/02/17 01:05 Urine Nitrate Positive (NEGATIVE) H 06/02/17 01:05 Urine Bilirubin Negative (NEGATIVE) 06/02/17 01:05 Urine Urobilinogen 0.2 E.U./dL (<1 E.U./dL) 06/02/17 01:05 Ur Leukocyte Esterase Moderate Samir/uL (NEGATIVE) H 06/02/17 01:05 Urine RBC 0 - 2 /hpf (0-2) 06/02/17 01:05 Urine WBC Tntc /hpf (0-6) 06/02/17 01:05 Ur Epithelial Cells 1 - 3 /hpf (0-5) 06/02/17 01:05 Urine Bacteria Many (NEG) 06/02/17 01:05 - Hospital Course Hospital Course: Patient is a 87 y/o F with a past medicla history of atrial fibrillation on coumadin, CHF with EF of 63%, COPD, urinary incontinence, abdominal aortic aneurysm and thoracic aortic aneurysm, multiple urinary tract infections, GI bleed, DVT, and dementia who presented to [facility] when found to have fever at home, Tmax 102. Urinalysis ordered revealed urinary tract infection. With an elevated temperature, tachycardia, and fever, patient was found to be septic and blood and urine cultures were sent. Urine cultures were positive for resistant klebsiella. With a specific bacterial etiology, original broad spectrum antibiotics were discontinued and avycaz was prescribed. During course of hospital visit patient's INR was found to be subtherapeutic. Lovenox bridge was started and coumadin home dose of 2 mg was increased to 4 mg. The following day patient's INR remained subtherapeutic; warfarin dose was increased to 6 mg. Patient refused for blood to be drawn the following morning. Warfarin dose was decreased to 4 mg that night. The following morning's INR reading was 3.54 subtherapeutic. Due to this warfarin was held. Patient was stable enough for TCU transfer where she would receive physical therapy and further IV antibiotic treatment. Case was reviewed and discussed with Dr. Daly Discharge Exam - Head Exam Head Exam: ATRAUMATIC, NORMAL INSPECTION, NORMOCEPHALIC - Eye Exam Eye Exam: EOMI, Normal appearance - ENT Exam ENT Exam: Mucous Membranes Moist, Normal Exam - Respiratory Exam Respiratory Exam: NORMAL BREATHING PATTERN, UNREMARKABLE. absent: Wheezes - Cardiovascular Exam Cardiovascular Exam: +S1, +S2. absent: Clicks, Gallop - GI/Abdominal Exam GI & Abdominal Exam: Normal Bowel Sounds, Unremarkable - Neurological Exam Neurological exam: Alert, CN II-XII Intact - Psychiatric Exam Psychiatric exam: Normal Affect, Normal Mood - Skin Skin Exam: Intact, Normal Color, Warm Discharge Plan - Follow Up Plan Condition: FAIR Disposition: REHAB FACILITY/REHAB UNIT Instructions: Urinary Tract Infection in Women (DC), Sepsis (ED) Additional Instructions: MD TO FOLLOW ON TCU. Referrals: Tashi Kohler MD [Primary Care Provider] - <Davy Daly - Last Filed: 06/06/17 17:49> Provider - Provider Date of Admission: 06/02/17 02:01 Attending physician: Davy Daly MD Primary care physician: Tashi Kohler MD Hospital Course - Lab Results Lab Results: Most Recent Lab Values WBC 6.3 10^3/ul (4.5-11.0) 06/06/17 07:00 RBC 4.18 10^6/uL (3.5-6.1) 06/06/17 07:00 Hgb 10.4 g/dL (12.0-16.0) L 06/06/17 07:00 Hct 34.3 % (36.0-48.0) L 06/06/17 07:00 MCV 82.1 fl (80.0-105.0) 06/06/17 07:00 MCH 24.9 pg (25.0-35.0) L 06/06/17 07:00 MCHC 30.3 g/dl (31.0-37.0) L 06/06/17 07:00 RDW 18.1 % (11.5-14.5) H 06/06/17 07:00 Plt Count 243 10^3/uL (120.0-450.0) 06/06/17 07:00 MPV 9.7 fl (7.0-11.0) 06/06/17 07:00 Gran % 69.8 % (50.0-68.0) H 06/06/17 07:00 Lymph % (Auto) 16.2 % (22.0-35.0) L 06/06/17 07:00 [place] % (Auto) 9.7 % (1.0-6.0) H 06/06/17 07:00 Eos % (Auto) 3.8 % (1.5-5.0) 06/06/17 07:00 Baso % (Auto) 0.5 % (0.0-3.0) 06/06/17 07:00 Gran # 4.40 (1.4-6.5) 06/06/17 07:00 Lymph # 1.0 (1.2-3.4) L 06/06/17 07:00 [place] # 0.6 (0.1-0.6) 06/06/17 07:00 Eos # 0.2 (0.0-0.7) 06/06/17 07:00 Baso # 0.03 K/mm3 (0.0-2.0) 06/06/17 07:00 Neutrophils % (Manual) 91 % (50.0-70.0) H 06/01/17 21:50 Lymphocytes % (Manual) 4 % (22.0-35.0) L 06/01/17 21:50 Monocytes % (Manual) 5 % (1.0-6.0) 06/01/17 21:50 Platelet Evaluation Normal (NORMAL) 06/01/17 21:50 Anisocytosis (manual) Slight 06/01/17 21:50 Microcytosis (manual) Slight 06/01/17 21:50 PT 39.2 SECONDS (9.4-12.5) H 06/06/17 07:00 INR 3.47 (0.93-1.08) H 06/06/17 07:00 APTT 33.6 Seconds (25.1-36.5) 06/04/17 05:30 pO2 164 mm/Hg (30-55) H 06/02/17 01:45 VBG pH 7.39 (7.32-7.43) 06/02/17 01:45 VBG pCO2 36.0 (40-60) L 06/02/17 01:45 VBG HCO3 21.8 mmol/l (21-28) 06/02/17 01:45 VBG Total CO2 22.9 mmol.L (22-28) 06/02/17 01:45 VBG O2 Sat (Calc) 99.8 % (40-65) H 06/02/17 01:45 VBG Base Excess -2.6 mmol/L (0.0-2.0) L 06/02/17 01:45 VBG Potassium 3.3 mmol/L (3.6-5.2) L 06/02/17 01:45 Sodium 142.0 mmol/L (132-148) 06/02/17 01:45 Chloride 115.0 mmol/L (98-107) H 06/02/17 01:45 Glucose 129 mg/dl (65-105) H 06/02/17 01:45 Lactate 2.9 mmol/L (0.7-2.1) H 06/02/17 01:45 FiO2 21.0 % 06/02/17 01:45 Sodium 142 mmol/L (132-148) 06/06/17 07:00 Potassium 3.6 mmol/L (3.6-5.0) 06/06/17 07:00 Chloride 109 mmol/L (98-107) H 06/06/17 07:00 Carbon Dioxide 24 mmol/L (21-33) 06/06/17 07:00 Anion Gap 12 (10-20) 06/06/17 07:00 BUN 5 mg/dL (7-21) L 06/06/17 07:00 Creatinine 0.6 mg/dl (0.7-1.2) L 06/06/17 07:00 Est GFR ( Amer) > 60 06/06/17 07:00 Est GFR (Non-Af Amer) > 60 06/06/17 07:00 Random Glucose 88 mg/dL (70-110) 06/06/17 07:00 Calcium 9.1 mg/dL (8.4-10.5) 06/06/17 07:00 Phosphorus 2.3 mg/dL (2.5-4.5) L 06/02/17 07:30 Magnesium 2.0 mg/dL (1.7-2.2) 06/03/17 09:10 RBC Magnesium 4.1 mg/dL (4.0-6.4) 06/03/17 11:17 Total Bilirubin 0.4 mg/dL (0.2-1.3) 06/06/17 07:00 AST 12 U/L (14-36) L 06/06/17 07:00 ALT 18 U/L (7-56) 06/06/17 07:00 Alkaline Phosphatase 65 U/L (38-126) 06/06/17 07:00 Troponin I 0.02 ng/mL D 06/01/17 21:50 Total Protein 5.3 g/dL (5.8-8.3) L 06/06/17 07:00 Albumin 2.7 g/dL (3.0-4.8) L 06/06/17 07:00 Globulin 2.6 gm/dL 06/06/17 07:00 Albumin/Globulin Ratio 1.0 (1.1-1.8) L 06/06/17 07:00 Procalcitonin 0.46 NG/ML (0.19-0.49) 06/04/17 07:20 Venous Blood Potassium 3.3 mmol/L (3.6-5.2) L 06/02/17 01:45 Urine Color Yellow (YELLOW) 06/02/17 01:05 Urine Appearance Sl cloudy (CLEAR) 06/02/17 01:05 Urine pH 6.0 (4.7-8.0) 06/02/17 01:05 Ur Specific [place] 1.025 (1.005-1.035) 06/02/17 01:05 Urine Protein 30 mg/dL (<30 mg/dL) H 06/02/17 01:05 Urine Glucose (UA) Negative mg/dL (NEGATIVE) 06/02/17 01:05 Urine Ketones Trace mg/dL (NEGATIVE) H 06/02/17 01:05 Urine Blood Moderate (NEGATIVE) H 06/02/17 01:05 Urine Nitrate Positive (NEGATIVE) H 06/02/17 01:05 Urine Bilirubin Negative (NEGATIVE) 06/02/17 01:05 Urine Urobilinogen 0.2 E.U./dL (<1 E.U./dL) 06/02/17 01:05 Ur Leukocyte Esterase Moderate Samir/uL (NEGATIVE) H 06/02/17 01:05 Urine RBC 0 - 2 /hpf (0-2) 06/02/17 01:05 Urine WBC Tntc /hpf (0-6) 06/02/17 01:05 Ur Epithelial Cells 1 - 3 /hpf (0-5) 06/02/17 01:05 Urine Bacteria Many (NEG) 06/02/17 01:05 Attending/Attestation - Attestation I have personally seen and examined this patient.: Yes I have fully participated in the care of the patient.: Yes I have reviewed all pertinent clinical information, including history, physical exam and plan: Yes Notes (Text): 06/06/17 17:47 attending note; Patient seen and examined with resident. Patient is a 87 -year-old female with past medical history of atrial fibrillation on coumadin, congestive heart failure with ejection fracton of 63% , COPD, urinary incontinence, AAA and thoracic aortic aneurysm, multiple UTIs, GI bleed, deep venous thrombosis, and dementia assessment admitted for fever and UTI. Urine culture is positive for Klebsiella. Multidrug-resistant organism. Resistant to meropenem as per microbiology. Started on IV Avycaz. ID evaluation with Dr. Barnett appreciated. Patient is afebrile and nontoxic. Baseline dementia. a fib. on coumadin. hold coumadin tonight. transfer to TCU today for IV antibiotics treatment. patient is DNI DNR. Upon discharge the patient will follow up with PMD .
--- NOTE | 2017-06-08 09:30 | PN ---
DATE: 06/04/2017 SUBJECTIVE: The patient is in bed in no acute distress, no fevers and no chills. She was seen early this morning. PHYSICAL EXAMINATION VITAL SIGNS: Temperature is 98, blood pressure is 109/40, respiratory rate of 18, and heart rat e of 60. HEENT: Unremarkable. NECK: Supple. LUNGS: Have decreased breath sound. HEART: Normal S1, S2. ABDOMEN: Soft, nontender. LABORATORY DATA: Reveals the patient's white count is down to 6.3, hemoglobin of 9, platelets of 233. BUN of 8, creatinine of 0.7. Procalcitonin is 0.46. Urinalysis is noted. Microbiology reveals a urine culture is Klebsiella pneumonia. The blood cultures are negative. The Klebsiella pneumonia is piperacillin resistant and ESBL negative, cefepime resistant. Review of orders reveals the patient is on meropenem. note is reviewed. ASSESSMENT AND PLAN: An 87-year-old female seen earlier this morning in room 360 with atrial fibrillation, chronic obstructive lung disease, congestive heart failure, dementia, abdominal aortic aneurysm, GI bleed, history of deep vein thrombosis, history of right hip fracture, history of left healthcare-associated pneumonia, kidney stones, admitted with severe sepsis with liu-resistant Klebsiella, resistant to meropenem with , multidrug resistant organisms, we will start the patient on Avycaz as discussed with the short course of Avycaz. Meet Barnett MD
== END 2017-06-06 13:26 | DRG 871 ==
LOC: ED 21:06 → ERH 06-02 02:01 → 3RSO 06-02 12:04 → 3RNO 06-03 21:49
PROVIDERS: ADMIT Internal Medicine; ATTEND Internal Medicine
PROC: 3E0F7GC Introduction of Other Therapeutic Substance into Respiratory Tract, Via Natural or Artificial Opening (ICD-10-PCS; principal; 2017-06-03)
DX: A41.9 Sepsis, unspecified organism (principal); R65.21 Severe sepsis with septic shock; I50.9 Heart failure, unspecified; I11.0 Hypertensive heart disease with heart failure; I48.91 Unspecified atrial fibrillation; N39.0 Urinary tract infection, site not specified; I71.2 Thoracic aortic aneurysm, without rupture; F03.90 Unspecified dementia, unspecified severity, without behavioral disturbance, psychotic disturbance, mood disturbance, and anxiety; J44.9 Chronic obstructive pulmonary disease, unspecified; I71.4 Abdominal aortic aneurysm, without rupture; R32 Unspecified urinary incontinence; Z66 Do not resuscitate; Z79.01 Long term (current) use of anticoagulants; Z87.440 Personal history of urinary (tract) infections; Z86.718 Personal history of other venous thrombosis and embolism; Z87.442 Personal history of urinary calculi; Z85.820 Personal history of malignant melanoma of skin; Z16.24 Resistance to multiple antibiotics; Z87.01 Personal history of pneumonia (recurrent); Z87.891 Personal history of nicotine dependence

== ENCOUNTER 2017-06-06 13:26 | Inpatient (IN) | payer OTHER, BC ==
[2017-06-06 15:03] VITALS: BMI 35.9
[2017-06-06] MEDS ORDERED: POLYETHYLENE GLYCOL 3350 17 GM/Dose PACKET PO PRN (15:08)
[2017-06-07] MEDS: Pantoprazole 40 mg EC Tab PO SCH (05:31)
[2017-06-07 08:27] LABS: BASO # 0.02 K/mm3 (0.0-2.0); BASO % 0.3 % (0.0-3.0); EOS # 0.2 (0.0-0.7); GRAN # 5.97 (1.4-6.5); GRAN % 78.7 % (50.0-68.0); HEMOGLOBIN 10.2 g/dL (12.0-16.0); LYMPH # 0.8 (1.2-3.4); MEAN CELL VOLUME 81.5 fl (80.0-105.0); MEAN CORPUSCULAR HEMOGLOBIN 24.5 pg (25.0-35.0); MEAN PLATELET VOLUME 9.3 fl (7.0-11.0); MONO # 0.6 (0.1-0.6); RBC 4.17 10^6/uL (3.5-6.1); RED CELL DISTRIBUTION WIDTH 17.9 % (11.5-14.5); WHITE BLOOD COUNT 7.6 10^3/ul (4.5-11.0)
--- NOTE | 2017-06-07 08:27 | CP.PCM.HP ---
<Ling Lagos - Last Filed: 06/07/17 14:06> History of Present Illness - History of Present Illness History of Present Illness: 87 yo female PMHx Afib on coumadin, CHF with EF of 63%, COPD, urinary incontinence, abdominal aortic aneurysm and thoracic aortic aneurysm, multiple urinary tract infections, GI bleed, DVT, and dementia who presented to [facility] with AMS found to be in septic due to a urinary tract infection secondary to Klebsiella. Patient on abx as per ID and on contact precautions. Patient transferred to TCU for further treatment of her UTI and for rehabilitation. Patient was seen and examined OOB to chair this AM. Patient has a hx of dementia but was able to answer simple ROS and denied headache, dizziness, chest pain, SOB, cough, abd pain, nausea, vomiting, bowel/bladder complaints, pain/swelling in her legs bilaterally. PMHx: AFib,, CHF, COPD, urinary incontinence, AAA and thoracic aortic aneurysm, multiple UTIs, GI bleed, DVT, and dementia PSurgHx: Abdominal hernia repair, Left Hip SocHx: Denied tobacco/etoh/illicit drug abuse. Lives with daughter. Difficulty ambulating, requires wheelchair or walker FamHx: Noncontributory Meds: Reviewed, as per MAR ALL: NKDA PMD: Dr. Kohler Present on Admission - Present on Admission Any Indicators Present on Admission: No Review of Systems - Review of Systems All systems: reviewed and no additional remarkable complaints except - Constitutional Constitutional: As Per HPI. absent: Chills, Fever, Headache - Cardiovascular Cardiovascular: As Per HPI. absent: Chest Pain, Dyspnea, Edema - Respiratory Respiratory: As Per HPI. absent: Cough, Dyspnea - Gastrointestinal Gastrointestinal: As Per HPI. absent: Abdominal Pain, Constipation, Diarrhea, Nausea, Vomiting - Genitourinary Genitourinary: As Per HPI. absent: Dysuria - Musculoskeletal Musculoskeletal: As Per HPI. absent: Back Pain - Neurological Neurological: As Per HPI. absent: Headaches Past Patient History - Infectious Disease Hx of Infectious Diseases: None - Tetanus Immunizations Tetanus Immunization: Unknown - Past Medical History & Family History Past Medical History?: Yes - Past Social History Smoking Status: Former Smoker - CARDIAC Hx Cardiac Disorders: Yes Hx Congestive Heart Failure: Yes Hx Hypertension: Yes - PULMONARY Hx Chronic Obstructive Pulmonary Disease (COPD): Yes - NEUROLOGICAL Hx Dementia: Yes (confusion memory loss) - HEENT Hx Cataracts: Yes Hx Macular Degeneration: Yes - RENAL Hx Renal Failure: No - ENDOCRINE/METABOLIC Hx Diabetes Mellitus Type 1: No Hx Diabetes Mellitus Type 2: No Hx Hypothyroidism: No - HEMATOLOGICAL/ONCOLOGICAL Hx Anemia: Yes (blood transfusion) Hx Cancer: Yes (melanoma mynor removed) - INTEGUMENTARY Hx Dermatological Problems: Yes Hx Melanoma: Yes (r upper arm removed) Other/Comment: left leg lesion redness dry scab,, multiple areas discolored dry skin, rle multiple discolorations and dry skin, +1 ble edema, slight redness buttocks no openings, left upper chest wall 1cm round cyst,melanoma scar right arm below r shoulder 2007, right arm scar from skin tear, multiple discolorations to skin both arms - MUSCULOSKELETAL/RHEUMATOLOGICAL Hx Falls: Yes (2 years ago) - GASTROINTESTINAL Hx Gastrointestinal Disorders: Yes (ggi bleed) Hx Diverticulitis: Yes Hx Gastroesophageal Reflux: No Hx Ulcer: Yes - GENITOURINARY/GYNECOLOGICAL Hx Reproductive Disorders: No - PSYCHIATRIC Hx Anxiety: Yes Hx Depression: Yes Hx Physical Abuse: No Hx Substance Use: No - SURGICAL HISTORY Hx Orthopedic Surgery: Yes (total replacement 2005) Other/Comment: ABD HERNIA REPAIR - ANESTHESIA Hx Anesthesia: Yes Hx Anesthesia Reactions: No Hx Malignant Hyperthermia: No Meds Allergies/Adverse Reactions: Allergies Allergy/AdvReac Type Severity Reaction Status Date / Time No Known Allergies Allergy Verified 03/04/17 14:45 Physical Exam - Constitutional Appears: Non-toxic, No Acute Distress - Head Exam Head Exam: ATRAUMATIC, NORMAL INSPECTION, NORMOCEPHALIC - Eye Exam Eye Exam: EOMI, Normal appearance. absent: Conjunctival injection, Scleral icterus Pupil Exam: NORMAL ACCOMODATION - ENT Exam ENT Exam: Mucous Membranes Moist - Neck Exam Neck exam: Positive for: Normal Inspection. Negative for: Lymphadenopathy - Respiratory Exam Respiratory Exam: NORMAL BREATHING PATTERN. absent: Accessory Muscle Use, Rales , Wheezes, Respiratory Distress - Cardiovascular Exam Cardiovascular Exam: REGULAR RHYTHM, +S1, +S2 - GI/Abdominal Exam GI & Abdominal Exam: Normal Bowel Sounds, Soft. absent: Firm, Guarding, Rigid, Tenderness - Extremities Exam Extremities exam: Positive for: normal capillary refill, normal inspection, pedal pulses present. Negative for: pedal edema - Neurological Exam Neurological exam: Alert - Psychiatric Exam Psychiatric exam: Normal Affect, Normal Mood - Skin Skin Exam: Dry, Intact, Normal Color, Warm Results - Vital Signs Recent Vital Signs: Last Vital Signs Temp 99.1 F 06/07/17 06:00 Pulse 80 06/07/17 06:00 Resp 18 06/07/17 06:00 BP 131/72 06/07/17 06:00 Pulse Ox 93 L 06/07/17 06:00 - Labs Result Diagrams: 06/07/17 07:00 06/07/17 08:10 Assessment & Plan - Assessment and Plan (Free Text) Assessment: 87 yo female PMHx Afib on coumadin, CHF with EF of 63%, COPD, urinary incontinence, abdominal aortic aneurysm and thoracic aortic aneurysm, multiple urinary tract infections, GI bleed, DVT, and dementia who presented to [facility] with AMS found to be in septic due to a urinary tract infection secondary to Klebsiella Plan: Sepsis - secondary to Klebsiella UTI - Ceftazidime/Avibactam 2.5gm ivpb tid - Tylenol for temp - Blood cultures ordered; no growth after 72 hours - Urine cultures ordered, preliminary results yield klebsiella - ID Dr. Barnett on board Hx of Atrial fibrillation - Rate controlled - INR supratherapeutic this AM - coumadin on hold Hx of CHF - continue home meds - Monitor fluid status closely, especially respiratory status - HOB>30, daily weights, strict I&O Hx of COPD - Will continue home medication breathing treatments - Monitor respiratory status; no complaints of shortness of breath - added mucinex DM as patient sounded a little wet this AM Hx of Dementia - Will continue home medications GI/DVT Ppx - Protonix 40mg po qd - Coumadin on hold - SCDs Discussed with Dr. Traci Lagos PGY2 <Sabra Aviles - Last Filed: 06/07/17 16:42> Results - Vital Signs Recent Vital Signs: Last Vital Signs Temp 98.4 F 06/07/17 11:45 Pulse 72 06/07/17 11:45 Resp 18 06/07/17 11:45 BP 102/72 06/07/17 11:45 Pulse Ox 94 L 06/07/17 11:45 - Labs Result Diagrams: 06/07/17 07:00 06/07/17 08:10 Labs: Laboratory Results - last 24 hr 06/07/17 06/07/17 06/07/17 07:00 08:10 08:10 WBC 7.6 D RBC 4.17 Hgb 10.2 L Hct 34.0 L MCV 81.5 MCH 24.5 L MCHC 30.0 L RDW 17.9 H Plt Count 244 MPV 9.3 Gran % 78.7 H Lymph % (Auto) 10.0 L Kimball % (Auto) 8.0 H Eos % (Auto) 3.0 Baso % (Auto) 0.3 Gran # 5.97 Lymph # 0.8 L Kimball # 0.6 Eos # 0.2 Baso # 0.02 PT 43.9 H INR 3.88 H* APTT 45.0 H Sodium 141 Potassium 3.4 L Chloride 106 Carbon Dioxide 27 Anion Gap 11 BUN 4 L Creatinine 0.6 L Est GFR ( Amer) > 60 Est GFR (Non-Af Amer) > 60 Random Glucose 103 Calcium 9.2 Total Bilirubin 0.5 AST 18 ALT 22 Alkaline Phosphatase 63 Total Protein 5.9 Albumin 2.9 L Globulin 2.9 Albumin/Globulin Ratio 1.0 L Attending/Attestation - Attestation I have personally seen and examined this patient.: Yes I have fully participated in the care of the patient.: Yes I have reviewed all pertinent clinical information: Yes Notes (Text): I have seen and examined the patient at bedside. Agree with the above note with the following additions/ exceptions: Briefly this is 87 year old female with history of atrial fibrillation on coumadin, moderate to severe pulmonary hypertension, COPD, urinary incontinence, AAA, GI bleed, DVT, dementia who got admitted for evaluation of fever secondary to UTI. Urine culture is positive for MDR Klebsiella which is resistant to meropenem. Continue IV Avycaz. ID evaluation with Dr. Barnett appreciated. Patient is afebrile and nontoxic. INR is supratherapeutic. Hold coumadin. Will check INR in am. Patient is DNI DNR. Daughter is at bedside. Upon discharge the patient will follow up with PMD . Dr Sabra Aviles
[2017-06-07 08:32] LABS: ALBUMIN 2.9 g/dL (3.0-4.8); ALT/SGPT 22 U/L (7-56); AST/SGOT 18 U/L (14-36); BLOOD UREA NITROGEN 4 mg/dL (7-21); CALCIUM 9.2 mg/dL (8.4-10.5); GFR AFRICAN-AMERICAN > 60; GFR NON-AFRICAN AMERICAN > 60
[2017-06-07 08:57] LABS: PROTHROMBIN TIME 43.9 SECONDS (9.4-12.5)
[2017-06-07 08:58] LABS: INR 3.88 (0.93-1.08)
[2017-06-07] MEDS: Albuterol-Ipratrop 3 mg / 0.5 (3 ml) UD IH PRN (11:04)
[2017-06-07] MEDS: Digoxin 125 mcg (0.125 mg) Tab PO SCH (14:47)
[2017-06-07] MEDS: guaiFENesin-DM 600-30 mg ER Tab PO SCH (17:59)
--- NOTE | 2017-06-07 21:27 | CON ---
DATE: 06/07/2017 The patient is seen early this morning in room 319. CHIEF COMPLAINT: Weakness and dysuria times several days. HISTORY OF PRESENT ILLNESS: This is an 87-year-old female with atrial fibrillation, chronic obstructive lung disease, congestive heart failure, dementia, abdominal aortic aneurysm, and urinary tract infections, which have been multiple, history of GI bleed, history of DVT, history of right hip fracture, history of kidney stone, and history of orthopedic surgery who was admitted with urinary symptoms with a fever of 101.8, tachycardia, positive urinalysis and hypotension, which responded to fluids and the patient was given antibiotics with great improvement. The patient has no nausea, no vomiting, no chest pain, and dysuria greatly improved. REVIEW OF SYSTEMS: Now, the patient is much better. No diarrhea or constipation. No bright red blood per rectum. No melena. PAST MEDICAL HISTORY: Significant for atrial fibrillation, GI bleed, DVT, right hip fracture, chronic obstructive lung disease, congestive heart failure, dementia, abdominal aortic aneurysm, multiple urinary tract infections, and kidney stones. PAST SURGICAL HISTORY: Significant for orthopedic surgery. ALLERGIES: THE PATIENT HAS NO KNOWN ALLERGIES. PHYSICAL EXAMINATION: VITAL SIGNS: The patient's temperature is 98, blood pressure 120/70, and respiratory rate of 16. HEENT: Unremarkable. NECK: Supple. LUNGS: Decreased breath sounds. HEART: Normal S1 and S2. ABDOMEN: Soft and nontender. LABORATORY DATA: Reviewed. White count of 6 and hemoglobin of 10. Creatinine 0.6. Urinalysis noted. Urine culture is Klebsiella pneumonia, which is resistant to meropenem and ESBL. ASSESSMENT AND PLAN: This is an 87-year-old female with atrial fibrillation, chronic obstructive lung disease, congestive heart failure, dementia, abdominal aortic aneurysm, multiple urinary tract infections, kidney stones, gastrointestinal bleed, deep venous thrombosis, and right hip fracture who was admitted with fever, dysuria, and hypertension. 1. Severe sepsis with multidrug-resistant Klebsiella, although not extended-spectrum beta-lactamases, it is resistant to meropenem. Currently on Avycaz day #4 and will complete 7 days of antibiotics. Review of orders reveals the Avycaz is active. We will follow with you. Meet Barnett MD [facility] # [id number]
[2017-06-08] MEDS: Pantoprazole 40 mg EC Tab PO SCH (05:11)
[2017-06-08 06:41] LABS: BASO # 0.03 K/mm3 (0.0-2.0); BASO % 0.5 % (0.0-3.0); EOS # 0.2 (0.0-0.7); EOS % 3.3 % (1.5-5.0); GRAN # 4.48 (1.4-6.5); HEMOGLOBIN 9.8 g/dL (12.0-16.0); LYMPH # 0.8 (1.2-3.4); MEAN CELL VOLUME 81.7 fl (80.0-105.0); MEAN CORPUSCULAR HEMOGLOBIN 24.9 pg (25.0-35.0); MEAN CORPUSCULAR HGB CONC 30.5 g/dl (31.0-37.0); MONO # 0.5 (0.1-0.6); MONO % 8.2 % (1.0-6.0); RBC 3.93 10^6/uL (3.5-6.1); RED CELL DISTRIBUTION WIDTH 17.9 % (11.5-14.5)
[2017-06-08 06:56] LABS: INR 3.41 (0.93-1.08); PROTHROMBIN TIME 38.5 SECONDS (9.4-12.5)
[2017-06-08] MEDS ORDERED: Potassium Chloride 40 mEq/30 ml LIQ UD PO ONE (09:24)
[2017-06-08] MEDS: guaiFENesin-DM 600-30 mg ER Tab PO SCH ×2 (11:00→17:20)
--- NOTE | 2017-06-08 12:47 | PN ---
DATE: 06/08/2017 SUBJECTIVE: The patient is in bed in no acute distress, nontoxic. The patient was seen early this morning. PHYSICAL EXAMINATION: VITAL SIGNS: Temperature is 98, blood pressure is 102/70, respiratory rate of 18, and heart rate of 80. HEENT: Unremarkable. NECK: Supple. LUNGS: Have decreased breath sounds. HEART: Normal S1 and S2. ABDOMEN: Soft and nontender. LABORATORY EXAMINATION: Reveals a white count of 6, hemoglobin of 9, and platelets of 229. Chemistries reveals a BUN of 4 and creatinine of 0.6. Microbiology is noted. ASSESSMENT AND PLAN: This is an 87-year-old female with atrial fibrillation, chronic obstructive lung disease, congestive heart failure, dementia, abdominal aortic aneurysm, multiple urinary tract infections, kidney stones, gastrointestinal bleed, deep vein thrombosis, history of right hip fracture, admitted with fever and dysuria: 1. Severe sepsis with multidrug Klebsiella, although not extended-spectrum beta-lactamase, it is resistant to meropenem, currently on Avycaz day number 5, would complete 7 days. Review of the orders reveals the ceftazidime and avibactam, which is Avycaz, which is adjusted at 2.5 g IV. Meet Barnett MD
[2017-06-08] MEDS: Digoxin 125 mcg (0.125 mg) Tab PO SCH (13:57)
[2017-06-09] MEDS: Pantoprazole 40 mg EC Tab PO SCH (05:33)
[2017-06-09] MEDS: Albuterol-Ipratrop 3 mg / 0.5 (3 ml) UD IH PRN ×3 (05:41→20:30)
[2017-06-09 06:44] LABS: BASO # 0.03 K/mm3 (0.0-2.0); BASO % 0.5 % (0.0-3.0); EOS # 0.2 (0.0-0.7); EOS % 3.4 % (1.5-5.0); GRAN # 4.15 (1.4-6.5); GRAN % 63.8 % (50.0-68.0); LYMPH # 1.5 (1.2-3.4); LYMPH % 22.8 % (22.0-35.0); MEAN CELL VOLUME 82.3 fl (80.0-105.0); MEAN CORPUSCULAR HEMOGLOBIN 24.9 pg (25.0-35.0); MEAN CORPUSCULAR HGB CONC 30.2 g/dl (31.0-37.0); MEAN PLATELET VOLUME 9.2 fl (7.0-11.0); MONO # 0.6 (0.1-0.6); MONO % 9.5 % (1.0-6.0); RBC 4.02 10^6/uL (3.5-6.1); RED CELL DISTRIBUTION WIDTH 17.9 % (11.5-14.5); WHITE BLOOD COUNT 6.5 10^3/ul (4.5-11.0)
[2017-06-09 07:18] LABS: INR 2.4 (0.93-1.08); PARTIAL THROMBOPLASTIN TIME 26.8 Seconds (25.1-36.5); PROTHROMBIN TIME 26.9 SECONDS (9.4-12.5)
[2017-06-09 07:50] LABS: ALBUMIN 2.9 g/dL (3.0-4.8); ALT/SGPT 24 U/L (7-56); AST/SGOT 16 U/L (14-36); BLOOD UREA NITROGEN 4 mg/dL (7-21); CALCIUM 9.3 mg/dL (8.4-10.5); GFR AFRICAN-AMERICAN > 60; GFR NON-AFRICAN AMERICAN > 60
[2017-06-09] MEDS: guaiFENesin-DM 600-30 mg ER Tab PO SCH ×2 (10:43→17:43)
--- NOTE | 2017-06-09 10:47 | CP.PCM.CON ---
History of Present Illness - History of Present Illness History of Present Illness: Palliative consult requested by Dr Ramírez Aviles Reason: Goals of care/advance care planning 87 year old female with history of dementia, triple A, urosepsis and cholelethiasis who was admitted with sepsis secondary to UTI. She has since been transitioned to [facility] for completion of antibiotic therapy and deconditioning. PMHx: COPD, A Fib, CHF, EF 63%, chronic UTI, DVT,dementia, GI bleed, incontinence. Social History: Non smoker, no alcohol or drug use. Lives with her daughter/POA, Eli Larsen. Family History: Non contributory. Advance Care Planning: The patient has an Advance Directive, She is DNR/DNI. Review of Systems: As per HPI, 12 point review otherwise negative Past Patient History - Infectious Disease Hx of Infectious Diseases: None - Tetanus Immunizations Tetanus Immunization: Unknown - Past Medical History & Family History Past Medical History?: Yes - Past Social History Smoking Status: Former Smoker - CARDIAC Hx Cardiac Disorders: Yes Hx Congestive Heart Failure: Yes Hx Hypertension: Yes - PULMONARY Hx Chronic Obstructive Pulmonary Disease (COPD): Yes - NEUROLOGICAL Hx Dementia: Yes (confusion memory loss) - HEENT Hx Cataracts: Yes Hx Macular Degeneration: Yes - RENAL Hx Renal Failure: No - ENDOCRINE/METABOLIC Hx Diabetes Mellitus Type 1: No Hx Diabetes Mellitus Type 2: No Hx Hypothyroidism: No - HEMATOLOGICAL/ONCOLOGICAL Hx Anemia: Yes (blood transfusion) Hx Cancer: Yes (melanoma mynor removed) - INTEGUMENTARY Hx Dermatological Problems: Yes Hx Melanoma: Yes (r upper arm removed) Other/Comment: left leg lesion redness dry scab,, multiple areas discolored dry skin, rle multiple discolorations and dry skin, +1 ble edema, slight redness buttocks no openings, left upper chest wall 1cm round cyst,melanoma scar right arm below r shoulder 2007, right arm scar from skin tear, multiple discolorations to skin both arms - MUSCULOSKELETAL/RHEUMATOLOGICAL Hx Falls: Yes (2 years ago) - GASTROINTESTINAL Hx Gastrointestinal Disorders: Yes (ggi bleed) Hx Diverticulitis: Yes Hx Gastroesophageal Reflux: No Hx Ulcer: Yes - GENITOURINARY/GYNECOLOGICAL Hx Reproductive Disorders: No - PSYCHIATRIC Hx Anxiety: Yes Hx Depression: Yes Hx Physical Abuse: No Hx Substance Use: No - SURGICAL HISTORY Hx Orthopedic Surgery: Yes (total replacement 2005) Other/Comment: ABD HERNIA REPAIR - ANESTHESIA Hx Anesthesia: Yes Hx Anesthesia Reactions: No Hx Malignant Hyperthermia: No Meds Allergies/Adverse Reactions: Allergies Allergy/AdvReac Type Severity Reaction Status Date / Time No Known Allergies Allergy Verified 03/04/17 14:45 - Medications Medications: Current Medications Acetaminophen (Tylenol 325mg Tab) 650 mg PO Q4H PRN; Protocol PRN Reason: Fever >100.4 F Last Admin: 06/07/17 12:50 Dose: 650 mg Albuterol/Ipratropium (Duoneb 3 Mg/0.5 Mg (3 Ml) Ud) 3 ml IH [id number] PRN; Protocol PRN Reason: Shortness of Breath Last Admin: 06/09/17 05:41 Dose: 3 ml Benzonatate (Tessalon Perles) 100 mg PO TID [facility] Last Admin: 06/08/17 17:20 Dose: 100 mg Digoxin (Lanoxin) 0.125 mg PO 1400 ERINN PRN Reason: Protocol Last Admin: 06/08/17 13:57 Dose: 0.125 mg Docusate Sodium (Colace) 100 mg PO BID ERINN PRN Reason: Protocol Last Admin: 06/08/17 17:19 Dose: 100 mg Donepezil HCl (Aricept) 10 mg PO HS ERINN PRN Reason: Protocol Last Admin: 06/08/17 21:47 Dose: 10 mg Guaifenesin/Dextromethorphan (Mucinex-Dm 600-30 Mg) 1 tab PO BID ERINN Last Admin: 06/08/17 17:20 Dose: 1 tab Ceftazidime/Avibactam 2.5 gm/ (Sodium Chloride) 100 mls @ 50 mls/hr IVPB 0600, 1400,2200 ERINN PRN Reason: Protocol Last Admin: 06/09/17 05:33 Dose: 50 mls/hr Nystatin (Nystop Topical Powder) 0 gm TOP BID PRN PRN Reason: Rash Pantoprazole Sodium (Protonix Ec Tab) 40 mg PO 0600 ERINN PRN Reason: Protocol Last Admin: 06/09/17 05:33 Dose: 40 mg Polyethylene Glycol (Miralax) 17 gm PO DAILY PRN; Protocol PRN Reason: Constipation Quetiapine Fumarate (Seroquel) 50 mg PO HS ERINN PRN Reason: Protocol Last Admin: 06/08/17 21:46 Dose: 50 mg Warfarin Sodium (Coumadin) 2 mg PO 1800 ERINN PRN Reason: Protocol Physical Exam - Constitutional Appears: Chronically Ill - Head Exam Head Exam: NORMAL INSPECTION - Eye Exam Eye Exam: Normal appearance, PERRL - ENT Exam ENT Exam: Mucous Membranes Moist, Normal Oropharynx - Neck Exam Neck exam: Positive for: Normal Inspection - Respiratory Exam Respiratory Exam: Decreased Breath Sounds, NORMAL BREATHING PATTERN - Cardiovascular Exam Cardiovascular Exam: Irregular Rhythm, +S1, +S2 - GI/Abdominal Exam GI & Abdominal Exam: Normal Bowel Sounds, Soft - Extremities Exam Extremities exam: Positive for: normal capillary refill Additional comments: healing wound left lower [place] - Neurological Exam Neurological exam: Alert, Altered - Skin Skin Exam: Dry, Warm - Additional Findings Additional findings: Palliative performance scale rating 40% Results - Vital Signs Recent Vital Signs: Last Vital Signs Temp 98.5 F 06/09/17 06:00 Pulse 73 06/09/17 06:00 Resp 19 06/09/17 06:00 BP 123/59 L 06/09/17 06:00 Pulse Ox 92 L 06/09/17 06:00 - Labs Result Diagrams: 06/09/17 06:00 06/09/17 06:00 Labs: Laboratory Results - last 24 hr 06/09/17 06/09/17 06/09/17 06:00 06:00 06:00 WBC 6.5 RBC 4.02 Hgb 10.0 L Hct 33.1 L MCV 82.3 MCH 24.9 L MCHC 30.2 L RDW 17.9 H Plt Count 262 MPV 9.2 Gran % 63.8 Lymph % (Auto) 22.8 [place] % (Auto) 9.5 H Eos % (Auto) 3.4 Baso % (Auto) 0.5 Gran # 4.15 Lymph # 1.5 [place] # 0.6 Eos # 0.2 Baso # 0.03 PT 26.9 H INR 2.40 H APTT 26.8 Sodium 140 Potassium 3.6 Chloride 105 Carbon Dioxide 29 Anion Gap 10 BUN 4 L Creatinine 0.7 Est GFR ( Amer) > 60 Est GFR (Non-Af Amer) > 60 Random Glucose 105 Calcium 9.3 Total Bilirubin 0.5 AST 16 ALT 24 Alkaline Phosphatase 59 Total Protein 5.9 Albumin 2.9 L Globulin 3.0 Albumin/Globulin Ratio 1.0 L Assessment & Plan - Assessment and Plan (Free Text) Assessment: 87 year old female with history of chronic UTI's, COPD, A Fib, CHF,AAA who is admitted to [facility] with urosepsis and deconditioning. The patient is alert, pleasantly confused. She needs assist with all ADL's,has as difficulty ambulating. She is incontinent. Patien constipation or changes in appetite. The patient has an Advanced Directive, a copy is in the chart. Intend to meet with daughter in order to discuss future goals of care and consideration of enacting a POLST directive. Plan: Palliative support in establishing future goals of care and advance care planning
[2017-06-09] MEDS: Digoxin 125 mcg (0.125 mg) Tab PO SCH (14:14)
--- NOTE | 2017-06-09 15:43 | CP.PCM.PN ---
<Miguelito Clement - Last Filed: 06/10/17 17:53> Subjective - Date & Time of Evaluation Date of Evaluation: 06/09/17 Time of Evaluation: 07:00 - Subjective Subjective: Patient seen and examined. Patient was taking part in physical therapy sessions at the gym at the time. Patient was observed walking back and forth with her own support. This exercise was done a few times. Patient was able to tolerate physical exertion without the need for oxygen support. Patient denies chest pain , shortness of breath, abdominal pain, nausea, vomiting, diarrhea. Objective - Vital Signs/Intake and Output Vital Signs (last 24 hours): Temp Pulse Resp BP Pulse Ox 97.8 F 96 H 20 123/59 L 95 06/09/17 10:00 06/09/17 13:07 06/09/17 10:00 06/09/17 06:00 06/09/17 13:07 - Medications Medications: Current Medications Acetaminophen (Tylenol 325mg Tab) 650 mg PO Q4H PRN; Protocol PRN Reason: Fever >100.4 F Last Admin: 06/07/17 12:50 Dose: 650 mg Albuterol/Ipratropium (Duoneb 3 Mg/0.5 Mg (3 Ml) Ud) 3 ml IH [id number] PRN; Protocol PRN Reason: Shortness of Breath Last Admin: 06/09/17 11:16 Dose: 3 ml Benzonatate (Tessalon Perles) 100 mg PO TID ERINN Last Admin: 06/09/17 14:14 Dose: 100 mg Digoxin (Lanoxin) 0.125 mg PO 1400 ERINN PRN Reason: Protocol Last Admin: 06/09/17 14:14 Dose: 0.125 mg Docusate Sodium (Colace) 100 mg PO BID ERINN PRN Reason: Protocol Last Admin: 06/09/17 10:43 Dose: 100 mg Donepezil HCl (Aricept) 10 mg PO HS ERINN PRN Reason: Protocol Last Admin: 06/08/17 21:47 Dose: 10 mg Guaifenesin/Dextromethorphan (Mucinex-Dm 600-30 Mg) 1 tab PO BID ERINN Last Admin: 06/09/17 10:43 Dose: 1 tab Ceftazidime/Avibactam 2.5 gm/ (Sodium Chloride) 100 mls @ 50 mls/hr IVPB 0600, 1400,2200 ERINN PRN Reason: Protocol Last Admin: 06/09/17 14:13 Dose: 50 mls/hr Nystatin (Nystop Topical Powder) 0 gm TOP BID PRN PRN Reason: Rash Pantoprazole Sodium (Protonix Ec Tab) 40 mg PO 0600 ERINN PRN Reason: Protocol Last Admin: 06/09/17 05:33 Dose: 40 mg Polyethylene Glycol (Miralax) 17 gm PO DAILY PRN; Protocol PRN Reason: Constipation Quetiapine Fumarate (Seroquel) 50 mg PO HS ERINN PRN Reason: Protocol Last Admin: 06/08/17 21:46 Dose: 50 mg Warfarin Sodium (Coumadin) 2 mg PO 1800 [facility] PRN Reason: Protocol Warfarin Sodium (Coumadin) 1 mg PO ONCE ONE Stop: 06/09/17 18:01 - Labs Labs: 06/09/17 06:00 06/09/17 06:00 PT 26.9 SECONDS (9.4-12.5) H 06/09/17 06:00 INR 2.40 (0.93-1.08) H 06/09/17 06:00 APTT 26.8 Seconds (25.1-36.5) 06/09/17 06:00 - Constitutional Appears: Non-toxic, No Acute Distress - Head Exam Head Exam: ATRAUMATIC, NORMAL INSPECTION, NORMOCEPHALIC - Eye Exam Eye Exam: EOMI, Normal appearance - ENT Exam ENT Exam: Mucous Membranes Moist, Normal Exam - Neck Exam Neck Exam: Normal Inspection - Respiratory Exam Respiratory Exam: Clear to Ausculation Bilateral, NORMAL BREATHING PATTERN - Cardiovascular Exam Cardiovascular Exam: REGULAR RHYTHM, +S1, +S2 - GI/Abdominal Exam GI & Abdominal Exam: Soft, Normal Bowel Sounds - Rectal Exam Rectal Exam: NORMAL INSPECTION - Extremities Exam Extremities Exam: Normal Inspection - Back Exam Back Exam: NORMAL INSPECTION - Neurological Exam Neurological Exam: Alert, Awake, Oriented x3 - Psychiatric Exam Psychiatric exam: Normal Affect, Normal Mood - Skin Skin Exam: Intact, Normal Color, Warm Assessment and Plan - Assessment and Plan (Free Text) Assessment: 87 yo female PMHx Afib on coumadin, CHF with EF of 63%, COPD, urinary incontinence, abdominal aortic aneurysm and thoracic aortic aneurysm, multiple urinary tract infections, GI bleed, DVT, and dementia who [place] [facility] [place] found to be in septic due to a urinary tract infection secondary to Klebsiella Plan: Sepsis - secondary to Klebsiella UTI - Avycaz 2.5gm ivpb tid - Tylenol for temp - Blood cultures ordered; no growth after 4 days - Urine cultures ordered; positive for klebsiella - ID Dr. Barnett on board Hx of Atrial fibrillation - Rate controlled - INR therapeutic this AM - will continue with normal home dose Hx of CHF - continue home meds - Monitor fluid status closely, especially respiratory status - HOB>30, daily weights, strict I&O Hx of COPD - Will continue home medication breathing treatments - Monitor respiratory status; no complaints of shortness of breath - Inspiratory wheezing this morning; continue with duonebs Hx of Dementia - Will continue home medications GI/DVT Ppx - Protonix 40mg po qd - Coumadin on hold - SCDs Discussed with Dr. Traci Clement PGY1 <Sabra Aviles - Last Filed: 06/11/17 15:32> Objective - Vital Signs/Intake and Output Vital Signs (last 24 hours): Temp Pulse Resp BP Pulse Ox 97.4 F L 62 18 109/57 L 97 06/11/17 11:30 06/11/17 11:30 06/11/17 11:30 06/11/17 11:30 06/11/17 11:30 - Medications Medications: Current Medications Acetaminophen (Tylenol 325mg Tab) 650 mg PO Q4H PRN; Protocol PRN Reason: Fever >100.4 F Last Admin: 06/07/17 12:50 Dose: 650 mg Albuterol/Ipratropium (Duoneb 3 Mg/0.5 Mg (3 Ml) Ud) 3 ml IH [id number] ERINN PRN Reason: Protocol Benzonatate (Tessalon Perles) 100 mg PO TID ERINN Last Admin: 06/11/17 14:11 Dose: 100 mg Digoxin (Lanoxin) 0.125 mg PO 1400 ERINN PRN Reason: Protocol Last Admin: 06/11/17 14:11 Dose: 0.125 mg Docusate Sodium (Colace) 100 mg PO BID ERINN PRN Reason: Protocol Last Admin: 06/11/17 10:25 Dose: 100 mg Donepezil HCl (Aricept) 10 mg PO HS ERINN PRN Reason: Protocol Last Admin: 06/10/17 21:42 Dose: 10 mg Guaifenesin/Dextromethorphan (Mucinex-Dm 600-30 Mg) 1 tab PO BID [facility] Last Admin: 06/11/17 10:34 Dose: 1 tab Ceftazidime/Avibactam 2.5 gm/ (Sodium Chloride) 100 mls @ 50 mls/hr IVPB 0600, 1400,2200 ERINN PRN Reason: Protocol Last Admin: 06/11/17 14:11 Dose: 50 mls/hr Nystatin (Nystop Topical Powder) 0 gm TOP BID PRN PRN Reason: Rash Pantoprazole Sodium (Protonix Ec Tab) 40 mg PO 0600 [facility] PRN Reason: Protocol Last Admin: 06/11/17 05:20 Dose: 40 mg Polyethylene Glycol (Miralax) 17 gm PO DAILY PRN; Protocol PRN Reason: Constipation Quetiapine Fumarate (Seroquel) 50 mg PO HS ERINN PRN Reason: Protocol Last Admin: 06/10/17 21:41 Dose: 50 mg Warfarin Sodium (Coumadin) 2 mg PO 1800 [facility] PRN Reason: Protocol Last Admin: 06/10/17 17:31 Dose: 2 mg - Labs Labs: 06/11/17 07:00 06/11/17 06:00 PT 20.1 SECONDS (9.4-12.5) H 06/11/17 06:00 INR 1.81 (0.93-1.08) H 06/11/17 06:00 APTT 32.6 Seconds (25.1-36.5) 06/11/17 06:00 Attending/Attestation - Attestation I have personally seen and examined this patient.: Yes I have fully participated in the care of the patient.: Yes I have reviewed all pertinent clinical information, including history, physical exam and plan: Yes Notes (Text): I have seen and examined the patient at bedside. Agree with the above note with the following additions/ exceptions: Briefly this is 87 year old female with history of atrial fibrillation on coumadin, moderate to severe pulmonary hypertension, COPD, urinary incontinence, AAA, GI bleed, DVT, dementia who got admitted for evaluation of fever secondary to UTI. Urine culture is positive for MDR Klebsiella which is resistant to meropenem. Continue IV Avycaz. ID evaluation with Dr. Barnett appreciated. Patient is afebrile and nontoxic. INR is therapeutic. Continue coumadin. Will check INR in am. Patient is DNI DNR. Daughter is at bedside. Upon discharge the patient will follow up with PMD . Dr Sabra Aviles
--- NOTE | 2017-06-09 22:42 | PN ---
DATE: 06/09/2017 SUBJECTIVE: The patient is seen early this morning, doing better. No fevers. No chills. PHYSICAL EXAMINATION VITAL SIGNS: Temperature is 97, blood pressure is 130/50, respiratory rate of 18 and heart rate of 93. HEENT: Unremarkable. NECK: Supple. LUNGS: Have decreased breath sounds. HEART: Normal S1 and S2. ABDOMEN: Soft and nontender. LABORATORY DATA: Reveals a white count of 6.5, hemoglobin of 10 and platelets of 262. Chemistry reveals a BUN of 4, creatinine of 0.7. Microbiology is noted. Lizzette Navarrete's progress note is reviewed. ASSESSMENT AND PLAN: This is an 87-year-old female with atrial fibrillation, chronic obstructive lung disease, congestive heart disease, dementia, abdominal aortic aneurysm, multiple urinary tract infections, kidney stones, gastrointestinal bleeding, deep vein thrombosis, history of right hip fracture, admitted with fever and dysuria. 1. Severe sepsis and multidrug Klebsiella, although not extended-spectrum beta-lactamase, Klebsiella is resistant to meropenem, currently on Avycaz day #6, would complete 7 days of Avycaz, which is ceftazidime/avibactam. Meet Barnett MD
[2017-06-10] MEDS: Pantoprazole 40 mg EC Tab PO SCH (05:22)
[2017-06-10 06:39] LABS: BASO # 0.04 K/mm3 (0.0-2.0); BASO % 0.7 % (0.0-3.0); EOS # 0.3 (0.0-0.7); EOS % 4.3 % (1.5-5.0); GRAN # 3.72 (1.4-6.5); GRAN % 62.1 % (50.0-68.0); HEMOGLOBIN 9.7 g/dL (12.0-16.0); LYMPH # 1.4 (1.2-3.4); LYMPH % 23.7 % (22.0-35.0); MEAN CELL VOLUME 82.6 fl (80.0-105.0); MEAN CORPUSCULAR HEMOGLOBIN 24.8 pg (25.0-35.0); MEAN PLATELET VOLUME 9.2 fl (7.0-11.0); MONO # 0.6 (0.1-0.6); MONO % 9.2 % (1.0-6.0); RBC 3.91 10^6/uL (3.5-6.1); RED CELL DISTRIBUTION WIDTH 18.1 % (11.5-14.5)
[2017-06-10 07:00] LABS: ALT/SGPT 25 U/L (7-56); AST/SGOT 15 U/L (14-36); BLOOD UREA NITROGEN 6 mg/dL (7-21); CALCIUM 9.5 mg/dL (8.4-10.5); GFR AFRICAN-AMERICAN > 60; GFR NON-AFRICAN AMERICAN > 60
[2017-06-10 07:22] LABS: INR 2.01 (0.93-1.08); PROTHROMBIN TIME 22.4 SECONDS (9.4-12.5)
[2017-06-10 07:23] LABS: PARTIAL THROMBOPLASTIN TIME 32.8 Seconds (25.1-36.5)
[2017-06-10] MEDS: guaiFENesin-DM 600-30 mg ER Tab PO SCH ×2 (11:00→17:32)
[2017-06-10] MEDS: Digoxin 125 mcg (0.125 mg) Tab PO SCH (14:26)
--- NOTE | 2017-06-10 15:11 | CP.PCM.PN ---
Subjective - Date & Time of Evaluation Date of Evaluation: 06/10/17 Time of Evaluation: 13:00 - Subjective Subjective: Alert, confused. Apetite good. Offers no complaints Objective - Vital Signs/Intake and Output Vital Signs (last 24 hours): Temp Pulse Resp BP Pulse Ox 97.8 F 96 H 20 123/59 L 95 06/09/17 10:00 06/09/17 13:07 06/09/17 10:00 06/09/17 06:00 06/09/17 13:07 - Medications Medications: Current Medications Acetaminophen (Tylenol 325mg Tab) 650 mg PO Q4H PRN; Protocol PRN Reason: Fever >100.4 F Last Admin: 06/07/17 12:50 Dose: 650 mg Albuterol/Ipratropium (Duoneb 3 Mg/0.5 Mg (3 Ml) Ud) 3 ml IH [id number] PRN; Protocol PRN Reason: Shortness of Breath Last Admin: 06/09/17 20:30 Dose: 3 ml Benzonatate (Tessalon Perles) 100 mg PO TID ERINN Last Admin: 06/10/17 14:27 Dose: 100 mg Digoxin (Lanoxin) 0.125 mg PO 1400 ERINN PRN Reason: Protocol Last Admin: 06/10/17 14:26 Dose: 0.125 mg Docusate Sodium (Colace) 100 mg PO BID ERINN PRN Reason: Protocol Last Admin: 06/10/17 11:00 Dose: 100 mg Donepezil HCl (Aricept) 10 mg PO HS ERINN PRN Reason: Protocol Last Admin: 06/09/17 21:38 Dose: 10 mg Guaifenesin/Dextromethorphan (Mucinex-Dm 600-30 Mg) 1 tab PO BID [facility] Last Admin: 06/10/17 11:00 Dose: 1 tab Ceftazidime/Avibactam 2.5 gm/ (Sodium Chloride) 100 mls @ 50 mls/hr IVPB 0600, 1400,2200 ERINN PRN Reason: Protocol Last Admin: 06/10/17 14:24 Dose: 50 mls/hr Nystatin (Nystop Topical Powder) 0 gm TOP BID PRN PRN Reason: Rash Pantoprazole Sodium (Protonix Ec Tab) 40 mg PO 0600 ERINN PRN Reason: Protocol Last Admin: 06/10/17 05:22 Dose: 40 mg Polyethylene Glycol (Miralax) 17 gm PO DAILY PRN; Protocol PRN Reason: Constipation Quetiapine Fumarate (Seroquel) 50 mg PO HS ERINN PRN Reason: Protocol Last Admin: 06/09/17 21:38 Dose: 50 mg Warfarin Sodium (Coumadin) 2 mg PO 1800 ERINN PRN Reason: Protocol - Labs Labs: 06/10/17 06:30 06/10/17 06:30 PT 22.4 SECONDS (9.4-12.5) H 06/10/17 06:30 INR 2.01 (0.93-1.08) H 06/10/17 06:30 APTT 32.8 Seconds (25.1-36.5) 06/10/17 06:30 - Constitutional Appears: Chronically Ill - Head Exam Head Exam: NORMOCEPHALIC - Eye Exam Eye Exam: Normal appearance, PERRL - ENT Exam ENT Exam: Mucous Membranes Moist - Neck Exam Neck Exam: Normal Inspection - Respiratory Exam Respiratory Exam: Clear to Ausculation Bilateral, NORMAL BREATHING PATTERN - Cardiovascular Exam Cardiovascular Exam: REGULAR RHYTHM, +S1, +S2 - GI/Abdominal Exam GI & Abdominal Exam: Soft, Normal Bowel Sounds - Back Exam Back Exam: NORMAL INSPECTION - Neurological Exam Neurological Exam: Alert - Skin Skin Exam: Dry Assessment and Plan - Assessment and Plan (Free Text) Assessment: 87 year old female with history of dementia, chronic UTI who was admitted with urrosepsis and deconditioning. Patients namrata Benitez is at bedside. Goals of care discussed at length. Patient has been evaluated for hospice in the past and does not meet criteria for services. In reviewing her case, I concur that she is not a candidate for hospice care at this time. Patient is prone to chronic UTI. She is seen regularly by Dr Kohler when at home. The patient has an advanced directive. POLST directive explained, questions answered. POLST:DNR/DNI completed by daughter Eli Larsen who is the patient's POA. A copy is placed in the chart. Time spent in discussion with daughter regarding goals of care, advance care planning and hospice services, 45 minutes Plan: POLST: DNR/DNI Palliative support in establishing goals of care.
--- NOTE | 2017-06-10 18:24 | PN ---
DATE: 06/10/2017 SUBJECTIVE: The patient is in bed, in no acute distress, was seen early this morning. PHYSICAL EXAMINATION VITAL SIGNS: Temperature is 97, blood pressure is 100/60, respiratory rate of 16. HEENT: Unremarkable. NECK: Supple. LUNGS: Have decreased breath sounds. HEART: Normal S1, S2. ABDOMEN: Soft. LABORATORY DATA: Reveals a white count of 6, hemoglobin of 9. Chemistries are noted. Microbiology is noted. ASSESSMENT AND PLAN: This is an 87-year-old female was seen earlier this morning in room 319 and with atrial fibrillation, chronic obstructive lung disease, congestive heart failure, dementia, abdominal aortic aneurysm, multiple urinary tract infections, kidney stones and gastrointestinal bleeding, deep venous thrombosis, history of a right hip fracture, admitted with fever and dysuria with severe sepsis, multidrug Klebsiella and although not ESBL, resistant to meropenem, currently on Avycaz day #7. Today is the last day of therapy and may discontinue the Avycaz after today's last dose. Meet Barnett MD
[2017-06-10] MEDS: Albuterol-Ipratrop 3 mg / 0.5 (3 ml) UD IH PRN (20:54)
[2017-06-11] MEDS: Pantoprazole 40 mg EC Tab PO SCH (05:20)
[2017-06-11 07:16] LABS: BASO # 0.05 K/mm3 (0.0-2.0); BASO % 0.8 % (0.0-3.0); EOS # 0.3 (0.0-0.7); EOS % 4.3 % (1.5-5.0); GRAN # 4.19 (1.4-6.5); GRAN % 64.3 % (50.0-68.0); HEMOGLOBIN 9.5 g/dL (12.0-16.0); LYMPH # 1.4 (1.2-3.4); MEAN CELL VOLUME 83.2 fl (80.0-105.0); MEAN CORPUSCULAR HEMOGLOBIN 24.9 pg (25.0-35.0); MEAN CORPUSCULAR HGB CONC 29.9 g/dl (31.0-37.0); MEAN PLATELET VOLUME 9.6 fl (7.0-11.0); MONO # 0.6 (0.1-0.6); MONO % 8.6 % (1.0-6.0); RBC 3.82 10^6/uL (3.5-6.1); RED CELL DISTRIBUTION WIDTH 18.2 % (11.5-14.5); WHITE BLOOD COUNT 6.5 10^3/ul (4.5-11.0)
[2017-06-11 07:26] LABS: INR 1.81 (0.93-1.08); PARTIAL THROMBOPLASTIN TIME 32.6 Seconds (25.1-36.5); PROTHROMBIN TIME 20.1 SECONDS (9.4-12.5)
[2017-06-11 07:31] LABS: ALBUMIN 2.9 g/dL (3.0-4.8); ALT/SGPT 29 U/L (7-56); AST/SGOT 14 U/L (14-36); BLOOD UREA NITROGEN 6 mg/dL (7-21); CALCIUM 9.3 mg/dL (8.4-10.5); GFR AFRICAN-AMERICAN > 60; GFR NON-AFRICAN AMERICAN > 60
[2017-06-11] MEDS: guaiFENesin-DM 600-30 mg ER Tab PO SCH ×2 (10:34→17:26)
--- NOTE | 2017-06-11 10:36 | CP.PCM.PN ---
<Miguelito Clement - Last Filed: 06/11/17 10:48> Subjective - Date & Time of Evaluation Date of Evaluation: 06/11/17 Time of Evaluation: 06:30 - Subjective Subjective: Patient seen and examined at bedside in no acute distress. Patient noted to have more coughing today, however she sates that is her baseline, her cough comes and goes. Denies shortness of breath, chest pain, abdominal pain, fevers, chills. Discussed with porter sample case patient's date for discharge from TCU; date is set for 06/14/2016. Objective - Vital Signs/Intake and Output Vital Signs (last 24 hours): Temp Pulse Resp BP Pulse Ox 98 F 65 20 104/57 L 93 L 06/10/17 17:59 06/10/17 17:59 06/10/17 17:59 06/10/17 17:59 06/10/17 17:59 - Medications Medications: Current Medications Acetaminophen (Tylenol 325mg Tab) 650 mg PO Q4H PRN; Protocol PRN Reason: Fever >100.4 F Last Admin: 06/07/17 12:50 Dose: 650 mg Albuterol/Ipratropium (Duoneb 3 Mg/0.5 Mg (3 Ml) Ud) 3 ml IH [id number] ERINN PRN Reason: Protocol Benzonatate (Tessalon Perles) 100 mg PO TID ERINN Last Admin: 06/10/17 17:32 Dose: 100 mg Digoxin (Lanoxin) 0.125 mg PO 1400 ERINN PRN Reason: Protocol Last Admin: 06/10/17 14:26 Dose: 0.125 mg Docusate Sodium (Colace) 100 mg PO BID ERINN PRN Reason: Protocol Last Admin: 06/10/17 17:31 Dose: 100 mg Donepezil HCl (Aricept) 10 mg PO HS ERINN PRN Reason: Protocol Last Admin: 06/10/17 21:42 Dose: 10 mg Guaifenesin/Dextromethorphan (Mucinex-Dm 600-30 Mg) 1 tab PO BID ERINN Last Admin: 06/10/17 17:32 Dose: 1 tab Ceftazidime/Avibactam 2.5 gm/ (Sodium Chloride) 100 mls @ 50 mls/hr IVPB 0600, 1400,2200 ERINN PRN Reason: Protocol Last Admin: 06/11/17 05:19 Dose: 50 mls/hr Nystatin (Nystop Topical Powder) 0 gm TOP BID PRN PRN Reason: Rash Pantoprazole Sodium (Protonix Ec Tab) 40 mg PO 0600 ERINN PRN Reason: Protocol Last Admin: 06/11/17 05:20 Dose: 40 mg Polyethylene Glycol (Miralax) 17 gm PO DAILY PRN; Protocol PRN Reason: Constipation Quetiapine Fumarate (Seroquel) 50 mg PO HS ERINN PRN Reason: Protocol Last Admin: 06/10/17 21:41 Dose: 50 mg Warfarin Sodium (Coumadin) 2 mg PO 1800 [facility] PRN Reason: Protocol Last Admin: 06/10/17 17:31 Dose: 2 mg - Labs Labs: 06/11/17 07:00 06/11/17 06:00 PT 20.1 SECONDS (9.4-12.5) H 06/11/17 06:00 INR 1.81 (0.93-1.08) H 06/11/17 06:00 APTT 32.6 Seconds (25.1-36.5) 06/11/17 06:00 - Constitutional Appears: Non-toxic, No Acute Distress - Head Exam Head Exam: ATRAUMATIC, NORMAL INSPECTION, NORMOCEPHALIC - Eye Exam Eye Exam: EOMI, Normal appearance - ENT Exam ENT Exam: Mucous Membranes Moist - Respiratory Exam Respiratory Exam: Rhonchi (lower left lobe), NORMAL BREATHING PATTERN - Cardiovascular Exam Cardiovascular Exam: REGULAR RHYTHM, +S1, +S2 - GI/Abdominal Exam GI & Abdominal Exam: Soft, Normal Bowel Sounds - Extremities Exam Extremities Exam: Normal Inspection - Back Exam Back Exam: NORMAL INSPECTION - Neurological Exam Neurological Exam: Alert, Awake, Oriented x3 - Psychiatric Exam Psychiatric exam: Normal Affect, Normal Mood - Skin Skin Exam: Normal Color, Warm Assessment and Plan - Assessment and Plan (Free Text) Assessment: 87 yo female PMHx Afib on coumadin, CHF with EF of 63%, COPD, urinary incontinence, abdominal aortic aneurysm and thoracic aortic aneurysm, multiple urinary tract infections, GI bleed, DVT, and dementia who [place] [facility] [place] found to be in septic due to a urinary tract infection secondary to Klebsiella Plan: Sepsis - secondary to Klebsiella UTI - Avycaz 2.5gm ivpb tid; last dose today - Tylenol for temp- patient has been afebrile - Blood cultures ordered; no growth after 5 days - Urine cultures ordered; positive for klebsiella - ID Dr. Barnett on board Hx of Atrial fibrillation - Rate controlled - INR subtherapeutic this AM at 1.81 but will continue with home dose and monitor Hx of CHF - continue home meds - Monitor fluid status closely, especially respiratory status - HOB>30, daily weights, strict I&O Hx of COPD - Will continue home medication breathing treatments - Monitor respiratory status; no complaints of shortness of breath - Mildly rhonchorous this morning; continue with duonebs - Increased cough; chest x-ray ordered- results pending Hx of Dementia - Will continue home medications GI/DVT Ppx - Protonix 40mg po qd - SCDs Discussed with Dr. Aviles <Sabra Aviles - Last Filed: 06/11/17 16:06> Objective - Vital Signs/Intake and Output Vital Signs (last 24 hours): Temp Pulse Resp BP Pulse Ox 97.4 F L 62 18 109/57 L 97 06/11/17 11:30 06/11/17 11:30 06/11/17 11:30 06/11/17 11:30 06/11/17 11:30 - Medications Medications: Current Medications Acetaminophen (Tylenol 325mg Tab) 650 mg PO Q4H PRN; Protocol PRN Reason: Fever >100.4 F Last Admin: 06/07/17 12:50 Dose: 650 mg Albuterol/Ipratropium (Duoneb 3 Mg/0.5 Mg (3 Ml) Ud) 3 ml IH [id number] ERINN PRN Reason: Protocol Benzonatate (Tessalon Perles) 100 mg PO TID [facility] Last Admin: 06/11/17 14:11 Dose: 100 mg Digoxin (Lanoxin) 0.125 mg PO 1400 ERINN PRN Reason: Protocol Last Admin: 06/11/17 14:11 Dose: 0.125 mg Docusate Sodium (Colace) 100 mg PO BID ERINN PRN Reason: Protocol Last Admin: 06/11/17 10:25 Dose: 100 mg Donepezil HCl (Aricept) 10 mg PO HS ERINN PRN Reason: Protocol Last Admin: 06/10/17 21:42 Dose: 10 mg Guaifenesin/Dextromethorphan (Mucinex-Dm 600-30 Mg) 1 tab PO BID [facility] Last Admin: 06/11/17 10:34 Dose: 1 tab Ceftazidime/Avibactam 2.5 gm/ (Sodium Chloride) 100 mls @ 50 mls/hr IVPB 0600, 1400,2200 [facility] PRN Reason: Protocol Stop: 06/11/17 22:01 Last Admin: 06/11/17 14:11 Dose: 50 mls/hr Nystatin (Nystop Topical Powder) 0 gm TOP BID PRN PRN Reason: Rash Pantoprazole Sodium (Protonix Ec Tab) 40 mg PO 0600 [facility] PRN Reason: Protocol Last Admin: 06/11/17 05:20 Dose: 40 mg Polyethylene Glycol (Miralax) 17 gm PO DAILY PRN; Protocol PRN Reason: Constipation Quetiapine Fumarate (Seroquel) 50 mg PO HS ERINN PRN Reason: Protocol Last Admin: 06/10/17 21:41 Dose: 50 mg Warfarin Sodium (Coumadin) 2 mg PO 1800 [facility] PRN Reason: Protocol Last Admin: 06/10/17 17:31 Dose: 2 mg - Labs Labs: 06/11/17 07:00 06/11/17 06:00 PT 20.1 SECONDS (9.4-12.5) H 06/11/17 06:00 INR 1.81 (0.93-1.08) H 06/11/17 06:00 APTT 32.6 Seconds (25.1-36.5) 06/11/17 06:00 Attending/Attestation - Attestation I have personally seen and examined this patient.: Yes I have fully participated in the care of the patient.: Yes I have reviewed all pertinent clinical information, including history, physical exam and plan: Yes Notes (Text): I have seen and examined the patient at bedside. Agree with the above note with the following additions/ exceptions: Briefly this is 87 year old female with history of atrial fibrillation on coumadin, moderate to severe pulmonary hypertension, COPD, urinary incontinence, AAA, GI bleed, DVT, dementia who got admitted for evaluation of fever secondary to UTI. Urine culture is positive for MDR Klebsiella which is resistant to meropenem. Patient has completed IV Avycaz. ID evaluation with Dr. Barnett appreciated. Patient is afebrile and nontoxic however complains of mild cough. CXR is unchanged. There is no leukocytosis. INR is therapeutic. Continue coumadin. Will check INR in am. Patient is DNI DNR. Daughter is at bedside. Upon discharge the patient will follow up with PMD . Dr Sabra Aviles
--- NOTE | 2017-06-11 14:09 | PN ---
DATE OF SERVICE: 06/11/2017 SUBJECTIVE: The patient is in bed, in no acute distress, nontoxic. OBJECTIVE: VITAL SIGNS: On exam, temperature is 98, blood pressure is 104/50, respiratory rate of 20. HEENT: Unremarkable. NECK: Supple. LUNGS: Have decreased breath sounds. HEART: Normal S1 and S2. ABDOMEN: Soft. LABORATORY DATA: Examination reveals a white count of 6.5, hemoglobin of 9, platelets of 283. Coagulation is noted. Chemistries reveal a BUN of 6, creatinine of 0.6. ASSESSMENT AND PLAN: This is an 87-year-old female with atrial fibrillation, chronic obstructive lung disease, congestive heart failure, dementia, abdominal aortic aneurysm, multiple urinary tract infections, kidney stones, gastrointestinal bleeding, deep venous thrombosis, and a history of right hip fracture, admitted with fever, dysuria, and severe sepsis with multidrug resistant Klebsiella although not extended-spectrum beta-lactamase, was resistant to meropenem, was treated with 7 days of Avycaz, yesterday was day #7, today is day #8, may discontinue the Avycaz upon discharge, today is day #8 of Avycaz. No further antibiotics upon discharge. Meet Barnett MD
[2017-06-11] MEDS: Digoxin 125 mcg (0.125 mg) Tab PO SCH (14:11)
--- NOTE | 2017-06-11 15:39 | RAD ---
HISTORY: Cough COMPARISON: 06/01/2017 FINDINGS: LUNGS: No active pulmonary disease. PLEURA: No significant pleural effusion identified, no pneumothorax apparent. CARDIOVASCULAR: Cardiomegaly. No evidence of acute, significant cardiovascular disease. OSSEOUS STRUCTURES: No significant abnormalities. VISUALIZED UPPER ABDOMEN: Normal. OTHER FINDINGS: None. IMPRESSION: No active disease. No significant interval change compared to the prior examination(s).
[2017-06-11] MEDS: Albuterol-Ipratrop 3 mg / 0.5 (3 ml) UD IH SCH ×2 (16:53→19:50)
[2017-06-12] MEDS: Albuterol-Ipratrop 3 mg / 0.5 (3 ml) UD IH SCH ×4 (04:37→19:43)
[2017-06-12] MEDS: Pantoprazole 40 mg EC Tab PO SCH (06:27)
[2017-06-12 07:41] LABS: BASO # 0.06 K/mm3 (0.0-2.0); BASO % 0.9 % (0.0-3.0); EOS # 0.3 (0.0-0.7); GRAN # 4.33 (1.4-6.5); GRAN % 64.8 % (50.0-68.0); HEMOGLOBIN 9.8 g/dL (12.0-16.0); LYMPH # 1.5 (1.2-3.4); LYMPH % 22.2 % (22.0-35.0); MEAN CELL VOLUME 83.1 fl (80.0-105.0); MEAN CORPUSCULAR HEMOGLOBIN 24.7 pg (25.0-35.0); MEAN CORPUSCULAR HGB CONC 29.7 g/dl (31.0-37.0); MEAN PLATELET VOLUME 9.2 fl (7.0-11.0); MONO # 0.5 (0.1-0.6); MONO % 8.1 % (1.0-6.0); RBC 3.97 10^6/uL (3.5-6.1); RED CELL DISTRIBUTION WIDTH 17.9 % (11.5-14.5); WHITE BLOOD COUNT 6.7 10^3/ul (4.5-11.0)
[2017-06-12 07:50] LABS: ALT/SGPT 24 U/L (7-56); AST/SGOT 15 U/L (14-36); BLOOD UREA NITROGEN 6 mg/dL (7-21); CALCIUM 9.8 mg/dL (8.4-10.5); GFR AFRICAN-AMERICAN > 60; GFR NON-AFRICAN AMERICAN > 60
[2017-06-12 07:51] LABS: ALB/GLOB RATIO 1.1 (1.1-1.8)
[2017-06-12 08:19] LABS: INR 1.68 (0.93-1.08); PARTIAL THROMBOPLASTIN TIME 27.5 Seconds (25.1-36.5); PROTHROMBIN TIME 18.7 SECONDS (9.4-12.5)
[2017-06-12] MEDS: guaiFENesin-DM 600-30 mg ER Tab PO SCH ×2 (10:08→17:13)
[2017-06-12] MEDS: Digoxin 125 mcg (0.125 mg) Tab PO SCH (13:51)
[2017-06-12] MEDS: Nystatin 100,000 Units/gm Topical Pow(15 gm) TOP PRN (13:52)
--- NOTE | 2017-06-12 19:16 | PN ---
DATE: 06/12/2017 SUBJECTIVE: The patient was seen early this morning in room 390, she is in no acute distress, and nontoxic. PHYSICAL EXAMINATION: VITAL SIGNS: Temperature is 98, blood pressure is 120/50, and respiratory rate of 16. HEENT: Unremarkable. NECK: Supple. LUNGS: Have decreased breath sounds. HEART: Normal S1 and S2. ABDOMEN: Soft and nontender. LABORATORY DATA: Reveals a white count of 6.7 and hemoglobin of 9. Coagulation is noted. Chemistries are reviewed. Microbiology is noted. Chest x-ray reveals no active lung disease. ASSESSMENT AND PLAN: This is an 87-year-old female with atrial fibrillation, chronic obstructive lung disease, congestive heart failure, dementia, abdominal aortic aneurysm, multiple urinary tract infections, kidney stones, gastrointestinal bleeding, deep venous thrombosis, history of right hip fracture, admitted with a fever, dysuria, severe sepsis, multidrug-resistant Klebsiella extended-spectrum beta-lactamase, was resistant to meropenem, and today is day #9 of Avycaz. The patient has had adequate therapy actually completed, now off of antibiotic. Meet Barnett MD
[2017-06-13] MEDS: Albuterol-Ipratrop 3 mg / 0.5 (3 ml) UD IH SCH ×4 (02:54→20:56)
[2017-06-13] MEDS: Pantoprazole 40 mg EC Tab PO SCH (06:34)
[2017-06-13] MEDS: Nystatin 100,000 Units/gm Topical Pow(15 gm) TOP PRN (06:35)
[2017-06-13 07:06] VITALS: BP 105/43; PULSE 62; RESP 20; TEMP 97.4
[2017-06-13 07:53] LABS: BASO # 0.05 K/mm3 (0.0-2.0); BASO % 0.8 % (0.0-3.0); EOS # 0.2 (0.0-0.7); EOS % 3.8 % (1.5-5.0); GRAN # 4.35 (1.4-6.5); HEMOGLOBIN 9.9 g/dL (12.0-16.0); LYMPH # 1.3 (1.2-3.4); LYMPH % 20.5 % (22.0-35.0); MEAN CELL VOLUME 83.1 fl (80.0-105.0); MEAN CORPUSCULAR HEMOGLOBIN 24.6 pg (25.0-35.0); MEAN CORPUSCULAR HGB CONC 29.6 g/dl (31.0-37.0); MONO # 0.4 (0.1-0.6); MONO % 6.9 % (1.0-6.0); RBC 4.02 10^6/uL (3.5-6.1); WHITE BLOOD COUNT 6.4 10^3/ul (4.5-11.0)
[2017-06-13 08:00] LABS: ALBUMIN 3.1 g/dL (3.0-4.8); ALT/SGPT 20 U/L (7-56); AST/SGOT 17 U/L (14-36); BLOOD UREA NITROGEN 5 mg/dL (7-21); CALCIUM 9.4 mg/dL (8.4-10.5); GFR AFRICAN-AMERICAN > 60; GFR NON-AFRICAN AMERICAN > 60
[2017-06-13 08:27] LABS: INR 1.74 (0.93-1.08); PARTIAL THROMBOPLASTIN TIME 32.1 Seconds (25.1-36.5); PROTHROMBIN TIME 19.4 SECONDS (9.4-12.5)
[2017-06-13] MEDS: guaiFENesin-DM 600-30 mg ER Tab PO SCH (09:46)
--- NOTE | 2017-06-13 11:47 | CP.PCM.PN ---
<Gen Chavira - Last Filed: 06/13/17 11:43> Subjective - Date & Time of Evaluation Date of Evaluation: 06/13/17 Time of Evaluation: 11:44 - Subjective Subjective: Medicine Progress Note Pt seen and examined at bedside. Pt denied any acute overnight events. Cough is still present. Pt denied CP, SOB, nausea, vomiting, diarrhea, abdominal pain, fever, chills, SUAREZ, or dizziness. Objective - Vital Signs/Intake and Output Vital Signs (last 24 hours): Temp Pulse Resp BP Pulse Ox 97.4 F L 62 20 105/43 L 93 L 06/13/17 06:00 06/13/17 06:00 06/13/17 06:00 06/13/17 06:00 06/13/17 06:00 - Medications Medications: Current Medications Acetaminophen (Tylenol 325mg Tab) 650 mg PO Q4H PRN; Protocol PRN Reason: Fever >100.4 F Last Admin: 06/07/17 12:50 Dose: 650 mg Albuterol/Ipratropium (Duoneb 3 Mg/0.5 Mg (3 Ml) Ud) 3 ml IH [id number] ERINN PRN Reason: Protocol Last Admin: 06/13/17 08:07 Dose: 3 ml Digoxin (Lanoxin) 0.125 mg PO 1400 ERINN PRN Reason: Protocol Last Admin: 06/12/17 13:51 Dose: 0.125 mg Docusate Sodium (Colace) 100 mg PO BID ERINN PRN Reason: Protocol Last Admin: 06/13/17 09:45 Dose: 100 mg Donepezil HCl (Aricept) 10 mg PO HS ERINN PRN Reason: Protocol Last Admin: 06/12/17 21:39 Dose: 10 mg Guaifenesin/Dextromethorphan (Robitussin Dm) 5 ml PO Q4H PRN PRN Reason: Cough Nystatin (Nystop Topical Powder) 0 gm TOP BID PRN PRN Reason: Rash Last Admin: 06/13/17 06:35 Dose: 1 pod Pantoprazole Sodium (Protonix Ec Tab) 40 mg PO 0600 ERINN PRN Reason: Protocol Last Admin: 06/13/17 06:34 Dose: 40 mg Polyethylene Glycol (Miralax) 17 gm PO DAILY PRN; Protocol PRN Reason: Constipation Last Admin: 06/12/17 10:06 Dose: 17 gm Quetiapine Fumarate (Seroquel) 50 mg PO HS ERINN PRN Reason: Protocol Last Admin: 06/12/17 21:39 Dose: 50 mg Warfarin Sodium (Coumadin) 2 mg PO 1800 ERINN PRN Reason: Protocol Last Admin: 06/12/17 17:12 Dose: 2 mg Warfarin Sodium (Coumadin) 3 mg PO 1800 ERINN PRN Reason: Protocol Stop: 06/13/17 23:59 - Labs Labs: 06/13/17 06:30 06/13/17 06:30 PT 19.4 SECONDS (9.4-12.5) H 06/13/17 06:30 INR 1.74 (0.93-1.08) H 06/13/17 06:30 APTT 32.1 Seconds (25.1-36.5) 06/13/17 06:30 - Constitutional Appears: No Acute Distress - Head Exam Head Exam: NORMAL INSPECTION - Eye Exam Eye Exam: Normal appearance - ENT Exam ENT Exam: Normal Exam - Neck Exam Neck Exam: Normal Inspection - Respiratory Exam Respiratory Exam: Rhonchi (bases). absent: Accessory Muscle Use, Rales, Wheezes , Respiratory Distress - Cardiovascular Exam Cardiovascular Exam: RRR, +S1, +S2. absent: Gallop, Rubs, Murmur - GI/Abdominal Exam GI & Abdominal Exam: Soft. absent: Distended, Guarding, Tenderness, Rebound - Extremities Exam Extremities Exam: Normal Inspection - Back Exam Back Exam: NORMAL INSPECTION - Neurological Exam Neurological Exam: Alert, Awake, Oriented x3 - Psychiatric Exam Psychiatric exam: Normal Affect, Normal Mood - Skin Skin Exam: Dry, Intact, Normal Color, Warm Assessment and Plan - Assessment and Plan (Free Text) Assessment: 87 yo female PMHx Afib on coumadin, CHF with EF of 63%, COPD, urinary incontinence, abdominal aortic aneurysm and thoracic aortic aneurysm, multiple urinary tract infections, GI bleed, DVT, and dementia who presented to [facility] [place] with AMS found to be in septic due to a urinary tract infection secondary to Klebsiella Plan: Sepsis, resolved - secondary to Klebsiella UTI - Abx completed - Tylenol for temp- patient has been afebrile - Blood cultures negative - Urine cultures positive for klebsiella - ID Dr. Barnett on board Hx of Atrial fibrillation - Rate controlled - INR 1.74 - Coumadin increased to 3 mg for today - Recheck INR in AM Hx of CHF - continue home meds - Monitor fluid status closely, especially respiratory status - HOB>30, daily weights, strict I&O Hx of COPD - Will continue home medication breathing treatments - Mildly rhonchorous this morning; continue with duonebs - CXR negative - Robitussin DM for cough Hx of Dementia - Will continue home medications GI/DVT Ppx - Protonix - SCDs Pt seen and discussed in detail with Dr. Aviles. Satnam Chavira, PGY1 <Sabra Aviles - Last Filed: 06/13/17 14:07> Objective - Vital Signs/Intake and Output Vital Signs (last 24 hours): Temp Pulse Resp BP Pulse Ox 97.4 F L 62 20 105/43 L 93 L 06/13/17 06:00 06/13/17 06:00 06/13/17 06:00 06/13/17 06:00 06/13/17 06:00 - Medications Medications: Current Medications Acetaminophen (Tylenol 325mg Tab) 650 mg PO Q4H PRN; Protocol PRN Reason: Fever >100.4 F Last Admin: 06/07/17 12:50 Dose: 650 mg Albuterol/Ipratropium (Duoneb 3 Mg/0.5 Mg (3 Ml) Ud) 3 ml IH [id number] ERINN PRN Reason: Protocol Last Admin: 06/13/17 08:07 Dose: 3 ml Digoxin (Lanoxin) 0.125 mg PO 1400 ERINN PRN Reason: Protocol Last Admin: 06/12/17 13:51 Dose: 0.125 mg Docusate Sodium (Colace) 100 mg PO BID ERINN PRN Reason: Protocol Last Admin: 06/13/17 09:45 Dose: 100 mg Donepezil HCl (Aricept) 10 mg PO HS ERINN PRN Reason: Protocol Last Admin: 06/12/17 21:39 Dose: 10 mg Guaifenesin/Dextromethorphan (Robitussin Dm) 5 ml PO Q4H PRN PRN Reason: Cough Nystatin (Nystop Topical Powder) 0 gm TOP BID PRN PRN Reason: Rash Last Admin: 06/13/17 06:35 Dose: 1 pod Pantoprazole Sodium (Protonix Ec Tab) 40 mg PO 0600 ERINN PRN Reason: Protocol Last Admin: 06/13/17 06:34 Dose: 40 mg Polyethylene Glycol (Miralax) 17 gm PO DAILY PRN; Protocol PRN Reason: Constipation Last Admin: 06/12/17 10:06 Dose: 17 gm Quetiapine Fumarate (Seroquel) 50 mg PO HS ERINN PRN Reason: Protocol Last Admin: 06/12/17 21:39 Dose: 50 mg Warfarin Sodium (Coumadin) 2 mg PO 1800 ERINN PRN Reason: Protocol Last Admin: 06/12/17 17:12 Dose: 2 mg Warfarin Sodium (Coumadin) 3 mg PO 1800 ERINN PRN Reason: Protocol Stop: 06/13/17 23:59 - Labs Labs: 06/13/17 06:30 06/13/17 06:30 PT 19.4 SECONDS (9.4-12.5) H 06/13/17 06:30 INR 1.74 (0.93-1.08) H 06/13/17 06:30 APTT 32.1 Seconds (25.1-36.5) 06/13/17 06:30 Attending/Attestation - Attestation I have personally seen and examined this patient.: Yes I have fully participated in the care of the patient.: Yes I have reviewed all pertinent clinical information, including history, physical exam and plan: Yes Notes (Text): I have seen and examined the patient at bedside. Agree with the above note with the following additions/ exceptions: Briefly this is 87 year old female with history of atrial fibrillation on coumadin, moderate to severe pulmonary hypertension, COPD, urinary incontinence, AAA, GI bleed, DVT, dementia who got admitted for evaluation of fever secondary to UTI. Urine culture is positive for MDR Klebsiella which is resistant to meropenem. Patient has completed IV Avycaz. ID evaluation with Dr. Barnett appreciated. Patient is afebrile and nontoxic however complains of mild intermittent cough. CXR is unchanged. There is no leukocytosis. Will start robitussin. INR is 1.7. Will give 3 mg coumadin. Will check INR in am. Patient is DNI DNR. Upon discharge the patient will follow up with PMD . Dr Sabra Aviles
[2017-06-13] MEDS: Digoxin 125 mcg (0.125 mg) Tab PO SCH (14:08)
[2017-06-13 14:10] VITALS: PULSE 72
--- NOTE | 2017-06-13 15:42 | PN ---
DATE: 06/13/2017 SUBJECTIVE: The patient is in bed, in no acute distress, nontoxic. PHYSICAL EXAMINATION: VITAL SIGNS: Temperature is 97, blood pressure is 105/40, respiratory rate of 18, and heart rate of 66. HEENT: Unremarkable. NECK: Supple. LUNGS: Have decreased breath sounds. HEART: Normal S1 and S2. ABDOMEN: Soft, nontender. LABORATORY DATA: Reveals white count of 6.4, hemoglobin of 9, and platelets of 303. Coagulation is noted. BUN of 5 and creatinine of 0.6. The patient had a chest x-ray, no active disease. ASSESSMENT AND PLAN: The patient is an 87-year-old female with atrial fibrillation, chronic obstructive lung disease, congestive heart failure, dementia, abdominal aortic aneurysm, multiple urinary tract infection, kidney stones, gastroesophageal bleeding, deep vein thrombosis, and history of right hip fracture who was admitted with fever and dysuria. 1. Severe sepsis with multidrug-resistant Klebsiella, although it was not ESBL positive, it was resistant to meropenem. I have completed 8 days of Avycaz and currently now off of antibiotics. Meet Barnett MD
[2017-06-13 15:58] VITALS: O2SAT 97
[2017-06-13] MEDS: guaiFENesin DM 100 mg-10 mg/5 ml UD PO PRN (21:20)
[2017-06-14] MEDS: Albuterol-Ipratrop 3 mg / 0.5 (3 ml) UD IH SCH ×2 (01:48→07:35)
[2017-06-14] MEDS: Pantoprazole 40 mg EC Tab PO SCH (05:40)
[2017-06-14] MEDS: guaiFENesin DM 100 mg-10 mg/5 ml UD PO PRN ×2 (05:40→11:00)
[2017-06-14] MEDS: Nystatin 100,000 Units/gm Topical Pow(15 gm) TOP PRN (05:41)
[2017-06-14 07:40] LABS: BASO # 0.04 K/mm3 (0.0-2.0); BASO % 0.6 % (0.0-3.0); EOS # 0.2 (0.0-0.7); EOS % 3.2 % (1.5-5.0); GRAN # 3.99 (1.4-6.5); GRAN % 64.1 % (50.0-68.0); HEMOGLOBIN 9.6 g/dL (12.0-16.0); LYMPH # 1.5 (1.2-3.4); LYMPH % 24.7 % (22.0-35.0); MEAN CELL VOLUME 83.8 fl (80.0-105.0); MEAN CORPUSCULAR HEMOGLOBIN 24.6 pg (25.0-35.0); MEAN CORPUSCULAR HGB CONC 29.4 g/dl (31.0-37.0); MEAN PLATELET VOLUME 9.3 fl (7.0-11.0); MONO # 0.5 (0.1-0.6); MONO % 7.4 % (1.0-6.0); RBC 3.9 10^6/uL (3.5-6.1); WHITE BLOOD COUNT 6.2 10^3/ul (4.5-11.0)
[2017-06-14 07:56] LABS: ALB/GLOB RATIO 1.1 (1.1-1.8); ALBUMIN 2.8 g/dL (3.0-4.8); ALT/SGPT 23 U/L (7-56); AST/SGOT 13 U/L (14-36); BLOOD UREA NITROGEN 7 mg/dL (7-21); CALCIUM 9.7 mg/dL (8.4-10.5); GFR AFRICAN-AMERICAN > 60; GFR NON-AFRICAN AMERICAN > 60; INR 1.75 (0.93-1.08); PROTHROMBIN TIME 19.5 SECONDS (9.4-12.5)
--- NOTE | 2017-06-14 13:59 | CP.PCM.DIS ---
<Gen Chavira - Last Filed: 06/14/17 13:51> Provider - Provider Date of Admission: 06/06/17 13:26 Attending physician: Sabra Aviles MD Primary care physician: Tashi Kohler MD Consults: Psych: Abilio ID: Anibal Time Spent in preparation of Discharge (in minutes): 45 Hospital Course - Lab Results Lab Results: Most Recent Lab Values WBC 6.2 10^3/ul (4.5-11.0) 06/14/17 06:30 RBC 3.90 10^6/uL (3.5-6.1) 06/14/17 06:30 Hgb 9.6 g/dL (12.0-16.0) L 06/14/17 06:30 Hct 32.7 % (36.0-48.0) L 06/14/17 06:30 MCV 83.8 fl (80.0-105.0) 06/14/17 06:30 MCH 24.6 pg (25.0-35.0) L 06/14/17 06:30 MCHC 29.4 g/dl (31.0-37.0) L 06/14/17 06:30 RDW 18.0 % (11.5-14.5) H 06/14/17 06:30 Plt Count 302 10^3/uL (120.0-450.0) 06/14/17 06:30 MPV 9.3 fl (7.0-11.0) 06/14/17 06:30 Gran % 64.1 % (50.0-68.0) 06/14/17 06:30 Lymph % (Auto) 24.7 % (22.0-35.0) 06/14/17 06:30 [place] % (Auto) 7.4 % (1.0-6.0) H 06/14/17 06:30 Eos % (Auto) 3.2 % (1.5-5.0) 06/14/17 06:30 Baso % (Auto) 0.6 % (0.0-3.0) 06/14/17 06:30 Gran # 3.99 (1.4-6.5) 06/14/17 06:30 Lymph # 1.5 (1.2-3.4) 06/14/17 06:30 [place] # 0.5 (0.1-0.6) 06/14/17 06:30 Eos # 0.2 (0.0-0.7) 06/14/17 06:30 Baso # 0.04 K/mm3 (0.0-2.0) 06/14/17 06:30 PT 19.5 SECONDS (9.4-12.5) H 06/14/17 06:30 INR 1.75 (0.93-1.08) H 06/14/17 06:30 APTT 32.0 Seconds (25.1-36.5) 06/14/17 06:30 Sodium 142 mmol/L (132-148) 06/14/17 06:30 Potassium 3.6 mmol/L (3.6-5.0) 06/14/17 06:30 Chloride 108 mmol/L (98-107) H 06/14/17 06:30 Carbon Dioxide 27 mmol/L (21-33) 06/14/17 06:30 Anion Gap 11 (10-20) 06/14/17 06:30 BUN 7 mg/dL (7-21) 06/14/17 06:30 Creatinine 0.6 mg/dl (0.7-1.2) L 06/14/17 06:30 Est GFR ( Amer) > 60 06/14/17 06:30 Est GFR (Non-Af Amer) > 60 06/14/17 06:30 Random Glucose 112 mg/dL (70-110) H 06/14/17 06:30 Calcium 9.7 mg/dL (8.4-10.5) 06/14/17 06:30 Total Bilirubin 0.3 mg/dL (0.2-1.3) 06/14/17 06:30 AST 13 U/L (14-36) L D 06/14/17 06:30 ALT 23 U/L (7-56) 06/14/17 06:30 Alkaline Phosphatase 57 U/L (38-126) 06/14/17 06:30 Total Protein 5.4 g/dL (5.8-8.3) L 06/14/17 06:30 Albumin 2.8 g/dL (3.0-4.8) L 06/14/17 06:30 Globulin 2.6 gm/dL 06/14/17 06:30 Albumin/Globulin Ratio 1.1 (1.1-1.8) 06/14/17 06:30 - Hospital Course Hospital Course: 87 yo female PMHx Afib on coumadin, CHF with EF of 63%, COPD, urinary incontinence, abdominal aortic aneurysm and thoracic aortic aneurysm, multiple urinary tract infections, GI bleed, DVT, and dementia who presented to [facility] [place] [place] with AMS found to be in septic due to a urinary tract infection secondary to Klebsiella. Patient on abx as per ID and on contact precautions. Patient transferred to TCU for further treatment of her UTI and for rehabilitation. During course of stay in TCU patient continued to receive medical management as well as physical therapy. Patient continued to do well however experienced supratherapeutic INR which was treated with witholding his coumadin. Patient's INR was continually monitored. Today, patient was seen and examined at bedside. Pt still has cough and had rhonchi on exam. However, CXR was negative and she had no leukocytosis. As the patient was medically stable, she was discharged. Pt was give an Rx for Doxycycline and Robitussin as her still had not resolved. Pt will be continued on her home medications, including her coumadin. Pt will follow up with her PMD within 1 week of discharge. Discharge Diagnosis 1. Sepsis 2/2 UTI, resolved 2. Hx of Atrial fibrillation 3. Hx of CHF 4. Hx of COPD 5. Hx of Dementia Discharge Medications - Doxycycline 100 mg PO BID x7 days - Robitussin DM 5 mL PO Q4h prn for cough - Nystatin applied to affected afrea - Coumadin 2 mg PO daily - Cont home medications as per AUG Discharge Exam - Head Exam Head Exam: NORMAL INSPECTION - Eye Exam Eye Exam: Normal appearance - ENT Exam ENT Exam: Normal Exam - Respiratory Exam Respiratory Exam: Rhonchi (b/l bases). absent: Accessory Muscle Use, Rales, Wheezes, Respiratory Distress - Cardiovascular Exam Cardiovascular Exam: RRR, +S1, +S2. absent: Diastolic murmur, Gallop, Rubs, Systolic Murmur - GI/Abdominal Exam GI & Abdominal Exam: Soft. absent: Distended, Guarding, Rebound, Tenderness - Extremities Exam Extremities exam: normal inspection - Neurological Exam Neurological exam: Alert, Oriented x3 - Psychiatric Exam Psychiatric exam: Normal Affect, Normal Mood - Skin Skin Exam: Dry, Intact, Normal Color, Warm Discharge Plan - Discharge Medications Prescriptions: Doxycycline Monohydrate [[place]] 100 mg PO BID 7 Days capsule guaiFENesin/Dextromethorphan [Robitussin DM] 5 ml PO Q4H PRN 5 Days udc PRN Reason: Cough Nystatin [Nystop Topical Powder] 1 bottle TOP BID PRN #1 bottle PRN Reason: Rash - Follow Up Plan Condition: GOOD Disposition: HOME/ ROUTINE Instructions: Heart Failure (DC), Urinary Incontinence (GEN), Urinary Tract Infection in Women (DC), Sepsis (GEN), Fall Prevention (DC) Additional Instructions: 1. Follow up with PMD within 1 week 2. Take new medications as prescribed 3. Resume home medication as prescribed 4. Return to ED if symptoms worsen Referrals: Tashi Kohler MD [Primary Care Provider] - <Sabra Aviles - Last Filed: 06/15/17 13:31> Provider - Provider Date of Admission: 06/06/17 13:26 Attending physician: Sabra Aviles MD Primary care physician: Tashi Kohler MD Hospital Course - Lab Results Lab Results: Most Recent Lab Values WBC 6.2 10^3/ul (4.5-11.0) 06/14/17 06:30 RBC 3.90 10^6/uL (3.5-6.1) 06/14/17 06:30 Hgb 9.6 g/dL (12.0-16.0) L 06/14/17 06:30 Hct 32.7 % (36.0-48.0) L 06/14/17 06:30 MCV 83.8 fl (80.0-105.0) 06/14/17 06:30 MCH 24.6 pg (25.0-35.0) L 06/14/17 06:30 MCHC 29.4 g/dl (31.0-37.0) L 06/14/17 06:30 RDW 18.0 % (11.5-14.5) H 06/14/17 06:30 Plt Count 302 10^3/uL (120.0-450.0) 06/14/17 06:30 MPV 9.3 fl (7.0-11.0) 06/14/17 06:30 Gran % 64.1 % (50.0-68.0) 06/14/17 06:30 Lymph % (Auto) 24.7 % (22.0-35.0) 06/14/17 06:30 [place] % (Auto) 7.4 % (1.0-6.0) H 06/14/17 06:30 Eos % (Auto) 3.2 % (1.5-5.0) 06/14/17 06:30 Baso % (Auto) 0.6 % (0.0-3.0) 06/14/17 06:30 Gran # 3.99 (1.4-6.5) 06/14/17 06:30 Lymph # 1.5 (1.2-3.4) 06/14/17 06:30 [place] # 0.5 (0.1-0.6) 06/14/17 06:30 Eos # 0.2 (0.0-0.7) 06/14/17 06:30 Baso # 0.04 K/mm3 (0.0-2.0) 06/14/17 06:30 PT 19.5 SECONDS (9.4-12.5) H 06/14/17 06:30 INR 1.75 (0.93-1.08) H 06/14/17 06:30 APTT 32.0 Seconds (25.1-36.5) 06/14/17 06:30 Sodium 142 mmol/L (132-148) 06/14/17 06:30 Potassium 3.6 mmol/L (3.6-5.0) 06/14/17 06:30 Chloride 108 mmol/L (98-107) H 06/14/17 06:30 Carbon Dioxide 27 mmol/L (21-33) 06/14/17 06:30 Anion Gap 11 (10-20) 06/14/17 06:30 BUN 7 mg/dL (7-21) 06/14/17 06:30 Creatinine 0.6 mg/dl (0.7-1.2) L 06/14/17 06:30 Est GFR ( Amer) > 60 06/14/17 06:30 Est GFR (Non-Af Amer) > 60 06/14/17 06:30 Random Glucose 112 mg/dL (70-110) H 06/14/17 06:30 Calcium 9.7 mg/dL (8.4-10.5) 06/14/17 06:30 Total Bilirubin 0.3 mg/dL (0.2-1.3) 06/14/17 06:30 AST 13 U/L (14-36) L D 06/14/17 06:30 ALT 23 U/L (7-56) 06/14/17 06:30 Alkaline Phosphatase 57 U/L (38-126) 06/14/17 06:30 Total Protein 5.4 g/dL (5.8-8.3) L 06/14/17 06:30 Albumin 2.8 g/dL (3.0-4.8) L 06/14/17 06:30 Globulin 2.6 gm/dL 06/14/17 06:30 Albumin/Globulin Ratio 1.1 (1.1-1.8) 06/14/17 06:30 Attending/Attestation - Attestation I have personally seen and examined this patient.: Yes I have fully participated in the care of the patient.: Yes I have reviewed all pertinent clinical information, including history, physical exam and plan: Yes Notes (Text): I have seen and examined the patient at bedside. Agree with the above note with the following additions/ exceptions: Briefly this is 87 year old female with history of atrial fibrillation on coumadin, moderate to severe pulmonary hypertension, COPD, urinary incontinence, AAA, GI bleed, DVT, dementia who got admitted for evaluation of fever secondary to UTI. Urine culture is positive for MDR Klebsiella which is resistant to meropenem. Patient has completed IV Avycaz. Patient is afebrile and nontoxic however complains of cough. She reports cough with phlegm production. Will give short course of doxycycline. CXR is unchanged. There is no leukocytosis. Will continue robitussin. INR is slightly low. 4 mg coumadin given today and advised her to have repeat INR in 2 days. Patient is DNI DNR. Upon discharge the patient will follow up with PMD . Dr Sabra Aviles
--- NOTE | 2017-06-14 14:48 | PN ---
DATE: 06/15/2017 SUBJECTIVE: The patient is in bed, in no acute distress. PHYSICAL EXAMINATION: VITAL SIGNS: Temperature is 97, blood pressure is 120/70, respiratory rate of 16. HEENT: Unremarkable. NECK: Supple. LUNGS: Have decreased breath sounds. HEART: Normal S1, S2. ABDOMEN: Soft and nontender. LABORATORY DATA: Reveals a white count of 6.2, hemoglobin of 9, platelets of 302. Coagulation is noted. Chemistries reveals a BUN of 7, creatinine of 0.6. Microbiology is noted. ASSESSMENT/PLAN: An 87-year-old female with atrial fibrillation, chronic obstructive lung disease, congestive heart failure, dementia, abdominal aortic aneurysm, multiple urinary tract infections, kidney stones, gastroesophageal bleeding, deep venous thrombosis, history of right hip fracture, admitted with fever, dysuria, severe sepsis, multidrug-resistant Klebsiella although it was not ESBL positive. It was resistant to meropenem. The patient had completed 8 days of Avycaz, currently now off of antibiotics, afebrile and will follow with you. Meet Barnett MD
== END 2017-06-14 13:37 | disposition home or self-care (01) | DRG 872 ==
LOC: TRCU 13:26
PROVIDERS: ADMIT Internal Medicine; ATTEND Hospitalist
PROC: F07Z9FZ Gait Training/Functional Ambulation Treatment using Assistive, Adaptive, Supportive or Protective Equipment (ICD-10-PCS; principal; 2017-06-07)
PROC: 3E0F7GC Introduction of Other Therapeutic Substance into Respiratory Tract, Via Natural or Artificial Opening (ICD-10-PCS; 2017-06-07)
PROC: F08Z4FZ Home Management Treatment using Assistive, Adaptive, Supportive or Protective Equipment (ICD-10-PCS; 2017-06-09)
DX: A41.9 Sepsis, unspecified organism (principal); N39.0 Urinary tract infection, site not specified; I50.9 Heart failure, unspecified; I11.0 Hypertensive heart disease with heart failure; I48.91 Unspecified atrial fibrillation; I27.20 Pulmonary hypertension, unspecified; F03.90 Unspecified dementia, unspecified severity, without behavioral disturbance, psychotic disturbance, mood disturbance, and anxiety; J44.9 Chronic obstructive pulmonary disease, unspecified; I71.4 Abdominal aortic aneurysm, without rupture; I71.2 Thoracic aortic aneurysm, without rupture; B96.1 Klebsiella pneumoniae [K. pneumoniae] as the cause of diseases classified elsewhere; Z66 Do not resuscitate; R65.20 Severe sepsis without septic shock; H35.30 Unspecified macular degeneration; R32 Unspecified urinary incontinence; Z16.24 Resistance to multiple antibiotics; Z79.01 Long term (current) use of anticoagulants; Z87.440 Personal history of urinary (tract) infections; Z85.820 Personal history of malignant melanoma of skin; Z87.442 Personal history of urinary calculi; Z86.718 Personal history of other venous thrombosis and embolism; Z87.891 Personal history of nicotine dependence

== ENCOUNTER 2017-06-29 13:12 | Inpatient (IN) | payer MEDICARE, BC ==
--- NOTE | 2017-06-29 13:44 | ED PDOC ---
Arrival/HPI - General Chief Complaint: Altered Mental Status Time Seen by Provider: 06/29/17 13:24 Historian: Family (Daughter) - History of Present Illness Narrative History of Present Illness (Text): 06/29/17 13:43 A 87 year old female, whose past medical history includes AAA, COPD, CHF, GI bleed, DVT, atrial fibrillation on Warfarin, frequent UTIs and dementia, brought into the emergency department by EMS accompanied by daughter reportedly with altered mental status that developed this morning. Reportedly the patient was her typical self yesterday and early this morning. Patient subsequently became confused and vomited. Daughter states this is similar in presentation during past episodes of "infections". PMD: Dr. Kohler Time/Duration: Prior to Arrival Symptom Course: Unchanged Context: Home Past Medical History - Provider Review Nursing Documentation Reviewed: Yes - Infectious Disease Hx of Infectious Diseases: None - Tetanus Immunization Tetanus Immunization: Unknown - Cardiac Hx Cardiac Disorders: Yes Hx Atrial Fibrillation: Yes Hx Congestive Heart Failure: Yes Hx Hypertension: Yes - Pulmonary Hx Chronic Obstructive Pulmonary Disease (COPD): Yes - Neurological Hx Dementia: Yes (confusion memory loss) - HEENT Hx Cataracts: Yes Hx Macular Degeneration: Yes - Renal Hx Renal Failure: No - Endocrine/Metabolic Hx Diabetes Mellitus Type 1: No Hx Diabetes Mellitus Type 2: No Hx Hypothyroidism: No - Hematological/Oncological Hx Anemia: Yes (blood transfusion) Hx Cancer: Yes (melanoma mynor removed) - Integumentary Hx Dermatological Disorder: Yes Hx Melanoma: Yes (r upper arm removed) Other/Comment: left leg lesion redness dry scab,, multiple areas discolored dry skin, rle multiple discolorations and dry skin, +1 ble edema, slight redness buttocks no openings, left upper chest wall 1cm round cyst,melanoma scar right arm below r shoulder 2007, right arm scar from skin tear, multiple discolorations to skin both arms - Musculoskeletal/Rheumatological Hx Falls: Yes (2 years ago) - Gastrointestinal Hx Gastrointestinal Disorders: Yes (ggi bleed) Hx Diverticulitis: Yes Hx Gastroesophageal Reflux: No - Genitourinary/Gynecological Hx Reproductive Disorders: No - Psychiatric Hx Anxiety: Yes Hx Depression: Yes Hx Physical Abuse: No Hx Substance Use: No - Past Surgical History Past Surgical History: No Previous - Surgical History Hx Orthopedic Surgery: Yes (total replacement 2005) Other/Comment: ABD HERNIA REPAIR - Anesthesia Hx Anesthesia: Yes Hx Anesthesia Reactions: No Hx Malignant Hyperthermia: No - Suicidal Assessment Feels Threatened In Home Enviroment: No Family/Social History - Physician Review Nursing Documentation Reviewed: Yes Family/Social History: No Known Family HX Smoking Status: Former Smoker Hx Alcohol Use: No Hx Substance Use: No Hx Substance Use Treatment: No Allergies/Home Meds Allergies/Adverse Reactions: Allergies No Known Allergies Allergy (Verified 06/29/17 16:42) Home Medications: Home Meds Medication Instructions Recorded Confirmed QUEtiapine [Seroquel] 50 mg PO HS 06/02/17 06/29/17 Digoxin [Digitek] 125 mcg PO DAILY 06/29/17 06/29/17 Pantoprazole Sodium [Protonix] 40 mg PO DAILY 06/29/17 06/29/17 Spironolactone [Aldactone] 25 mg PO DAILY 06/29/17 06/29/17 Warfarin [Coumadin] 2 mg PO DAILY 06/29/17 06/29/17 Review of Systems - Review of Systems Systems not reviewed;Unavailable: Altered Mental Status Gastrointestinal: Vomiting Neurological: Other (chills) Physical Exam - Physical Exam Narrative Physical Exam (Text): Head: Atraumatic. Normocephalic. Eyes: PERRL. EOMI. Conjunctivae are not pale. ENT: Mucous membranes are dry. No drooling or edema. NO stridor. Neck: Supple. Full ROM. No JVD. No lymphadenopathy. No meningeal signs. Cardiovascular: Irregular rate and rhythm. Systolic murmur. Tachycardic. Pulmonary/Chest: No evidence of respiratory distress. Mild rhonchi. No accessory muscle usage. Abdominal: Soft and non-distended. There is no tenderness. No rebound, guarding, or rigidity. No organomegaly. Good bowel sounds. Rectal: brown, heme negative stool, no melena Back: No CVA tenderness. Extremities: No edema. Hip pain. No erythema. No flucutance. Skin: Skin is warm and dry. No petechiae. No purpura. Neurological: Alert, awake. Disoriented to place and time. Appears sluggish but will follow simple commands, answer simple questions. Psychiatric: Poor eye contact. Vital Signs Reviewed: Yes Vital Signs Temp Pulse Resp BP Pulse Ox 06/29/17 17:53 99.1 F 06/29/17 17:50 106/50 L 06/29/17 16:39 71 16 98/48 L 97 06/29/17 15:45 99 F 06/29/17 13:12 102.5 F H 100 H 17 110/62 97 Temperature: Febrile Blood Pressure: Hypotensive Pulse: Irregular Respiratory Rate: Tachypneic Appearance: Positive for: Ill-Appearing Mental Status: Positive for: Confused Medical Decision Making ED Course and Treatment: 06/29/17 13:43 Impression: A 87 year old female with altered mental status Differential Diagnosis included but are not limited to: Plan: -- Head CT -- Chest xray -- EKG -- Labs -- Blood and Urine culture -- Urinalysis -- Influenza A B stat -- Maxipime, IV fluids and Tylenol -- Reassess and disposition Progress Notes: Patient's history reviewed with daughter. On exam she is awake, alert, but slow to respond to simple questions at times. She is febrile. Prior admission for urosepsis reviewed. Prior cultures reviewed. No abodminal pain noted. NO respiratory distress noted. Lactate elevated. Due to fever, suspicion of infection, code sepsis called. Code sepsis activated at 14:12 Fluid bolus ordered and iv antibiotics. As she is on Coumadin with AMS, head ct ordered. Report Date : 06/29/2017 15:24:45 PROCEDURE: CT HEAD WITHOUT CONTRAST. Dictator : Umer Ceja MD IMPRESSION: No intracranial mass, hemorrhage or evidence of acute infarct. Chronic paranasal sinusitis. Age related atrophy and chronic white matter ischemic change. Nonspecific left mastoid effusion. Report Date : 06/29/2017 15:32:53 Procedure: Chest xray Dictator : Ghassan Scott MD IMPRESSION: No active disease. On re-exam, BP and heart rate improved. Appears more alert. Will admit to telemetry bed for sepsis, suspect uti, will again send cultures, consult ID. Currently no chest pain or headache or active bleeding. Daughter updated with treatment plan. - Lab Interpretations Lab Results: 06/29/17 13:40 06/29/17 13:40 Lab Results 06/29/17 14:02: Digoxin 0.7 L 06/29/17 14:02: Phosphorus 2.5, Magnesium 1.9 06/29/17 14:02: Urine Color Yellow, Urine Appearance Cloudy, Urine pH 6.0, Ur Specific [place] 1.020, Urine Protein Negative, Urine Glucose (UA) Negative, Urine Ketones Negative, Urine Blood Moderate H, Urine Nitrate Negative, Urine Bilirubin Negative, Urine Urobilinogen 0.2, Ur Leukocyte Esterase Moderate H, Urine RBC 2 - 5, Urine WBC 10 - 15, Ur Epithelial Cells 3 - 4, Urine Bacteria Mod 06/29/17 14:02: Influenza Typ A,B (EIA) Negative for flu a/b 06/29/17 13:53: POC Glucose (mg/dL) 135 H 06/29/17 13:50: PT 20.8 H, INR 1.80 H, APTT 30.8 06/29/17 13:40: Procalcitonin 0.22 06/29/17 13:40: Sodium 140, Chloride 105, Potassium 3.8, Carbon Dioxide 22, Anion Gap 17, BUN 15, Creatinine 0.7, Est GFR ( Amer) > 60, Est GFR (Non- Af Amer) > 60, Random Glucose 151 H, Calcium 10.2, Total Bilirubin 0.7, AST 21, ALT 19, Alkaline Phosphatase 94, Lactate Dehydrogenase 350, Total Creatine Kinase < 20 L, Troponin I < 0.01 D, Total Protein 7.5, Albumin 4.0, Globulin 3.5, Albumin/Globulin Ratio 1.1 06/29/17 13:40: WBC 13.6 H D, RBC 4.97, Hgb 12.7 D, Hct 40.1, MCV 80.7 D, MCH 25.6, MCHC 31.7, RDW 17.1 H, Plt Count 290, MPV 10.2, Gran % 94.5 H, Lymph % ( Auto) 2.1 L, Hughes % (Auto) 3.0, Eos % (Auto) 0.3 L, Baso % (Auto) 0.1, Gran # 12.83 H, Lymph # 0.3 L, Hughes # 0.4, Eos # 0.0, Baso # 0.02, Neutrophils % ( Manual) 97 H, Band Neutrophils % 1, Lymphocytes % (Manual) 1 L, Monocytes % ( Manual) TEST NOT PERFORMED, Eosinophils % (Manual) 1, Platelet Evaluation Normal 06/29/17 13:40: pO2 138 H, VBG pH 7.43, VBG pCO2 36.0 L, VBG HCO3 23.9, VBG Total CO2 25.0, VBG O2 Sat (Calc) 99.6 H, VBG Base Excess -0.1 L, VBG Potassium 4.7, Sodium 138.0, Chloride 106.0, Glucose 158 H, Lactate 3.3 H, FiO2 21.0, Venous Blood Potassium 4.7 I have reviewed the lab results: Yes - RAD Interpretation Radiology Orders: 06/29/17 13:52 CHEST PORTABLE [RAD] Stat 06/29/17 14:36 HEAD W/O CONTRAST [CT] Stat Mangle Tender Cloth: Radiologist - EKG Interpretation Interpreted by ED Physician: Yes Type: 12 lead EKG Comparison: Similar to previous EKG - Medication Orders Current Medication Orders: Acetaminophen (Tylenol 325mg Tab) 650 mg PO Q4 PRN PRN Reason: Fever >100.4 F Albuterol/Ipratropium (Duoneb 3 Mg/0.5 Mg (3 Ml) Ud) 3 ml IH Q2H PRN PRN Reason: Shortness of Breath Digoxin (Lanoxin) 0.125 mg PO DAILY [facility] Docusate Sodium (Colace) 100 mg PO BID [facility] Last Admin: 06/29/17 19:09 Dose: 100 mg Last Bowel Movement Document 06/29/17 19:09 RDS (Rec: 06/29/17 19:09 RDS [id number]) Last Bowel Movement Last Bowel Movement 06/29/17 Donepezil HCl (Aricept) 10 mg PO DAILY [facility] Sodium Chloride (Sodium Chloride 0.9%) 1,000 mls @ 70 mls/hr IV .[id number] [facility] Last Admin: 06/30/17 09:26 Dose: 70 mls/hr eMAR Start Stop Document 06/30/17 09:26 (Rec: 06/30/17 09:[address] [facility]'[id number]) Intravenous Solution Start Date 06/30/17 Start Time 09:26 Ceftazidime/Avibactam 2.5 gm/ (Sodium Chloride) 100 mls @ 50 mls/hr IVPB Q8H [facility] Stop: 07/07/17 11:31 Last Admin: 06/30/17 12:18 Dose: 50 mls/hr eMAR Start Stop Document 06/30/17 12:18 VM (Rec: 06/30/17 12:18 [id number] Intravenous Solution Start Date 06/30/17 Start Time 12:18 End Date 06/30/17 End time 14:18 Total Infusion Time 120 Ibuprofen (Motrin Tab) 400 mg PO Q6H PRN PRN Reason: Fever >100.4 F Ondansetron HCl (Zofran Inj) 4 mg IVP Q4H PRN PRN Reason: Nausea/Vomiting Pantoprazole Sodium (Protonix Inj) 40 mg IVP DAILY ERINN Last Admin: 06/30/17 10:29 Dose: 40 mg IVP Administration Document 06/30/17 10:29 (Rec: 06/30/17 10:[address] [facility]'[id number]) Charges for Administration # of IVP Administrations 1 Warfarin Sodium (Coumadin) 2 mg PO 1800 ERINN PRN Reason: Protocol Discontinued Medications Acetaminophen (Tylenol 325 Mg Supp) 975 mg MS ONCE PRN PRN Reason: Fever >100.4 F Last Admin: 06/29/17 14:23 Dose: 975 mg Re-Assess: MAR Pain/Vitals Document 06/29/17 18:35 RDS (Rec: 06/29/17 19:06 RDS [id number]) Pain Reassessment Is This A Pain ReAssessment? Yes Sleep Is patient sleeping during reassessment? No Presence of Pain Presence of Pain No Cefepime HCl (Maxipime 2gm) 2 gm in 100 mls @ 100 mls/hr IVPB STAT STA PRN Reason: Protocol Stop: 06/29/17 14:52 Last Admin: 06/29/17 14:41 Dose: 100 mls/hr eMAR Start Stop Document 06/29/17 14:41 SF (Rec: 06/29/17 14:41 SF [id number]) Intravenous Solution Start Date 06/29/17 Start Time 14:41 End Date 06/29/17 End time 15:41 Total Infusion Time 60 Sodium Chloride (Sodium Chloride 0.9%) 1,000 mls @ 2,000 mls/hr IV .Q30M ONE Stop: 06/29/17 14:49 Last Admin: 06/29/17 14:37 Dose: 2,000 mls/hr eMAR Start Stop Document 06/29/17 14:37 SF (Rec: 06/29/17 14:37 SF [id number]) Intravenous Solution Start Date 06/29/17 Start Time 14:37 End Date 06/29/17 End time 15:10 Total Infusion Time 33 Sodium Chloride (Sodium Chloride 0.9%) 1,000 mls @ 2,000 mls/hr IV .Q30M ONE Stop: 06/29/17 14:50 Last Admin: 06/29/17 14:37 Dose: 2,000 mls/hr eMAR Start Stop Document 06/29/17 14:37 SF (Rec: 06/29/17 14:38 SF [id number]) Intravenous Solution Start Date 06/29/17 Start Time 14:37 End Date 06/29/17 End time 15:10 Total Infusion Time 33 Sodium Chloride (Sodium Chloride 0.9%) 1,000 mls @ 100 mls/hr IV .Q10H ERINN Last Admin: 06/29/17 15:55 Dose: 100 mls/hr eMAR Start Stop Document 06/29/17 15:55 SF (Rec: 06/29/17 16:17 SF [id number]) Intravenous Solution Start Date 06/29/17 Start Time 16:16 Ceftazidime/Avibactam 2.5 gm/ (Sodium Chloride) 100 mls @ 50 mls/hr IVPB Q8H ERINN Stop: 06/30/17 02:14 Last Admin: 06/30/17 00:29 Dose: 50 mls/hr eMAR Start Stop Document 06/30/17 00:29 MS (Rec: 06/30/17 00:29 MS [id number]) Intravenous Solution Start Date 06/30/17 Start Time 00:29 End Date 06/30/17 End time 02:29 Total Infusion Time 120 Sodium Chloride (Sodium Chloride 0.9%) 1,000 mls @ 999 mls/hr IV .Q1H1M STA Stop: 06/29/17 17:27 Last Admin: 06/29/17 16:31 Dose: 999 mls/hr eMAR Start Stop Document 06/29/17 16:31 SF (Rec: 06/29/17 16:31 SF [id number]) Intravenous Solution Start Date 06/29/17 Start Time 16:31 End Date 06/29/17 End time 17:32 Total Infusion Time 61 Ceftazidime/Avibactam 2.5 gm/ (Sodium Chloride) 100 mls @ 50 mls/hr IVPB Q8H ERINN Stop: 06/30/17 19:14 Last Admin: 06/30/17 09:30 Dose: 50 mls/hr eMAR Start Stop Document 06/30/17 09:30 (Rec: 06/30/17 09:31 [id number]) Intravenous Solution Start Date 06/30/17 Start Time 09:31 End Date 06/30/17 End time 11:31 Total Infusion Time 120 Pneumococcal Polyvalent Vaccine (Pneumovax 23 Vaccine) 0.5 ml IM .ONCE ONE Stop: 06/29/17 20:07 - Scribe Statement The provider has reviewed the documentation as recorded by the Spenceribjoshua Douglas Provider Scribe Attestation: All medical record entries made by the Scribe were at my direction and personally dictated by me. I have reviewed the chart and agree that the record accurately reflects my personal performance of the history, physical exam, medical decision making, and the department course for this patient. I have also personally directed, reviewed, and agree with the discharge instructions and disposition. Disposition/Present on Arrival - Present on Arrival Any Indicators Present on Arrival: No History of DVT/PE: No History of Uncontrolled Diabetes: No Urinary Catheter: No History of Decub. Ulcer: No History Surgical Site Infection Following: None - Disposition Have Diagnosis and Disposition been Completed?: Yes Diagnosis: Urinary tract infection, Sepsis, Altered mental status Disposition: HOSPITALIZED Disposition Time: 15:00 Patient Plan: Admission, Telemetry Patient Problems: Current Active Problems Problem Status Onset Altered mental status Acute Sepsis Acute Urinary tract infection Acute Condition: SERIOUS
[2017-06-29] MEDS ORDERED: Cefepime IV 2 gm in NS 2 GM/100 ML BAG IVPB STA (13:53)
[2017-06-29 14:03] LABS: BASO # 0.02 K/mm3 (0.0-2.0); BASO % 0.1 % (0.0-3.0); EOS % 0.3 % (1.5-5.0); GRAN # 12.83 (1.4-6.5); GRAN % 94.5 % (50.0-68.0); HEMOGLOBIN 12.7 g/dL (12.0-16.0); LYMPH # 0.3 (1.2-3.4); LYMPH % 2.1 % (22.0-35.0); MEAN CELL VOLUME 80.7 fl (80.0-105.0); MEAN CORPUSCULAR HEMOGLOBIN 25.6 pg (25.0-35.0); MEAN CORPUSCULAR HGB CONC 31.7 g/dl (31.0-37.0); MEAN PLATELET VOLUME 10.2 fl (7.0-11.0); MONO # 0.4 (0.1-0.6); PLATELET COUNT 290 10^3/uL (120.0-450.0); RBC 4.97 10^6/uL (3.5-6.1); RED CELL DISTRIBUTION WIDTH 17.1 % (11.5-14.5); WHITE BLOOD COUNT 13.6 10^3/ul (4.5-11.0)
[2017-06-29 14:06] LABS: VENOUS BLOOD GAS BASE EXCESS -0.1 mmol/L (0.0-2.0); VENOUS BLOOD GAS PO2 138 mm/Hg (30-55); VENOUS BLOOD PH 7.43 (7.32-7.43)
[2017-06-29 14:11] LABS: URINE BILIRUBIN NEGATIVE (NEGATIVE); URINE BLOOD MODERATE (NEGATIVE); URINE GLUCOSE (UA) NEGATIVE (NEGATIVE); URINE LEUKOCYTE ESTERASE MODERATE Leu/uL (NEGATIVE); URINE NITRATE NEGATIVE (NEGATIVE); URINE PROTEIN NEGATIVE mg/dL (<30 mg/dL); URINE UROBILINOGEN 0.2 E.U./dL (<1 E.U./dL)
[2017-06-29 14:18] LABS: BAND 1 % (0-2); EOSINOPHIL 1 % (0.0-3.0); LYMPHOCYTE 1 % (22.0-35.0); NEUTROPHIL 97 % (50.0-70.0); PLATELET ESTIMATE NORMAL (NORMAL)
[2017-06-29] MEDS ORDERED: Sodium Chloride 0.9% 1,000 ML IV ONE ×2 (14:20→14:21)
[2017-06-29 14:25] LABS: URINE APPEARANCE CLOUDY (CLEAR); URINE COLOR YELLOW (YELLOW)
[2017-06-29 14:33] LABS: MAGNESIUM 1.9 mg/dL (1.7-2.2)
[2017-06-29 14:33] LABS: ALB/GLOB RATIO 1.1 (1.1-1.8); ALT/SGPT 19 U/L (7-56); AST/SGOT 21 U/L (14-36); BLOOD UREA NITROGEN 15 mg/dL (7-21); CALCIUM 10.2 mg/dL (8.4-10.5); GFR AFRICAN-AMERICAN > 60; GFR NON-AFRICAN AMERICAN > 60
[2017-06-29 14:36] LABS: URINE BACTERIA MOD (NEG)
[2017-06-29 14:36] LABS: TROPONIN I < 0.01 ng/mL
[2017-06-29 14:55] LABS: INR 1.8 (0.93-1.08); PARTIAL THROMBOPLASTIN TIME 30.8 Seconds (25.1-36.5); PROTHROMBIN TIME 20.8 SECONDS (9.4-12.5)
--- NOTE | 2017-06-29 15:26 | CT ---
PROCEDURE: CT HEAD WITHOUT CONTRAST. HISTORY: ams on coumadin COMPARISON: 10/03/2016 TECHNIQUE: Axial computed tomography images were obtained through the head/brain without intravenous contrast. Radiation dose: Total exam DLP = 835.7 mGy-cm. This CT exam was performed using one or more of the following dose reduction techniques: Automated exposure control, adjustment of the mA and/or kV according to patient size, and/or use of iterative reconstruction technique. FINDINGS: HEMORRHAGE: No intracranial hemorrhage. BRAIN: No mass effect or edema. Mild to moderate diffuse age-appropriate atrophy. Moderate periventricular white matter lucency consistent with microvascular ischemic change. No evidence of acute infarct. VENTRICLES: Unremarkable. No hydrocephalus. CALVARIUM: Unremarkable. PARANASAL SINUSES: Minimal chronic bilateral maxillary sinusitis. MASTOID AIR CELLS: Left mastoid effusion, nonspecific. This represents interval change since 10/03/2016. OTHER FINDINGS: None. IMPRESSION: No intracranial mass, hemorrhage or evidence of acute infarct. Chronic paranasal sinusitis. Age related atrophy and chronic white matter ischemic change. Nonspecific left mastoid effusion.
[2017-06-29] MEDS ORDERED: Sodium Chloride 0.9% 1,000 ML IV SCH (15:30)
--- NOTE | 2017-06-29 15:34 | RAD ---
HISTORY: sepsis COMPARISON: 06/11/2017 FINDINGS: LUNGS: No active pulmonary disease. PLEURA: No significant pleural effusion identified, no pneumothorax apparent. CARDIOVASCULAR: Moderate cardiomegaly. Severe aortic tortuosity OSSEOUS STRUCTURES: No significant abnormalities. VISUALIZED UPPER ABDOMEN: Normal. OTHER FINDINGS: None. IMPRESSION: No active disease.
[2017-06-29] MEDS ORDERED: Sodium Chloride 0.9% 1,000 ML IV STA (16:27)
--- NOTE | 2017-06-29 16:30 | CP.PCM.HP ---
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 Daughter reports that symptoms started approximately 12:30 PM today, whereas yesterday and early this morning, patient was at her baseline. Patient only complains of feeling tired. Patient denies any other complaint, despite extensive ROS, though this is unreliable considering her baseline dementia. Daughter reports no complaints at home. Of note, patient was recently treated with a nearly 3-week course of Avycaz for Klebsiella UTI and sepsis; completed the course one week ago. 12 point ROS was obtained as was negative except as in HPI PMHx: AFib,, CHF, COPD, urinary incontinence, AAA and thoracic aortic aneurysm, multiple UTIs, GI bleed, DVT, and dementia PSurgHx: Abdominal hernia repair SocHx: Denied tobacco/etoh/illicit drug abuse. Lives with daughter. Difficulty ambulating, requires wheelchair or walker FamHx: Noncontributory Meds: Reviewed, as per AUG ALL: NKDA PMD: Dr. Kohler Present on Admission - Present on Admission Any Indicators Present on Admission: No Past Patient History - Infectious Disease Hx of Infectious Diseases: None - Tetanus Immunizations Tetanus Immunization: Unknown - Past Medical History & Family History Past Medical History?: Yes - Past Social History Smoking Status: Former Smoker - CARDIAC Hx Cardiac Disorders: Yes Hx Atrial Fibrillation: Yes Hx Congestive Heart Failure: Yes Hx Hypertension: Yes - PULMONARY Hx Chronic Obstructive Pulmonary Disease (COPD): Yes - NEUROLOGICAL Hx Dementia: Yes (confusion memory loss) - HEENT Hx Cataracts: Yes Hx Macular Degeneration: Yes - RENAL Hx Renal Failure: No - ENDOCRINE/METABOLIC Hx Diabetes Mellitus Type 1: No Hx Diabetes Mellitus Type 2: No Hx Hypothyroidism: No - HEMATOLOGICAL/ONCOLOGICAL Hx Anemia: Yes (blood transfusion) Hx Cancer: Yes (melanoma mynor removed) - INTEGUMENTARY Hx Dermatological Problems: Yes Hx Melanoma: Yes (r upper arm removed) Other/Comment: left leg lesion redness dry scab,, multiple areas discolored dry skin, rle multiple discolorations and dry skin, +1 ble edema, slight redness buttocks no openings, left upper chest wall 1cm round cyst,melanoma scar right arm below r shoulder 2007, right arm scar from skin tear, multiple discolorations to skin both arms - MUSCULOSKELETAL/RHEUMATOLOGICAL Hx Falls: Yes (2 years ago) - GASTROINTESTINAL Hx Gastrointestinal Disorders: Yes (ggi bleed) Hx Diverticulitis: Yes Hx Gastroesophageal Reflux: No - GENITOURINARY/GYNECOLOGICAL Hx Reproductive Disorders: No - PSYCHIATRIC Hx Anxiety: Yes Hx Depression: Yes Hx Physical Abuse: No Hx Substance Use: No - SURGICAL HISTORY Hx Orthopedic Surgery: Yes (total replacement 2005) Other/Comment: ABD HERNIA REPAIR - ANESTHESIA Hx Anesthesia: Yes Hx Anesthesia Reactions: No Hx Malignant Hyperthermia: No Meds Allergies/Adverse Reactions: Allergies Allergy/AdvReac Type Severity Reaction Status Date / Time No Known Allergies Allergy Verified 06/29/17 16:42 Physical Exam - Constitutional Appears: Non-toxic, No Acute Distress, Confused - Head Exam Head Exam: ATRAUMATIC, NORMOCEPHALIC - Eye Exam Eye Exam: EOMI, Normal appearance, PERRL Pupil Exam: Miosis - ENT Exam ENT Exam: Mucous Membranes Dry Additional comments: No sinus tenderness - Neck Exam Neck exam: Positive for: Normal Inspection - Respiratory Exam Respiratory Exam: Clear to Auscultation Bilateral, NORMAL BREATHING PATTERN - Cardiovascular Exam Cardiovascular Exam: Irregular Rhythm, +S1, +S2. absent: Tachycardia - GI/Abdominal Exam GI & Abdominal Exam: Normal Bowel Sounds, Soft, Tenderness Additional comments: Hyperresonant. Mild diffuse tenderness, worst in suprapubic region - Extremities Exam Extremities exam: Negative for: calf tenderness, pedal edema - Back Exam Back exam: absent: CVA tenderness (L), CVA tenderness (R) - Neurological Exam Neurological exam: Alert Additional comments: Oriented x2, which is her baseline - Psychiatric Exam Psychiatric exam: Normal Affect, Normal Mood - Skin Skin Exam: Dry, Intact, Normal Color Results - Vital Signs Recent Vital Signs: Last Vital Signs Temp 102.5 F H 06/29/17 13:12 Pulse 100 H 06/29/17 13:12 Resp 17 01/16/18 13:12 BP 110/62 06/29/17 13:12 Pulse Ox 97 06/29/17 13:12 - Labs Result Diagrams: 06/29/17 13:40 06/29/17 13:40 Assessment & Plan - Assessment and Plan (Free Text) Assessment: 87 yo female PMHx Afib on coumadin, CHF with EF of 63%, COPD, urinary incontinence, abdominal aortic aneurysm and thoracic aortic aneurysm, multiple urinary tract infections, GI bleed, DVT, and dementia who presents with daughter by ambulance complaining of AMS and one episode of vomiting; likely 2/ 2 high fever, sepsis likely 2/2 UTI Plan: AMS and Vomiting - Likely 2/2 high fever and sepsis - Patient has dementia at baseline, though slightly lethargic now, will continue to monitor - Patient not complaining of abdominal pain, and had normal BM this morning and last night, though tender on exam. If patient continues to spike fevers or abdominal pain worsens, will order CT A/P to further assess - Patient has not vomited since first episode at home Sepsis - Patient has long history of MDR UTI's, without other signs of infectous processes - Given 2L bolus in ER; will reasses after bolus complete - Patient given cefipime in ER; discussed with ID for continued coverage with Avycaz, considering prior infectious agents and sensitivities - Tylenol for fever - Blood cultures ordered - Urine cultures ordered - ID Dr. Barnett on board Hx of Atrial fibrillation - Rate controlled - Continue coumadin 2mg Hx of CHF - Hold antihypertensives and oral medications - Monitor fluid status closely, especially respiratory status - HOB>30, daily weights Hx of COPD - Hold oral medications - Duonebs Q2H PRN - Monitor respiratory status; no complaints of shortness of breath Hx of Dementia - Hold oral medications at this time GI/DVT Ppx - Protonix IV - Coumadin - SCDs Discussed with Dr. Daly <Davy Daly - Last Filed: 06/30/17 14:45> Results - Vital Signs Recent Vital Signs: Last Vital Signs Temp 98.1 F 06/30/17 11:55 Pulse 54 L 06/30/17 11:55 Resp 20 06/30/17 11:55 BP 100/57 L 06/30/17 11:55 Pulse Ox 96 06/30/17 05:32 - Labs Result Diagrams: 06/30/17 07:45 06/30/17 07:45 Labs: Laboratory Results - last 24 hr 06/29/17 06/30/17 06/30/17 17:17 07:45 07:45 WBC 10.4 D RBC 3.97 Hgb 9.8 L D Hct 33.1 L MCV 83.4 MCH 24.7 L MCHC 29.6 L RDW 17.1 H Plt Count 197 MPV 10.0 Gran % 84.5 H Lymph % (Auto) 7.[address] % (Auto) 6.3 H Eos % (Auto) 1.4 L Baso % (Auto) 0.3 Gran # 8.75 H Lymph # 0.[address] [facility] # 0.7 H Eos # 0.1 Baso # 0.03 PT INR pO2 212 H VBG pH 7.34 VBG pCO2 44.0 VBG HCO3 23.7 VBG Total CO2 25.1 VBG O2 Sat (Calc) 100.0 H VBG Base Excess -2.2 L VBG Potassium 3.8 Sodium 141.0 144 Chloride 112.0 H 110 H Glucose 167 H Lactate 2.7 H FiO2 21.0 Potassium 4.0 Carbon Dioxide 25 Anion Gap 12 BUN 11 Creatinine 0.7 Est GFR ( Amer) > 60 Est GFR (Non-Af Amer) > 60 Random Glucose 104 Calcium 8.9 Phosphorus 2.7 Magnesium 2.0 Total Bilirubin 0.5 AST 16 ALT 20 Alkaline Phosphatase 61 Total Protein 5.9 Albumin 3.0 Globulin 2.9 Albumin/Globulin Ratio 1.0 L Venous Blood Potassium 3.8 06/30/17 07:45 WBC RBC Hgb Hct MCV MCH MCHC RDW Plt Count MPV Gran % Lymph % (Auto) [facility] % (Auto) Eos % (Auto) Baso % (Auto) Gran # Lymph # [facility] # Eos # Baso # PT 19.5 H INR 1.68 H pO2 VBG pH VBG pCO2 VBG HCO3 VBG Total CO2 VBG O2 Sat (Calc) VBG Base Excess VBG Potassium Sodium Chloride Glucose Lactate FiO2 Potassium Carbon Dioxide Anion Gap BUN Creatinine Est GFR ( Amer) Est GFR (Non-Af Amer) Random Glucose Calcium Phosphorus Magnesium Total Bilirubin AST ALT Alkaline Phosphatase Total Protein Albumin Globulin Albumin/Globulin Ratio Venous Blood Potassium Attending/Attestation - Attestation I have personally seen and examined this patient.: Yes I have fully participated in the care of the patient.: Yes I have reviewed all pertinent clinical information: Yes Notes (Text): 06/30/17 14:33 Attending note: Patient seen and examined with resident in ER. Patient's daughter by the bed side. Patient is on 87-year-old with past medical history of atrial fibrillation on coumadin, congestive heart failure with EF of 63%, COPD, urinary incontinence, abdominal aortic aneurysm and thoracic aortic aneurysm, multiple urinary tract infections with multidrug resistant organisms, gastrointestinal bleed, deep venous thrombosis and dementia is admitted for fever and lethargy . Sepsis .code sepsis called. started on IV fluids. Started on IV Avycaz. Patient was recently treated for meropenem resistant UTI. ID evaluation with Dr. Barnett requested. CT head is negative. Abdominal discomfort and nausea; monitor closely. History of A. fib on Coumadin; monitor INR closely. Dementia; patient is alert. Lethargic. Upon discharge the patient will follow-up with PMD . Patient is DNI DNR.
[2017-06-29] MEDS ORDERED: Albuterol-Ipratrop 3 mg / 0.5 (3 ml) UD IH PRN (16:53)
[2017-06-29 17:40] LABS: VENOUS BLOOD GAS BASE EXCESS -2.2 mmol/L (0.0-2.0); VENOUS BLOOD GAS PO2 212 mm/Hg (30-55); VENOUS BLOOD PH 7.34 (7.32-7.43)
--- NOTE | 2017-06-29 18:03 | PCM.SEPTIC ---
Sepsis Progress Note - Reassessment Type Date of Evaluation: 06/29/17 Time of Evaluation: 17:30 Reassessment Type: Non-invasive reassessment - Non Invasive Reassessment Were the most recent vital sign reviewed: Yes Vital Sign (Latest): Temp Pulse Resp BP Pulse Ox 99.1 F 71 16 106/50 L 97 06/29/17 17:53 06/29/17 16:39 06/29/17 16:39 06/29/17 17:50 06/29/17 16:39 Cardiovascular: Yes: Irregularly Irregular. No: Tachycardia Respiratory: Yes: Normal Breath Sounds. No: Rales, Rhonchi, Wheezing Capillary Refill: Normal (Less than 2 sec) Pulses: Normal Radial, Normal Dorsalis Pedis, Normal Posterior Tibialis Skin: Normal Color, Warm, Dry <Earlene Bradley - Last Filed: 06/29/17 18:40> - Non Invasive Reassessment Vital Sign (Latest): Temp Pulse Resp BP Pulse Ox 98.1 F 54 L 20 100/57 L 96 06/30/17 11:55 06/30/17 11:55 06/30/17 11:55 06/30/17 11:55 06/30/17 05:32 <Davy Daly - Last Filed: 06/30/17 14:46> Attending/Attestation - Attestation I have personally seen and examined this patient.: Yes I have fully participated in the care of the patient.: Yes I have reviewed all pertinent clinical information, including history, physical exam and plan: Yes Notes (Text): 06/30/17 14:45 Attending note; Repeat lactic acid level is decreasing. Patient is currently afebrile and nontoxic. Blood pressure is stable. Continue IV anti-biotics. <Davy Daly - Last Filed: 06/30/17 14:46>
[2017-06-29 20:06] VITALS: BMI 31.8
[2017-06-29] MEDS ORDERED: Pneumococcal 23-Valent Vaccine IM ONE (20:06)
[2017-06-29] MEDS ORDERED: Influenza Vaccine 60 mcg/0.5 mL SYR (4YR UP) IM ONE (20:06)
[2017-06-29] MEDS: Sodium Chloride 0.9% 1,000 ML IV SCH (20:47)
[2017-06-30] MEDS ORDERED: Pantoprazole 40 mg EC Tab PO SCH (06:00)
[2017-06-30 08:09] LABS: BASO # 0.03 K/mm3 (0.0-2.0); BASO % 0.3 % (0.0-3.0); EOS # 0.1 (0.0-0.7); EOS % 1.4 % (1.5-5.0); GRAN # 8.75 (1.4-6.5); GRAN % 84.5 % (50.0-68.0); LYMPH # 0.8 (1.2-3.4); LYMPH % 7.5 % (22.0-35.0); MEAN CELL VOLUME 83.4 fl (80.0-105.0); MEAN CORPUSCULAR HEMOGLOBIN 24.7 pg (25.0-35.0); MEAN CORPUSCULAR HGB CONC 29.6 g/dl (31.0-37.0); MONO # 0.7 (0.1-0.6); MONO % 6.3 % (1.0-6.0); RBC 3.97 10^6/uL (3.5-6.1); RED CELL DISTRIBUTION WIDTH 17.1 % (11.5-14.5); WHITE BLOOD COUNT 10.4 10^3/ul (4.5-11.0)
[2017-06-30 08:11] LABS: HEMOGLOBIN 9.8 g/dL (12.0-16.0)
[2017-06-30 08:28] LABS: INR 1.68 (0.93-1.08); PROTHROMBIN TIME 19.5 SECONDS (9.4-12.5)
--- NOTE | 2017-06-30 08:33 | CARD ---
APPROVED REPORT EKG Measurement Heart [id number] OR 272P [id number] <Conclusion> Sinus tachycardia with 1st degree AV block Right bundle branch block Left anterior fascicular block Bifascicular block Minimal voltage criteria for LVH, may be normal variant Abnormal ECG
[2017-06-30 08:48] LABS: ALT/SGPT 20 U/L (7-56); AST/SGOT 16 U/L (14-36); BLOOD UREA NITROGEN 11 mg/dL (7-21); CALCIUM 8.9 mg/dL (8.4-10.5); GFR AFRICAN-AMERICAN > 60; GFR NON-AFRICAN AMERICAN > 60
[2017-06-30] MEDS: Sodium Chloride 0.9% 1,000 ML IV SCH (09:26)
--- NOTE | 2017-06-30 11:41 | CP.PCM.PN ---
<Earlene Bradley - Last Filed: 06/30/17 13:40> Subjective - Date & Time of Evaluation Date of Evaluation: 06/30/17 Time of Evaluation: 07:30 - Subjective Subjective: Earlene Bradley DO PGY1 - Internal medicine Progress note Patient seen and examined at bedside. No acute events reported overnight. Patient mental status unchanged. She denies any abdominal pain, nausea, vomiting , diarrhea, constipation, dysuria, urgency, or frequency. She is awake and alert , responding to questions appropriately. Objective - Vital Signs/Intake and Output Vital Signs (last 24 hours): Temp Pulse Resp BP Pulse Ox 97.6 F 57 L 18 97/46 L 96 06/30/17 05:32 06/30/17 05:32 06/30/17 05:32 06/30/17 05:32 06/30/17 05:32 Intake and Output: 06/30/17 06/30/17 06:59 18:59 Intake Total 772 Balance 772 - Medications Medications: Current Medications Acetaminophen (Tylenol 325mg Tab) 650 mg PO Q4 PRN PRN Reason: Fever >100.4 F Acetaminophen (Tylenol 650 Mg Supp) 650 mg RC Q6H PRN PRN Reason: Fever >100.4 F Albuterol/Ipratropium (Duoneb 3 Mg/0.5 Mg (3 Ml) Ud) 3 ml IH Q2H PRN PRN Reason: Shortness of Breath Digoxin (Lanoxin) 0.125 mg PO DAILY [facility] Docusate Sodium (Colace) 100 mg PO BID [facility] Last Admin: 06/29/17 19:09 Dose: 100 mg Donepezil HCl (Aricept) 10 mg PO DAILY [facility] Sodium Chloride (Sodium Chloride 0.9%) 1,000 mls @ 70 mls/hr IV .[id number] [facility] Last Admin: 06/30/17 09:26 Dose: 70 mls/hr Ceftazidime/Avibactam 2.5 gm/ (Sodium Chloride) 100 mls @ 50 mls/hr IVPB Q8H [facility] Stop: 07/07/17 11:31 Ibuprofen (Motrin Tab) 400 mg PO Q6H PRN PRN Reason: Fever >100.4 F Ondansetron HCl (Zofran Inj) 4 mg IVP Q4H PRN PRN Reason: Nausea/Vomiting Pantoprazole Sodium (Protonix Inj) 40 mg IVP DAILY [facility] Last Admin: 06/30/17 10:29 Dose: 40 mg Warfarin Sodium (Coumadin) 2 mg PO 1800 ERINN PRN Reason: Protocol - Labs Labs: 06/30/17 07:45 06/30/17 07:45 PT 19.5 SECONDS (9.4-12.5) H 06/30/17 07:45 INR 1.68 (0.93-1.08) H 06/30/17 07:45 APTT 30.8 Seconds (25.1-36.5) 06/29/17 13:50 - Constitutional Appears: Non-toxic, No Acute Distress, Confused - Head Exam Head Exam: ATRAUMATIC, NORMOCEPHALIC - Eye Exam Eye Exam: EOMI, Normal appearance, PERRL - ENT Exam ENT Exam: Mucous Membranes Moist - Neck Exam Neck Exam: Normal Inspection - Respiratory Exam Respiratory Exam: Rales (bibasilar), NORMAL BREATHING PATTERN - Cardiovascular Exam Cardiovascular Exam: RRR, +S1, +S2 - GI/Abdominal Exam GI & Abdominal Exam: Soft, Normal Bowel Sounds. absent: Distended, Firm, Guarding, Rigid, Tenderness - Extremities Exam Extremities Exam: absent: Calf Tenderness, Pedal Edema - Back Exam Back Exam: absent: CVA tenderness (L), CVA tenderness (R) - Neurological Exam Neurological Exam: Alert, Awake Additional comments: Oriented to person and place, but not time - Psychiatric Exam Psychiatric exam: Normal Affect, Normal Mood - Skin Skin Exam: Dry, Intact Assessment and Plan - Assessment and Plan (Free Text) Assessment: 87 yo female PMHx Afib on coumadin, CHF with EF of 63%, COPD, urinary incontinence, abdominal aortic aneurysm and thoracic aortic aneurysm, multiple urinary tract infections, GI bleed, DVT, and dementia who presents with daughter by ambulance complaining of AMS and one episode of vomiting; likely 2/ 2 high fever, sepsis likely 2/2 UTI Plan: AMS and Vomiting - Mental status back to baseline, no further episodes of vomiting; likely 2/2 high fever and sepsis Sepsis - Patient has long history of MDR UTI's, without other signs of infectous processes - BP stable after approximately 4L fluid resuscitation; continue IVF at 70 cc/hr - Continue Avycaz, per ID - Tylenol for fever - Blood cultures pending - Urine cultures pending - ID Dr. Barnett on board Hx of Atrial fibrillation - Rate controlled - Continue coumadin 2mg Hx of CHF - Resume home medications - Monitor fluid status closely, especially respiratory status - HOB>30, daily weights Hx of COPD - Duonebs Q2H PRN - Monitor respiratory status; no complaints of shortness of breath Hx of Dementia - Resume home medications GI/DVT Ppx - Protonix IV - Coumadin - SCDs Discussed with Dr. Daly <Davy Daly - Last Filed: 06/30/17 14:47> Objective - Vital Signs/Intake and Output Vital Signs (last 24 hours): Temp Pulse Resp BP Pulse Ox 98.1 F 55 L 20 100/57 L 96 06/30/17 11:55 06/30/17 14:00 06/30/17 11:55 06/30/17 11:55 06/30/17 05:32 Intake and Output: 06/30/17 06/30/17 06:59 18:59 Intake Total 772 Balance 772 - Medications Medications: Current Medications Acetaminophen (Tylenol 325mg Tab) 650 mg PO Q4 PRN PRN Reason: Fever >100.4 F Albuterol/Ipratropium (Duoneb 3 Mg/0.5 Mg (3 Ml) Ud) 3 ml IH Q2H PRN PRN Reason: Shortness of Breath Digoxin (Lanoxin) 0.125 mg PO DAILY [facility] Docusate Sodium (Colace) 100 mg PO BID [facility] Last Admin: 06/29/17 19:09 Dose: 100 mg Donepezil HCl (Aricept) 10 mg PO DAILY [facility] Sodium Chloride (Sodium Chloride 0.9%) 1,000 mls @ 70 mls/hr IV .[id number] [facility] Last Admin: 06/30/17 09:26 Dose: 70 mls/hr Ceftazidime/Avibactam 2.5 gm/ (Sodium Chloride) 100 mls @ 50 mls/hr IVPB Q8H [facility] Stop: 07/07/17 11:31 Last Admin: 06/30/17 12:18 Dose: 50 mls/hr Ibuprofen (Motrin Tab) 400 mg PO Q6H PRN PRN Reason: Fever >100.4 F Ondansetron HCl (Zofran Inj) 4 mg IVP Q4H PRN PRN Reason: Nausea/Vomiting Pantoprazole Sodium (Protonix Ec Tab) 40 mg PO ACB ERINN Warfarin Sodium (Coumadin) 2 mg PO 1800 ERINN PRN Reason: Protocol - Labs Labs: 06/30/17 07:45 06/30/17 07:45 PT 19.5 SECONDS (9.4-12.5) H 06/30/17 07:45 INR 1.68 (0.93-1.08) H 06/30/17 07:45 APTT 30.8 Seconds (25.1-36.5) 06/29/17 13:50 Attending/Attestation - Attestation I have personally seen and examined this patient.: Yes I have fully participated in the care of the patient.: Yes I have reviewed all pertinent clinical information, including history, physical exam and plan: Yes Notes (Text): 06/30/17 14:46 Attending note: Patient seen and examined with resident. Patient's daughter by the bed side. Patient is on 87-year-old with past medical history of atrial fibrillation on coumadin, congestive heart failure with EF of 63%, COPD, urinary incontinence, abdominal aortic aneurysm and thoracic aortic aneurysm, multiple urinary tract infections with multidrug resistant organisms, gastrointestinal bleed, deep venous thrombosis and dementia is admitted for fever and lethargy . Sepsis;Resolving with IV fluids. Lactic acid level is decreasing. Patient mental status improved significantly. Started on IV Avycaz. Patient was recently treated for meropenem resistant UTI. ID evaluation with Dr. Barnett requested. Abdominal discomfort and nausea resolved. Tolerating diet well. History of A. fib on Coumadin; monitor INR closely. Upon discharge the patient will follow-up with PMD . Patient is DNI DNR.
[2017-07-01 01:34] VITALS: O2SAT 94
--- NOTE | 2017-07-01 02:49 | CON ---
DATE: 06/30/2017 CHIEF COMPLAINT: Change in mental status and weakness. HISTORY OF PRESENT ILLNESS: This is an 87-year-old female with past medical history significant for atrial fibrillation, chronic obstructive lung disease, congestive heart failure, dementia, abdominal aortic aneurysm, urinary tract infection, history of GI bleed, DVT, right hip fracture, kidney stones, history of orthopedic surgery, who was recently discharged from the hospital with a diagnosis of carbapenem-resistant or multidrug-resistant Klebsiella and was given Avycaz, now returns with change in mental status, weakness, and the patient had a temperature of 102 in the emergency room, Infectious Disease consultation requested. REVIEW OF SYSTEMS: Reveal fevers, questionable dysuria or frequency. No abdominal pain, diarrhea or constipation. No bright blood per rectum. No headaches or blurred vision. PAST MEDICAL HISTORY: Significant for atrial fibrillation, chronic obstructive lung disease, urinary tract infection, congestive heart failure, GI bleed, dementia, abdominal aortic aneurysm, DVT, kidney stones, recent diagnosis of multidrug resistant Klebsiella, treated with Avycaz. The patient has surgical excision for orthopedics. ALLERGIES: THE PATIENT HAS NO KNOWN ALLERGIES. PHYSICAL EXAMINATION VITAL SIGNS: The patient is in bed with temperature of 98, T-max is 102.5; with heart rate of 53, it was up to 100; respiratory rate of 20; blood pressure is 97/40. HEENT: Examination of HEENT is unremarkable. NECK: Supple. LUNGS: Have decreased breath sounds. HEART: Normal S1, S2. ABDOMEN: Soft, nontender. No rebound or guarding. LABORATORY EXAMINATION: Reveals the patient has white count of 13,600, hemoglobin of 12, platelets of 290. BUN of 15 and creatinine of 0.7. procalcitonin is 0.22. Influenza is negative. Blood cultures are reported to be negative. ASSESSMENT AND PLAN: This is an 87-year-old female with atrial fibrillation, chronic obstructive lung disease, congestive heart failure, dementia, urinary tract infection, gastrointestinal bleed, deep venous thrombosis, multidrug-resistant, admitted now with sepsis of urinary source. We will treat the patient with ceftazidime and avibactam which is Avycaz 2.5 gm IV q. 8, and we will make further recommendations. Meet Barnett MD
[2017-07-01] MEDS: Sodium Chloride 0.9% 1,000 ML IV SCH (04:35)
[2017-07-01 06:54] LABS: BASO # 0.05 K/mm3 (0.0-2.0); BASO % 0.7 % (0.0-3.0); EOS # 0.2 (0.0-0.7); EOS % 3.2 % (1.5-5.0); GRAN # 5.11 (1.4-6.5); GRAN % 72.2 % (50.0-68.0); HEMOGLOBIN 9.9 g/dL (12.0-16.0); LYMPH # 1.1 (1.2-3.4); LYMPH % 15.9 % (22.0-35.0); MEAN CORPUSCULAR HEMOGLOBIN 24.4 pg (25.0-35.0); MEAN CORPUSCULAR HGB CONC 29.5 g/dl (31.0-37.0); MEAN PLATELET VOLUME 9.8 fl (7.0-11.0); MONO # 0.6 (0.1-0.6); RBC 4.05 10^6/uL (3.5-6.1); RED CELL DISTRIBUTION WIDTH 17.2 % (11.5-14.5); WHITE BLOOD COUNT 7.1 10^3/ul (4.5-11.0)
[2017-07-01 07:17] LABS: INR 1.41 (0.93-1.08); PROTHROMBIN TIME 16.3 SECONDS (9.4-12.5)
[2017-07-01 08:48] LABS: ALB/GLOB RATIO 1.1 (1.1-1.8); ALBUMIN 3.1 g/dL (3.0-4.8); ALT/SGPT 23 U/L (7-56); AST/SGOT 14 U/L (14-36); BLOOD UREA NITROGEN 12 mg/dL (7-21); CALCIUM 9.7 mg/dL (8.4-10.5); GFR AFRICAN-AMERICAN > 60; GFR NON-AFRICAN AMERICAN > 60
[2017-07-01] MEDS: Digoxin 125 mcg (0.125 mg) Tab PO SCH (09:32)
[2017-07-01] MEDS: Pantoprazole 40 mg EC Tab PO SCH (09:32)
[2017-07-01 09:39] VITALS: PULSE 67
[2017-07-01] MEDS: Nystatin-Triamcinolone Cream(30 gm) TOP SCH ×2 (16:14→21:34)
[2017-07-01 18:09] VITALS: RESP 18
--- NOTE | 2017-07-01 21:30 | CP.PCM.PN ---
<Wood Bradleyjaylaniecy - Last Filed: 07/01/17 21:24> Subjective - Date & Time of Evaluation Date of Evaluation: 07/01/17 Time of Evaluation: 07:30 - Subjective Subjective: Earlene Bradley DO PGY1 - Internal medicine Progress note Patient seen and examined at bedside. No acute events reported overnight. Patient mental status back to baseline. She denies any abdominal pain, nausea, vomiting, diarrhea, constipation, dysuria, urgency, or frequency. She is awake and alert, responding to questions appropriately. Objective - Vital Signs/Intake and Output Vital Signs (last 24 hours): Temp Pulse Resp BP Pulse Ox 98 F 61 18 137/59 L 94 L 07/01/17 18:00 07/01/17 18:00 07/01/17 18:00 07/01/17 18:00 07/01/17 06:00 Intake and Output: 07/01/17 07/02/17 18:59 06:59 Intake Total 480 Output Total 800 Balance -320 - Medications Medications: Current Medications Acetaminophen (Tylenol 325mg Tab) 650 mg PO Q4 PRN PRN Reason: Fever >100.4 F Albuterol/Ipratropium (Duoneb 3 Mg/0.5 Mg (3 Ml) Ud) 3 ml IH Q2H PRN PRN Reason: Shortness of Breath Digoxin (Lanoxin) 0.125 mg PO DAILY [facility] Last Admin: 07/01/17 09:32 Dose: 0.125 mg Docusate Sodium (Colace) 100 mg PO BID [facility] Last Admin: 07/01/17 09:32 Dose: 100 mg Donepezil HCl (Aricept) 10 mg PO DAILY [facility] Last Admin: 07/01/17 09:32 Dose: 10 mg Ertapenem 1 gm/ Sodium (Chloride) 50 mls @ 100 mls/hr IVPB Q24H [facility] Stop: 07/02/17 11:16 Last Admin: 07/01/17 16:12 Dose: 100 mls/hr Ibuprofen (Motrin Tab) 400 mg PO Q6H PRN PRN Reason: Fever >100.4 F Last Admin: 07/01/17 09:32 Dose: 400 mg Nystatin/Triamcinolone Acetonide (Nystatin/Triamcinolone Cream) 0 ea TOP BID [facility] Last Admin: 07/01/17 16:14 Dose: 1 applic Ondansetron HCl (Zofran Inj) 4 mg IVP Q4H PRN PRN Reason: Nausea/Vomiting Pantoprazole Sodium (Protonix Ec Tab) 40 mg PO ACB [facility] Last Admin: 07/01/17 09:32 Dose: 40 mg Quetiapine Fumarate (Seroquel) 50 mg PO HS [facility] PRN Reason: Protocol Last Admin: 06/30/17 21:55 Dose: 50 mg Spironolactone (Aldactone) 25 mg PO DAILY [facility] Last Admin: 07/01/17 09:32 Dose: 25 mg Warfarin Sodium (Coumadin) 2 mg PO 1800 [facility] PRN Reason: Protocol Last Admin: 06/30/17 17:43 Dose: 2 mg - Labs Labs: 07/01/17 06:20 07/01/17 07:20 PT 16.3 SECONDS (9.4-12.5) H 07/01/17 06:20 INR 1.41 (0.93-1.08) H 07/01/17 06:20 APTT 30.8 Seconds (25.1-36.5) 06/29/17 13:50 - Constitutional Appears: Non-toxic, No Acute Distress, Confused - Head Exam Head Exam: ATRAUMATIC, NORMOCEPHALIC - Eye Exam Eye Exam: EOMI, Normal appearance, PERRL - ENT Exam ENT Exam: Mucous Membranes Moist - Neck Exam Neck Exam: Normal Inspection - Respiratory Exam Respiratory Exam: Rales (Faint, bibasilar), NORMAL BREATHING PATTERN - Cardiovascular Exam Cardiovascular Exam: Irregular Rhythm, +S1, +S2. absent: Bradycardia, Tachycardia - GI/Abdominal Exam GI & Abdominal Exam: Soft, Normal Bowel Sounds. absent: Tenderness - Extremities Exam Extremities Exam: absent: Calf Tenderness, Pedal Edema - Neurological Exam Neurological Exam: Alert, Awake Additional comments: Oriented to person and place, but not time, which is her baseline - Psychiatric Exam Psychiatric exam: Normal Affect, Normal Mood - Skin Skin Exam: Dry, Intact, Normal Color Assessment and Plan - Assessment and Plan (Free Text) Assessment: 87 yo female PMHx Afib on coumadin, CHF with EF of 63%, COPD, urinary incontinence, abdominal aortic aneurysm and thoracic aortic aneurysm, multiple urinary tract infections, GI bleed, DVT, and dementia who presents with daughter by ambulance complaining of AMS and one episode of vomiting; likely 2/ 2 high fever, sepsis likely 2/2 UTI Plan: AMS and Vomiting - Mental status back to baseline, no further episodes of vomiting; likely 2/2 high fever and sepsis Sepsis - Patient has long history of MDR UTI's, without other signs of infectous processes - BP stable, back home home medications since yesterday - Blood cultures negative; urine cultures show Klebsiella, sensitive to merrem - May deescalate to Ertapenem, per ID; may be discharged with 5 day course of IV ertapenem - Ordered midline insertion for outpatient IV Abx infusion; will discharge pending placement of midline - Tylenol for fever - ID Dr. Barnett on board Hx of Atrial fibrillation - Rate controlled - Continue coumadin 2mg Hx of CHF - Continue home medications - Monitor fluid status closely, especially respiratory status - HOB>30, daily weights Hx of COPD - Duonebs Q2H PRN - Monitor respiratory status; no complaints of shortness of breath Hx of Dementia - Continue home medications GI/DVT Ppx - Protonix IV - Coumadin - SCDs Discussed with Dr. Carter <Gerhard Carter - Last Filed: 07/05/17 13:31> Objective - Vital Signs/Intake and Output Vital Signs (last 24 hours): Temp Pulse Resp BP Pulse Ox 98 F 65 18 126/62 94 L 07/02/17 18:00 07/02/17 18:00 07/02/17 18:00 07/02/17 18:00 07/01/17 06:00 - Labs Labs: 07/02/17 08:37 07/02/17 08:37 PT 14.6 SECONDS (9.4-12.5) H 07/02/17 08:37 INR 1.26 (0.93-1.08) H 07/02/17 08:37 APTT 30.8 Seconds (25.1-36.5) 06/29/17 13:50 Attending/Attestation - Attestation I have personally seen and examined this patient.: Yes I have fully participated in the care of the patient.: Yes I have reviewed all pertinent clinical information, including history, physical exam and plan: Yes Notes (Text): 07/05/17 13:29 Patient seen and examined with resident.Patient's daughter by the bed side. Agreed with assessment and plan. Patient is afebrile, blood cultures are negative for any growth.Patient will be discharged home with IV antibiotics , once arrangements are made. Management plan was discussed with patient and family. Education was provided.
--- NOTE | 2017-07-02 01:39 | PN ---
DATE: 07/01/2017 SUBJECTIVE: The patient is seen earlier this morning, in no acute distress, nontoxic. PHYSICAL EXAMINATION: VITAL SIGNS: Temperature is 98, blood pressure is 130/50, respiratory rate of 18. HEENT: Unremarkable. NECK: Supple. LUNGS: Have decreased breath sounds. HEART: Normal S1, S2. ABDOMEN: Soft. LABORATORY DATA: Laboratory examination reveals the patient's white count is 7.1, hemoglobin of 9. BUN of 12 and creatinine of 0.7. Urinalysis is noted. Influenza is negative. Blood cultures are no growth. Urine culture is Klebsiella, which is sensitive to cefepime and meropenem, and resistant to quinolones. ASSESSMENT AND PLAN: This is an 87-year-old female who was seen earlier this morning with atrial fibrillation, chronic obstructive lung disease, congestive heart failure, dementia, urinary tract infection with multidrug-resistant urinary tract infection and sepsis. On this admission, it is sensitive Klebsiella, may use Maxipime. Ertapenem is another option for once daily as outpatient treatment, will complete 7 to 10 days. Meet Barnett MD
[2017-07-02] MEDS: Pantoprazole 40 mg EC Tab PO SCH (08:07)
[2017-07-02 08:40] LABS: BASO # 0.05 K/mm3 (0.0-2.0); BASO % 0.9 % (0.0-3.0); EOS # 0.2 (0.0-0.7); EOS % 3.4 % (1.5-5.0); GRAN # 3.8 (1.4-6.5); GRAN % 65.4 % (50.0-68.0); HEMOGLOBIN 10.3 g/dL (12.0-16.0); LYMPH # 1.3 (1.2-3.4); LYMPH % 22.2 % (22.0-35.0); MEAN CELL VOLUME 82.1 fl (80.0-105.0); MEAN CORPUSCULAR HEMOGLOBIN 24.9 pg (25.0-35.0); MEAN CORPUSCULAR HGB CONC 30.3 g/dl (31.0-37.0); MEAN PLATELET VOLUME 9.6 fl (7.0-11.0); MONO # 0.5 (0.1-0.6); MONO % 8.1 % (1.0-6.0); RBC 4.14 10^6/uL (3.5-6.1); RED CELL DISTRIBUTION WIDTH 17.1 % (11.5-14.5); WHITE BLOOD COUNT 5.8 10^3/ul (4.5-11.0)
[2017-07-02 08:47] LABS: INR 1.26 (0.93-1.08); PROTHROMBIN TIME 14.6 SECONDS (9.4-12.5)
[2017-07-02 08:56] LABS: ALB/GLOB RATIO 1.1 (1.1-1.8); ALBUMIN 3.1 g/dL (3.0-4.8); ALT/SGPT 22 U/L (7-56); AST/SGOT 14 U/L (14-36); BLOOD UREA NITROGEN 9 mg/dL (7-21); CALCIUM 9.6 mg/dL (8.4-10.5); GFR AFRICAN-AMERICAN > 60; GFR NON-AFRICAN AMERICAN > 60
[2017-07-02] MEDS: Digoxin 125 mcg (0.125 mg) Tab PO SCH (09:53)
[2017-07-02] MEDS: Nystatin-Triamcinolone Cream(30 gm) TOP SCH ×2 (09:53→17:08)
[2017-07-02] MEDS ORDERED: HEPARIN SODIUM/NS 1,000 ML IV ONE (13:30)
[2017-07-02] MEDS ORDERED: Lidocaine 2% Inj (20ml) ONE (13:30)
--- NOTE | 2017-07-02 15:37 | CP.PCM.PN ---
Subjective - Date & Time of Evaluation Date of Evaluation: 07/02/17 Time of Evaluation: 10:20 - Subjective Subjective: Comfortable in bed, no fevers, no nausea, no abdominal pain, no dysuria currently. Objective - Vital Signs/Intake and Output Vital Signs (last 24 hours): Temp Pulse Resp BP Pulse Ox 98 F 61 18 137/59 L 94 L 07/01/17 18:00 07/01/17 18:00 07/01/17 18:00 07/01/17 18:00 07/01/17 06:00 Intake and Output: 07/02/17 07/02/17 06:59 18:59 Intake Total 240 Output Total 300 Balance -60 - Medications Medications: Current Medications Acetaminophen (Tylenol 325mg Tab) 650 mg PO Q4 PRN PRN Reason: Fever >100.4 F Albuterol/Ipratropium (Duoneb 3 Mg/0.5 Mg (3 Ml) Ud) 3 ml IH Q2H PRN PRN Reason: Shortness of Breath Digoxin (Lanoxin) 0.125 mg PO DAILY [facility] Last Admin: 07/01/17 09:32 Dose: 0.125 mg Docusate Sodium (Colace) 100 mg PO BID [facility] Last Admin: 07/01/17 21:33 Dose: 100 mg Donepezil HCl (Aricept) 10 mg PO DAILY [facility] Last Admin: 07/01/17 09:32 Dose: 10 mg Ertapenem 1 gm/ Sodium (Chloride) 50 mls @ 100 mls/hr IVPB Q24H [facility] Stop: 07/08/17 11:16 Last Admin: 07/01/17 16:12 Dose: 100 mls/hr Ibuprofen (Motrin Tab) 400 mg PO Q6H PRN PRN Reason: Fever >100.4 F Last Admin: 07/01/17 09:32 Dose: 400 mg Nystatin/Triamcinolone Acetonide (Nystatin/Triamcinolone Cream) 0 ea TOP BID [facility] Last Admin: 07/01/17 21:34 Dose: 1 applic Ondansetron HCl (Zofran Inj) 4 mg IVP Q4H PRN PRN Reason: Nausea/Vomiting Pantoprazole Sodium (Protonix Ec Tab) 40 mg PO ACB [facility] Last Admin: 07/02/17 08:07 Dose: 40 mg Quetiapine Fumarate (Seroquel) 50 mg PO HS [facility] PRN Reason: Protocol Last Admin: 07/01/17 21:33 Dose: 50 mg Spironolactone (Aldactone) 25 mg PO DAILY [facility] Last Admin: 07/01/17 09:32 Dose: 25 mg Warfarin Sodium (Coumadin) 2 mg PO 1800 [facility] PRN Reason: Protocol Last Admin: 07/01/17 21:33 Dose: 2 mg - Labs Labs: 07/02/17 08:37 07/02/17 08:37 PT 14.6 SECONDS (9.4-12.5) H 07/02/17 08:37 INR 1.26 (0.93-1.08) H 07/02/17 08:37 APTT 30.8 Seconds (25.1-36.5) 06/29/17 13:50 - Constitutional Appears: Chronically Ill - Head Exam Head Exam: NORMAL INSPECTION - ENT Exam ENT Exam: Mucous Membranes Moist - Neck Exam Neck Exam: absent: Meningismus - Respiratory Exam Respiratory Exam: Decreased Breath Sounds - Cardiovascular Exam Cardiovascular Exam: +S1, +S2 - GI/Abdominal Exam GI & Abdominal Exam: Soft. absent: Tenderness Assessment and Plan - Assessment and Plan (Free Text) Plan: Assessment sepsis due to UTI with multidrug-resistant Klebsiella history of sepsis probably due to urinary tract infection in a patient with renal calculi history of left lower lobe healthcare-associated pneumonia atrial fibrillation COPD CHF dementia abdominal aortic aneurysm history of multiple UTI's history of GI bleed history of DVT history of right hip fracture Plan continue patient on Cefepime (can be switched to Ertapenem) to complete 7-10 days of therapy
--- NOTE | 2017-07-02 16:47 | CP.PCM.DIS ---
<Earlene Bradley - Last Filed: 07/02/17 16:37> Provider - Provider Date of Admission: 06/29/17 14:56 Attending physician: Sabra Aviles MD Primary care physician: Tashi Kohler MD Consults: ID: Johan Interventional radiology: Umer Garvin Time Spent in preparation of Discharge (in minutes): 45 Diagnosis - Discharge Diagnosis (1) Altered mental status Status: Acute (2) Sepsis Status: Acute (3) Urinary tract infection Status: Acute Priority: High Hospital Course - Lab Results Lab Results: Most Recent Lab Values WBC 5.8 10^3/ul (4.5-11.0) 07/02/17 08:37 RBC 4.14 10^6/uL (3.5-6.1) 07/02/17 08:37 Hgb 10.3 g/dL (12.0-16.0) L 07/02/17 08:37 Hct 34.0 % (36.0-48.0) L 07/02/17 08:37 MCV 82.1 fl (80.0-105.0) 07/02/17 08:37 MCH 24.9 pg (25.0-35.0) L 07/02/17 08:37 MCHC 30.3 g/dl (31.0-37.0) L 07/02/17 08:37 RDW 17.1 % (11.5-14.5) H 07/02/17 08:37 Plt Count 204 10^3/uL (120.0-450.0) 07/02/17 08:37 MPV 9.6 fl (7.0-11.0) 07/02/17 08:37 Gran % 65.4 % (50.0-68.0) 07/02/17 08:37 Lymph % (Auto) 22.2 % (22.0-35.0) 07/02/17 08:37 Kidder % (Auto) 8.1 % (1.0-6.0) H 07/02/17 08:37 Eos % (Auto) 3.4 % (1.5-5.0) 07/02/17 08:37 Baso % (Auto) 0.9 % (0.0-3.0) 07/02/17 08:37 Gran # 3.80 (1.4-6.5) 07/02/17 08:37 Lymph # 1.3 (1.2-3.4) 07/02/17 08:37 Kidder # 0.5 (0.1-0.6) 07/02/17 08:37 Eos # 0.2 (0.0-0.7) 07/02/17 08:37 Baso # 0.05 K/mm3 (0.0-2.0) 07/02/17 08:37 Neutrophils % (Manual) 97 % (50.0-70.0) H 06/29/17 13:40 Band Neutrophils % 1 % (0-2) 06/29/17 13:40 Lymphocytes % (Manual) 1 % (22.0-35.0) L 06/29/17 13:40 Monocytes % (Manual) TEST NOT PERFORMED 06/29/17 13:40 Eosinophils % (Manual) 1 % (0.0-3.0) 06/29/17 13:40 Platelet Evaluation Normal (NORMAL) 06/29/17 13:40 PT 14.6 SECONDS (9.4-12.5) H 07/02/17 08:37 INR 1.26 (0.93-1.08) H 07/02/17 08:37 APTT 30.8 Seconds (25.1-36.5) 06/29/17 13:50 pO2 212 mm/Hg (30-55) H 06/29/17 17:17 VBG pH 7.34 (7.32-7.43) 06/29/17 17:17 VBG pCO2 44.0 (40-60) 06/29/17 17:17 VBG HCO3 23.7 mmol/l (21-28) 06/29/17 17:17 VBG Total CO2 25.1 mmol.L (22-28) 06/29/17 17:17 VBG O2 Sat (Calc) 100.0 % (40-65) H 06/29/17 17:17 VBG Base Excess -2.2 mmol/L (0.0-2.0) L 06/29/17 17:17 VBG Potassium 3.8 mmol/L (3.6-5.2) 06/29/17 17:17 Sodium 141.0 mmol/L (132-148) 06/29/17 17:17 Chloride 112.0 mmol/L (98-107) H 06/29/17 17:17 Glucose 167 mg/dl (65-105) H 06/29/17 17:17 Lactate 2.7 mmol/L (0.7-2.1) H 06/29/17 17:17 FiO2 21.0 % 06/29/17 17:17 Sodium 143 mmol/L (132-148) 07/02/17 08:37 Potassium 4.0 mmol/L (3.6-5.0) 07/02/17 08:37 Chloride 110 mmol/L (98-107) H 07/02/17 08:37 Carbon Dioxide 25 mmol/L (21-33) 07/02/17 08:37 Anion Gap 11 (10-20) 07/02/17 08:37 BUN 9 mg/dL (7-21) 07/02/17 08:37 Creatinine 0.6 mg/dl (0.7-1.2) L 07/02/17 08:37 Est GFR ( Amer) > 60 07/02/17 08:37 Est GFR (Non-Af Amer) > 60 07/02/17 08:37 POC Glucose (mg/dL) 105 mg/dL (65-110) 07/01/17 16:37 Random Glucose 102 mg/dL (70-110) 07/02/17 08:37 Calcium 9.6 mg/dL (8.4-10.5) 07/02/17 08:37 Phosphorus 2.7 mg/dL (2.5-4.5) 06/30/17 07:45 Magnesium 2.0 mg/dL (1.7-2.2) 06/30/17 07:45 Total Bilirubin 0.5 mg/dL (0.2-1.3) 07/02/17 08:37 AST 14 U/L (14-36) 07/02/17 08:37 ALT 22 U/L (7-56) 07/02/17 08:37 Alkaline Phosphatase 57 U/L (38-126) 07/02/17 08:37 Lactate Dehydrogenase 350 U/L (333-699) 06/29/17 13:40 Total Creatine Kinase < 20 U/L (35-230) L 06/29/17 13:40 Troponin I < 0.01 ng/mL D 06/29/17 13:40 Total Protein 6.1 g/dL (5.8-8.3) 07/02/17 08:37 Albumin 3.1 g/dL (3.0-4.8) 07/02/17 08:37 Globulin 2.9 gm/dL 07/02/17 08:37 Albumin/Globulin Ratio 1.1 (1.1-1.8) 07/02/17 08:37 Procalcitonin 0.22 NG/ML (0.19-0.49) 06/29/17 13:40 Venous Blood Potassium 3.8 mmol/L (3.6-5.2) 06/29/17 17:17 Urine Color Yellow (YELLOW) 06/29/17 14:02 Urine Appearance Cloudy (CLEAR) 06/29/17 14:02 Urine pH 6.0 (4.7-8.0) 06/29/17 14:02 Ur Specific [place] 1.020 (1.005-1.035) 06/29/17 14:02 Urine Protein Negative mg/dL (<30 mg/dL) 06/29/17 14:02 Urine Glucose (UA) Negative mg/dL (NEGATIVE) 06/29/17 14:02 Urine Ketones Negative mg/dL (NEGATIVE) 06/29/17 14:02 Urine Blood Moderate (NEGATIVE) H 06/29/17 14:02 Urine Nitrate Negative (NEGATIVE) 06/29/17 14:02 Urine Bilirubin Negative (NEGATIVE) 06/29/17 14:02 Urine Urobilinogen 0.2 E.U./dL (<1 E.U./dL) 06/29/17 14:02 Ur Leukocyte Esterase Moderate Samir/uL (NEGATIVE) H 06/29/17 14:02 Urine RBC 2 - 5 /hpf (0-2) 06/29/17 14:02 Urine WBC 10 - 15 /hpf (0-6) 06/29/17 14:02 Ur Epithelial Cells 3 - 4 /hpf (0-5) 06/29/17 14:02 Urine Bacteria Mod (NEG) 06/29/17 14:02 Digoxin 0.7 ng/mL (0.8-2.0) L 06/29/17 14:02 Influenza Typ A,B (EIA) Negative for flu a/b (NEGATIVE) 06/29/17 14:02 - Hospital Course Hospital Course: 87 yo female PMHx Afib on coumadin, CHF with EF of 63%, COPD, urinary incontinence, abdominal aortic aneurysm and thoracic aortic aneurysm, multiple urinary tract infections, GI bleed, DVT, and dementia who initially presented with daughter by ambulance complaining of AMS and one episode of vomiting. Patient was noted to be septic, with the most likely source being the urine. Patient was empirically started on Avycaz, considering her prior infections, pending cultures. Urine culture subsequently showed Klebsiella sensitive to Merrem. Patient was started on IV Merrem, to complete a 7-10 day course. Today, PICC line was placed for continued administration at home. Patient's mental status is back to baseline, and she has no complaints. Hypotension, fever, and leukocytosis resolved. 12 point ROS was negative except as above. Patient was prescribed a 5 day course of Ertapenem, per ID, to complete the 7 day course. All questions were answered to family's satisfaction, and patient was discharged to home. Discharge Exam - Head Exam Head Exam: NORMAL INSPECTION - Eye Exam Eye Exam: EOMI, Normal appearance, PERRL - ENT Exam ENT Exam: Mucous Membranes Moist - Neck Exam Neck exam: Normal Inspection - Respiratory Exam Respiratory Exam: Clear to PA & Lateral, NORMAL BREATHING PATTERN, UNREMARKABLE - Cardiovascular Exam Cardiovascular Exam: REGULAR RHYTHM, +S1, +S2 - GI/Abdominal Exam GI & Abdominal Exam: Normal Bowel Sounds, Soft. absent: Tenderness - Extremities Exam Extremities exam: normal inspection, pedal pulses present - Neurological Exam Neurological exam: Alert Additional comments: Patient oriented to person and place, but not time, which is her baseline. - Psychiatric Exam Psychiatric exam: Normal Affect, Normal Mood - Skin Skin Exam: Dry, Intact, Normal Color Discharge Plan - Discharge Medications Prescriptions: Ertapenem [Invanz] 1 gm IVPB Q24H 5 Days #5 vial - Follow Up Plan Condition: SERIOUS Disposition: HOME/ ROUTINE Instructions: Urinary Tract Infection in Women (DC), Sepsis (GEN), Altered Mental Status (GEN) Additional Instructions: 1. Continue IV antibiotics with nurse through midline as prescribed for 5 more days 2. Continue all other medications as previously prescribed 3. Follow up with your primary care doctor within one week 4. For any new or worsening concerns, contact your PCP immediately or return to the ER Referrals: Tashi Kohler MD [Primary Care Provider] - <Sabra Aviles - Last Filed: 07/02/17 17:16> Provider - Provider Date of Admission: 06/29/17 14:56 Attending physician: Sabra Aviles MD Primary care physician: Tashi Kohler MD Hospital Course - Lab Results Lab Results: Most Recent Lab Values WBC 5.8 10^3/ul (4.5-11.0) 07/02/17 08:37 RBC 4.14 10^6/uL (3.5-6.1) 07/02/17 08:37 Hgb 10.3 g/dL (12.0-16.0) L 07/02/17 08:37 Hct 34.0 % (36.0-48.0) L 07/02/17 08:37 MCV 82.1 fl (80.0-105.0) 07/02/17 08:37 MCH 24.9 pg (25.0-35.0) L 07/02/17 08:37 MCHC 30.3 g/dl (31.0-37.0) L 07/02/17 08:37 RDW 17.1 % (11.5-14.5) H 07/02/17 08:37 Plt Count 204 10^3/uL (120.0-450.0) 07/02/17 08:37 MPV 9.6 fl (7.0-11.0) 07/02/17 08:37 Gran % 65.4 % (50.0-68.0) 07/02/17 08:37 Lymph % (Auto) 22.2 % (22.0-35.0) 07/02/17 08:37 Kidder % (Auto) 8.1 % (1.0-6.0) H 07/02/17 08:37 Eos % (Auto) 3.4 % (1.5-5.0) 07/02/17 08:37 Baso % (Auto) 0.9 % (0.0-3.0) 07/02/17 08:37 Gran # 3.80 (1.4-6.5) 07/02/17 08:37 Lymph # 1.3 (1.2-3.4) 07/02/17 08:37 Kidder # 0.5 (0.1-0.6) 07/02/17 08:37 Eos # 0.2 (0.0-0.7) 07/02/17 08:37 Baso # 0.05 K/mm3 (0.0-2.0) 07/02/17 08:37 Neutrophils % (Manual) 97 % (50.0-70.0) H 06/29/17 13:40 Band Neutrophils % 1 % (0-2) 06/29/17 13:40 Lymphocytes % (Manual) 1 % (22.0-35.0) L 06/29/17 13:40 Monocytes % (Manual) TEST NOT PERFORMED 06/29/17 13:40 Eosinophils % (Manual) 1 % (0.0-3.0) 06/29/17 13:40 Platelet Evaluation Normal (NORMAL) 06/29/17 13:40 PT 14.6 SECONDS (9.4-12.5) H 07/02/17 08:37 INR 1.26 (0.93-1.08) H 07/02/17 08:37 APTT 30.8 Seconds (25.1-36.5) 06/29/17 13:50 pO2 212 mm/Hg (30-55) H 06/29/17 17:17 VBG pH 7.34 (7.32-7.43) 06/29/17 17:17 VBG pCO2 44.0 (40-60) 06/29/17 17:17 VBG HCO3 23.7 mmol/l (21-28) 06/29/17 17:17 VBG Total CO2 25.1 mmol.L (22-28) 06/29/17 17:17 VBG O2 Sat (Calc) 100.0 % (40-65) H 06/29/17 17:17 VBG Base Excess -2.2 mmol/L (0.0-2.0) L 06/29/17 17:17 VBG Potassium 3.8 mmol/L (3.6-5.2) 06/29/17 17:17 Sodium 141.0 mmol/L (132-148) 06/29/17 17:17 Chloride 112.0 mmol/L (98-107) H 06/29/17 17:17 Glucose 167 mg/dl (65-105) H 06/29/17 17:17 Lactate 2.7 mmol/L (0.7-2.1) H 06/29/17 17:17 FiO2 21.0 % 06/29/17 17:17 Sodium 143 mmol/L (132-148) 07/02/17 08:37 Potassium 4.0 mmol/L (3.6-5.0) 07/02/17 08:37 Chloride 110 mmol/L (98-107) H 07/02/17 08:37 Carbon Dioxide 25 mmol/L (21-33) 07/02/17 08:37 Anion Gap 11 (10-20) 07/02/17 08:37 BUN 9 mg/dL (7-21) 07/02/17 08:37 Creatinine 0.6 mg/dl (0.7-1.2) L 07/02/17 08:37 Est GFR ( Amer) > 60 07/02/17 08:37 Est GFR (Non-Af Amer) > 60 07/02/17 08:37 POC Glucose (mg/dL) 105 mg/dL (65-110) 07/01/17 16:37 Random Glucose 102 mg/dL (70-110) 07/02/17 08:37 Calcium 9.6 mg/dL (8.4-10.5) 07/02/17 08:37 Phosphorus 2.7 mg/dL (2.5-4.5) 06/30/17 07:45 Magnesium 2.0 mg/dL (1.7-2.2) 06/30/17 07:45 Total Bilirubin 0.5 mg/dL (0.2-1.3) 07/02/17 08:37 AST 14 U/L (14-36) 07/02/17 08:37 ALT 22 U/L (7-56) 07/02/17 08:37 Alkaline Phosphatase 57 U/L (38-126) 07/02/17 08:37 Lactate Dehydrogenase 350 U/L (333-699) 06/29/17 13:40 Total Creatine Kinase < 20 U/L (35-230) L 06/29/17 13:40 Troponin I < 0.01 ng/mL D 06/29/17 13:40 Total Protein 6.1 g/dL (5.8-8.3) 07/02/17 08:37 Albumin 3.1 g/dL (3.0-4.8) 07/02/17 08:37 Globulin 2.9 gm/dL 07/02/17 08:37 Albumin/Globulin Ratio 1.1 (1.1-1.8) 07/02/17 08:37 Procalcitonin 0.22 NG/ML (0.19-0.49) 06/29/17 13:40 Venous Blood Potassium 3.8 mmol/L (3.6-5.2) 06/29/17 17:17 Urine Color Yellow (YELLOW) 06/29/17 14:02 Urine Appearance Cloudy (CLEAR) 06/29/17 14:02 Urine pH 6.0 (4.7-8.0) 06/29/17 14:02 Ur Specific [place] 1.020 (1.005-1.035) 06/29/17 14:02 Urine Protein Negative mg/dL (<30 mg/dL) 06/29/17 14:02 Urine Glucose (UA) Negative mg/dL (NEGATIVE) 06/29/17 14:02 Urine Ketones Negative mg/dL (NEGATIVE) 06/29/17 14:02 Urine Blood Moderate (NEGATIVE) H 06/29/17 14:02 Urine Nitrate Negative (NEGATIVE) 06/29/17 14:02 Urine Bilirubin Negative (NEGATIVE) 06/29/17 14:02 Urine Urobilinogen 0.2 E.U./dL (<1 E.U./dL) 06/29/17 14:02 Ur Leukocyte Esterase Moderate Samir/uL (NEGATIVE) H 06/29/17 14:02 Urine RBC 2 - 5 /hpf (0-2) 06/29/17 14:02 Urine WBC 10 - 15 /hpf (0-6) 06/29/17 14:02 Ur Epithelial Cells 3 - 4 /hpf (0-5) 06/29/17 14:02 Urine Bacteria Mod (NEG) 06/29/17 14:02 Digoxin 0.7 ng/mL (0.8-2.0) L 06/29/17 14:02 Influenza Typ A,B (EIA) Negative for flu a/b (NEGATIVE) 06/29/17 14:02 Attending/Attestation - Attestation I have personally seen and examined this patient.: Yes I have fully participated in the care of the patient.: Yes I have reviewed all pertinent clinical information, including history, physical exam and plan: Yes Notes (Text): I have seen and examined the patient at bedside. Agree with the above note with the following additions/ exceptions: Briefly this is 87 year old female with history of atrial fibrillation on coumadin, moderate to severe pulmonary hypertension, COPD, urinary incontinence, AAA, GI bleed, DVT, dementia who got admitted for evaluation of fever and lethargy secondary to UTI. Urine culture revealed klebsiella sensitive to meropenem. Patient will be sent home on ertapenem as per ID to complete 10 days of antibiotics. Patient is afebrile and nontoxic. INR is slightly low. Will give 5 mg of coumadin today and advised daughter to continue 2 mg starting from tomorrow. Advised patient to have INR check in 3 days. Patient is DNI DNR. Upon discharge the patient will follow up with PMD . Dr Sabra Aviles
[2017-07-02 18:23] VITALS: BP 126/62; PULSE 65; TEMP 98
--- NOTE | 2017-07-02 18:31 | VASCULAR ---
PROCEDURE: Ultrasound and fluoroscopically placed left upper extremity PICC line. HISTORY: Sepsis. Drug-resistant organisms. Needs PICC line and long-term IV antibiotics. PHYSICIAN(S): Umer Garvin MD. TECHNIQUE: The relative risks and indications of the procedure were explained to the patient and consent obtained. The patient was placed supine on the arteriogram table and the left arm prepped and draped in the usual sterile fashion. A tourniquet was applied to the left axilla. 1% Xylocaine was used to anesthetize the skin and soft tissues at the puncture site above the elbow. The left basilic vein was punctured under direct ultrasound guidance with a micropuncture set. A 0.018 guidewire was advanced centrally and used to measure the length to the SVC/RA junction. A 5 [place] single-lumen PICC line 45 cm long was advanced to the SVC/RA junction. The catheter was flushed and secured. The patient tolerated the procedure well. IMPRESSION: 1. Ultrasound and fluoroscopically placed left upper extremity PICC line. A 5 [place] single-lumen PICC line 45 cm long was advanced to the SVC/RA junction.
== END 2017-07-02 21:34 | disposition home or self-care (01) | DRG 872 ==
LOC: ED 13:12 → ERH 14:56 → 2RSO 18:41
PROVIDERS: ADMIT Internal Medicine; ATTEND Hospitalist
DX: A41.9 Sepsis, unspecified organism (principal); N39.0 Urinary tract infection, site not specified; I50.9 Heart failure, unspecified; I11.0 Hypertensive heart disease with heart failure; I48.91 Unspecified atrial fibrillation; I27.20 Pulmonary hypertension, unspecified; J44.9 Chronic obstructive pulmonary disease, unspecified; I71.4 Abdominal aortic aneurysm, without rupture; F03.90 Unspecified dementia, unspecified severity, without behavioral disturbance, psychotic disturbance, mood disturbance, and anxiety; I71.2 Thoracic aortic aneurysm, without rupture; Z16.24 Resistance to multiple antibiotics; Z66 Do not resuscitate; Z79.01 Long term (current) use of anticoagulants; Z87.440 Personal history of urinary (tract) infections; Z87.442 Personal history of urinary calculi; Z85.820 Personal history of malignant melanoma of skin; Z86.718 Personal history of other venous thrombosis and embolism; Z87.01 Personal history of pneumonia (recurrent); Z87.891 Personal history of nicotine dependence

== ENCOUNTER 2017-08-22 10:42 | Inpatient (IN) | payer MEDICARE, BC ==
[2017-08-22 10:43] VITALS: BMI 31.8
[2017-08-22] MEDS ORDERED: Cefepime IV 2 gm in NS 2 GM/100 ML BAG IVPB STA (11:00)
--- NOTE | 2017-08-22 11:05 | ED PDOC ---
Arrival/HPI - General Chief Complaint: Fever Time Seen by Provider: 08/22/17 10:45 Historian: Family (daughter) - History of Present Illness Narrative History of Present Illness (Text): 08/22/17 10:59 Maggie Oliva is an 87 year old female, whose past medical history includes Atrial Fibrillation on Coumadin and hospital admissions for sepsis, who presents to the emergency department brought in by daughter for tremors, AMS, and a fever. Patients daughter states the patient appeared in her typical state of health last night. When the patient woke up she was shaking, confused, non- communicative, and had a fever that was measured by daughter. The patient was unable to stand up and appeared extremely weak. Daughter notes the patient regularly wears a diaper. Patient's daughter denies any coughing, shortness of breath, bloody stool, appetite changes, vomiting, diarrhea or any other complaint. Time/Duration: 1-3 hours Symptom Onset: Gradual Symptom Course: Unchanged Activities at Onset: Light Context: Home Past Medical History - Provider Review Nursing Documentation Reviewed: Yes - Infectious Disease Hx of Infectious Diseases: None - Tetanus Immunization Tetanus Immunization: Unknown - Reproductive Menopause: Yes - Cardiac Hx Atrial Fibrillation: Yes - Pulmonary Hx Chronic Obstructive Pulmonary Disease (COPD): Yes - Neurological Hx Dementia: Yes (confusion memory loss) - HEENT Hx Cataracts: Yes Hx Macular Degeneration: Yes - Renal Hx Renal Failure: No - Endocrine/Metabolic Hx Diabetes Mellitus Type 1: No Hx Diabetes Mellitus Type 2: No Hx Hypothyroidism: No - Hematological/Oncological Hx Cancer: Yes - Integumentary Hx Dermatological Disorder: Yes Hx Melanoma: Yes (r upper arm removed) - Musculoskeletal/Rheumatological Hx Falls: Yes (2 years ago) - Gastrointestinal Hx Gastrointestinal Disorders: Yes Hx Diverticulitis: Yes - Genitourinary/Gynecological Hx Reproductive Disorders: No - Psychiatric Hx Anxiety: Yes Hx Depression: Yes Hx Substance Use: No - Past Surgical History Past Surgical History: No Previous - Surgical History Hx Mastectomy: No - Anesthesia Hx Anesthesia: Yes Hx Anesthesia Reactions: No Hx Malignant Hyperthermia: No - Suicidal Assessment Feels Threatened In Home Enviroment: No Family/Social History - Physician Review Nursing Documentation Reviewed: Yes Family/Social History: Unknown Family HX Smoking Status: Former Smoker Hx Alcohol Use: No Hx Substance Use: No Hx Substance Use Treatment: No Allergies/Home Meds Allergies/Adverse Reactions: Allergies No Known Allergies Allergy (Verified 06/29/17 16:42) Home Medications: Home Meds Medication Instructions Recorded Confirmed QUEtiapine [Seroquel] 50 mg PO HS 06/02/17 08/22/17 Digoxin [Digitek] 125 mcg PO DAILY 06/29/17 08/22/17 Pantoprazole Sodium [Protonix] 40 mg PO DAILY 06/29/17 08/22/17 Spironolactone [Aldactone] 25 mg PO DAILY 06/29/17 08/22/17 Warfarin [Coumadin] 2 mg PO DAILY 06/29/17 08/22/17 Acetaminophen with Codeine 1 tab PO PRN PRN 08/22/17 08/22/17 [Tylenol with Codeine No. 3 300 mg-30 mg] Bisacodyl [Ducolax] 0 mg PO BID 08/22/17 08/22/17 Clonazepam [Klonopin] 0.5 mg PO PRN PRN 08/22/17 08/22/17 Donepezil HCl [Aricept] 10 mg PO ACD 08/22/17 08/22/17 Review of Systems - Review of Systems Systems not reviewed;Unavailable: Altered Mental Status Constitutional: Fevers Respiratory: absent: SOB, Cough Cardiovascular: absent: Chest Pain Gastrointestinal: absent: Abdominal Pain, Diarrhea, Vomiting, Appetite Changes Neurological: absent: Focal Weakness, Seizure Physical Exam - Physical Exam Narrative Physical Exam (Text): 08/22/17 10:57 Head: Atraumatic. Normocephalic. Eyes: PERRL. EOMI. Conjunctivae are not pale. ENT: Mucous membranes are dry. No exudates or facial swelling. Neck: Supple. Full ROM. No JVD. No lymphadenopathy. No midline tenderness. Cardiovascular: Regular rate. Regular rhythm. Systolic murmur. Pulmonary/Chest: No evidence of respiratory distress. Clear to auscultation bilaterally. No wheezing, rales or rhonchi. Abdominal: Distended but soft and no rebound or guarding. No pulsatile masses. Pelvic: diaper on, no external lesions visualized Rectal: no active bleeding or melena Back: No CVA tenderness. No ulcers. Extremities: Mild edema. No cyanosis. No clubbing. Full range of motion in all extremities. No calf tenderness. Skin: Skin is warm and dry. No petechiae. No purpura. Neurological: Will open eyes to commands. Moves all extremities. Not verbally communicating. No meningeal signs. Psychiatric: Poor eye contact. Physical Exam Limitations: Altered Mental Status Vital Signs Reviewed: Yes Vital Signs Temp Pulse Resp BP Pulse Ox 08/22/17 14:00 67 08/22/17 13:50 100 F H 68 20 90/55 L 96 08/22/17 13:39 82 18 109/50 L 08/22/17 12:27 82 20 109/50 L 97 08/22/17 12:07 85 20 96/62 L 96 08/22/17 10:43 104.3 F H 99 H 18 117/70 94 L Temperature: Febrile Respiratory Rate: Tachypneic Appearance: Positive for: Ill-Appearing Mental Status: Positive for: Confused Medical Decision Making ED Course and Treatment: 08/22/17 10:58 Impression: 87 year old female presents to the emergency department with daughter for tremors, AMS, and fever. Plan: -- Chest X-ray -- EKG -- Venous Blood Gas Shock Panel -- Blood Culture -- Urine Culture -- Urinalysis -- Labs -- Dioxin -- Magnesium -- Phosphorous -- Maxipime -- Tylenol -- Empty IV Bag -- Reassess and disposition Prior Visits: Notes and results from previous visits were reviewed. Patient was last seen in the emergency department on 06/29/17 for AMS and Urosepsis. Pt was hospitalized. Progress Notes: History obtained with daughter at bedside. Patient is noted to be febrile via rectal temp. Straight cath ua ordered. Tylenol admistered as well as iv fluids. IV antibiotics initiated and patient treated for likely urosepsis. CODE sepsis initiated based on suspicion of infection, UTI, elevated lactate. With serial exams she appears more alert, interactive and attentive after iv fluids and monitoring of symptoms. 08/22/17 12:20 Chest X-ray reviewed, shows: LUNGS: No active pulmonary disease. PLEURA: No significant pleural effusion identified, no pneumothorax apparent. CARDIOVASCULAR: Cardiomegaly. Ectatic aneurysmal thoracic aorta. OSSEOUS STRUCTURES: No significant abnormalities. VISUALIZED UPPER ABDOMEN: Normal. OTHER FINDINGS: None. IMPRESSION: No active disease. No significant interval change compared to the prior examination(s). Case reviewed with covering PMD, patient admitted for urosepsis. Dr. Boghossian consulted and patient evaluated by infectious disease in the Emergency Department. - Lab Interpretations Microbiology Results: Microbiology Results 08/22/17 11:20 Urine Urine Culture - Preliminary Gram Negative Nj Enterococcus Faecalis 08/22/17 11:23 Blood Blood Culture - Preliminary NO GROWTH AFTER 24 HOURS 08/22/17 11:23 Blood Blood Culture - Preliminary 08/22/17 11:23 Blood Gram Stain - Final Lab Results: 08/22/17 11:23 08/22/17 11:23 Lab Results 08/22/17 11:40: Influenza Typ A,B (EIA) Negative for flu a/b 08/22/17 11:23: Digoxin 0.7 L 08/22/17 11:23: Sodium 144, Chloride 109 H, Potassium 4.2, Carbon Dioxide 22, Anion Gap 17, BUN 18, Creatinine 0.6 L, Est GFR ( Amer) > 60, Est GFR ( Non-Af Amer) > 60, Random Glucose 155 H, Calcium 10.5, Phosphorus 2.6, Magnesium 1.8, Total Bilirubin 0.7, AST 26, ALT 13, Alkaline Phosphatase 99, Lactate Dehydrogenase 477, Total Creatine Kinase 25 L, Troponin I < 0.01, Total Protein 7.4, Albumin 3.8, Globulin 3.6, Albumin/Globulin Ratio 1.1 08/22/17 11:23: pO2 167 H, VBG pH 7.45 H, VBG pCO2 34.0 L, VBG HCO3 23.6, VBG Total CO2 24.6, VBG O2 Sat (Calc) 99.9 H, VBG Base Excess 0.1, VBG Potassium 4.7 , Sodium 140.0, Chloride 110.0 H, Glucose 162 H, Lactate 2.9 H, FiO2 21.0, Venous Blood Potassium 4.7 08/22/17 11:23: PT 25.8 H, INR 2.21 H, APTT 32.1 08/22/17 11:23: WBC 9.4 D, RBC 4.87, Hgb 11.5 L, Hct 38.6, MCV 79.3 L, MCH 23.6 L, MCHC 29.8 L, RDW 17.3 H, Plt Count 264, MPV 9.6, Gran % 89.8 H, Lymph % (Auto) 3.2 L, Frontier % (Auto) 6.1 H, Eos % (Auto) 0.6 L, Baso % (Auto) 0.3, Gran # 8.40 H, Lymph # (Auto) 0.3 L, Frontier # (Auto) 0.6, Eos # (Auto) 0.1, Baso # ( Auto) 0.03, Neutrophils % (Manual) 87 H, Lymphocytes % (Manual) 6 L, Monocytes % (Manual) 4, Eosinophils % (Manual) 1, Basophils % (Manual) 2 H, Platelet Evaluation Normal 08/22/17 11:20: Urine Color Yellow, Urine Appearance Clear, Urine pH 6.0, Ur Specific [place] 1.020, Urine Protein Negative, Urine Glucose (UA) Negative, Urine Ketones Negative, Urine Blood Large H, Urine Nitrate Positive H, Urine Bilirubin Negative, Urine Urobilinogen 0.2, Ur Leukocyte Esterase Moderate H, Urine RBC 25 - 30, Urine WBC 10 - 15, Ur Epithelial Cells 0 - 2, Urine Bacteria Mod - RAD Interpretation Radiology Orders: 08/22/17 10:57 CHEST PORTABLE [RAD] Stat [employer] Manager: Radiologist - EKG Interpretation Interpreted by ED Physician: Yes Type: 12 lead EKG Comparison: Com.w/previous EKG - Medication Orders Current Medication Orders: Acetaminophen (Tylenol 325mg Tab) 650 mg PO Q6H PRN PRN Reason: Fever >100.4 F Last Admin: 08/23/17 15:00 Dose: 650 mg MAR Pain/Vitals Document 08/23/17 15:00 SOUSV (Rec: 08/23/17 15:01 SOUSV [id number]) Pain Reassessment Is This A Pain ReAssessment? No Presence of Pain Presence of Pain No Vitals Temperature (97.6 F-99.6 F) 101 F Temperature Source Oral Re-Assess: MAR Pain/Vitals Document 08/23/17 16:00 SOUSV (Rec: 08/23/17 16:37 SOUSV [id number]) Pain Reassessment Is This A Pain ReAssessment? No Presence of Pain Presence of Pain No Vitals Temperature (97.6 F-99.6 F) 97.9 F Temperature Source Oral Digoxin (Digoxin) 0.125 mg PO DAILY [facility] Last Admin: 08/24/17 09:58 Dose: BOBBY Apical Pulse Rate Document 08/24/17 09:58 SOUSV (Rec: 08/24/17 09:58 SOUSV [id number]) Apical Pulse Rate Apical Pulse Rate (60-90 beats/min) 58 Donepezil HCl (Aricept) 10 mg PO ACD ERINN Last Admin: 08/23/17 17:23 Dose: 10 mg Meropenem (Merrem Iv 1 Gm Premix) 50 mls @ 100 mls/hr IVPB Q8 ERINN PRN Reason: Protocol Stop: 08/31/17 14:01 Last Admin: 08/24/17 05:13 Dose: 100 mls/hr eMAR Start Stop Document 08/24/17 05:13 DEE (Rec: 08/24/17 05:13 DEE [id number]) Intravenous Solution Start Date 08/24/17 Start Time 05:13 End Date 08/24/17 End time 05:43 Total Infusion Time 30 Sodium Chloride (Sodium Chloride 0.9%) 1,000 mls @ 75 mls/hr IV .[id number] ERINN Last Admin: 08/23/17 17:23 Dose: 75 mls/hr eMAR Start Stop Document 08/23/17 17:23 SOUSV (Rec: 08/23/17 17:25 SOUSV [id number]) Intravenous Solution Start Date 08/23/17 Start Time 17:25 Vancomycin HCl 1.5 gm/ Sodium (Chloride) 250 mls @ 167 mls/hr IVPB Q12H ERINN PRN Reason: Protocol Last Admin: 08/24/17 02:43 Dose: 167 mls/hr eMAR Start Stop Document 08/24/17 02:43 DEE (Rec: 08/24/17 02:44 DEE [id number]) Intravenous Solution Start Date 08/24/17 Start Time 02:43 End Date 08/24/17 End time 04:13 Total Infusion Time 90 Pantoprazole Sodium (Protonix Ec Tab) 40 mg PO DAILY ERINN Last Admin: 08/24/17 09:57 Dose: 40 mg Quetiapine Fumarate (Seroquel) 50 mg PO HS ERINN PRN Reason: Protocol Last Admin: 08/23/17 21:44 Dose: 50 mg Behavioural Document 08/23/17 21:44 DEE (Rec: 08/23/17 21:44 DEE [id number]) Maintenance Maintenance Dose Yes Nonmedicinal Nonmedicinal Interventions Redirect Behavior Behavior for Medication: Insomnia Vitamin A (Vitamin A & D Oint Ud Foilpak) 1 ea TOP Q2 PRN PRN Reason: Dry mouth Warfarin Sodium (Coumadin) 2 mg PO DAILY ERINN PRN Reason: Protocol Last Admin: 08/24/17 09:58 Dose: 2 mg Discontinued Medications Acetaminophen (Tylenol 650 Mg Supp) 650 mg RC ONCE STA Stop: 08/22/17 11:00 Last Admin: 08/22/17 11:30 Dose: 650 mg Lactated Ringer's 2,220 ml/ IV (SUPPLIES) 2,220 mls @ 4,436.16 mls/hr IV ONCE ONE PRN Reason: 60 ML/KG/HR Stop: 08/22/17 10:58 Last Admin: 08/22/17 11:31 Dose: 4,436.16 mls/hr eMAR Start Stop Document 08/22/17 11:31 SRE (Rec: 08/22/17 11:32 SRE [id number]) Intravenous Solution Start Date 08/22/17 Start Time 11:31 End Date 08/22/17 End time 12:35 Total Infusion Time 64 Cefepime HCl (Maxipime 2gm) 2 gm in 100 mls @ 100 mls/hr IVPB STAT STA PRN Reason: Protocol Stop: 08/22/17 11:59 Last Admin: 08/22/17 11:29 Dose: 100 mls/hr eMAR Start Stop Document 08/22/17 11:29 SRE (Rec: 08/22/17 11:29 SRE [id number]) Intravenous Solution Start Date 08/22/17 Start Time 11:29 End Date 08/22/17 End time 12:30 Total Infusion Time 61 - Scribe Statement The provider has reviewed the documentation as recorded by the Scribe Documented by Toya Arellano acting as a scribe for Maribeth Liu MD. Disposition/Present on Arrival - Present on Arrival Any Indicators Present on Arrival: No History of DVT/PE: No History of Uncontrolled Diabetes: No Urinary Catheter: No History of Decub. Ulcer: No History Surgical Site Infection Following: None - Disposition Have Diagnosis and Disposition been Completed?: Yes Diagnosis: Sepsis, UTI (urinary tract infection) Disposition: HOME/ ROUTINE Disposition Time: 12:00 Patient Plan: Admission Condition: SERIOUS
[2017-08-22 11:35] LABS: BASO # 0.03 K/mm3 (0.0-2.0); BASO % 0.3 % (0.0-3.0); EOS # 0.1 (0.0-0.7); EOS % 0.6 % (1.5-5.0); GRAN % 89.8 % (50.0-68.0); HEMOGLOBIN 11.5 g/dL (12.0-16.0); LYMPH # 0.3 (1.2-3.4); LYMPH % 3.2 % (22.0-35.0); MEAN CELL VOLUME 79.3 fl (80.0-105.0); MEAN CORPUSCULAR HEMOGLOBIN 23.6 pg (25.0-35.0); MEAN CORPUSCULAR HGB CONC 29.8 g/dl (31.0-37.0); MEAN PLATELET VOLUME 9.6 fl (7.0-11.0); MONO # 0.6 (0.1-0.6); MONO % 6.1 % (1.0-6.0); PLATELET COUNT 264 10^3/uL (120.0-450.0); RBC 4.87 10^6/uL (3.5-6.1); RED CELL DISTRIBUTION WIDTH 17.3 % (11.5-14.5); WHITE BLOOD COUNT 9.4 10^3/ul (4.5-11.0)
[2017-08-22 11:35] LABS: URINE BILIRUBIN NEGATIVE (NEGATIVE); URINE BLOOD LARGE (NEGATIVE); URINE GLUCOSE (UA) NEGATIVE (NEGATIVE); URINE LEUKOCYTE ESTERASE MODERATE Leu/uL (NEGATIVE); URINE PROTEIN NEGATIVE mg/dL (<30 mg/dL); URINE UROBILINOGEN 0.2 E.U./dL (<1 E.U./dL)
[2017-08-22 11:36] LABS: URINE APPEARANCE CLEAR (CLEAR); URINE COLOR YELLOW (YELLOW)
[2017-08-22 11:40] LABS: INR 2.21 (0.93-1.08); PARTIAL THROMBOPLASTIN TIME 32.1 Seconds (25.1-36.5); PROTHROMBIN TIME 25.8 SECONDS (9.4-12.5)
[2017-08-22 11:44] LABS: VENOUS BLOOD GAS BASE EXCESS 0.1 mmol/L (0.0-2.0); VENOUS BLOOD GAS PO2 167 mm/Hg (30-55); VENOUS BLOOD PH 7.45 (7.32-7.43)
[2017-08-22 11:47] LABS: URINE BACTERIA MOD (NEG); URINE EPITHELIAL CELLS 0 - 2 /hpf (0-5); URINE RBC 25 - 30 /hpf (0-2)
[2017-08-22 11:55] LABS: ALB/GLOB RATIO 1.1 (1.1-1.8); ALBUMIN 3.8 g/dL (3.0-4.8); ALT/SGPT 13 U/L (7-56); AST/SGOT 26 U/L (14-36); BLOOD UREA NITROGEN 18 mg/dL (7-21); CALCIUM 10.5 mg/dL (8.4-10.5); GFR AFRICAN-AMERICAN > 60; GFR NON-AFRICAN AMERICAN > 60
[2017-08-22 11:56] LABS: BASOPHIL 2 % (0.0-1.0); EOSINOPHIL 1 % (0.0-3.0); LYMPHOCYTE 6 % (22.0-35.0); MONOCYTE 4 % (1.0-6.0); NEUTROPHIL 87 % (50.0-70.0); PLATELET ESTIMATE NORMAL (NORMAL)
[2017-08-22 12:08] LABS: TROPONIN I < 0.01 ng/mL
--- NOTE | 2017-08-22 12:16 | RAD ---
HISTORY: Sepsis Patient COMPARISON: 06/29/2017 FINDINGS: LUNGS: No active pulmonary disease. PLEURA: No significant pleural effusion identified, no pneumothorax apparent. CARDIOVASCULAR: Cardiomegaly. Ectatic aneurysmal thoracic aorta. OSSEOUS STRUCTURES: No significant abnormalities. VISUALIZED UPPER ABDOMEN: Normal. OTHER FINDINGS: None. IMPRESSION: No active disease. No significant interval change compared to the prior examination(s).
[2017-08-22] MEDS ORDERED: Vitamins A & D Oint UD Foilpak TOP PRN (13:43)
[2017-08-22] MEDS ORDERED: Meropenem IV 1 gm in NS 50 ML IVPB SCH (14:00)
--- NOTE | 2017-08-22 14:15 | CP.PCM.HP ---
<Maninder Orozco - Last Filed: 08/22/17 13:56> History of Present Illness - History of Present Illness History of Present Illness: CC: Fever, chills and hematuria HPI: Mrs. 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 Patient is oriented to person and place only at baseline. Daughter was present at bedside to provide HPI information. She reports that when she went to wake the patient up this morning she noticed that she had chills and was more disoriented than usual, clarified as not following simple commands. She immediately took a rectal temperature that was 102 degrees so she called EMS to bring the patient to the ED. Patient was reported to be at her baseline health status yesterday with no complaints or increased disorientation. Patient denies headache, rhinorrhea, sore throat, chest pain, palpitations, syncope, SOB, cough, wheezing, abdominal pain, N/V/D/C, dysuria, increased urinary frequency, skin changes, or any numbness/tingling/weakness of any extremity. In the ED, patient was found to have a fever, measured rectally at 104.3, lactic acidosis and a UA that showed large blood, positive nitrates, moderate LE , 25-30 RBC's, 10-15 and moderate bacteria. A code sepsis was called and patient was administered a 30ml/kg fluid bolus along with one dose of IV Cefepime. She is noted to have been previously admitted for urosepsis on numerous occasions. Most recently, she was admitted in 06/2017 and was found to have Klebsiella in her urine that was sensitive to Merrem. 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 Kohler Present on Admission - Present on Admission Any Indicators Present on Admission: No Review of Systems - Review of Systems Review of Systems: As per HPI, otherwise negative Past Patient History - Infectious Disease Hx of Infectious Diseases: None - Tetanus Immunizations Tetanus Immunization: Unknown - Past Medical History & Family History Past Medical History?: Yes - Past Social History Smoking Status: Former Smoker - CARDIAC Hx Cardia Arrhythmia: Yes Hx Congestive Heart Failure: Yes Hx Hypertension: Yes Hx Pacemaker: No Hx Peripheral Edema: Yes - PULMONARY Hx Bronchitis: Yes Hx Chronic Obstructive Pulmonary Disease (COPD): Yes Hx Pneumonia: Yes - NEUROLOGICAL Hx Dementia: Yes (confusion memory loss) - HEENT Hx Cataracts: Yes Hx Deafness: Yes (left ear) Hx Macular Degeneration: Yes - RENAL Hx Renal Failure: No - ENDOCRINE/METABOLIC Hx Diabetes Mellitus Type 1: No Hx Diabetes Mellitus Type 2: No Hx Hypothyroidism: No - HEMATOLOGICAL/ONCOLOGICAL Hx Cancer: Yes - INTEGUMENTARY Hx Dermatological Problems: Yes Hx Melanoma: Yes (r upper arm removed) - MUSCULOSKELETAL/RHEUMATOLOGICAL Hx Falls: Yes - GASTROINTESTINAL Hx Gastrointestinal Disorders: Yes Hx Diverticulitis: Yes - GENITOURINARY/GYNECOLOGICAL Hx Genitourinary Disorders: Yes Hx Incontinence: Yes (urine and stool) Hx Urinary Tract Infection: Yes (frequent) - PSYCHIATRIC Hx Anxiety: Yes Hx Depression: Yes Hx Substance Use: No - SURGICAL HISTORY Hx Mastectomy: No - ANESTHESIA Hx Anesthesia: Yes Hx Anesthesia Reactions: No Hx Malignant Hyperthermia: No Meds Allergies/Adverse Reactions: Allergies Allergy/AdvReac Type Severity Reaction Status Date / Time No Known Allergies Allergy Verified 06/29/17 16:42 Physical Exam - Constitutional Appears: No Acute Distress - Head Exam Head Exam: ATRAUMATIC, NORMOCEPHALIC - Eye Exam Eye Exam: EOMI Pupil Exam: NORMAL ACCOMODATION, PERRL - ENT Exam ENT Exam: Mucous Membranes Dry - Neck Exam Neck exam: Positive for: Full Rom. Negative for: Lymphadenopathy, Meningismus, Tenderness - Respiratory Exam Respiratory Exam: Clear to Auscultation Bilateral, NORMAL BREATHING PATTERN. absent: Accessory Muscle Use, Decreased Breath Sounds, Rales, Rhonchi, Wheezes, Respiratory Distress - Cardiovascular Exam Cardiovascular Exam: REGULAR RHYTHM, RRR, +S1, +S2. absent: Bradycardia, Tachycardia, Clicks, Diastolic murmur, Gallop, Irregular Rhythm, JVD, Rubs, +S4 , Systolic Murmur - GI/Abdominal Exam GI & Abdominal Exam: Normal Bowel Sounds, Soft. absent: Distended, Firm, Guarding, Rigid, Tenderness - Extremities Exam Extremities exam: Positive for: normal capillary refill, pedal pulses present. Negative for: calf tenderness, joint swelling, pedal edema, tenderness - Neurological Exam Neurological exam: Alert Additional comments: Oriented to person and place only - Psychiatric Exam Psychiatric exam: Normal Affect, Normal Mood - Skin Skin Exam: Dry, Intact, Warm Results - Vital Signs Recent Vital Signs: Last Vital Signs Temp 100 F H 08/22/17 13:50 Pulse 68 08/22/17 13:50 Resp 20 08/22/17 13:50 BP 90/55 L 08/22/17 13:50 Pulse Ox 96 08/22/17 13:50 - Labs Result Diagrams: 08/22/17 11:23 08/22/17 11:23 Assessment & Plan - Assessment and Plan (Free Text) Assessment: Mrs. 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 In the ED, patient was found to have a fever, measured rectally at 104.3, lactic acidosis and a UA that showed large blood, positive nitrates, moderate LE, 25-30 RBC's, 10-15 and moderate bacteria. A code sepsis was called and patient was administered a 30ml/ kg fluid bolus along with one dose of IV Cefepime. Plan: 1. Sepsis with Suspected UTI Source -UA showed large blood, positive nitrates, moderate LE, 25-30 RBC's, 10-15 and moderate bacteria -Without leukocytosis or tachypnea but febrile to 104.3 (rectal), tachycardic to 99 beats/min, and with lactic acidosis to 2.9 -S/P one dose of Cefepime and sepsis protocol LR fluid bolus -Procalcitonin, blood and urine cultures pending -Merrem 1gm IVPB Q8H -Normal Saline at 75mls/hr -Tylenol 650mg PO Q6H PRN for fever -Remote Telemetry monitoring -ID Consulted, all recommendations appreciated 2. History of Atrial Fibrillation -Continue home doses of Coumadin and Digoxin -INR therapeutic on admission -Continue to monitor with daily INR 3. History of CHF -Echo done in 09/2016 showed an LVEF of 63%, mild concentric LVH, and normal LV function -Continue home dose of Spironolactone 4. History of Dementia -Continue home doses of Seroquel and Aricept -Holding home Klonopin and Tylenol #3 in setting of increased disorientation GI Prophylaxis: Protonix DVT Prophylaxis: Coumadin Diet: Heart Healthy Soft Access: Peripheral Precautions: Fall and Aspiration Patient seen and case discussed with attending, Dr. Sabra Aviles. - Date & Time Date: 08/22/17 Time: 14:18 Decision To Admit - Pt Status Changed To: Hospital Disposition Of: Inpatient Admission - Admit Certification Admit to Inpatient:: After my assessment, the patient will require hospitalization for at least two midnights. This is because of the severity of symptoms shown, intensity of services needed, and/or the medical risk in this patient being treated as an outpatient. - . Bed Request Type: Remote Telemetry <Sabra Aviles - Last Filed: 08/22/17 16:09> Results - Vital Signs Recent Vital Signs: Last Vital Signs Temp 99.3 F 08/22/17 14:35 Pulse 67 08/22/17 14:35 Resp 18 08/22/17 14:35 BP 108/43 L 08/22/17 14:35 Pulse Ox 98 08/22/17 14:35 - Labs Result Diagrams: 08/22/17 11:23 08/22/17 11:23 Labs: Laboratory Results - last 24 hr 08/22/17 14:50 pO2 50 VBG pH 7.42 VBG pCO2 40.0 VBG HCO3 25.9 VBG Total CO2 27.1 VBG O2 Sat (Calc) 91.9 H VBG Base Excess 1.3 VBG Potassium 4.1 Sodium 140.0 Chloride 112.0 H Glucose 141 H Lactate 2.3 H FiO2 21.0 Venous Blood Potassium 4.1 Attending/Attestation - Attestation I have personally seen and examined this patient.: Yes I have fully participated in the care of the patient.: Yes I have reviewed all pertinent clinical information: Yes Notes (Text): I have seen and examined the patient at bedside. 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 Urine culture and procal pending. Merpenem started. Continue coumadin and dig. Will hold aldactone as patient appears hypovolemic. Continue seroquel and aricept. Upon discharge patient will follow up with Dr Alcantar. Dr Sabra Aviles
[2017-08-22 15:07] LABS: VENOUS BLOOD GAS BASE EXCESS 1.3 mmol/L (0.0-2.0); VENOUS BLOOD GAS PO2 50 mm/Hg (30-55); VENOUS BLOOD PH 7.42 (7.32-7.43)
[2017-08-22] MEDS: Meropenem IV 1 gm in NS 50 ML IVPB SCH ×2 (15:50→22:17)
[2017-08-22] MEDS: Sodium Chloride 0.9% 1,000 ML IV SCH (15:51)
--- NOTE | 2017-08-22 20:55 | PCM.SEPTIC ---
Sepsis Progress Note - Reassessment Type Date of Evaluation: 08/22/17 Time of Evaluation: 20:50 Reassessment Type: Non-invasive reassessment - Non Invasive Reassessment Were the most recent vital sign reviewed: Yes Vital Sign (Latest): Temp Pulse Resp BP Pulse Ox 99.3 F 56 L 18 108/43 L 98 08/22/17 14:35 08/22/17 18:00 08/22/17 14:35 08/22/17 14:35 08/22/17 14:35 Cardiovascular: Yes: Regular Rate, Rhythm, Chest Non Tender. No: Edema, JVD, Tachycardia Respiratory: Yes: Normal Breath Sounds. No: Accessory Muscle Use, Rales, Wheezing, Respiratory Distress Capillary Refill: Normal (Less than 2 sec) Pulses: Normal Radial, Normal Dorsalis Pedis, Normal Posterior Tibialis Skin: Normal Color, Warm
--- NOTE | 2017-08-22 22:59 | CARD ---
APPROVED REPORT EKG Measurement Heart [id number] 258P [id number] <Conclusion> Sinus tachycardia with 1st degree AV block Right bundle branch block Left anterior fascicular block Bifascicular block Left ventricular hypertrophy with repolarization abnormality Abnormal ECG
--- NOTE | 2017-08-23 01:01 | CON ---
DATE: 08/22/2017 CHIEF COMPLAINT: Fever, times 1 day duration. HISTORY OF PRESENT ILLNESS: This is an 87-year-old female known to me from previous admission with a history of atrial fibrillation, chronic obstructive lung disease, congestive heart failure, GI bleed, DVT, right hip fracture, kidney stones, dementia, AAA, urinary tract infection, history of multidrug-resistant Klebsiella infection in the past and was admitted because of had a fever of 102 at home. In the emergency room, the patient was found to have a temperature of 104. The patient's daughter is at the bedside, who states that the patient has change in mental status and was poorly responsive, and with weakness, fevers, and chills. No abdominal pain, no chest pain. There is mild shortness of breath. No cough, no hemoptysis, no headache. PAST MEDICAL HISTORY: Significant for atrial fibrillation, GI bleed, chronic obstructive lung disease with history of resistant Klebsiella sepsis, from the urine. Now admitted with fever. PAST SURGICAL HISTORY: Significant for orthopedic surgery. ALLERGIES: THE PATIENT HAS NO KNOWN ALLERGIES. MEDICATIONS: Reviewed. PHYSICAL EXAMINATION: VITAL SIGNS: The patient is in bed with a temperature of 104.3 and heart rate of 99, blood pressure is 117/70, respiratory rate of 20. HEENT: Unremarkable. NECK: Supple. LUNGS: Have decreased breath sounds. HEART: Normal S1, S2. ABDOMEN: Soft, nontender. No organomegaly. No rebound or guarding. LABORATORY DATA: Reveals a white count of 9.4, hemoglobin of 11, platelets of 264. Chemistry revealed a BUN of 18, creatinine of 0.6. Urinalysis is noted with 10 to 15 wbc's, moderate leukocyte esterase and positive nitrates. Serology is noted. Microbiology is pending. Chest x-ray is reported to be negative. ASSESSMENT AND PLAN: This is an 87-year-old female with atrial fibrillation, chronic obstructive lung disease, gastrointestinal bleed, deep vein thrombosis, congestive heart failure, dementia, admitted with a fever, tachycardia, positive urinalysis. The patient has sepsis with urine as the source. We will start the patient on meropenem. Pending blood, urine, and sputum culture. We will make further recommendations. Overall prognosis is poor. Daughter states she is considering a possibility of Port-A-Cath to make easier accessibility for intravenous fluids and medications because of a difficult stick. Case was discussed with Dr. Chatterjee and we will follow closely with you. Meet Barnett MD [facility] # [phone]
[2017-08-23] MEDS: Sodium Chloride 0.9% 1,000 ML IV SCH ×2 (02:43→17:23)
[2017-08-23 07:06] LABS: BASO # 0.05 K/mm3 (0.0-2.0); BASO % 0.6 % (0.0-3.0); EOS % 0.2 % (1.5-5.0); GRAN # 6.78 (1.4-6.5); GRAN % 83.2 % (50.0-68.0); HEMOGLOBIN 10.8 g/dL (12.0-16.0); LYMPH # 0.7 (1.2-3.4); LYMPH % 8.2 % (22.0-35.0); MEAN CELL VOLUME 79.6 fl (80.0-105.0); MEAN CORPUSCULAR HEMOGLOBIN 23.5 pg (25.0-35.0); MEAN CORPUSCULAR HGB CONC 29.5 g/dl (31.0-37.0); MEAN PLATELET VOLUME 10.1 fl (7.0-11.0); MONO # 0.6 (0.1-0.6); MONO % 7.8 % (1.0-6.0); RBC 4.6 10^6/uL (3.5-6.1); RED CELL DISTRIBUTION WIDTH 17.4 % (11.5-14.5); WHITE BLOOD COUNT 8.2 10^3/ul (4.5-11.0)
[2017-08-23 07:13] LABS: INR 1.94 (0.93-1.08); PROTHROMBIN TIME 22.6 SECONDS (9.4-12.5)
[2017-08-23 07:26] LABS: ALB/GLOB RATIO 1.1 (1.1-1.8); ALBUMIN 3.4 g/dL (3.0-4.8); ALT/SGPT 23 U/L (7-56); AST/SGOT 23 U/L (14-36); BLOOD UREA NITROGEN 16 mg/dL (7-21); GFR AFRICAN-AMERICAN > 60; GFR NON-AFRICAN AMERICAN > 60
--- NOTE | 2017-08-23 09:10 | CP.PCM.PN ---
Subjective - Date & Time of Evaluation Date of Evaluation: 08/23/17 Time of Evaluation: 07:30 - Subjective Subjective: Earlene Bradley DO PGY1 - IM Progress Note Patient seen and examined at bedside. No acute events overnight. Patient's mental status at baseline. Denies abdominal pain, fever, chills, nausea, vomiting, diarrhea, constipation, chest pain, shortness of breath. Patient is incontinent of urine at baseline. She does report a cough, which she has chronically. Objective - Vital Signs/Intake and Output Vital Signs (last 24 hours): Temp Pulse Resp BP Pulse Ox 98.6 F 72 20 103/54 L 98 08/23/17 08:20 08/23/17 08:20 08/23/17 08:20 08/23/17 08:20 08/23/17 08:20 Intake and Output: 08/23/17 08/23/17 06:59 18:59 Intake Total 1400 Balance 1400 - Medications Medications: Current Medications Acetaminophen (Tylenol 325mg Tab) 650 mg PO Q6H PRN PRN Reason: Fever >100.4 F Digoxin (Digoxin) 0.125 mg PO DAILY ERINN Donepezil HCl (Aricept) 10 mg PO ACD [facility] Last Admin: 08/22/17 15:50 Dose: 10 mg Meropenem (Merrem Iv 1 Gm Premix) 50 mls @ 100 mls/hr IVPB Q8 ERINN PRN Reason: Protocol Stop: 08/31/17 14:01 Last Admin: 08/22/17 22:17 Dose: 100 mls/hr Sodium Chloride (Sodium Chloride 0.9%) 1,000 mls @ 75 mls/hr IV .[id number] ERINN Last Admin: 08/23/17 02:43 Dose: 75 mls/hr Pantoprazole Sodium (Protonix Ec Tab) 40 mg PO DAILY ERINN Quetiapine Fumarate (Seroquel) 50 mg PO HS ERINN PRN Reason: Protocol Last Admin: 08/22/17 22:14 Dose: 50 mg Vitamin A (Vitamin A & D Oint Ud Foilpak) 1 ea TOP Q2 PRN PRN Reason: Dry mouth Warfarin Sodium (Coumadin) 2 mg PO DAILY ERINN PRN Reason: Protocol - Labs Labs: 08/23/17 06:00 08/23/17 06:00 PT 22.6 SECONDS (9.4-12.5) H 08/23/17 06:00 INR 1.94 (0.93-1.08) H 08/23/17 06:00 APTT 32.1 Seconds (25.1-36.5) 08/22/17 11:23 - Constitutional Appears: Non-toxic, No Acute Distress, Confused (Patient is demented at baseline ) - Head Exam Head Exam: ATRAUMATIC, NORMOCEPHALIC - Eye Exam Eye Exam: EOMI, Normal appearance, PERRL - ENT Exam ENT Exam: Mucous Membranes Moist, Normal Exam - Neck Exam Neck Exam: Normal Inspection - Respiratory Exam Respiratory Exam: Clear to Ausculation Bilateral, NORMAL BREATHING PATTERN - Cardiovascular Exam Cardiovascular Exam: Irregular Rhythm, +S1, +S2. absent: Bradycardia, Tachycardia - GI/Abdominal Exam GI & Abdominal Exam: Soft, Normal Bowel Sounds. absent: Tenderness - Extremities Exam Extremities Exam: absent: Calf Tenderness, Pedal Edema - Back Exam Back Exam: absent: CVA tenderness (L), CVA tenderness (R) - Neurological Exam Neurological Exam: Alert, Awake Additional comments: Oriented to person and place. Patient is demented at baseline. Sleepy, but arousable - Psychiatric Exam Psychiatric exam: Normal Affect, Normal Mood - Skin Skin Exam: Dry, Intact, Normal Color Assessment and Plan - Assessment and Plan (Free Text) Assessment: Mrs. 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 In the ED, patient was found to have a fever, measured rectally at 104.3, lactic acidosis and a UA indicating UTI. Actively being treated for sepsis 2/2 UTI and chronic atrial fibrillation and CHF. Plan: 1. Sepsis with Suspected UTI Source -UA showed large blood, positive nitrates, moderate LE, 25-30 RBC's, 10-15 and moderate bacteria; culture pending -Afebrile, no leukocytosis, vital signs now stable -Procalcitonin, blood and urine cultures pending -Continue Merrem 1gm IVPB Q8H -Normal Saline at 75mls/hr -Tylenol 650mg PO Q6H PRN for fever -Remote Telemetry monitoring -ID Consulted, all recommendations appreciated 2. History of Atrial Fibrillation -Continue home doses of Coumadin and Digoxin -INR therapeutic -Continue to monitor with daily INR 3. History of CHF -Echo done in 09/2016 showed an LVEF of 63%, mild concentric LVH, and normal LV function -Continue home dose of Spironolactone -Daily weight, strict I&O 4. History of Dementia -Continue home doses of Seroquel and Aricept -Holding home Klonopin and Tylenol #3 in setting of increased disorientation GI Prophylaxis: Protonix DVT Prophylaxis: Coumadin Diet: Heart Healthy Soft Access: Peripheral Precautions: Fall and Aspiration Patient seen and case discussed with attending, Dr. Torrez
[2017-08-23] MEDS: Pantoprazole 40 mg EC Tab PO SCH (10:40)
[2017-08-23] MEDS: Digoxin 125 mcg (0.125 mg) Tab PO SCH (10:41)
[2017-08-23] MEDS: Meropenem IV 1 gm in NS 50 ML IVPB SCH ×2 (14:33→21:44)
--- NOTE | 2017-08-23 14:39 | CP.PCM.PN ---
Subjective - Date & Time of Evaluation Date of Evaluation: 08/23/17 Time of Evaluation: 11:15 - Subjective Subjective: No fevers, not in distress, resting comfortably in bed. Objective - Vital Signs/Intake and Output Vital Signs (last 24 hours): Temp Pulse Resp BP Pulse Ox 98.6 F 72 20 103/54 L 98 08/23/17 08:20 08/23/17 08:20 08/23/17 08:20 08/23/17 08:20 08/23/17 08:20 Intake and Output: 08/23/17 08/23/17 06:59 18:59 Intake Total 1400 Balance 1400 - Medications Medications: Current Medications Acetaminophen (Tylenol 325mg Tab) 650 mg PO Q6H PRN PRN Reason: Fever >100.4 F Digoxin (Digoxin) 0.125 mg PO DAILY ERINN Donepezil HCl (Aricept) 10 mg PO ACD [facility] Last Admin: 08/22/17 15:50 Dose: 10 mg Meropenem (Merrem Iv 1 Gm Premix) 50 mls @ 100 mls/hr IVPB Q8 ERINN PRN Reason: Protocol Stop: 08/31/17 14:01 Last Admin: 08/22/17 22:17 Dose: 100 mls/hr Sodium Chloride (Sodium Chloride 0.9%) 1,000 mls @ 75 mls/hr IV .[id number] ERINN Last Admin: 08/23/17 02:43 Dose: 75 mls/hr Pantoprazole Sodium (Protonix Ec Tab) 40 mg PO DAILY ERINN Quetiapine Fumarate (Seroquel) 50 mg PO HS ERINN PRN Reason: Protocol Last Admin: 08/22/17 22:14 Dose: 50 mg Vitamin A (Vitamin A & D Oint Ud Foilpak) 1 ea TOP Q2 PRN PRN Reason: Dry mouth Warfarin Sodium (Coumadin) 2 mg PO DAILY ERINN PRN Reason: Protocol - Labs Labs: 08/23/17 06:00 08/23/17 06:00 PT 22.6 SECONDS (9.4-12.5) H 08/23/17 06:00 INR 1.94 (0.93-1.08) H 08/23/17 06:00 APTT 32.1 Seconds (25.1-36.5) 08/22/17 11:23 - Constitutional Appears: Chronically Ill - Head Exam Head Exam: NORMAL INSPECTION - ENT Exam ENT Exam: Mucous Membranes Moist - Neck Exam Neck Exam: absent: Meningismus - Respiratory Exam Respiratory Exam: Decreased Breath Sounds - Cardiovascular Exam Cardiovascular Exam: +S1, +S2 - GI/Abdominal Exam GI & Abdominal Exam: Soft. absent: Tenderness Assessment and Plan - Assessment and Plan (Free Text) Plan: Assessment sepsis due to UTI gram variable bacilli in blood cx, R/O contamination history of sepsis probably due to urinary tract infection in a patient with renal calculi history of left lower lobe healthcare-associated pneumonia atrial fibrillation COPD CHF dementia abdominal aortic aneurysm history of multiple UTI's history of GI bleed history of DVT history of right hip fracture Plan continue Merrem and will give a dose of IV Vancomycin pending final blood and urine cx results will monitor clinically
[2017-08-24] MEDS: Meropenem IV 1 gm in NS 50 ML IVPB SCH ×4 (05:13→21:26)
[2017-08-24 07:34] LABS: BASO # 0.04 K/mm3 (0.0-2.0); BASO % 0.8 % (0.0-3.0); EOS # 0.1 (0.0-0.7); EOS % 2.5 % (1.5-5.0); GRAN # 3.45 (1.4-6.5); GRAN % 66.9 % (50.0-68.0); HEMOGLOBIN 9.2 g/dL (12.0-16.0); LYMPH # 1.1 (1.2-3.4); LYMPH % 21.7 % (22.0-35.0); MEAN CELL VOLUME 79.8 fl (80.0-105.0); MEAN CORPUSCULAR HEMOGLOBIN 24.1 pg (25.0-35.0); MEAN CORPUSCULAR HGB CONC 30.2 g/dl (31.0-37.0); MEAN PLATELET VOLUME 9.3 fl (7.0-11.0); MONO # 0.4 (0.1-0.6); MONO % 8.1 % (1.0-6.0); RBC 3.82 10^6/uL (3.5-6.1); RED CELL DISTRIBUTION WIDTH 17.4 % (11.5-14.5); WHITE BLOOD COUNT 5.2 10^3/ul (4.5-11.0)
[2017-08-24 07:43] LABS: INR 1.67 (0.93-1.08); PROTHROMBIN TIME 19.4 SECONDS (9.4-12.5)
[2017-08-24 08:06] LABS: ALBUMIN 2.6 g/dL (3.0-4.8); ALT/SGPT 22 U/L (7-56); AST/SGOT 17 U/L (14-36); BLOOD UREA NITROGEN 15 mg/dL (7-21); CALCIUM 9.3 mg/dL (8.4-10.5); GFR AFRICAN-AMERICAN > 60; GFR NON-AFRICAN AMERICAN > 60
[2017-08-24] MEDS: Pantoprazole 40 mg EC Tab PO SCH (09:57)
[2017-08-24] MEDS: Digoxin 125 mcg (0.125 mg) Tab PO SCH (09:58)
[2017-08-24] MEDS: Enoxaparin 80 mg Syringe SC SCH (12:01)
--- NOTE | 2017-08-24 13:40 | CP.PCM.PN ---
Subjective - Date & Time of Evaluation Date of Evaluation: 08/24/17 Time of Evaluation: 07:30 - Subjective Subjective: Earlene Bradley DO PGY1 - IM Progress Note Patient seen and examined at bedside. No acute events overnight. Patient's mental status at baseline. ROS is limited by mental status. Denies abdominal pain, fever, chills, nausea, vomiting, diarrhea, constipation, chest pain, shortness of breath. Objective - Vital Signs/Intake and Output Vital Signs (last 24 hours): Temp Pulse Resp BP Pulse Ox 98.3 F 55 L 19 103/54 L 98 08/24/17 09:09 08/24/17 10:00 08/24/17 09:09 08/24/17 09:09 08/24/17 09:09 Intake and Output: 08/24/17 08/24/17 06:59 18:59 Intake Total 1930 240 Balance 1930 240 - Medications Medications: Current Medications Acetaminophen (Tylenol 325mg Tab) 650 mg PO Q6H PRN PRN Reason: Fever >100.4 F Last Admin: 08/23/17 15:00 Dose: 650 mg Digoxin (Digoxin) 0.125 mg PO DAILY [facility] Last Admin: 08/24/17 09:58 Dose: Not Given Donepezil HCl (Aricept) 10 mg PO ACD [facility] Last Admin: 08/23/17 17:23 Dose: 10 mg Enoxaparin Sodium (Lovenox) 70 mg SC Q12H ERINN PRN Reason: Protocol Last Admin: 08/24/17 12:01 Dose: 70 mg Meropenem (Merrem Iv 1 Gm Premix) 50 mls @ 100 mls/hr IVPB Q8 ERINN PRN Reason: Protocol Stop: 08/31/17 14:01 Last Admin: 08/24/17 13:14 Dose: 100 mls/hr Vancomycin HCl 1.5 gm/ Sodium (Chloride) 250 mls @ 167 mls/hr IVPB Q12H ERINN PRN Reason: Protocol Last Admin: 08/24/17 02:43 Dose: 167 mls/hr Pantoprazole Sodium (Protonix Ec Tab) 40 mg PO DAILY ERINN Last Admin: 08/24/17 09:57 Dose: 40 mg Quetiapine Fumarate (Seroquel) 50 mg PO HS ERINN PRN Reason: Protocol Last Admin: 03/12/18 21:44 Dose: 50 mg Vitamin A (Vitamin A & D Oint Ud Foilpak) 1 ea TOP Q2 PRN PRN Reason: Dry mouth Warfarin Sodium (Coumadin) 2 mg PO DAILY ERINN PRN Reason: Protocol Last Admin: 08/24/17 09:58 Dose: 2 mg - Labs Labs: 08/24/17 07:30 08/24/17 07:30 PT 19.4 SECONDS (9.4-12.5) H 08/24/17 07:30 INR 1.67 (0.93-1.08) H 08/24/17 07:30 APTT 32.1 Seconds (25.1-36.5) 08/22/17 11:23 - Additional Findings Additional findings: - Constitutional Appears: Non-toxic, No Acute Distress, Confused (Patient is demented at baseline ) - Head Exam Head Exam: ATRAUMATIC, NORMOCEPHALIC - Eye Exam Eye Exam: EOMI, Normal appearance, PERRL - ENT Exam ENT Exam: Mucous Membranes Moist, Normal Exam - Neck Exam Neck Exam: Normal Inspection - Respiratory Exam Respiratory Exam: Clear to Ausculation Bilateral, NORMAL BREATHING PATTERN - Cardiovascular Exam Cardiovascular Exam: Irregular Rhythm, +S1, +S2. absent: Bradycardia, Tachycardia - GI/Abdominal Exam GI & Abdominal Exam: Soft, Normal Bowel Sounds. absent: Tenderness - Extremities Exam Extremities Exam: absent: Calf Tenderness, Pedal Edema - Back Exam Back Exam: absent: CVA tenderness (L), CVA tenderness (R) - Neurological Exam Neurological Exam: Alert, Awake Additional comments: Oriented to person and place. Patient is demented at baseline. - Psychiatric Exam Psychiatric exam: Normal Affect, Normal Mood - Skin Skin Exam: Dry, Intact, Normal Color Assessment and Plan - Assessment and Plan (Free Text) Assessment: Mrs. 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 In the ED, patient was found to have a fever, measured rectally at 104.3, lactic acidosis and a UA indicating UTI. Actively being treated for sepsis 2/2 UTI, chronic atrial fibrillation, CHF. Plan: 1. Sepsis with Suspected UTI Source -Afebrile, no leukocytosis, VSS -Procalcitonin 0.32 -Blood cultures pending; Urine cultures preliminary results show gram negative rods and gram positive cocci -Continue Merrem and Vanc per ID -Patient tolerating PO, discontinue IVF -Tylenol 650mg PO Q6H PRN for fever -Discontinue telemetry -ID Consulted, all recommendations appreciated 2. History of Atrial Fibrillation -Continue home doses of Coumadin and Digoxin -INR subtherapeutic today -Administer additional 2mg dose coumadin today, recheck INR with AM labs -Start Lovenox 1mg/kg BID for bridging -Continue to monitor with daily INR 3. History of CHF -Echo done in 09/2016 showed an LVEF of 63%, mild concentric LVH, and normal LV function -Continue home dose of Spironolactone -Daily weight, strict I&O 4. History of Dementia -Continue home doses of Seroquel and Aricept -Holding home Klonopin and Tylenol #3 in setting of increased disorientation GI Prophylaxis: Protonix DVT Prophylaxis: Coumadin Diet: Heart Healthy Soft Access: Peripheral Precautions: Fall and Aspiration Patient seen and case discussed with attending, Dr. Torrez
--- NOTE | 2017-08-24 16:05 | CP.PCM.PN ---
Subjective - Date & Time of Evaluation Date of Evaluation: 08/24/17 Time of Evaluation: 10:50 - Subjective Subjective: Patient is more awake today, no fevers, no abdominal pain, no diarrhea. Objective - Vital Signs/Intake and Output Vital Signs (last 24 hours): Temp Pulse Resp BP Pulse Ox 98.3 F 58 L 19 103/54 L 98 08/24/17 09:09 08/24/17 09:09 08/24/17 09:09 08/24/17 09:09 08/24/17 09:09 Intake and Output: 08/24/17 08/24/17 06:59 18:59 Intake Total 1930 240 Balance 1930 240 - Medications Medications: Current Medications Acetaminophen (Tylenol 325mg Tab) 650 mg PO Q6H PRN PRN Reason: Fever >100.4 F Last Admin: 08/23/17 15:00 Dose: 650 mg Digoxin (Digoxin) 0.125 mg PO DAILY [facility] Last Admin: 08/23/17 10:41 Dose: Not Given Donepezil HCl (Aricept) 10 mg PO ACD [facility] Last Admin: 08/23/17 17:23 Dose: 10 mg Meropenem (Merrem Iv 1 Gm Premix) 50 mls @ 100 mls/hr IVPB Q8 ERINN PRN Reason: Protocol Stop: 08/31/17 14:01 Last Admin: 08/24/17 05:13 Dose: 100 mls/hr Sodium Chloride (Sodium Chloride 0.9%) 1,000 mls @ 75 mls/hr IV .[id number] ERINN Last Admin: 08/23/17 17:23 Dose: 75 mls/hr Vancomycin HCl 1.5 gm/ Sodium (Chloride) 250 mls @ 167 mls/hr IVPB Q12H ERINN PRN Reason: Protocol Last Admin: 08/24/17 02:43 Dose: 167 mls/hr Pantoprazole Sodium (Protonix Ec Tab) 40 mg PO DAILY ERINN Last Admin: 08/23/17 10:40 Dose: 40 mg Quetiapine Fumarate (Seroquel) 50 mg PO HS ERINN PRN Reason: Protocol Last Admin: 08/23/17 21:44 Dose: 50 mg Vitamin A (Vitamin A & D Oint Ud Foilpak) 1 ea TOP Q2 PRN PRN Reason: Dry mouth Warfarin Sodium (Coumadin) 2 mg PO DAILY ERINN PRN Reason: Protocol Last Admin: 08/23/17 10:40 Dose: 2 mg - Labs Labs: 08/24/17 07:30 08/24/17 07:30 PT 19.4 SECONDS (9.4-12.5) H 08/24/17 07:30 INR 1.67 (0.93-1.08) H 08/24/17 07:30 APTT 32.1 Seconds (25.1-36.5) 08/22/17 11:23 - Constitutional Appears: Non-toxic, Chronically Ill - Head Exam Head Exam: NORMAL INSPECTION - Neck Exam Neck Exam: absent: Meningismus - Respiratory Exam Respiratory Exam: Decreased Breath Sounds - Cardiovascular Exam Cardiovascular Exam: +S1, +S2 - GI/Abdominal Exam GI & Abdominal Exam: Soft. absent: Tenderness Assessment and Plan - Assessment and Plan (Free Text) Plan: Assessment sepsis due to UTI with multidrug resistant Klebsiella and E. faecalis gram variable bacilli in blood cx, R/O contamination history of sepsis probably due to urinary tract infection in a patient with renal calculi history of left lower lobe healthcare-associated pneumonia atrial fibrillation COPD CHF dementia abdominal aortic aneurysm history of multiple UTI's history of GI bleed history of DVT history of right hip fracture Plan continue Merrem and IV Vancomycin (day 3) - will need up to 10 days of antibiotics will continue to monitor clinically
[2017-08-25] MEDS: Enoxaparin 80 mg Syringe SC SCH ×3 (00:22→22:53)
[2017-08-25] MEDS: Vancomycin 1gm in NS 250ml 1 GM/250 ML BAG IVPB SCH ×2 (03:55→18:13)
[2017-08-25] MEDS: Meropenem IV 1 gm in NS 50 ML IVPB SCH ×3 (05:00→22:54)
[2017-08-25 06:23] LABS: BASO # 0.02 K/mm3 (0.0-2.0); BASO % 0.4 % (0.0-3.0); EOS # 0.2 (0.0-0.7); EOS % 3.7 % (1.5-5.0); GRAN # 2.89 (1.4-6.5); GRAN % 56.5 % (50.0-68.0); HEMOGLOBIN 9.2 g/dL (12.0-16.0); LYMPH # 1.5 (1.2-3.4); LYMPH % 29.2 % (22.0-35.0); MEAN CELL VOLUME 80.6 fl (80.0-105.0); MEAN CORPUSCULAR HEMOGLOBIN 24.1 pg (25.0-35.0); MEAN CORPUSCULAR HGB CONC 29.9 g/dl (31.0-37.0); MEAN PLATELET VOLUME 10.2 fl (7.0-11.0); MONO # 0.5 (0.1-0.6); MONO % 10.2 % (1.0-6.0); RBC 3.82 10^6/uL (3.5-6.1); RED CELL DISTRIBUTION WIDTH 17.4 % (11.5-14.5); WHITE BLOOD COUNT 5.1 10^3/ul (4.5-11.0)
[2017-08-25 06:40] LABS: INR 1.82 (0.93-1.08); PROTHROMBIN TIME 21.2 SECONDS (9.4-12.5)
[2017-08-25 07:00] LABS: ALB/GLOB RATIO 0.9 (1.1-1.8); ALBUMIN 2.6 g/dL (3.0-4.8); ALT/SGPT 20 U/L (7-56); AST/SGOT 18 U/L (14-36); BLOOD UREA NITROGEN 14 mg/dL (7-21); CALCIUM 9.4 mg/dL (8.4-10.5); GFR AFRICAN-AMERICAN > 60; GFR NON-AFRICAN AMERICAN > 60
--- NOTE | 2017-08-25 11:01 | PQF CHF ---
This form is a permanent part of the medical record Clarification of your documentation is requested to better reflect the severity of illness and intensity of treatment of your patient. Indicators present Dr Aviles, H&P done by Maninder Orozco DO, co-signed by you. We are unable to address query to this name. Admitted w/ hx CHF, w/ EF- 65%. For coding accuracy type & acuity need to be documented as POA [x] Diagnosis of CHF and/or history of CHF [] BNP > 200 [] Imaging Finding of Pulmonary Edema /Pleural Effusions [] Fluid/Volume Overload [] Pitting edema [] Ejection Fraction < 40% (Indicative of Systolic Heart Failure) [x] Ejection Fraction > 40% (Indicative of Diastolic Heart Failure) [] Dyspnea / Orthopenea / Paroxysmal Nocturnal Dyspnea [] Other: Location in the medical record that reflects the above clinical findings: [x] H& P Treatment Provided: [] PHYSICIAN'S RESPONSE Based on your medical judgment of the clinical indicators outlined above, are you treating this patient for a known or suspected: [] Acute CHF [] Systolic [] Diastolic [] Combined [] Chronic CHF [] Systolic [] Diastolic [] Combined [] Acute on Chronic CHF []Systolic [] Diastolic [] Combined [] CHF due hypertension [] Acute systolic []Chronic systolic [] Acute/ chronic systolic [] Other, please indicate: [] [] If Unable to Determine, please check the box, sign and date. Present On Admission (POA) Indicator: [] Present at the time of admission [] Not present at the time of admission [] Clinically Undetermined In responding to this query, please exercise your independent professional judgment. The fact that a question is asked does not imply that any particular answer is desired or expected. Thank you for your clarification on this documentation. If you have any questions please call:[ ][phone] * Thank you, [ ]Lizzette Welch RN [employer] [facility]
[2017-08-25] MEDS: Digoxin 125 mcg (0.125 mg) Tab PO SCH (13:08)
[2017-08-25] MEDS: Pantoprazole 40 mg EC Tab PO SCH (13:09)
[2017-08-25] MEDS ORDERED: Iohexol 350 MG/100 ML VIAL ONE (13:37)
--- NOTE | 2017-08-25 14:10 | CP.PCM.PN ---
<MirnaWoodjaylaniecy - Last Filed: 08/25/17 14:03> Subjective - Date & Time of Evaluation Date of Evaluation: 08/25/17 Time of Evaluation: 07:30 - Subjective Subjective: Earlene Bradley DO PGY1 - IM Progress Note Patient seen and examined at bedside. No acute events overnight. Patient denies any somatic complaints at this time, but ROS limited by mental status. Mental status at baseline. Denies chest pain, abdominal pain, fever, chills, nausea, vomiting, diarrhea, consipation, bloating, fullness. Objective - Vital Signs/Intake and Output Vital Signs (last 24 hours): Temp Pulse Resp BP Pulse Ox 97.5 F L 62 22 102/43 L 98 08/25/17 06:00 08/25/17 06:00 08/25/17 06:00 08/25/17 06:00 08/25/17 06:00 Intake and Output: 08/25/17 08/25/17 06:59 18:59 Intake Total 990 0 Balance 990 0 - Medications Medications: Current Medications Acetaminophen (Tylenol 325mg Tab) 650 mg PO Q6H PRN PRN Reason: Fever >100.4 F Last Admin: 08/23/17 15:00 Dose: 650 mg Digoxin (Digoxin) 0.125 mg PO DAILY [facility] Last Admin: 08/25/17 13:08 Dose: 0.125 mg Donepezil HCl (Aricept) 10 mg PO ACD [facility] Last Admin: 08/24/17 17:43 Dose: 10 mg Enoxaparin Sodium (Lovenox) 70 mg SC Q12H ERINN PRN Reason: Protocol Last Admin: 08/25/17 13:08 Dose: 70 mg Meropenem (Merrem Iv 1 Gm Premix) 50 mls @ 100 mls/hr IVPB Q8 ERINN PRN Reason: Protocol Stop: 08/31/17 14:01 Last Admin: 08/25/17 13:23 Dose: 100 mls/hr Vancomycin HCl (Vancomycin 1gm) 1 gm in 250 mls @ 167 mls/hr IVPB Q12H ERINN PRN Reason: Protocol Last Admin: 08/25/17 03:55 Dose: 167 mls/hr Pantoprazole Sodium (Protonix Ec Tab) 40 mg PO DAILY [facility] Last Admin: 08/25/17 13:09 Dose: 40 mg Quetiapine Fumarate (Seroquel) 50 mg PO HS ERINN PRN Reason: Protocol Last Admin: 08/24/17 21:26 Dose: 50 mg Vitamin A (Vitamin A & D Oint Ud Foilpak) 1 ea TOP Q2 PRN PRN Reason: Dry mouth Warfarin Sodium (Coumadin) 2 mg PO DAILY [facility]INN PRN Reason: Protocol Last Admin: 08/24/17 09:58 Dose: 2 mg - Labs Labs: 08/25/17 06:00 08/25/17 06:00 PT 21.2 SECONDS (9.4-12.5) H 08/25/17 06:00 INR 1.82 (0.93-1.08) H 08/25/17 06:00 APTT 32.1 Seconds (25.1-36.5) 08/22/17 11:23 - Constitutional Appears: Non-toxic, No Acute Distress, Confused - Head Exam Head Exam: ATRAUMATIC, NORMOCEPHALIC - Eye Exam Eye Exam: EOMI, Normal appearance - ENT Exam ENT Exam: Mucous Membranes Moist - Respiratory Exam Respiratory Exam: Clear to Ausculation Bilateral, NORMAL BREATHING PATTERN - Cardiovascular Exam Cardiovascular Exam: RRR, +S1, +S2 - GI/Abdominal Exam GI & Abdominal Exam: Soft, Normal Bowel Sounds. absent: Distended, Firm, Guarding, Rigid, Tenderness - Extremities Exam Extremities Exam: absent: Calf Tenderness, Pedal Edema - Neurological Exam Neurological Exam: Alert, Awake Additional comments: Oriented to person and place - Psychiatric Exam Psychiatric exam: Normal Affect, Normal Mood - Skin Skin Exam: Dry, Intact Assessment and Plan - Assessment and Plan (Free Text) Assessment: Mrs. 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 In the ED, patient was found to have a fever, measured rectally at 104.3, lactic acidosis and a UA indicating UTI. Actively being treated for sepsis 2/2 UTI, chronic atrial fibrillation, CHF. Plan: 1. Sepsis with Suspected UTI Source -Afebrile, no leukocytosis, VSS -Blood cultures show clostridium perfringens in one bottle -Ordered repeat blood cultures -Ordered CT A/P to r/o intraabdominal source -Urine cultures shows MDR kelbsiella and enterococcus faecalis; sensitive to merrem and vanc -Continue Merrem and Vanc per ID -Tylenol 650mg PO Q6H PRN for fever -ID Consulted, all recommendations appreciated 2. History of Atrial Fibrillation -Continue home doses of Coumadin and Digoxin -INR subtherapeutic today -Administer additional 2mg dose coumadin today, recheck INR with AM labs -Continue Lovenox 1mg/kg BID for bridging -Continue to monitor with daily INR 3. History of CHF -Echo done in 09/2016 showed an LVEF of 63%, mild concentric LVH, and normal LV function -Continue home dose of Spironolactone -Daily weight, strict I&O 4. History of Dementia -Continue home doses of Seroquel and Aricept -Holding home Klonopin and Tylenol #3 in setting of increased disorientation GI Prophylaxis: Protonix DVT Prophylaxis: Coumadin Diet: Heart Healthy Soft Access: Peripheral Precautions: Fall and Aspiration Patient seen and case discussed with attending, Dr. Shaffer <Antwan Shaffer - Last Filed: 08/25/17 15:58> Objective - Vital Signs/Intake and Output Vital Signs (last 24 hours): Temp Pulse Resp BP Pulse Ox 97.5 F L 62 22 102/43 L 98 08/25/17 06:00 08/25/17 06:00 08/25/17 06:00 08/25/17 06:00 08/25/17 06:00 Intake and Output: 08/25/17 08/25/17 06:59 18:59 Intake Total 990 480 Balance 990 480 - Medications Medications: Current Medications Acetaminophen (Tylenol 325mg Tab) 650 mg PO Q6H PRN PRN Reason: Fever >100.4 F Last Admin: 08/23/17 15:00 Dose: 650 mg Digoxin (Digoxin) 0.125 mg PO DAILY [facility] Last Admin: 08/25/17 13:08 Dose: 0.125 mg Donepezil HCl (Aricept) 10 mg PO ACD [facility] Last Admin: 08/24/17 17:43 Dose: 10 mg Enoxaparin Sodium (Lovenox) 70 mg SC Q12H ERINN PRN Reason: Protocol Last Admin: 08/25/17 13:08 Dose: 70 mg Meropenem (Merrem Iv 1 Gm Premix) 50 mls @ 100 mls/hr IVPB Q8 ERINN PRN Reason: Protocol Stop: 08/31/17 14:01 Last Admin: 08/25/17 13:23 Dose: 100 mls/hr Vancomycin HCl (Vancomycin 1gm) 1 gm in 250 mls @ 167 mls/hr IVPB Q12H ERINN PRN Reason: Protocol Last Admin: 08/25/17 03:55 Dose: 167 mls/hr Pantoprazole Sodium (Protonix Ec Tab) 40 mg PO DAILY [facility] Last Admin: 08/25/17 13:09 Dose: 40 mg Quetiapine Fumarate (Seroquel) 50 mg PO HS [facility] PRN Reason: Protocol Last Admin: 08/24/17 21:26 Dose: 50 mg Vitamin A (Vitamin A & D Oint Ud Foilpak) 1 ea TOP Q2 PRN PRN Reason: Dry mouth Warfarin Sodium (Coumadin) 2 mg PO DAILY [facility] PRN Reason: Protocol Last Admin: 08/25/17 11:00 Dose: 2 mg - Labs Labs: 08/25/17 06:00 08/25/17 06:00 PT 21.2 SECONDS (9.4-12.5) H 08/25/17 06:00 INR 1.82 (0.93-1.08) H 08/25/17 06:00 APTT 32.1 Seconds (25.1-36.5) 08/22/17 11:23 Attending/Attestation - Attestation I have personally seen and examined this patient.: Yes I have fully participated in the care of the patient.: Yes I have reviewed all pertinent clinical information, including history, physical exam and plan: Yes Notes (Text): 08/25/17 15:48 87 year old female with past medical history of afib on coumadin, COPD, urinary incontinence with recurrent UTI who presented with altered mental status and fever. She is admitted for recurrent UTI. UCx is growing Klebsiella and E faecalis. BCx is growing Clostridium perfinges x 1 bottle. Continue with iv antibiotics as per ID. CT abd/pelvis was done today which is negative for acute findings. Continue with lovenox and coumadin for afib. Patient is also on digoxin. Antwan Shaffer MD Hospitalist.
--- NOTE | 2017-08-25 14:57 | CT ---
PROCEDURE: CT Abdomen and Pelvis with and without intravenous contrast HISTORY: rule out intra-abdominal infection COMPARISON: None. TECHNIQUE: Axial images of the abdomen were obtained in the pre contrast, portal venous phases of enhancement. Coronal and sagittal reformats were generated. Contrast dose: 100 cc of Omni 350 Radiation dose: Total exam DLP = 1819 mGy-cm. This CT exam was performed using one or more of the following dose reduction techniques: Automated exposure control, adjustment of the mA and/or kV according to patient size, and/or use of iterative reconstruction technique. FINDINGS: LOWER THORAX: There is a thoracic aortic aneurysm measuring 5.7 cm in diameter. There is also tortuosity of the lower thoracic and upper abdominal aorta. LIVER: Unremarkable. No gross lesion or ductal dilatation. GALLBLADDER AND BILE DUCTS: Unremarkable. PANCREAS: Unremarkable. No gross lesion or ductal dilatation. SPLEEN: Unremarkable. ADRENALS: Unremarkable. No mass. KIDNEYS AND URETERS: Nonobstructing renal stones VASCULATURE: Unremarkable. No aortic aneurysm. BOWEL: Unremarkable. No obstruction. No gross mural thickening. Fecal impaction APPENDIX: Normal appendix. PERITONEUM: Unremarkable. No free fluid. No free air. LYMPH NODES: Unremarkable. No enlarged lymph nodes. BLADDER: Unremarkable. REPRODUCTIVE: Unremarkable. BONES: No acute fracture. OTHER FINDINGS: None. IMPRESSION: No acute intra-abdominal findings. No evidence of abscess or inflammation
--- NOTE | 2017-08-25 17:19 | CP.PCM.PN ---
Subjective - Date & Time of Evaluation Date of Evaluation: 08/25/17 Time of Evaluation: 10:35 - Subjective Subjective: No fevers, comfortable on a chair, no diarrhea. Objective - Vital Signs/Intake and Output Vital Signs (last 24 hours): Temp Pulse Resp BP Pulse Ox 97.5 F L 62 22 102/43 L 98 08/25/17 06:00 08/25/17 06:00 08/25/17 06:00 08/25/17 06:00 08/25/17 06:00 Intake and Output: 08/25/17 08/25/17 06:59 18:59 Intake Total 990 0 Balance 990 0 - Medications Medications: Current Medications Acetaminophen (Tylenol 325mg Tab) 650 mg PO Q6H PRN PRN Reason: Fever >100.4 F Last Admin: 08/23/17 15:00 Dose: 650 mg Digoxin (Digoxin) 0.125 mg PO DAILY [facility] Last Admin: 08/24/17 09:58 Dose: Not Given Donepezil HCl (Aricept) 10 mg PO ACD [facility] Last Admin: 08/24/17 17:43 Dose: 10 mg Enoxaparin Sodium (Lovenox) 70 mg SC Q12H ERINN PRN Reason: Protocol Last Admin: 08/25/17 00:22 Dose: 70 mg Meropenem (Merrem Iv 1 Gm Premix) 50 mls @ 100 mls/hr IVPB Q8 ERINN PRN Reason: Protocol Stop: 08/31/17 14:01 Last Admin: 08/25/17 05:00 Dose: 100 mls/hr Vancomycin HCl (Vancomycin 1gm) 1 gm in 250 mls @ 167 mls/hr IVPB Q12H ERINN PRN Reason: Protocol Last Admin: 08/25/17 03:55 Dose: 167 mls/hr Pantoprazole Sodium (Protonix Ec Tab) 40 mg PO DAILY [facility] Last Admin: 08/24/17 09:57 Dose: 40 mg Quetiapine Fumarate (Seroquel) 50 mg PO HS ER[facility] PRN Reason: Protocol Last Admin: 08/24/17 21:26 Dose: 50 mg Vitamin A (Vitamin A & D Oint Ud Foilpak) 1 ea TOP Q2 PRN PRN Reason: Dry mouth Warfarin Sodium (Coumadin) 2 mg PO DAILY [facility] PRN Reason: Protocol Last Admin: 08/24/17 09:58 Dose: 2 mg - Labs Labs: 08/25/17 06:00 08/25/17 06:00 PT 21.2 SECONDS (9.4-12.5) H 08/25/17 06:00 INR 1.82 (0.93-1.08) H 08/25/17 06:00 APTT 32.1 Seconds (25.1-36.5) 08/22/17 11:23 - Constitutional Appears: Chronically Ill - Head Exam Head Exam: NORMAL INSPECTION - ENT Exam ENT Exam: Mucous Membranes Moist - Neck Exam Neck Exam: absent: Meningismus - Respiratory Exam Respiratory Exam: Decreased Breath Sounds - Cardiovascular Exam Cardiovascular Exam: +S1, +S2 - GI/Abdominal Exam GI & Abdominal Exam: Soft. absent: Tenderness Assessment and Plan - Assessment and Plan (Free Text) Plan: Assessment sepsis due to UTI with multidrug resistant Klebsiella and E. faecalis, also with C. perfringens bacteremia, source to be determined gram variable bacilli in blood cx, R/O contamination history of sepsis probably due to urinary tract infection in a patient with renal calculi history of left lower lobe healthcare-associated pneumonia atrial fibrillation COPD CHF dementia abdominal aortic aneurysm history of multiple UTI's history of GI bleed history of DVT history of right hip fracture Plan continue Merrem and IV Vancomycin (day 4) - will need up to 10 days of antibiotics, but should repeat blood cx first and get CT A/P will continue to monitor clinically
[2017-08-26] MEDS: Meropenem IV 1 gm in NS 50 ML IVPB SCH ×2 (05:59→16:48)
[2017-08-26] MEDS: Vancomycin 1gm in NS 250ml 1 GM/250 ML BAG IVPB SCH (06:14)
[2017-08-26 06:27] LABS: BASO # 0.03 K/mm3 (0.0-2.0); BASO % 0.6 % (0.0-3.0); EOS # 0.2 (0.0-0.7); EOS % 3.9 % (1.5-5.0); GRAN # 2.87 (1.4-6.5); GRAN % 56.6 % (50.0-68.0); HEMOGLOBIN 9.5 g/dL (12.0-16.0); LYMPH # 1.5 (1.2-3.4); LYMPH % 29.5 % (22.0-35.0); MEAN CELL VOLUME 78.9 fl (80.0-105.0); MEAN CORPUSCULAR HEMOGLOBIN 23.6 pg (25.0-35.0); MEAN CORPUSCULAR HGB CONC 29.9 g/dl (31.0-37.0); MEAN PLATELET VOLUME 9.9 fl (7.0-11.0); MONO # 0.5 (0.1-0.6); MONO % 9.4 % (1.0-6.0); RBC 4.03 10^6/uL (3.5-6.1); RED CELL DISTRIBUTION WIDTH 17.3 % (11.5-14.5); WHITE BLOOD COUNT 5.1 10^3/ul (4.5-11.0)
[2017-08-26 06:49] LABS: INR 1.84 (0.93-1.08); PROTHROMBIN TIME 21.4 SECONDS (9.4-12.5)
[2017-08-26 07:21] LABS: ALB/GLOB RATIO 0.9 (1.1-1.8); ALBUMIN 2.6 g/dL (3.0-4.8); ALT/SGPT 19 U/L (7-56); AST/SGOT 13 U/L (14-36); BLOOD UREA NITROGEN 12 mg/dL (7-21); CALCIUM 9.8 mg/dL (8.4-10.5); GFR AFRICAN-AMERICAN > 60; GFR NON-AFRICAN AMERICAN > 60
[2017-08-26] MEDS ORDERED: Potassium Chloride 40 mEq/30 ml LIQ UD PO ONE (07:56)
[2017-08-26 08:20] VITALS: BP 101/58; PULSE 64; RESP 18; TEMP 97.7; O2SAT 95
[2017-08-26] MEDS: Pantoprazole 40 mg EC Tab PO SCH (10:00)
[2017-08-26] MEDS: Digoxin 125 mcg (0.125 mg) Tab PO SCH (10:00)
[2017-08-26 10:03] VITALS: PULSE 64
[2017-08-26] MEDS: Enoxaparin 80 mg Syringe SC SCH (11:33)
--- NOTE | 2017-08-26 12:34 | CP.PCM.DIS ---
<Earlene Bradley - Last Filed: 08/26/17 12:55> Provider - Provider Date of Admission: 08/22/17 12:44 Attending physician: Antwan Shaffer MD Consults: ID: Johan Time Spent in preparation of Discharge (in minutes): 45 Diagnosis - Discharge Diagnosis (1) Sepsis Status: Acute Priority: High (2) Urinary tract infection Status: Acute Priority: High Hospital Course - Lab Results Lab Results: Micro Results 08/25/17 11:30 Blood-Venous Blood Culture - Preliminary NO GROWTH AFTER 24 HOURS 08/25/17 11:15 Blood-Venous Blood Culture - Preliminary NO GROWTH AFTER 24 HOURS Most Recent Lab Values WBC 5.1 10^3/ul (4.5-11.0) 08/26/17 05:30 RBC 4.03 10^6/uL (3.5-6.1) 08/26/17 05:30 Hgb 9.5 g/dL (12.0-16.0) L 08/26/17 05:30 Hct 31.8 % (36.0-48.0) L 08/26/17 05:30 MCV 78.9 fl (80.0-105.0) L 08/26/17 05:30 MCH 23.6 pg (25.0-35.0) L 08/26/17 05:30 MCHC 29.9 g/dl (31.0-37.0) L 08/26/17 05:30 RDW 17.3 % (11.5-14.5) H 08/26/17 05:30 Plt Count 224 10^3/uL (120.0-450.0) 08/26/17 05:30 MPV 9.9 fl (7.0-11.0) 08/26/17 05:30 Gran % 56.6 % (50.0-68.0) 08/26/17 05:30 Lymph % (Auto) 29.5 % (22.0-35.0) 08/26/17 05:30 [place] % (Auto) 9.4 % (1.0-6.0) H 08/26/17 05:30 Eos % (Auto) 3.9 % (1.5-5.0) 08/26/17 05:30 Baso % (Auto) 0.6 % (0.0-3.0) 08/26/17 05:30 Gran # 2.87 (1.4-6.5) 08/26/17 05:30 Lymph # (Auto) 1.5 (1.2-3.4) 08/26/17 05:30 [place] # (Auto) 0.5 (0.1-0.6) 08/26/17 05:30 Eos # (Auto) 0.2 (0.0-0.7) 08/26/17 05:30 Baso # (Auto) 0.03 K/mm3 (0.0-2.0) 08/26/17 05:30 Neutrophils % (Manual) 87 % (50.0-70.0) H 08/22/17 11:23 Lymphocytes % (Manual) 6 % (22.0-35.0) L 08/22/17 11:23 Monocytes % (Manual) 4 % (1.0-6.0) 08/22/17 11:23 Eosinophils % (Manual) 1 % (0.0-3.0) 08/22/17 11:23 Basophils % (Manual) 2 % (0.0-1.0) H 08/22/17 11:23 Platelet Evaluation Normal (NORMAL) 08/22/17 11:23 PT 21.4 SECONDS (9.4-12.5) H 08/26/17 05:30 INR 1.84 (0.93-1.08) H 08/26/17 05:30 APTT 32.1 Seconds (25.1-36.5) 08/22/17 11:23 pO2 50 mm/Hg (30-55) 08/22/17 14:50 VBG pH 7.42 (7.32-7.43) 08/22/17 14:50 VBG pCO2 40.0 (40-60) 08/22/17 14:50 VBG HCO3 25.9 mmol/l (21-28) 08/22/17 14:50 VBG Total CO2 27.1 mmol.L (22-28) 08/22/17 14:50 VBG O2 Sat (Calc) 91.9 % (40-65) H 08/22/17 14:50 VBG Base Excess 1.3 mmol/L (0.0-2.0) 08/22/17 14:50 VBG Potassium 4.1 mmol/L (3.6-5.2) 08/22/17 14:50 Sodium 140.0 mmol/L (132-148) 08/22/17 14:50 Chloride 112.0 mmol/L (98-107) H 08/22/17 14:50 Glucose 141 mg/dl (65-105) H 08/22/17 14:50 Lactate 2.3 mmol/L (0.7-2.1) H 08/22/17 14:50 FiO2 21.0 % 08/22/17 14:50 Sodium 141 mmol/L (132-148) 08/26/17 05:30 Potassium 3.5 mmol/L (3.6-5.0) L 08/26/17 05:30 Chloride 107 mmol/L (98-107) 08/26/17 05:30 Carbon Dioxide 30 mmol/L (21-33) 08/26/17 05:30 Anion Gap 7 (10-20) L 08/26/17 05:30 BUN 12 mg/dL (7-21) 08/26/17 05:30 Creatinine 0.6 mg/dl (0.7-1.2) L 08/26/17 05:30 Est GFR ( Amer) > 60 08/26/17 05:30 Est GFR (Non-Af Amer) > 60 08/26/17 05:30 POC Glucose (mg/dL) 78 mg/dL (65-110) 08/22/17 23:45 Random Glucose 110 mg/dL (70-110) 08/26/17 05:30 Lactic Acid 1.3 mmol/L (0.7-2.1) 08/23/17 12:19 Calcium 9.8 mg/dL (8.4-10.5) 08/26/17 05:30 Phosphorus 2.6 mg/dL (2.5-4.5) 08/22/17 11:23 Magnesium 1.8 mg/dL (1.7-2.2) 08/22/17 11:23 Total Bilirubin 0.2 mg/dL (0.2-1.3) 08/26/17 05:30 AST 13 U/L (14-36) L D 08/26/17 05:30 ALT 19 U/L (7-56) 08/26/17 05:30 Alkaline Phosphatase 66 U/L (38-126) 08/26/17 05:30 Lactate Dehydrogenase 477 U/L (333-699) 08/22/17 11:23 Total Creatine Kinase 25 U/L (35-230) L 08/22/17 11:23 Troponin I < 0.01 ng/mL 08/22/17 11:23 Total Protein 5.5 g/dL (5.8-8.3) L 08/26/17 05:30 Albumin 2.6 g/dL (3.0-4.8) L 08/26/17 05:30 Globulin 2.9 gm/dL 08/26/17 05:30 Albumin/Globulin Ratio 0.9 (1.1-1.8) L 08/26/17 05:30 Procalcitonin 0.32 NG/ML (0.19-0.49) 08/22/17 13:50 Venous Blood Potassium 4.1 mmol/L (3.6-5.2) 08/22/17 14:50 Urine Color Yellow (YELLOW) 08/22/17 11:20 Urine Appearance Clear (CLEAR) 08/22/17 11:20 Urine pH 6.0 (4.7-8.0) 08/22/17 11:20 Ur Specific [place] 1.020 (1.005-1.035) 08/22/17 11:20 Urine Protein Negative mg/dL (<30 mg/dL) 08/22/17 11:20 Urine Glucose (UA) Negative mg/dL (NEGATIVE) 08/22/17 11:20 Urine Ketones Negative mg/dL (NEGATIVE) 08/22/17 11:20 Urine Blood Large (NEGATIVE) H 08/22/17 11:20 Urine Nitrate Positive (NEGATIVE) H 08/22/17 11:20 Urine Bilirubin Negative (NEGATIVE) 08/22/17 11:20 Urine Urobilinogen 0.2 E.U./dL (<1 E.U./dL) 08/22/17 11:20 Ur Leukocyte Esterase Moderate Samir/uL (NEGATIVE) H 08/22/17 11:20 Urine RBC 25 - 30 /hpf (0-2) 08/22/17 11:20 Urine WBC 10 - 15 /hpf (0-6) 08/22/17 11:20 Ur Epithelial Cells 0 - 2 /hpf (0-5) 08/22/17 11:20 Urine Bacteria Mod (NEG) 08/22/17 11:20 Digoxin 0.7 ng/mL (0.8-2.0) L 08/22/17 11:23 Influenza Typ A,B (EIA) Negative for flu a/b (NEGATIVE) 08/22/17 11:40 - Hospital Course Hospital Course: Ms. 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 In the ED patient was altered from her baseline per her daughter, was found to have a fever, and measured rectally at 104.3, lactic acidosis. UA was consistent with UTI. Code sepsis was called and patient received 30ml/kg fluid bolus along with one dose of IV cefepime. Patient was continued on treatment with IV merrem and vancomycin pending culture results. Urine culture came back positive for MDR Klebsiella, and enterococcus. Blood cultures were initially negative, but then 1 of 2 blood cultures came back positive for Clostridium perfingens. Repeat blood cultures were ordered and CT of abdomen pelvis ordered to rule out intra-abdominal infection, which showed no evidence of abscess or inflammation. Mental status improved. Repeat blood cultures negative after 24 hours. Patient has been afebrile for 3 days. Today patient mental status is at baseline. Patient denies fever/chills, nausea/ vomiting, chest pain, shortness of breath, diarrhea/constipation. She was given scripts for all her medications. She will be sent home on a 10 day course of IV antibiotics. Patient counseled on importance of completing antibiotic course and follow up. All questions were answered to satisfaction and she was discharged home. Discharge Exam - Head Exam Head Exam: NORMAL INSPECTION - Eye Exam Eye Exam: EOMI, Normal appearance, PERRL - ENT Exam ENT Exam: Mucous Membranes Moist - Neck Exam Neck exam: Normal Inspection - Respiratory Exam Respiratory Exam: Clear to PA & Lateral, NORMAL BREATHING PATTERN - Cardiovascular Exam Cardiovascular Exam: RRR, +S1, +S2 - GI/Abdominal Exam GI & Abdominal Exam: Normal Bowel Sounds, Soft. absent: Tenderness - Extremities Exam Extremities exam: full ROM, normal capillary refill, normal inspection - Neurological Exam Neurological exam: Alert, CN II-XII Intact Additional comments: Oriented to person, but not to place or time. Mental status at baseline - Psychiatric Exam Psychiatric exam: Normal Affect, Normal Mood - Skin Skin Exam: Dry, Intact Discharge Plan - Discharge Medications Prescriptions: RX: Ertapenem 1gm in NS 50ml [Invanz] 0 gm IVPB DAILY #10 bag RX: Vancomycin 1gm in NS 250ml [Vancomycin 1gm] 1 gm IVPB Q12 #20 bag - Follow Up Plan Condition: SERIOUS Disposition: HOME/ ROUTINE Additional Instructions: Continue to take all medications as previously prescribed Continue IV antibiotics for 10 days; Ertapenem 1gm daily for 10 days; Vancomycin 1gm Q12 for 10 days Follow up with your primary care doctor with one week For any new or worsening concerns, contact your PCP immediately or return to the ER <Antwan Shaffer - Last Filed: 08/26/17 13:00> Provider - Provider Date of Admission: 08/22/17 12:44 Attending physician: Antwan Shaffer MD Hospital Course - Lab Results Lab Results: Micro Results 08/25/17 11:30 Blood-Venous Blood Culture - Preliminary NO GROWTH AFTER 24 HOURS 08/25/17 11:15 Blood-Venous Blood Culture - Preliminary NO GROWTH AFTER 24 HOURS Most Recent Lab Values WBC 5.1 10^3/ul (4.5-11.0) 08/26/17 05:30 RBC 4.03 10^6/uL (3.5-6.1) 08/26/17 05:30 Hgb 9.5 g/dL (12.0-16.0) L 08/26/17 05:30 Hct 31.8 % (36.0-48.0) L 08/26/17 05:30 MCV 78.9 fl (80.0-105.0) L 08/26/17 05:30 MCH 23.6 pg (25.0-35.0) L 08/26/17 05:30 MCHC 29.9 g/dl (31.0-37.0) L 08/26/17 05:30 RDW 17.3 % (11.5-14.5) H 08/26/17 05:30 Plt Count 224 10^3/uL (120.0-450.0) 08/26/17 05:30 MPV 9.9 fl (7.0-11.0) 08/26/17 05:30 Gran % 56.6 % (50.0-68.0) 08/26/17 05:30 Lymph % (Auto) 29.5 % (22.0-35.0) 08/26/17 05:30 [place] % (Auto) 9.4 % (1.0-6.0) H 08/26/17 05:30 Eos % (Auto) 3.9 % (1.5-5.0) 08/26/17 05:30 Baso % (Auto) 0.6 % (0.0-3.0) 08/26/17 05:30 Gran # 2.87 (1.4-6.5) 08/26/17 05:30 Lymph # (Auto) 1.5 (1.2-3.4) 08/26/17 05:30 [place] # (Auto) 0.5 (0.1-0.6) 08/26/17 05:30 Eos # (Auto) 0.2 (0.0-0.7) 08/26/17 05:30 Baso # (Auto) 0.03 K/mm3 (0.0-2.0) 08/26/17 05:30 Neutrophils % (Manual) 87 % (50.0-70.0) H 08/22/17 11:23 Lymphocytes % (Manual) 6 % (22.0-35.0) L 08/22/17 11:23 Monocytes % (Manual) 4 % (1.0-6.0) 08/22/17 11:23 Eosinophils % (Manual) 1 % (0.0-3.0) 08/22/17 11:23 Basophils % (Manual) 2 % (0.0-1.0) H 08/22/17 11:23 Platelet Evaluation Normal (NORMAL) 08/22/17 11:23 PT 21.4 SECONDS (9.4-12.5) H 08/26/17 05:30 INR 1.84 (0.93-1.08) H 08/26/17 05:30 APTT 32.1 Seconds (25.1-36.5) 08/22/17 11:23 pO2 50 mm/Hg (30-55) 08/22/17 14:50 VBG pH 7.42 (7.32-7.43) 08/22/17 14:50 VBG pCO2 40.0 (40-60) 08/22/17 14:50 VBG HCO3 25.9 mmol/l (21-28) 08/22/17 14:50 VBG Total CO2 27.1 mmol.L (22-28) 08/22/17 14:50 VBG O2 Sat (Calc) 91.9 % (40-65) H 08/22/17 14:50 VBG Base Excess 1.3 mmol/L (0.0-2.0) 08/22/17 14:50 VBG Potassium 4.1 mmol/L (3.6-5.2) 08/22/17 14:50 Sodium 140.0 mmol/L (132-148) 08/22/17 14:50 Chloride 112.0 mmol/L (98-107) H 08/22/17 14:50 Glucose 141 mg/dl (65-105) H 08/22/17 14:50 Lactate 2.3 mmol/L (0.7-2.1) H 08/22/17 14:50 FiO2 21.0 % 08/22/17 14:50 Sodium 141 mmol/L (132-148) 08/26/17 05:30 Potassium 3.5 mmol/L (3.6-5.0) L 08/26/17 05:30 Chloride 107 mmol/L (98-107) 08/26/17 05:30 Carbon Dioxide 30 mmol/L (21-33) 08/26/17 05:30 Anion Gap 7 (10-20) L 08/26/17 05:30 BUN 12 mg/dL (7-21) 08/26/17 05:30 Creatinine 0.6 mg/dl (0.7-1.2) L 08/26/17 05:30 Est GFR ( Amer) > 60 08/26/17 05:30 Est GFR (Non-Af Amer) > 60 08/26/17 05:30 POC Glucose (mg/dL) 78 mg/dL (65-110) 08/22/17 23:45 Random Glucose 110 mg/dL (70-110) 08/26/17 05:30 Lactic Acid 1.3 mmol/L (0.7-2.1) 08/23/17 12:19 Calcium 9.8 mg/dL (8.4-10.5) 08/26/17 05:30 Phosphorus 2.6 mg/dL (2.5-4.5) 08/22/17 11:23 Magnesium 1.8 mg/dL (1.7-2.2) 08/22/17 11:23 Total Bilirubin 0.2 mg/dL (0.2-1.3) 08/26/17 05:30 AST 13 U/L (14-36) L D 08/26/17 05:30 ALT 19 U/L (7-56) 08/26/17 05:30 Alkaline Phosphatase 66 U/L (38-126) 08/26/17 05:30 Lactate Dehydrogenase 477 U/L (333-699) 08/22/17 11:23 Total Creatine Kinase 25 U/L (35-230) L 08/22/17 11:23 Troponin I < 0.01 ng/mL 08/22/17 11:23 Total Protein 5.5 g/dL (5.8-8.3) L 08/26/17 05:30 Albumin 2.6 g/dL (3.0-4.8) L 08/26/17 05:30 Globulin 2.9 gm/dL 08/26/17 05:30 Albumin/Globulin Ratio 0.9 (1.1-1.8) L 08/26/17 05:30 Procalcitonin 0.32 NG/ML (0.19-0.49) 08/22/17 13:50 Venous Blood Potassium 4.1 mmol/L (3.6-5.2) 08/22/17 14:50 Urine Color Yellow (YELLOW) 08/22/17 11:20 Urine Appearance Clear (CLEAR) 08/22/17 11:20 Urine pH 6.0 (4.7-8.0) 08/22/17 11:20 Ur Specific [place] 1.020 (1.005-1.035) 08/22/17 11:20 Urine Protein Negative mg/dL (<30 mg/dL) 08/22/17 11:20 Urine Glucose (UA) Negative mg/dL (NEGATIVE) 08/22/17 11:20 Urine Ketones Negative mg/dL (NEGATIVE) 08/22/17 11:20 Urine Blood Large (NEGATIVE) H 08/22/17 11:20 Urine Nitrate Positive (NEGATIVE) H 08/22/17 11:20 Urine Bilirubin Negative (NEGATIVE) 08/22/17 11:20 Urine Urobilinogen 0.2 E.U./dL (<1 E.U./dL) 08/22/17 11:20 Ur Leukocyte Esterase Moderate Samir/uL (NEGATIVE) H 08/22/17 11:20 Urine RBC 25 - 30 /hpf (0-2) 08/22/17 11:20 Urine WBC 10 - 15 /hpf (0-6) 08/22/17 11:20 Ur Epithelial Cells 0 - 2 /hpf (0-5) 08/22/17 11:20 Urine Bacteria Mod (NEG) 08/22/17 11:20 Digoxin 0.7 ng/mL (0.8-2.0) L 08/22/17 11:23 Influenza Typ A,B (EIA) Negative for flu a/b (NEGATIVE) 08/22/17 11:40 Attending/Attestation - Attestation I have personally seen and examined this patient.: Yes I have fully participated in the care of the patient.: Yes I have reviewed all pertinent clinical information, including history, physical exam and plan: Yes Notes (Text): 08/26/17 12:58 87 year old female with past medical history of afib on coumadin, COPD, urinary incontinence with recurrent UTI who presented with altered mental status and fever. She was admitted for recurrent UTI and started on iv antibiotics. UCx grew Klebsiella and E faecalis. BCx also grew Clostridium perfinges x 1 bottle. However repeat BCx is negative to date. CT abd/pelvis was done which was negative for acute findings. Patient's mental status improved to baseline. She is afebrile for about 36 hrs. Repeat blood cultures were negative to date. She is cleared for discharge on iv antibiotics to complete 10 days per ID. Patient is discharged home on iv antibiotics x 10 days. Follow up with pmd. Antwan Shaffer MD Hospitalist.
--- NOTE | 2017-08-26 16:16 | CP.PCM.PN ---
Subjective - Date & Time of Evaluation Date of Evaluation: 08/26/17 Time of Evaluation: 10:30 - Subjective Subjective: Comfortable, no abdominal pain, no vomiting, no diarrhea. No fevers. Objective - Vital Signs/Intake and Output Vital Signs (last 24 hours): Temp Pulse Resp BP Pulse Ox 97.7 F 64 18 101/58 L 95 08/26/17 08:19 08/26/17 08:19 08/26/17 08:19 08/26/17 08:19 08/26/17 08:19 Intake and Output: 08/26/17 08/26/17 06:59 18:59 Intake Total 600 Balance 600 - Medications Medications: Current Medications Acetaminophen (Tylenol 325mg Tab) 650 mg PO Q6H PRN PRN Reason: Fever >100.4 F Last Admin: 08/23/17 15:00 Dose: 650 mg Digoxin (Digoxin) 0.125 mg PO DAILY [facility] Last Admin: 08/26/17 10:00 Dose: 0.125 mg Donepezil HCl (Aricept) 10 mg PO ACD [facility] Last Admin: 08/25/17 18:09 Dose: 10 mg Enoxaparin Sodium (Lovenox) 70 mg SC Q12H ERINN PRN Reason: Protocol Last Admin: 08/25/17 22:53 Dose: 70 mg Meropenem (Merrem Iv 1 Gm Premix) 50 mls @ 100 mls/hr IVPB Q8 ERINN PRN Reason: Protocol Stop: 08/31/17 14:01 Last Admin: 08/26/17 05:59 Dose: 100 mls/hr Vancomycin HCl (Vancomycin 1gm) 1 gm in 250 mls @ 167 mls/hr IVPB Q12H ERINN PRN Reason: Protocol Last Admin: 08/26/17 06:14 Dose: 167 mls/hr Pantoprazole Sodium (Protonix Ec Tab) 40 mg PO DAILY [facility] Last Admin: 08/26/17 10:00 Dose: 40 mg Quetiapine Fumarate (Seroquel) 50 mg PO HS ERINN PRN Reason: Protocol Last Admin: 08/25/17 22:52 Dose: 50 mg Vitamin A (Vitamin A & D Oint Ud Foilpak) 1 ea TOP Q2 PRN PRN Reason: Dry mouth Warfarin Sodium (Coumadin) 4 mg PO 1800 ERINN PRN Reason: Protocol - Labs Labs: 08/26/17 05:30 03/15/18 05:30 PT 21.4 SECONDS (9.4-12.5) H 08/26/17 05:30 INR 1.84 (0.93-1.08) H 08/26/17 05:30 APTT 32.1 Seconds (25.1-36.5) 08/22/17 11:23 - Constitutional Appears: Non-toxic, Chronically Ill - Head Exam Head Exam: NORMAL INSPECTION - ENT Exam ENT Exam: Mucous Membranes Moist - Neck Exam Neck Exam: absent: Meningismus - Respiratory Exam Respiratory Exam: Decreased Breath Sounds - Cardiovascular Exam Cardiovascular Exam: +S1, +S2 - GI/Abdominal Exam GI & Abdominal Exam: Soft. absent: Tenderness Assessment and Plan - Assessment and Plan (Free Text) Plan: Assessment sepsis due to UTI with multidrug resistant Klebsiella and E. faecalis, also with C. perfringens bacteremia, R/O intra-abdominal infection gram variable bacilli in blood cx, R/O contamination history of sepsis probably due to urinary tract infection in a patient with renal calculi history of left lower lobe healthcare-associated pneumonia atrial fibrillation COPD CHF dementia abdominal aortic aneurysm history of multiple UTI's history of GI bleed history of DVT history of right hip fracture Plan continue Merrem and IV Vancomycin (day 5) - will need up to 10 days of antibiotics; follow up repeat blood cx (negative so far); CT A/P did not show intra-abdominal abscess will continue to monitor clinically
== END 2017-08-26 17:26 | disposition home or self-care (01) | DRG 872 ==
LOC: ED 10:42 → ERH 12:44 → 3RNO 14:08
PROVIDERS: ADMIT Internal Medicine; ATTEND Internal Medicine
PROC: 02HV33Z Insertion of Infusion Device into Superior Vena Cava, Percutaneous Approach (ICD-10-PCS; principal; 2017-08-25)
DX: A41.89 Other specified sepsis (principal); E87.2 Acidosis; I48.2 Chronic atrial fibrillation; I11.0 Hypertensive heart disease with heart failure; I50.9 Heart failure, unspecified; K92.2 Gastrointestinal hemorrhage, unspecified; N39.0 Urinary tract infection, site not specified; F03.90 Unspecified dementia, unspecified severity, without behavioral disturbance, psychotic disturbance, mood disturbance, and anxiety; H35.30 Unspecified macular degeneration; H91.90 Unspecified hearing loss, unspecified ear; I71.4 Abdominal aortic aneurysm, without rupture; J44.9 Chronic obstructive pulmonary disease, unspecified; R32 Unspecified urinary incontinence; Z16.24 Resistance to multiple antibiotics; Z79.01 Long term (current) use of anticoagulants; Z85.820 Personal history of malignant melanoma of skin; Z86.718 Personal history of other venous thrombosis and embolism; Z87.01 Personal history of pneumonia (recurrent); Z87.440 Personal history of urinary (tract) infections; Z87.442 Personal history of urinary calculi; Z87.891 Personal history of nicotine dependence; Z87.81 Personal history of (healed) traumatic fracture; B96.7 Clostridium perfringens [C. perfringens] as the cause of diseases classified elsewhere; B96.1 Klebsiella pneumoniae [K. pneumoniae] as the cause of diseases classified elsewhere; B95.2 Enterococcus as the cause of diseases classified elsewhere